=== PATIENT | male | born 1950 | race African-American/Black ===

== ENCOUNTER 2024-01-28 13:09 | Inpatient (IN) | payer MEDICARE, OTHER, SELFPAY ==
[2024-01-28] VITALS (7 sets, daily range): BP systolic 133–148; BP diastolic 72–99; PULSE 64–78; RESP 16–24; TEMP 36.2–36.3; O2SAT 95–100; BMI 23.1
--- NOTE | ~2024-01-28 | US_ITS ---
EXAMINATION: US ABDOMEN LIMITED CLINICAL INFORMATION: Abdominal pain, elevated LFTs.. COMPARISON: None available. TECHNIQUE: Real-time imaging of the right upper quadrant abdominal viscera. FINDINGS: PANCREAS: Normal. LIVER: The liver is normal in size. The liver contour is normal. Parenchymal echogenicity is normal. No focal hepatic lesion. There is no intrahepatic biliary duct dilatation seen. Small amount of ascites. GALLBLADDER: The gallbladder is physiologically distended. There is echogenic bile. No shadowing gallstones, wall thickening or pericholecystic fluid. COMMON BILE DUCT: Normal in caliber measuring 0.2 cm in diameter. RIGHT KIDNEY: Normal. No hydronephrosis. No renal calculi or focal parenchymal lesions. The kidney measures 9.8 cm in maximum dimension. FREE FLUID: None. US/US abdomen limited IMPRESSION: 1. Echogenic bile in the gallbladder.. No shadowing gallstones. No sonographic findings suggest acute cholecystitis. 2. Small amount of ascites.
--- NOTE | ~2024-01-28 | MR_ITS ---
EXAMINATION: MR ABDOMEN WITHOUT CONTRAST CLINICAL INFORMATION: Elevated LFTs. Abdominal pain. COMPARISON: 01/28/2024 TECHNIQUE: MR abdomen is performed without gadolinium contrast. Heavily T2 weighted MRCP sequences were also obtained. Evaluation is limited by the lack of intravenous contrast. FINDINGS: LUNG BASES: Small right pleural effusion. Cardiac enlargement. LIVER, GALLBLADDER, AND BILIARY TREE: Nodular surface contour of the liver. No biliary ductal dilatation is present. MRCP images are of limited diagnostic value. Layering sludge in the gallbladder. Small and ascites. PANCREAS: No ductal dilatation. SPLEEN: Not enlarged. ADRENAL GLANDS: No adrenal mass. KIDNEYS AND URETERS: The kidneys are symmetric in size. No hydronephrosis. GASTROINTESTINAL TRACT: No bowel obstruction. LYMPH NODES: No bulky lymphadenopathy. VASCULAR: Normal caliber abdominal aorta. ABDOMINAL WALL: Diffuse subcutaneous edema. MR/MR MRCP IMPRESSION: No biliary ductal dilatation is present. MRCP images are of limited diagnostic value. Nodular surface contour of the liver. This may represent chronic liver disease. Small ascites. Small right pleural effusion.
--- NOTE | ~2024-01-28 | XR_ITS ---
EXAMINATION: XR CHEST CLINICAL INFORMATION: Volume overload. COMPARISON: None available. TECHNIQUE: Frontal view of the chest was obtained. FINDINGS: Enlarged cardiomediastinal silhouette with diffuse interstitial thickening and subtle peripheral Gertrude B-lines. No dense consolidation, pleural effusion or pneumothorax. No acute osseous findings. Visualized upper abdomen is within normal limits. XR/XR chest 1V IMPRESSION: Enlarged cardiomediastinal silhouette with interstitial thickening and Gertrude B-lines most suggestive of pulmonary edema.
--- NOTE | ~2024-01-28 | CT_ITS ---
STUDY: Abdominal and pelvic CTA INDICATION: GI bleed COMPARISON: None TECHNIQUE: Continuous helical imaging obtained before and following administration of 80 mL Omnipaque 350. Reconstructed images performed in the coronal and sagittal planes. Maximum intensity projection images generated. FINDINGS: HANDLE BENDER: Nonobstructive bowel pattern. CTA: Atherosclerotic calcifications nonaneurysmal aorta and branch vessels. Celiac, superior and inferior mesenteric arteries are patent. Bilateral common, external and internal iliac arteries are patent. Bilateral common femoral, superficial femoral and profunda femoris arteries are patent. No extravasated intraluminal gastrointestinal contrast identified suggest active GI bleed at this time. Lower thorax: Nonenlarged heart. Supradiaphragmatic inferior vena cava is dilated. Bibasilar scarring/atelectasis. Hepatobiliary: Heterogeneous prominent low density liver. Gallbladder sludge versus vicarious contrast excretion into the gallbladder from previous contrast administration. Spleen, pancreas, adrenal glands and kidneys within normal limits. Gastrointestinal: Stomach is decompressed likely accounting for thick santiago. Nonobstructive bowel pattern. Right hemicolonic anastomotic suture line. Mild fecal retention. Peritoneum: Mild ascites. Urinary bladder is under distended and diffusely thick-walled. Pelvic organs: Unremarkable. Lymph nodes: No pathologic lymphadenopathy. Bones and soft tissues: Anasarca. L3-L4 disc space narrowing with vacuum disc. CT/CT gi bleed abd pel wo/w IVcon IMPRESSION: No CT evidence of active GI bleed. Cardiomegaly. Anasarca. Enlarged heterogeneous low density liver with ascites. Thick-walled urinary bladder, correlate with urinalysis.
--- NOTE | 2024-01-28 13:11 | ED_ITS ---
HPI - GI Bleed General Chief complaint: GI Bleed Stated complaint: RECTAL BLEEDING,+BLOOD THINNERS PER EMS Time Seen by Provider: 01/28/24 13:11 Source: patient and EMS Mode of arrival: EMS Limitations: no limitations History of Present Illness HPI Narrative: This is a 73-year-old man with a past medical history of atrial fibrillation/flutter (on Eliquis), CHF, insulin-dependent diabetes mellitus who presents by EMS for evaluation for red blood per rectum. He states that patient has had a ?sour stomach? for a few days. EMS reports that patient started having red blood per rectum on the day of presentation. EMS reports stable vital signs EN route. EMS reports the patient does take a blood thinning medication. The patient states that he has had generalized abdominal discomfort with loose for the last 3 days. He states noting red blood in the toilet bowl after stool. He states no melena. He states having a previous history of rectal bleeding in the setting of cancer. He says that he had his cancer removed with abdominal surgery. He states no syncope. He states no chest pain or dyspnea. Related Data Allergies Allergy/AdvReac Type Severity Reaction Status Date / Time aspirin Allergy Unknown Verified 01/28/24 14:16 diphenhydramine Allergy Unknown Verified 01/28/24 14:16 [From Benadryl] morphine Allergy Unknown Verified 01/28/24 14:16 Review of Systems 2 Review of Systems: ROS as per HPI [facility] Past Medical History Medical History (Updated 01/28/24 @ 19:55 by Jf Nelson MD) CKD (chronic kidney disease) Type 2 diabetes mellitus Hyperlipidemia Atrial flutter HFrEF (heart failure with reduced ejection fraction) Essential (primary) hypertension Social History Social History Smoked in Last 30 Days: No Use of substances other than those prescribed or required for medical reasons: No Advance Directives: No Advance Directives Information Provided: Yes Do you have a plan to hurt others: No Plan Physical Exam 2 Vital Signs: Vital Signs: Last Vital Signs Temp 97.4 F 01/28/24 14:00 Pulse 66 01/28/24 17:51 Resp 24 H 01/28/24 17:51 BP 138/92 H 01/28/24 17:53 Pulse Ox 97 01/28/24 17:51 O2 Del Method Room Air 01/28/24 14:00 BMI result Body Mass Index 23.1 Gen: NAD, AOx3 HEENT: NCAT, EOMI, normal conjunctiva CV: RRR Pulm: CTAB, no increased work of breathing GI: Soft, NT, mild generalized abdominal pain, no rebound, guarding or rigidity, negative [place] Neuro: Grossly non focal Medications Administered Discontinued Medications Generic Name Dose Route Start Last Admin Trade Name Anmolq PRN Reason Stop Dose Admin Lactated Ringer's 1,000 mls @ 999 mls/hr 01/28/24 13:43 01/28/24 15:15 Lr IV 01/28/24 14:43 Infused .Q1H1M ONE Infusion Iohexol 85 ml 01/28/24 15:53 01/28/24 15:53 Iohexol 350 Mg/Ml 100 Ml Infus..Btl IV 01/28/24 15:54 85 ml ONCE ONE Administration Medical Decision Making Medical Decision Making [facility] Narrative: Differential diagnosis includes, but is not limited to diverticulitis, diverticular bleeding, polyp, hemorrhoid, cholecystitis, cholelithiasis, colitis, malignancy. Patient is afebrile and hemodynamically stable on room air. Labs are notable for leukopenia with white blood cell count of 4.0, hemoglobin of 12.2 consistent with anemia (no previous for comparison), PTT 30.7, INR 2.5, PTT 42.3, BUN 52, creatinine 2.73 (BUN to creatinine ratio not suggestive of acute kidney injury), glucose 189 consistent with hyperglycemia, hyperbilirubinemia, AST 142, ALT 208, alkaline phosphatase 330. Urinalysis with glucosuria and no findings to suggest urinary tract infection. CT imaging demonstrating cardiomegaly, anasarca, enlarged heterogenous low- density liver with ascites, thick walled urinary bladder. Discussed patient's case with [employer]er [employer], Dr. Moore, at 1806 who recommends obtaining ultrasound study given transaminitis and hyperbilirubinemia. Ultrasound is ordered. Reviewed initial ultrasound results with CBD measuring 2mm. Thus, less likely acute obstructive process. Patient was admitted to the hospitalist Dr. Boss with formal ultrasound results pending for further work up and management with Gastroenterology consulting. Admission/Observation Consideration of admission/observation: Escalation of care including admission/observation considered Consult Healthcare Provider Management of the patient was discussed with: Shaft Repairer Discussed patient's case with [employer]er [employer], Dr. Moore, at 1806 who recommends obtaining ultrasound study given transaminitis and hyperbilirubinemia. Ultrasound is ordered. Lab Data MDM Lab Attestation statement: I reviewed the patient's lab results. 01/28/24 14:06 01/28/24 14:40 Labs: Lab Results 01/28/24 01/28/24 01/28/24 Range/Units 14:06 14:08 14:40 WBC 4.0 L (4.8-10.8) X10*3/uL RBC 4.08 L (4.60-5.80) X10*6/uL Hgb 12.2 L (14.0-18.0) g/dl Hct 37.6 L (42.0-52.0) % MCV 92.2 (80.0-98.0) fL MCH 29.9 (27.0-33.0) pg MCHC 32.4 (31.0-36.0) g/dl RDW 17.0 H (11.0-16.0) % Plt Count 175 (160-400) X10*3/uL MPV 11.8 (9.4-12.4) fL Immature Gran % (Auto) 0.2 (0.0-0.4) % Neut % (Auto) 67.3 (45-73) % Lymph % (Auto) 21.1 (20-40) % [place] % (Auto) 8.2 (2-11) % Eos % (Auto) 2.7 (0-4) % Baso % (Auto) 0.5 (0-2) % Lymph # (Auto) 0.9 L (1.2-4.9) X10*3/uL [place] # (Auto) 0.3 (0.1-1.2) X10*3/uL Eos # (Auto) 0.1 (0.0-0.4) X10*3/uL Baso # (Auto) 0.0 (0.0-0.2) X10*3/uL Abs Immat Gran (auto) 0.01 (0.00-0.03) X10*3/uL Absolute Neuts (auto) 2.7 (2.0-8.3) x10*3/uL Absolute Nucleated RBC 0.000 (0.0-0.012) X10*3/uL Nucleated RBC % (auto) 0.0 (0.0-0.2) /100WBC PT 30.7 H (11.1-13.3) SEC INR 2.5 H (0.9-1.1) APTT 42.3 H (26.0-36.8) SEC Sodium 145 (135-145) mmol/L Potassium 4.2 (3.3-5.1) mmol/L Chloride 104 (96-108) mmol/L Carbon Dioxide 31 H (22-29) mmol/L Anion Gap 14 (12-20) BUN 52 H (9-16) mg/dL Creatinine 2.73 H (0.5-1.4) mg/dL Estim Creat Clear Calc 22.0 Estimated GFR 23 Random Glucose 189 H (60-115) mg/dL Calcium 8.9 (8.4-10.2) mg/dL Total Bilirubin 2.4 H (0.0-1.0) mg/dL Direct Bilirubin 1.7 H (0.0-0.5) mg/dL AST 142 H (5-37) U/L ALT 208 H (0-40) U/L Alkaline Phosphatase 339 H (39-117) U/L Total Protein 7.7 (6.5-8.0) g/dL Albumin 3.4 L (3.5-5.0) g/dL Lipase 21 (8-78) U/L Urine Color Yellow Urine Appearance Clear Urine pH 5.0 (5.0-9.0) Ur Specific [place] 1.010 (1.005-1.025) Urine Protein Negative (Neg-Trace) mg/dL Urine Glucose (UA) 500 H (Negative) mg/dL Urine Ketones Negative (Negative) mg/dL Urine Blood Negative (Negative) Urine Nitrite Negative (Negative) Ur Leukocyte Esterase Negative (Negative) Blood Type A Positive Antibody Screen NEGATIVE Radiology Impression Discussion of test interpretation with radiology: I have reviewed the radiologist's reading. Radiologist Impression: CT gi bleed abd pel wo/w IVcon IMPRESSION: No CT evidence of active GI bleed. Cardiomegaly. Anasarca. Enlarged heterogeneous low density liver with ascites. Thick-walled urinary bladder, correlate with urinalysis. Dictated By: Aracely Guan MD Independent Historian Clinical information obtained from an independent historian. History obtained from or confirmed by: EMS EMS provides pre-hospital history as above in 'HPI' External Record Review External record reviewed: Outpatient record I reviewed patient's outside correction records Discharge Plan Discharge Clinical Impression: Acute lower gastrointestinal bleeding, Abnormal transaminases, Hyperbilirubinemia Print Language: Italian
[2024-01-28] MEDS: Lactated Ringers 1,000 ML 999 ML IV (14:09)
[2024-01-28 14:15] LABS: MANUAL DIFF FLAG NO
[2024-01-28 14:20] LABS: Basophils Percent Auto 0.5 % (0-2); Eosinophils Absolute Auto 0.1 X10*3/uL (0.0-0.4); Eosinophils Percent Auto 2.7 % (0-4); Hematocrit 37.6 % (42.0-52.0); Hemoglobin 12.2 g/dl (14.0-18.0); Imm Gran Abs Auto 0.01 X10*3/uL (0.00-0.03); Imm Gran Pct Auto 0.2 % (0.0-0.4); Lymphocytes Absolute Auto 0.9 X10*3/uL (1.2-4.9); Lymphocytes Percent Auto 21.1 % (20-40); Mean Corpuscular HGB Conc 32.4 g/dl (31.0-36.0); Mean Corpuscular Hemoglobin 29.9 pg (27.0-33.0); Mean Corpuscular Volume 92.2 fL (80.0-98.0); Mean Platelet Volume 11.8 fL (9.4-12.4); Monocytes Absolute Auto 0.3 X10*3/uL (0.1-1.2); Monocytes Percent Auto 8.2 % (2-11); Neutrophils Absolute Auto 2.7 x10*3/uL (2.0-8.3); Neutrophils Percent Auto 67.3 % (45-73); Platelet Count 175 X10*3/uL (160-400); Red Blood Count 4.08 X10*6/uL (4.60-5.80)
[2024-01-28 14:22] LABS: Appearance Urine Clear; Color Urine Yellow; Glucose Urine UA 500 mg/dL (Negative); Leukocyte Esterase Urine Negative (Negative); Nitrite Urine Negative (Negative); Urine Blood Negative (Negative); Urine Ketones Negative (Negative); Urine Protein Negative (Neg-Trace)
[2024-01-28 14:26] LABS: Partial Thromboplastin Time 42.3 SEC (26.0-36.8)
[2024-01-28 15:01] LABS: Alanine Aminotransferase 208 U/L (0-40); Albumin Level 3.4 g/dL (3.5-5.0); Alkaline Phosphatase 339 U/L (39-117); Anion Gap 14 (12-20); Aspartate Amino Transferase 142 U/L (5-37); Bilirubin Total 2.4 mg/dL (0.0-1.0); Blood Urea Nitrogen 52 mg/dL (9-16); Calcium 8.9 mg/dL (8.4-10.2); Carbon Dioxide 31 mmol/L (22-29); Chloride 104 mmol/L (96-108); Estimated Glomerular Filt Rate 23; Glucose Random 189 mg/dL (60-115); Lipase 21 U/L (8-78); Potassium 4.2 mmol/L (3.3-5.1); Sodium 145 mmol/L (135-145); Total Protein 7.7 g/dL (6.5-8.0)
--- NOTE | 2024-01-28 15:04 | PC.NURSE ---
Attempted to call [facility] for paperwork for patient, , no answer will call again in half hour
[2024-01-28 15:51] LABS: INTERNATIONAL NORM RATIO 2.5 (0.9-1.1); Prothrombin Time 30.7 SEC (11.1-13.3)
[2024-01-28] MEDS: iohexoL 350 MG/ML 100 ML INFUS..BTL 85 ML IV (15:53)
[2024-01-28 16:57] LABS: Bilirubin Direct 1.7 mg/dL (0.0-0.5)
--- NOTE | 2024-01-28 18:14 | PC.NURSE ---
Patient's sister Elda [facility] # [phone]
[2024-01-28] MEDS: Pantoprazole Sodium 40 MG/10 ML VIAL 80 MG IVPUSH (20:01)
--- NOTE | 2024-01-28 20:13 | PHA.MEDREC ---
Pharmacy Consult ? Medication Reconciliation Pharmacy has completed the medication reconciliation. Patient from [facility] with med list. Wen Asher, ElinD
--- NOTE | 2024-01-28 20:59 | P.HPHOSP_ITS ---
History of Present Illness Date of Service: 01/28/24 Attending physician on admission: Roseann Dye Chief Complaint: BRBPR 73-year-old male with history of CKD stage 4, paroxysmal atrial flutter anticoagulated with Eliquis on amiodarone, hypertension, mitral valve regurgitation, insulin-dependent type 2 diabetes, cardiomyopathy, heart failure with severely reduced ejection fraction EF 10-15%, history of colon cancer s/p resection (about 10 years ago per pt @[facility]- records requested) presented to the ED earlier today for evaluation of bright red blood per rectum that started this morning. He reports he has had generalized abdominal discomfort but no severe pain ongoing for 3 days. Over the last 3 days he has also had about 6-7 episodes of watery diarrhea on a daily basis. He states had may have consumed bad salad/dressing about 1 day prior to onset of symptoms. Denies any sick contacts, recent travel, or antibiotic use. He currently resides at a rehab facility following hospitalization at [facility] about 2 months ago for CHF exacerbation. He states during the hospitalization he was also diagnosed with gastric ulcer but has not had any nausea, vomiting, hematemesis, melena. He is also reporting tremors in the hands bilaterally which is different from baseline. No EtOH use, illicit drug use. Remote smoker who quit about 10 years ago with 10 pack-year history. Reports last colonoscopy was about 5 years ago with normal findings. On arrival to the ER, vitals stable. No hypotension. He is mild leukopenia 4.0. H/H 12.2/37.6% (baseline around 13.5/41.4% at [facility] 11/30). Creatinine 2.73, consistent with baseline, BUN 52. Electrolyte levels normal. Total bilirubin 2.4, direct bilirubin 1.7 (baseline 1.8 and 0.9 respectively). AST 142, ALT 208, baseline 88 in [address]. [address] shows cardiomegaly and anasarca with enlarged heterogenous low-density liver with ascites. Abdominal ultrasound shows echogenic bile in the gallbladder but no shadowing gallstones or findings to suggest cholecystitis. There is a small amount of ascites. In the ED has received 1 L IV LR, 80 mg pantoprazole. Review of Systems 2 Review of Systems: General: No fevers, malaise, unintentional weight loss HEENT: No blurred vision, diplopia. No sore throat, nasal congestion, rhinorrhea, sinus pain, ear pain Cardiovascular: No chest pain, palpitations, or leg edema Respiratory: No shortness of breath, wheezing, cough GI: +BRBPR, +diarrhea. No abdominal pain, nausea, vomiting, constipation, melena : No dysuria, hematuria, increased urinary frequency, decreased urinary output MSK: No myalgia, back pain Neuro: No headaches, weakness, paresthesias. +tremors Skin: No rashes or lesions [facility] Medical History CKD (chronic kidney disease) Type 2 diabetes mellitus Hyperlipidemia Atrial flutter HFrEF (heart failure with reduced ejection fraction) Essential (primary) hypertension Social History Smoked in Last 30 Days: No Use of substances other than those prescribed or required for medical reasons: No Advance Directives: No Advance Directives Information Provided: Yes Do you have a plan to hurt others: No Plan Meds Allergies Allergy/AdvReac Type Severity Reaction Status Date / Time aspirin Allergy Unknown Verified 01/28/24 14:16 diphenhydramine Allergy Unknown Verified 01/28/24 14:16 [From Benadryl] morphine Allergy Unknown Verified 01/28/24 14:16 Active Medications: Current Medications Acetaminophen (Acetaminophen 325 Mg Tablet) 650 mg PO Q6H PRN PRN Reason: Pain, Mild (Pain Scale 1-3) Ondansetron HCl (Ondansetron Hcl 4 Mg/2 Ml Vial) 4 mg IVPUSH Q8H PRN PRN Reason: Nausea and Vomiting Pantoprazole Sodium (Pantoprazole Sodium 40 Mg/10 Ml Vial) 40 mg IVPUSH BID@0630,1630 [facility] Senna (Sennosides 8.6 Mg Tablet) 17.2 mg PO BEDTIME PRN PRN Reason: Constipation Sodium Chloride (0.9 % Sodium Chloride Flush 3 Ml Syringe) 3 ml IVFLUSH QSHIFT [facility] Home Medications ?Medication ?Instructions ?Recorded ?Confirmed ?Last Taken ?Type acetaminophen 325 mg tablet 650 mg PO Q4H PRN pain/fever 01/28/24 01/28/24 Unknown History amiodarone 200 mg tablet 200 mg PO DAILY 01/28/24 01/28/24 Unknown History ammonium lactate 12 % topical cream 1 appl topical BID 01/28/24 01/28/24 Unknown History apixaban 5 mg tablet (Eliquis) 5 mg PO BID 01/28/24 01/28/24 Unknown History atorvastatin 10 mg tablet 10 mg PO BEDTIME 01/28/24 01/28/24 Unknown History dapagliflozin propanediol 10 mg 10 mg PO DAILY 01/28/24 01/28/24 Unknown History tablet (Farxiga) ferrous sulfate 325 mg (65 mg 325 mg PO MOWEFR 01/28/24 01/28/24 Unknown History iron) tablet gabapentin 100 mg capsule 200 mg PO TID 01/28/24 01/28/24 Unknown History insulin glargine-yfgn 100 unit/mL 7 unit subcut DAILY 01/28/24 01/28/24 Unknown History (3 mL) subcutaneous pen insulin lispro 100 unit/mL 0 sliding scale dose subcut TIDAC 01/28/24 01/28/24 Unknown History subcutaneous pen (Humalog KwikPen (U-100) Insulin) lactulose 10 gram/15 mL oral 30 ml PO DAILY 01/28/24 01/28/24 Unknown History solution lactulose 10 gram/15 mL oral 30 ml PO Q12H PRN Constipation 01/28/24 01/28/24 Unknown History solution lidocaine 4 % topical patch 1 patch topical DAILY left hip 01/28/24 01/28/24 Unknown History loratadine 10 mg tablet 10 mg PO DAILY PRN Itching 01/28/24 01/28/24 Unknown History metolazone 2.5 mg tablet 2.5 mg PO Q48H PRN volume overload 01/28/24 01/28/24 Unknown History metolazone 2.5 mg tablet 2.5 mg PO TU 01/28/24 01/28/24 Unknown History omeprazole 20 mg capsule,delayed 20 mg PO DAILY 01/28/24 01/28/24 Unknown History release potassium chloride 20 mEq 20 meq PO TID 01/28/24 01/28/24 Unknown History tablet,extended release sacubitril 24 mg-valsartan 26 mg 1 tab PO BID 01/28/24 01/28/24 Unknown History tablet (Entresto) sennosides 8.6 mg tablet (senna) 17.2 mg PO DAILY 01/28/24 01/28/24 Unknown History simethicone 80 mg chewable tablet 160 mg PO Q8H PRN Dyspepsia 01/28/24 01/28/24 Unknown History sodium chloride 0.65 % nasal spray 2 spray intranasal Q6H PRN 01/28/24 01/28/24 Unknown History aerosol (Saline Nasal) Congestion torsemide 20 mg tablet 80 mg PO DAILY 01/28/24 01/28/24 Unknown History Physical Exam 2 Vital Signs and Narrative: Vital Signs: Last Vital Signs Temp 97.4 F 01/28/24 14:00 Pulse 66 01/28/24 17:51 Resp 24 H 01/28/24 17:51 BP 138/92 H 01/28/24 17:53 Pulse Ox 97 01/28/24 17:51 O2 Del Method Room Air 01/28/24 14:00 BMI result Body Mass Index 23.1 Constitutional - Awake and Alert, No apparent distress Eyes - PERRLA, EOMI Cardiovascular - S1S2, RRR, 2+ ble edema Respiratory - Normal lung expansion, Normal respiratory effort, No respiratory distress, CTA bilaterally Gastrointestinal - NT / ND; +BS; No rebound or guarding. No asterixis Extremities - no calf tenderness bilaterally, no swelling Skin - Warm/Dry Neurological - Alert & oriented x3, CN II-XII in tact. +tremors bl hands Psychological - Appropriate affect Results Labs 01/28/24 14:06 01/28/24 14:40 Labs: Laboratory Results - last 24 hr 01/28/24 01/28/24 01/28/24 14:06 14:08 14:40 MCV 92.2 MCH 29.9 MCHC 32.4 RDW 17.0 H Plt Count 175 MPV 11.8 Immature Gran % (Auto) 0.2 Neut % (Auto) 67.3 Lymph % (Auto) 21.1 [place] % (Auto) 8.2 Eos % (Auto) 2.7 Baso % (Auto) 0.5 Lymph # (Auto) 0.9 L [place] # (Auto) 0.3 Eos # (Auto) 0.1 Baso # (Auto) 0.0 Abs Immat Gran (auto) 0.01 Absolute Neuts (auto) 2.7 Absolute Nucleated RBC 0.000 Nucleated RBC % (auto) 0.0 PT 30.7 H INR 2.5 H APTT 42.3 H Anion Gap 14 Estim Creat Clear Calc 22.0 Estimated GFR 23 Random Glucose 189 H Calcium 8.9 Total Bilirubin 2.4 H Direct Bilirubin 1.7 H AST 142 H ALT 208 H Alkaline Phosphatase 339 H Total Protein 7.7 Albumin 3.4 L Lipase 21 Urine Color Yellow Urine Appearance Clear Urine pH 5.0 Ur Specific [place] 1.010 Urine Protein Negative Urine Glucose (UA) 500 H Urine Ketones Negative Urine Blood Negative Urine Nitrite Negative Ur Leukocyte Esterase Negative Blood Type A Positive Antibody Screen NEGATIVE Imaging Radiologist's Impressions: Impressions Abdomen/Pelvis CT 01/28/24 16:10 IMPRESSION: No CT evidence of active GI bleed. Cardiomegaly. Anasarca. Enlarged heterogeneous low density liver with ascites. Thick-walled urinary bladder, correlate with urinalysis. Abdomen Ultrasound 01/28/24 19:00 IMPRESSION: 1. Echogenic bile in the gallbladder.. No shadowing gallstones. No sonographic findings suggest acute cholecystitis. 2. Small amount of ascites. Assessment and Plan (1) Hyperbilirubinemia: Status: Acute (2) Abnormal transaminases: Status: Acute (3) Acute lower gastrointestinal bleeding: Status: Acute (4) Acute diarrhea: Status: Acute Plan 73-year-old male with history of CKD stage 4, paroxysmal atrial flutter anticoagulated with Eliquis on amiodarone, hypertension, mitral valve regurgitation, insulin-dependent type 2 diabetes, cardiomyopathy, heart failure with severely reduced ejection fraction EF 10-15%, history of colon cancer s/p resection (about 10 years ago per pt @[facility]- records requested) admitted for further management of GI bleed with elevated LFTs of unclear significance. #GI bleed -No significant anemia, mild normocytic anemia with H/H 12.2/37.6%, above transfusion threshold -Stool occult blood positive -CT abdomen/pelvis negative for any evidence of active bleeding -continue IV PPI -clear liquid diet, NPO after midnight for probable an MRCP (see below) -gastroenterology consult -hold Eliquis -follow H/H # elevated LFTs -etiology unclear at this time -total bilirubin 2.4, direct bilirubin 1.7, AST 142, ALT 208 -CT abdomen/pelvis shows enlarged heterogenous low-density liver with ascites with subsequent abdominal ultrasound showing small amount of ascites, echogenic bile in the gallbladder but no shadowing gallstones or acute cholecystitis. CBD measures 0.2 cm in diameter -Lasix 20 mg x 1 due to ascites/anasarca -check ammonia level -keep NPO after midnight, MRCP a.m. -gastroenterology consult -follow LFTs # acute diarrhea -GI panel and C diff PCR pending -clear liquid diet -hold lactulose # paroxysmal atrial flutter/fib-rate controlled on admission -hold Eliquis due to above -continue amiodarone # heart failure reduced ejection fraction/cm -anasarca noted on CT abdomen/pelvis but no dyspnea/orthopnea -CXR and BNP ordered -severely reduced EF 10-15% -give Lasix 20 mg x 1 as above. continue torsemide, metolazone, Entresto, Farxiga # insulin-dependent type 2 diabetes without hyperglycemia -dose adjust basal insulin -POC glucose, advanced to diabetic diet -Admelog on sliding scale # hypertension -blood pressure reasonably controlled -continue Entresto, torsemide # CKD stage 4 -renal function baseline DVT prophylaxis- [facility] Full code Healthcare proxy- sonTim [phone] Patient requires inpatient stay at least 2 midnights for management of acute diarrhea with GI bleed requiring IV PPI, expert consultation, close monitoring of blood counts as well as further investigation into elevated LFTs of unclear significance Quality Stroke Does the patient have a stroke diagnosis?: No VTE Prior VTE?: No VTE Risk Level:: Medical - moderate - high VTE Device Contraindication: N/A - Device Ordered VTE Drug Contraindication: Treatment Not Indicated
[2024-01-28 21:30] LABS: Glucose, Whole Blood 94 mg/dL (60-115)
[2024-01-28] MEDS: Potassium Chloride ER 20 MEQ TAB.ER.PRT PO (21:45)
[2024-01-28] MEDS: Atorvastatin Calcium 10 MG TABLET PO (21:46)
[2024-01-28] MEDS: Gabapentin 100 MG CAPSULE 200 MG PO (21:46)
[2024-01-28] MEDS: Furosemide 20 MG/2 ML VIAL IVPUSH (21:46)
[2024-01-28 22:20] LABS: Ammonia 20 umol/L (13-55)
[2024-01-28] MEDS: Ammonium Lactate 12 % Cream 140 GM TUBE 1 APPL TOPICAL (22:23)
[2024-01-28] MEDS: Sacubitril/Valsartan 24/26 1 TAB TABLET PO (22:23)
[2024-01-28 22:32] LABS: B Type Natriuretic Peptide 4227 pg/mL (<100)
--- NOTE | 2024-01-28 22:33 | PC.NURSE ---
Patient to be admitted to hospital, pm meds given per dec, patient POC 95, given jello and water, on clears until midnight for MRCP in AM/
[2024-01-29] VITALS (10 sets, daily range): BP systolic 137–148; BP diastolic 64–81; PULSE 56–68; RESP 12–20; TEMP 36.2–37.1; O2SAT 97–100
[2024-01-29] MEDS: 0.9 % Sodium Chloride Flush 3 ML SYRINGE IVFLUSH ×3 (01:16→15:29)
--- NOTE | 2024-01-29 04:40 | PC.NURSE ---
late entry- assumed care of pt at 2300, pt resting in stretcher, no acute distress noted, vss. pt normal sinus on tele 60-62bpm.
[2024-01-29 05:28] LABS: MANUAL DIFF FLAG NO
[2024-01-29 05:31] LABS: Basophils Percent Auto 0.9 % (0-2); Eosinophils Absolute Auto 0.1 X10*3/uL (0.0-0.4); Eosinophils Percent Auto 3.7 % (0-4); Hematocrit 35.9 % (42.0-52.0); Hemoglobin 11.8 g/dl (14.0-18.0); Imm Gran Abs Auto 0.01 X10*3/uL (0.00-0.03); Imm Gran Pct Auto 0.3 % (0.0-0.4); Lymphocytes Absolute Auto 0.8 X10*3/uL (1.2-4.9); Lymphocytes Percent Auto 23.6 % (20-40); Mean Corpuscular HGB Conc 32.9 g/dl (31.0-36.0); Mean Corpuscular Hemoglobin 30.2 pg (27.0-33.0); Mean Corpuscular Volume 91.8 fL (80.0-98.0); Mean Platelet Volume 11.2 fL (9.4-12.4); Monocytes Absolute Auto 0.3 X10*3/uL (0.1-1.2); Monocytes Percent Auto 8.5 % (2-11); Neutrophils Absolute Auto 2.2 x10*3/uL (2.0-8.3); Platelet Count 150 X10*3/uL (160-400); Red Blood Count 3.91 X10*6/uL (4.60-5.80); Red Cell Distribution Width 16.9 % (11.0-16.0); White Blood Count 3.5 X10*3/uL (4.8-10.8)
[2024-01-29 06:05] LABS: Alanine Aminotransferase 186 U/L (0-40); Albumin Level 3.3 g/dL (3.5-5.0); Alkaline Phosphatase 312 U/L (39-117); Anion Gap 14 (12-20); Aspartate Amino Transferase 116 U/L (5-37); Bilirubin Direct 1.4 mg/dL (0.0-0.5); Bilirubin Total 2.2 mg/dL (0.0-1.0); Blood Urea Nitrogen 45 mg/dL (9-16); Calcium 8.8 mg/dL (8.4-10.2); Carbon Dioxide 30 mmol/L (22-29); Chloride 103 mmol/L (96-108); Creatinine Clr Calc Pharmacy 24.7; Estimated Glomerular Filt Rate 26; Glucose Random 106 mg/dL (60-115); Potassium 2.9 mmol/L (3.3-5.1); Sodium 144 mmol/L (135-145); Total Protein 7.2 g/dL (6.5-8.0)
[2024-01-29] MEDS: Pantoprazole Sodium 40 MG/10 ML VIAL IVPUSH ×2 (06:38→15:29)
[2024-01-29 07:38] LABS: Glucose, Whole Blood 101 mg/dL (60-115)
[2024-01-29] MEDS: Potassium Chloride/H20 10 MEQ/100 ML PIGGYBACK 100 MEQ IV ×2 (09:01→10:01)
[2024-01-29] MEDS: Ferrous Sulfate 324 MG TABLET.DR PO (09:04)
[2024-01-29] MEDS: Potassium Chloride ER 20 MEQ TAB.ER.PRT PO ×3 (09:04→22:12)
[2024-01-29] MEDS: Gabapentin 100 MG CAPSULE 200 MG PO ×3 (09:04→22:12)
[2024-01-29] MEDS: Amiodarone HCL 200 MG TABLET PO (09:04)
--- NOTE | 2024-01-29 09:17 | PC.NURSE ---
called pharmacy for meds not available in pyxis
--- NOTE | 2024-01-29 09:19 | PC.NURSE ---
pt creatinine2.43 and potassium dropped from yesterday to critical level of 2.9. tger connect sent to [facility] r/t giving Torsemide - plan to hold at this time.
--- NOTE | 2024-01-29 09:27 | PM.GICN ---
History of Present Illness Data of Consult Service Date: 01/29/24 Requesting physician: Erika Wilde Primary Care Provider: Unknown Physician HPI Reason for consult: abn LFt, rectal bleeding 73-year-old male with history of CKD stage 4, paroxysmal atrial flutter anticoagulated with Eliquis on amiodarone, hypertension, mitral valve regurgitation, insulin-dependent type 2 diabetes, cardiomyopathy, heart failure with EF 10-15%, history of colon cancer s/p resection (about 10 years ago) who I am seeing for abn LFT and rectal bleeding. he initially presented with 3d hx of v mild generalized abdominal discomfort with many episodes of watery diarrhea with blood noted only on wiping. He may have ate some bad salad or dressing the day before this. He denies sick contacts, recent travel, or antibiotic use. Reports last colonoscopy was about 5 years ago with normal findings. Of note per my review of remote access to [facility] chart he was admitted 11/2023 with CHF exacerabation and cardio renal syndrome. At that time he was noted to have abn LFT and this was thought to be due to congestive hepatopathy Imaging with CTA was neg for acute bleeding, CXR with pul congestion, labs with BNP >2000. US revealed echogenic bile, no stones, or cholecystitis. Since admission he denies any further discomfort and no further diarrhea or blood Review of Systems Review of Systems: Constitutional : No Weight loss, No Fever, No Chills ENT/Mouth : No sore throat, No Rhinorrhea Eyes: No Swelling, No Redness Cardiovascular : No Chest Pain, No SOB, No Edema Respiratory : No Cough, No Sputum, No Wheezing Gastrointestinal : see HPI Genitourinary : NO Dysuria, No Urinary Frequency, No Hematuria, No Urgency Musculoskeletal : + joint pain, No Myalgias, No Joint Swelling Skin : No Skin Lesions, No rash Neuro : No Weakness, No Numbness, No Dizziness, No Headache Psych : No Anxiety/Panic, No Depression Heme/Lymph: No Bruising, No Lymphadenopathy Endocrine : No Polyuria, No Polydipsia All other systems reviewed and are negative. [facility] Past Medical History Medical History CKD (chronic kidney disease) Type 2 diabetes mellitus Hyperlipidemia Atrial flutter HFrEF (heart failure with reduced ejection fraction) Essential (primary) hypertension Family History Pertinent family history: no Fh of liver disease Social History Social History Housing: Prison Do you presently have visiting nurse or other home services: Yes (COMES FROM REH[facility]) Patient Tobacco Use Status: Never used Tobacco Smoked in Last 30 Days: No Patient Given Instructions on How to Stop Smoking: No Use of substances other than those prescribed or required for medical reasons: No Currently Displaying Signs/Symptoms of Drug Intoxication Withdrawal: No Any prior treatment program specific to substance use: No Have you been hit, kicked, punched, or otherwise hurt by someone within the past year? If so, by whom?: No Do you feel safe in your current relationship?: No Current Relationship Is there a partner from a previous relationship who is making you feel unsafe now?: No Are you made to feel afraid or neglected: No Advance Directives: No Advance Directives Information Provided: Yes Do you have a plan to hurt others: No Plan Recently lost weight without trying: Unsure Nutrition Risks: No Nutritional Risk Poor oral hygiene: No service: No Meds Allergies Allergy/AdvReac Type Severity Reaction Status Date / Time aspirin Allergy Unknown Verified 01/28/24 14:16 diphenhydramine Allergy Unknown Verified 01/28/24 14:16 [From Benadryl] morphine Allergy Unknown Verified 01/28/24 14:16 Active Medications: Current Medications Acetaminophen (Acetaminophen 325 Mg Tablet) 650 mg PO Q6H PRN PRN Reason: Pain, Mild (Pain Scale 1-3) Amiodarone HCl (Amiodarone Hcl 200 Mg Tablet) 200 mg PO DAILY [facility] Last Admin: 01/29/24 09:04 Dose: 200 mg Atorvastatin Calcium (Atorvastatin Calcium 10 Mg Tablet) 10 mg PO BEDTIME [facility] Last Admin: 01/28/24 21:46 Dose: 10 mg Empagliflozin (Empagliflozin 10 Mg Tablet) 10 mg PO DAILY [facility] Ferrous Sulfate (Ferrous Sulfate 324 Mg Tablet.) 324 mg PO MoWeFr@0900 [facility] Last Admin: 01/29/24 09:04 Dose: 324 mg Gabapentin (Gabapentin 100 Mg Capsule) 200 mg PO TID [facility] Last Admin: 01/29/24 09:04 Dose: 200 mg Glucose (Glucose Gel 15 Gm Gel..Gram.) 15 gm PO Q15M PRN; Protocol PRN Reason: per Hypoglycemia Standing Ord. Dextrose (D10) 250 mls @ 750 mls/hr IV Q15M PRN; Protocol PRN Reason: per Hypoglycemia Standing Ord. Potassium Chloride (Potassium Chloride/H20) 10 meq in 100 mls @ 100 mls/hr IV Q1H [facility] Stop: 01/29/24 10:14 Last Admin: 01/29/24 09:01 Dose: 100 mls/hr Insulin Glargine (Insulin Glargine,Hum.Rec.Anlog 100 Unit/Ml 10 Ml Vial) 5 unit SUBCUT DAILY [facility] Last Admin: 01/29/24 09:03 Dose: Not Given Insulin Human Lispro (Insulin Lispro 100 Unit/Ml 3 Ml Vial) 0 unit SUBCUT QIDACHS [facility]; Protocol Last Admin: 01/29/24 08:22 Dose: Not Given Lactic Acid (Ammonium Lactate 12 % Cream 140 Gm Tube) 1 appl TOPICAL BID [facility]; Protocol Last Admin: 01/29/24 09:11 Dose: Not Given Lidocaine (Lidocaine 4 % Patch Adh..Patch) 1 patch TRANSDERMA DAILY [facility]; Protocol Last Admin: 01/29/24 09:11 Dose: Not Given Loratadine (Loratadine 10 Mg Tablet) 10 mg PO DAILY PRN PRN Reason: Itching Metolazone (Metolazone 2.5 Mg Tablet) 2.5 mg PO Q48H PRN PRN Reason: volume overload Metolazone (Metolazone 2.5 Mg Tablet) 2.5 mg PO Tu@0900 [facility] Ondansetron HCl (Ondansetron Hcl 4 Mg/2 Ml Vial) 4 mg IVPUSH Q8H PRN PRN Reason: Nausea and Vomiting Pantoprazole Sodium (Pantoprazole Sodium 40 Mg/10 Ml Vial) 40 mg IVPUSH BID@0630,1630 [facility] Last Admin: 01/29/24 06:38 Dose: 40 mg Potassium Chloride (Potassium Chloride Er 20 Meq Tab.Er.Prt) 20 meq PO TID [facility] Last Admin: 01/29/24 09:04 Dose: 20 meq Sacubitril/Valsartan (Sacubitril/Valsartan 1 Tab Tablet) 1 tab PO BID [facility]; Protocol Last Admin: 01/28/24 22:23 Dose: 1 tab Senna (Sennosides 8.6 Mg Tablet) 17.2 mg PO BEDTIME PRN PRN Reason: Constipation Senna (Sennosides 8.6 Mg Tablet) 17.2 mg PO DAILY [facility] Last Admin: 01/29/24 09:07 Dose: Not Given Simethicone (Simethicone 80 Mg Tab.Chew) 160 mg PO Q8H PRN PRN Reason: Dyspepsia Sodium Chloride (0.9 % Sodium Chloride Flush 3 Ml Syringe) 3 ml IVFLUSH QSHIFT [facility] Last Admin: 01/29/24 08:22 Dose: 3 ml Sodium Chloride (Sodium Chloride 0.65 % Nasal 44 Ml Sprbtl) 2 spray NOSTRIL-B Q6H PRN PRN Reason: Congestion Torsemide (Torsemide 20 Mg Tablet) 80 mg PO DAILY [facility]; Protocol Last Admin: 01/29/24 09:18 Dose: Not Given Home Medications ?Medication ?Instructions ?Recorded ?Confirmed ?Last Taken ?Type acetaminophen 325 mg tablet 650 mg PO Q4H PRN pain/fever 01/28/24 01/28/24 Unknown History amiodarone 200 mg tablet 200 mg PO DAILY 01/28/24 01/28/24 Unknown History ammonium lactate 12 % topical cream 1 appl topical BID 01/28/24 01/28/24 Unknown History apixaban 5 mg tablet (Eliquis) 5 mg PO BID 01/28/24 01/28/24 Unknown History atorvastatin 10 mg tablet 10 mg PO BEDTIME 01/28/24 01/28/24 Unknown History dapagliflozin propanediol 10 mg 10 mg PO DAILY 01/28/24 01/28/24 Unknown History tablet (Farxiga) ferrous sulfate 325 mg (65 mg 325 mg PO MOWEFR 01/28/24 01/28/24 Unknown History iron) tablet gabapentin 100 mg capsule 200 mg PO TID 01/28/24 01/28/24 Unknown History insulin glargine-yfgn 100 unit/mL 7 unit subcut DAILY 01/28/24 01/28/24 Unknown History (3 mL) subcutaneous pen insulin lispro 100 unit/mL 0 sliding scale dose subcut TIDAC 01/28/24 01/28/24 Unknown History subcutaneous pen (Humalog KwikPen (U-100) Insulin) lactulose 10 gram/15 mL oral 30 ml PO DAILY 01/28/24 01/28/24 Unknown History solution lactulose 10 gram/15 mL oral 30 ml PO Q12H PRN Constipation 01/28/24 01/28/24 Unknown History solution lidocaine 4 % topical patch 1 patch topical DAILY left hip 01/28/24 01/28/24 Unknown History loratadine 10 mg tablet 10 mg PO DAILY PRN Itching 01/28/24 01/28/24 Unknown History metolazone 2.5 mg tablet 2.5 mg PO Q48H PRN volume overload 01/28/24 01/28/24 Unknown History metolazone 2.5 mg tablet 2.5 mg PO TU 01/28/24 01/28/24 Unknown History omeprazole 20 mg capsule,delayed 20 mg PO DAILY 01/28/24 01/28/24 Unknown History release potassium chloride 20 mEq 20 meq PO TID 01/28/24 01/28/24 Unknown History tablet,extended release sacubitril 24 mg-valsartan 26 mg 1 tab PO BID 01/28/24 01/28/24 Unknown History tablet (Entresto) sennosides 8.6 mg tablet (senna) 17.2 mg PO DAILY 01/28/24 01/28/24 Unknown History simethicone 80 mg chewable tablet 160 mg PO Q8H PRN Dyspepsia 01/28/24 01/28/24 Unknown History sodium chloride 0.65 % nasal spray 2 spray intranasal Q6H PRN 01/28/24 01/28/24 Unknown History aerosol (Saline Nasal) Congestion torsemide 20 mg tablet 80 mg PO DAILY 01/28/24 01/28/24 Unknown History Physical Exam Vital Signs: Vital Signs: Last Vital Signs Temp 97.6 F 01/29/24 03:44 Pulse 67 01/29/24 08:53 Resp 12 01/29/24 08:53 BP 140/70 H 01/29/24 08:53 Pulse Ox 99 01/29/24 08:53 O2 Del Method Room Air 01/29/24 08:53 BMI result Body Mass Index 23.1 EXAM: GENERAL: The patient is thin and frail VITAL SIGNS:see workflow HEENT: Nonicteric sclerae, PERRLA, EOMI. Oropharynx clear. Moist mucous membranes. Conjunctivae appear well perfused. No thyroid mass. NO raised JVP CHEST: Chest wall is nontender. HEART: Regular rate and rhythm without murmurs. LUNGS: Clear to auscultation bilaterally. ABDOMEN: Soft, positive bowel sounds, nontender, no organomegaly.no flank tenderness rectal exam- no blood, no masses, SKIN: No rash, no excessive bruising, petechiae, or purpura. NEUROLOGIC: Cranial nerves II-XII intact without motor/sensory deficit. Psych: normal affect No peripheral edema Results Labs 01/29/24 04:50 01/29/24 04:50 Labs: Short CBC 01/28/24 01/29/24 Range/Units 14:06 04:50 WBC 4.0 L 3.5 L (4.8-10.8) X10*3/uL Hgb 12.2 L 11.8 L (14.0-18.0) g/dl Hct 37.6 L 35.9 L (42.0-52.0) % Plt Count 175 150 L (160-400) X10*3/uL BMP 01/28/24 01/29/24 14:40 04:50 Sodium 145 144 Potassium 4.2 2.9 L* D Chloride 104 103 Carbon Dioxide 31 H 30 H BUN 52 H 45 H Creatinine 2.73 H 2.43 H Calcium 8.9 8.8 Liver Function 01/28/24 01/29/24 Range/Units 14:40 04:50 Total Bilirubin 2.4 H 2.2 H (0.0-1.0) mg/dL Direct Bilirubin 1.7 H 1.4 H (0.0-0.5) mg/dL AST 142 H 116 H (5-37) U/L ALT 208 H 186 H (0-40) U/L Alkaline Phosphatase 339 H 312 H (39-117) U/L Albumin 3.4 L 3.3 L (3.5-5.0) g/dL Urine 01/28/24 Range/Units 14:08 Urine Color Yellow Urine Appearance Clear Urine pH 5.0 (5.0-9.0) Ur Specific [place] 1.010 (1.005-1.025) Urine Protein Negative (Neg-Trace) mg/dL Urine Glucose (UA) 500 H (Negative) mg/dL Imaging MRI - abdomen: Attestation: I personally reviewed and interpreted this imaging study as follows: (nml cbd, pd, no liver masses) Assessment and Plan (1) Abnormal LFTs: Status: Acute (2) Rectal bleeding: Status: Acute Plan 1/ Inspite the high BNP he does not appear clinically to be in CHF, with no raised JVp, crackles or peripheral edema, Abn LFT could also be due to medications lam amiodarone 2/ Rectal bleeding, clincially most consistent w/ hemorrhoidal bleed--rectal exam neg for blood, pasty stool noted,. PLAN: 1/ Monitor LFT, check Hep A,B, C status, Tesfaye level, CESAR, ANCA, Igg, SMA, Alpha 1, ferritin, celiac serology 2/ sigmoidoscopy, no anesthesia Procedures Date of Service Date of Service: 01/30/24
[2024-01-29] MEDS: Sacubitril/Valsartan 24/26 1 TAB TABLET PO ×2 (10:06→22:12)
[2024-01-29] MEDS: Empagliflozin 10 MG TABLET PO (10:06)
[2024-01-29 10:45] LABS: Glucose, Whole Blood 93 mg/dL (60-115)
--- NOTE | 2024-01-29 13:53 | P.PNIM_ITS ---
Subjective Subjective Date of Service: 01/29/24 Physical Exam 2 Vital Signs: Vital Signs: Last Vital Signs Temp 98.2 F 01/29/24 10:46 Pulse 64 01/29/24 10:46 Resp 20 01/29/24 10:46 BP 148/81 H 01/29/24 10:46 Pulse Ox 99 01/29/24 10:46 O2 Del Method Room Air 01/29/24 10:46 BMI result Body Mass Index 23.1 Objective Data Active Medications Acetaminophen (Acetaminophen 325 Mg Tablet) 650 mg PO Q6H PRN PRN Reason: Pain, Mild (Pain Scale 1-3) Amiodarone HCl (Amiodarone Hcl 200 Mg Tablet) 200 mg PO DAILY [facility] Last Admin: 01/29/24 09:04 Dose: 200 mg Documented By: ALAINA Atorvastatin Calcium (Atorvastatin Calcium 10 Mg Tablet) 10 mg PO BEDTIME [facility] Last Admin: 01/28/24 21:46 Dose: 10 mg Documented By: VÍCTORTOLC Empagliflozin (Empagliflozin 10 Mg Tablet) 10 mg PO DAILY [facility] Last Admin: 01/29/24 10:06 Dose: 10 mg Documented By: ALAINA Ferrous Sulfate (Ferrous Sulfate 324 Mg Tablet.) 324 mg PO MoWeFr@0900 [facility] Last Admin: 01/29/24 09:04 Dose: 324 mg Documented By: ALAINA Gabapentin (Gabapentin 100 Mg Capsule) 200 mg PO TID [facility] Last Admin: 01/29/24 09:04 Dose: 200 mg Documented By: ALAINA Glucose (Glucose Gel 15 Gm Gel..Gram.) 15 gm PO Q15M PRN; Protocol PRN Reason: per Hypoglycemia Standing Ord. Dextrose (D10) 250 mls @ 750 mls/hr IV Q15M PRN; Protocol PRN Reason: per Hypoglycemia Standing Ord. Insulin Glargine (Insulin Glargine,Hum.Rec.Anlog 100 Unit/Ml 10 Ml Vial) 5 unit SUBCUT DAILY [facility] Last Admin: 01/29/24 09:03 Dose: Not Given Documented By: ALAINA Non-Admin Reason: NPO Insulin Human Lispro (Insulin Lispro 100 Unit/Ml 3 Ml Vial) 0 unit SUBCUT QIDACHS [facility]; Protocol Last Admin: 01/29/24 12:32 Dose: Not Given Documented By: HO.FOSTEKR Non-Admin Reason: No Insulin Coverage Lactic Acid (Ammonium Lactate 12 % Cream 140 Gm Tube) 1 appl TOPICAL BID [facility]; Protocol Last Admin: 01/29/24 09:11 Dose: Not Given Documented By: ALAINA Non-Admin Reason: Patient Refused Lidocaine (Lidocaine 4 % Patch Adh..Patch) 1 patch TRANSDERMA DAILY [facility]; Protocol Last Admin: 01/29/24 09:11 Dose: Not Given Documented By: ALAINA Non-Admin Reason: Patient Refused Loratadine (Loratadine 10 Mg Tablet) 10 mg PO DAILY PRN PRN Reason: Itching Metolazone (Metolazone 2.5 Mg Tablet) 2.5 mg PO Q48H PRN PRN Reason: volume overload Metolazone (Metolazone 2.5 Mg Tablet) 2.5 mg PO Tu@0900 [facility] Ondansetron HCl (Ondansetron Hcl 4 Mg/2 Ml Vial) 4 mg IVPUSH Q8H PRN PRN Reason: Nausea and Vomiting Pantoprazole Sodium (Pantoprazole Sodium 40 Mg/10 Ml Vial) 40 mg IVPUSH BID@0630,1630 [facility] Last Admin: 01/29/24 06:38 Dose: 40 mg Documented By: BERNARDO Potassium Chloride (Potassium Chloride Er 20 Meq Tab.Er.Prt) 20 meq PO TID [facility] Last Admin: 01/29/24 09:04 Dose: 20 meq Documented By: ALAINA Sacubitril/Valsartan (Sacubitril/Valsartan 1 Tab Tablet) 1 tab PO BID [facility]; Protocol Last Admin: 01/29/24 10:06 Dose: 1 tab Documented By: ALAINA Senna (Sennosides 8.6 Mg Tablet) 17.2 mg PO BEDTIME PRN PRN Reason: Constipation Senna (Sennosides 8.6 Mg Tablet) 17.2 mg PO DAILY [facility] Last Admin: 01/29/24 09:07 Dose: Not Given Documented By: ALAINA Non-Admin Reason: Patient Refused Simethicone (Simethicone 80 Mg Tab.Chew) 160 mg PO Q8H PRN PRN Reason: Dyspepsia Sodium Chloride (0.9 % Sodium Chloride Flush 3 Ml Syringe) 3 ml IVFLUSH QSHIFT [facility] Last Admin: 01/29/24 08:22 Dose: 3 ml Documented By: ALAINA Sodium Chloride (Sodium Chloride 0.65 % Nasal 44 Ml Sprbtl) 2 spray NOSTRIL-B Q6H PRN PRN Reason: Congestion Torsemide (Torsemide 20 Mg Tablet) 80 mg PO DAILY [facility]; Protocol Last Admin: 01/29/24 09:18 Dose: Not Given Documented By: ALAINA Non-Admin Reason: Physician Held Med Labs 01/29/24 04:50 01/29/24 04:50 Labs: Laboratory Results - last 24 hr 01/28/24 01/28/24 01/28/24 14:06 14:08 14:40 MCV 92.2 MCH 29.9 MCHC 32.4 RDW 17.0 H Plt Count 175 MPV 11.8 Immature Gran % (Auto) 0.2 Neut % (Auto) 67.3 Lymph % (Auto) 21.1 Stanton % (Auto) 8.2 Eos % (Auto) 2.7 Baso % (Auto) 0.5 Lymph # (Auto) 0.9 L [place] # (Auto) 0.3 Eos # (Auto) 0.1 Baso # (Auto) 0.0 Abs Immat Gran (auto) 0.01 Absolute Neuts (auto) 2.7 Absolute Nucleated RBC 0.000 Nucleated RBC % (auto) 0.0 PT 30.7 H INR 2.5 H APTT 42.3 H Anion Gap 14 Estim Creat Clear Calc 22.0 Estimated GFR 23 POC Glucose Random Glucose 189 H Calcium 8.9 Total Bilirubin 2.4 H Direct Bilirubin 1.7 H AST 142 H ALT 208 H Alkaline Phosphatase 339 H Ammonia B-Natriuretic Peptide Total Protein 7.7 Albumin 3.4 L Lipase 21 Urine Color Yellow Urine Appearance Clear Urine pH 5.0 Ur Specific [place] 1.010 Urine Protein Negative Urine Glucose (UA) 500 H Urine Ketones Negative Urine Blood Negative Urine Nitrite Negative Ur Leukocyte Esterase Negative Blood Type A Positive Antibody Screen NEGATIVE 01/28/24 01/28/24 01/29/24 21:27 22:00 04:50 MCV 91.8 MCH 30.2 MCHC 32.9 RDW 16.9 H Plt Count 150 L MPV 11.2 Immature Gran % (Auto) 0.3 Neut % (Auto) 63.0 Lymph % (Auto) 23.6 Stanton % (Auto) 8.5 Eos % (Auto) 3.7 Baso % (Auto) 0.9 Lymph # (Auto) 0.8 L [place] # (Auto) 0.3 Eos # (Auto) 0.1 Baso # (Auto) 0.0 Abs Immat Gran (auto) 0.01 Absolute Neuts (auto) 2.2 Absolute Nucleated RBC 0.000 Nucleated RBC % (auto) 0.0 PT INR APTT Anion Gap 14 Estim Creat Clear Calc 24.7 Estimated GFR 26 POC Glucose 94 Random Glucose 106 Calcium 8.8 Total Bilirubin 2.2 H Direct Bilirubin 1.4 H AST 116 H ALT 186 H Alkaline Phosphatase 312 H Ammonia 20 B-Natriuretic Peptide 4227 H Total Protein 7.2 Albumin 3.3 L Lipase Urine Color Urine Appearance Urine pH Ur Specific [place] Urine Protein Urine Glucose (UA) Urine Ketones Urine Blood Urine Nitrite Ur Leukocyte Esterase Blood Type Antibody Screen 01/29/24 01/29/24 07:22 10:42 MCV MCH MCHC RDW Plt Count MPV Immature Gran % (Auto) Neut % (Auto) Lymph % (Auto) Stanton % (Auto) Eos % (Auto) Baso % (Auto) Lymph # (Auto) [place] # (Auto) Eos # (Auto) Baso # (Auto) Abs Immat Gran (auto) Absolute Neuts (auto) Absolute Nucleated RBC Nucleated RBC % (auto) PT INR APTT Anion Gap Estim Creat Clear Calc Estimated GFR POC Glucose 101 93 Random Glucose Calcium Total Bilirubin Direct Bilirubin AST ALT Alkaline Phosphatase Ammonia B-Natriuretic Peptide Total Protein Albumin Lipase Urine Color Urine Appearance Urine pH Ur Specific [place] Urine Protein Urine Glucose (UA) Urine Ketones Urine Blood Urine Nitrite Ur Leukocyte Esterase Blood Type Antibody Screen Assessment and Plan (1) Acute diarrhea: Status: Acute Plan 73-year-old male with history of CKD stage 4, paroxysmal atrial flutter anticoagulated with Eliquis on amiodarone, hypertension, mitral valve regurgitation, insulin-dependent type 2 diabetes, cardiomyopathy, heart failure with severely reduced ejection fraction EF 10-15%, history of colon cancer s/p resection (about 10 years ago per pt @[facility]- records requested) admitted for further management of GI bleed with elevated LFTs of unclear significance. GI bleed No significant anemia, mild normocytic anemia with H/H above transfusion threshold Stool occult blood positive CT abdomen/pelvis negative for any evidence of active bleeding continue IV PPI clear liquid diet gastroenterology consult> plan for sigmoidoscopy tomorrow, NPO after midnight hold Eliquis follow H/H Elevated LFTs Likely congestive hepatopathy from CHF MRCP negative diurese Acute diarrhea GI panel and C diff PCRnot yet collected, if no further diarrhea, cancel order clear liquid diet hold lactulose Paroxysmal atrial flutter/fib-rate controlled on admission hold Eliquis due to above continue amiodarone Heart failure reduced ejection fraction anasarca noted on CT abdomen/pelvis but no dyspnea/orthopnea BNP 4227 severely reduced EF 10-15% last echo continue torsemide, metolazone, Entresto, Farxiga insulin-dependent type 2 diabetes without hyperglycemia ss, ada diet Hypertension continue Entresto, torsemide CKD stage 4 renal function baseline DVT prophylaxis- SCPs Attending Dr. Roca Full code Healthcare proxy- sonTim [phone] continue hospital stay for management of acute diarrhea with GI bleed requiring IV PPI, expert consultation, close monitoring of blood counts as well as further investigation into elevated LFTs of unclear significance Quality Stroke Does the patient have a stroke diagnosis?: No VTE Prior VTE?: No VTE Risk Level:: Medical - moderate - high VTE Device Contraindication: N/A - Device Ordered VTE Drug Contraindication: Treatment Not Indicated
--- NOTE | 2024-01-29 15:57 | MHC.CM.PN ---
[facility]24 [facility] for 2 [facility] s/p [facility] admit for HF. Patient was not forthcoming with information. Craig has been asked to provide a copy of pts HCP. GI consult is pending. DP return to [facility] via BLS.
--- NOTE | 2024-01-29 17:00 | CA_ITS ---
Transthoracic Echocardiogram Patient (Last, First, Middle): Tim Bowens, Gender: Male Date of : 1950 Age: 73 Procedure Date: 01/29/2024 Procedure Type: Transthoracic Echocardiogram Location: [facility] [place] Height: 167.64 cm Weight: 64.86 kg BSA: 1.73 m2 Heart Rate: bpm BP: 148 / 81 mmHg Supervisor Grinding: WILL Referring MD: Kathy Limon NP Brush Cutter: Peter España MD Symptoms: chf Study Quality: Good, with Contrast ECG Rhythm: Atrial Fibrillation Conclusions: - 1. Moderately dilated left ventricle with severely reduced LV ejection fraction at 10-15% 2. Severe biatrial enlargement 3. Moderate mitral and moderately severe tricuspid regurgitation 4. Severely elevated right ventricular systolic pressure with significantly elevated right atrial pressures 5. Trivial pericardial effusion Findings Procedure Information Contrast agent, definity, is being given per protocol without apparent complications. Left Ventricle Moderately increased left ventricular cavity size. There is normal left ventricular wall thickness. The left ventricular systolic function is severely decreased. The visually estimated ejection fraction is between 10 15%. Diastolic function is indeterminate on the basis of available data. Right Ventricle Moderately increased right ventricular cavity size. There is mild to moderately decreased right ventricular systolic function. Normal right ventricular wall motion. Atria Severe biatrial enlargement. There is no evidence of interatrial shunt. Aortic Valve There is no aortic valve stenosis. There is mild aortic valve regurgitation. Mitral Valve There is mild anterior and posterior mitral leaflet thickening. There is moderate mitral valve regurgitation. There is no mitral valve stenosis. Pulmonic Valve The pulmonic valve is likely normal. There is trace pulmonic valve regurgitation. Tricuspid Valve Normal tricuspid valve structure. There is moderate to severe tricuspid valve regurgitation. Significantly elevated right atrial pressure. Severe pulmonary hypertension is present. Great Vessels The pulmonary artery was not well visualized. There is no dilatation of the ascending aorta measuring 3.10 cm. Venous The inferior vena cava is moderately dilated and collapses less than 50% with inspiration. Pericardium/Pleural There is a trivial circumferential pericardial effusion. Prior Study Comparison No prior study available for comparison. Measurements 2D Linear Measurements IVSd: 1.02 0.6-0.9/0.6-1.0 cm LVIDd: 5.92 3.9-5.3/4.2-5.9 cm LVIDd Index: 3.42 2.4-3.2/2.2-3.1 cm/m2 LVIDs: 5.32 2.0-3.6 cm LVPWd: 1.00 0.7-1.1 cm Ao Root: 3.00 2.1-3.5 cm LA Diam: 4.90 2.7-3.8/3.0-4.0 cm LAIDs Index: 2.83 1.5-2.3 cm/m2 LV Mass: 304.82 67-162/88-224 g LV Mass Index: 176.19 43-95/49-115 g/m2 LVOT Diam: 1.80 3.0+(-)1.3 cm 2D Systolic Function EF 4C: 10.40 >55% EF 2C: 5.49 >55% EF BiP: 10.50 >55% Mitral Valve MR Vol - PW Dopp: 32.64 MR VTI: 2.04 MR ERO: 16.00 MR Alias Miguel: 0.37 MR RAD: 0.60 Aortic Valve AoV Pk Miguel: 1.00 AoV Mn Miguel: 0.67 AoV VTI: 0.22 AoV Pk Grad: 4.00 Aov Mn Grad: 2.00 JEFE Cont.VTI: 1.28 LVOT LVOT Pk Miguel: 0.57 LVOT Mn Miguel: 0.33 LVOT VTI: 0.11 LVOT Pk Grad: 1.00 LVOT Mn Grad: 1.00 LVOT Diam: 1.80 LVOT Area: 2.54 Right Ventricle TAPSE (mm): 21.00 TVS' Miguel: 9.00 Tricuspid Valve TR Pk Miguel: 4.09 TR Pk Grad: 67.00 RA Press: 15.00 RVSP: 82.00 Great Vessels Aorta Ao Root-2D: 3.00 2.0-3.7 cm Ao Asc: 3.10 2.1-3.4 cm Pulmonary Valve PV Pk Miguel: 0.71 Peak PV Grad: 2.00 Updated in Other Vendor System with Status of Final Peter España MD electronically signed on 01/30/2024 8:51:15 AM with status of Final
[2024-01-29 17:06] LABS: Glucose, Whole Blood 162 mg/dL (60-115)
[2024-01-29] MEDS: Insulin Lispro 100 UNIT/ML 3 ML VIAL SUBCUT ×2 (17:26→22:54)
[2024-01-29] MEDS: Furosemide 40 MG/4 ML VIAL IVPUSH (17:27)
[2024-01-29 21:20] LABS: Glucose, Whole Blood 206 mg/dL (60-115)
[2024-01-29] MEDS: Atorvastatin Calcium 10 MG TABLET PO (22:12)
[2024-01-29] MEDS: Insulin Glargine,Hum.rec.anlog 100 UNIT/ML 10 ML VIAL SUBCUT (22:53)
[2024-01-30] VITALS (9 sets, daily range): BP systolic 131–160; BP diastolic 65–82; PULSE 58–68; RESP 16–18; TEMP 36–37.2; O2SAT 94–98
[2024-01-30] MEDS: Pantoprazole Sodium 40 MG/10 ML VIAL IVPUSH ×2 (06:29→17:14)
[2024-01-30 08:02] LABS: Glucose, Whole Blood 94 mg/dL (60-115)
[2024-01-30 08:35] LABS: Hematocrit 41.3 % (42.0-52.0); Hemoglobin 13.3 g/dl (14.0-18.0); Mean Corpuscular HGB Conc 32.2 g/dl (31.0-36.0); Mean Corpuscular Hemoglobin 29.5 pg (27.0-33.0); Mean Corpuscular Volume 91.6 fL (80.0-98.0); Mean Platelet Volume 10.6 fL (9.4-12.4); Platelet Count 166 X10*3/uL (160-400); Red Blood Count 4.51 X10*6/uL (4.60-5.80); Red Cell Distribution Width 16.8 % (11.0-16.0); White Blood Count 3.6 X10*3/uL (4.8-10.8)
[2024-01-30 08:46] LABS: Anion Gap 12 (12-20); Blood Urea Nitrogen 36 mg/dL (9-16); Calcium 9.2 mg/dL (8.4-10.2); Carbon Dioxide 38 mmol/L (22-29); Chloride 101 mmol/L (96-108); Creatinine Clr Calc Pharmacy 27.2; Estimated Glomerular Filt Rate 29; Glucose Random 82 mg/dL (60-115); Potassium 3.2 mmol/L (3.3-5.1); Sodium 148 mmol/L (135-145)
[2024-01-30] MEDS: Amiodarone HCL 200 MG TABLET PO (08:50)
[2024-01-30] MEDS: Gabapentin 100 MG CAPSULE 200 MG PO ×3 (08:50→21:20)
[2024-01-30] MEDS: Furosemide 40 MG/4 ML VIAL IVPUSH (08:50)
[2024-01-30] MEDS: Sacubitril/Valsartan 24/26 1 TAB TABLET PO ×2 (08:50→21:20)
[2024-01-30 08:51] LABS: B Type Natriuretic Peptide 4283 pg/mL (<100)
[2024-01-30] MEDS: 0.9 % Sodium Chloride Flush 3 ML SYRINGE IVFLUSH ×2 (08:51→17:15)
[2024-01-30] MEDS: Potassium Chloride ER 20 MEQ TAB.ER.PRT PO ×3 (08:51→21:19)
[2024-01-30 09:51] LABS: Alanine Aminotransferase 168 U/L (0-40); Albumin Level 3.7 g/dL (3.5-5.0); Alkaline Phosphatase 319 U/L (39-117); Aspartate Amino Transferase 87 U/L (5-37); Bilirubin Direct 1.6 mg/dL (0.0-0.5); Bilirubin Total 2.8 mg/dL (0.0-1.0); Total Protein 8.3 g/dL (6.5-8.0)
[2024-01-30 10:29] LABS: Ferritin 270 ng/mL (20-250); HBS Num1 14.87 mIU/mL (0-7.99); HBc Num1 5.42 S/CO (0.00-0.79); HBsAGNum1 0.43 S/CO (0.00-0.99); Hepatitis B Surface Antigen Negative (Negative); ~HepC Num1 0.18 S/CO (0.00-0.79); ~Hepatitis A Antibody IgM Nonreactive (Nonreactive); ~Hepatitis B Surface Antibody REACTIVE (Nonreactive); ~Hepatitis C Antibody Nonreactive (Nonreactive)
--- NOTE | 2024-01-30 10:34 | P.CONCA_ITS ---
History of Present Illness History of Present Illness Date of Service: 01/30/24 Requesting physician: Kathy Limon Consult reason: atrial fibrillation and congestive heart failure Chief complaint: GIB, diarrhea, elevated lfts Narrative: I was consulted to see Tim in cardiology consultation today due to his underlying cardiovascular disease. There was CTA evidence of anasarca although patient has no new symptoms. Clinically denies any abdominal distension, leg edema, shortness of breath, orthopnea, PND. He denies any weight gain. He has prior significant cardiovascular history with prior history of severe cardiomyopathy with LVEF of 10-15% with mitral and tricuspid regurgitation, paroxysmal atrial fibrillation on oral anticoagulation with Eliquis and on amiodarone therapy, severe pulmonary hypertension. Patient present hospital with diarrhea and rectal bleeding. Has been seen by GI and plan to undergo sigmoidoscopy. Patient says that his bleeding and diarrhea stopped. He was initially put on isolation but his C diff is negative. Patient denies any chest pain, lightheadedness, syncope. Overall he is very frustrated with his health and overall medical situation and being hospitalized. He sees Dr. Flores in [place] for his cardiac issues. Patient also has underlying diabetes, hypertension, chronic kidney disease. Noted to have elevated LFTs on admission as well. Patient has had extensive workup done as outpatient. Had a cardiac catheterization 2010 when he was diagnose and at that time he had no coronary artery disease. Review of Systems 2 Constitutional: Constitutional: Reports no additional constitutional complaints Eyes: Eyes: Reports no additional eye complaints Cardiovascular: Cardiovascular: Reports no additional cardiovascular complaints Respiratory: Respiratory: Reports no additional respiratory complaints Gastrointestinal: Gastrointestinal: Reports hematochezia and Reports diarrhea Musculoskeletal: Musculoskeletal: Reports no additional musculoskeletal complaints Neurologic: Reports system reviewed and no additional complaints, except as documented Psychiatric: Psychiatric: Reports no additional psychiatric complaints Endocrine: Endocrine: Reports no additional endocrine complaints Hematologic/Lymphatic: Hematologic/Lymphatic: Reports no additional hematologic/lymphatic complaints Allergic/Immunologic: Allergic/Immunologic: Reports no additional allergic/immunologic complaints PMFSH Past Medical History Medical History CKD (chronic kidney disease) Type 2 diabetes mellitus Hyperlipidemia Atrial flutter HFrEF (heart failure with reduced ejection fraction) Essential (primary) hypertension Social History Social History Housing: Senior Care Do you presently have visiting nurse or other home services: Yes ([facility]) Comment: Refuses bed alarm Patient Tobacco Use Status: Never used Tobacco Smoked in Last 30 Days: No Patient Given Instructions on How to Stop Smoking: No Use of substances other than those prescribed or required for medical reasons: No Currently Displaying Signs/Symptoms of Drug Intoxication Withdrawal: No Any prior treatment program specific to substance use: No Have you been hit, kicked, punched, or otherwise hurt by someone within the past year? If so, by whom?: No Do you feel safe in your current relationship?: No Current Relationship Is there a partner from a previous relationship who is making you feel unsafe now?: No Are you made to feel afraid or neglected: No Advance Directives: No Advance Directives Information Provided: Yes Do you have a plan to hurt others: No Plan Recently lost weight without trying: Unsure Nutrition Risks: No Nutritional Risk Poor oral hygiene: No service: No Meds Allergies Allergy/AdvReac Type Severity Reaction Status Date / Time aspirin Allergy Unknown Verified 01/28/24 14:16 diphenhydramine Allergy Unknown Verified 01/28/24 14:16 [From Benadryl] morphine Allergy Unknown Verified 01/28/24 14:16 Active Medications: Current Medications Acetaminophen (Acetaminophen 325 Mg Tablet) 650 mg PO Q6H PRN PRN Reason: Pain, Mild (Pain Scale 1-3) Amiodarone HCl (Amiodarone Hcl 200 Mg Tablet) 200 mg PO DAILY [facility] Last Admin: 01/30/24 08:50 Dose: 200 mg Atorvastatin Calcium (Atorvastatin Calcium 10 Mg Tablet) 10 mg PO BEDTIME [facility] Last Admin: 01/29/24 22:12 Dose: 10 mg Empagliflozin (Empagliflozin 10 Mg Tablet) 10 mg PO DAILY [facility] Last Admin: 01/30/24 07:54 Dose: Not Given Ferrous Sulfate (Ferrous Sulfate 324 Mg Tablet.) 324 mg PO MoWeFr@0900 [facility] Last Admin: 01/29/24 09:04 Dose: 324 mg Gabapentin (Gabapentin 100 Mg Capsule) 200 mg PO TID [facility] Last Admin: 01/30/24 08:50 Dose: 200 mg Glucose (Glucose Gel 15 Gm Gel..Gram.) 15 gm PO Q15M PRN; Protocol PRN Reason: per Hypoglycemia Standing Ord. Dextrose (D10) 250 mls @ 750 mls/hr IV Q15M PRN; Protocol PRN Reason: per Hypoglycemia Standing Ord. Insulin Glargine (Insulin Glargine,Hum.Rec.Anlog 100 Unit/Ml 10 Ml Vial) 5 unit SUBCUT BEDTIME [facility] Last Admin: 01/29/24 22:53 Dose: 5 unit Insulin Human Lispro (Insulin Lispro 100 Unit/Ml 3 Ml Vial) 0 unit SUBCUT QIDACHS [facility]; Protocol Last Admin: 01/30/24 08:01 Dose: Not Given Lactic Acid (Ammonium Lactate 12 % Cream 140 Gm Tube) 1 appl TOPICAL BID [facility]; Protocol Last Admin: 01/30/24 07:55 Dose: Not Given Lidocaine (Lidocaine 4 % Patch Adh..Patch) 1 patch TRANSDERMA DAILY [facility]; Protocol Last Admin: 01/30/24 07:54 Dose: Not Given Loratadine (Loratadine 10 Mg Tablet) 10 mg PO DAILY PRN PRN Reason: Itching Metolazone (Metolazone 2.5 Mg Tablet) 2.5 mg PO Q48H PRN PRN Reason: volume overload Metolazone (Metolazone 2.5 Mg Tablet) 2.5 mg PO Tu@0900 [facility] Ondansetron HCl (Ondansetron Hcl 4 Mg/2 Ml Vial) 4 mg IVPUSH Q8H PRN PRN Reason: Nausea and Vomiting Pantoprazole Sodium (Pantoprazole Sodium 40 Mg/10 Ml Vial) 40 mg IVPUSH BID@0630,1630 [facility] Last Admin: 01/30/24 06:29 Dose: 40 mg Potassium Chloride (Potassium Chloride Er 20 Meq Tab.Er.Prt) 20 meq PO TID [facility] Last Admin: 01/30/24 08:51 Dose: 20 meq Sacubitril/Valsartan (Sacubitril/Valsartan 1 Tab Tablet) 1 tab PO BID [facility]; Protocol Last Admin: 01/30/24 08:50 Dose: 1 tab Senna (Sennosides 8.6 Mg Tablet) 17.2 mg PO BEDTIME PRN PRN Reason: Constipation Senna (Sennosides 8.6 Mg Tablet) 17.2 mg PO DAILY [facility] Last Admin: 01/30/24 07:55 Dose: Not Given Simethicone (Simethicone 80 Mg Tab.Chew) 160 mg PO Q8H PRN PRN Reason: Dyspepsia Sodium Chloride (0.9 % Sodium Chloride Flush 3 Ml Syringe) 3 ml IVFLUSH QSHIFT [facility] Last Admin: 01/30/24 08:51 Dose: 3 ml Sodium Chloride (Sodium Chloride 0.65 % Nasal 44 Ml Sprbtl) 2 spray NOSTRIL-B Q6H PRN PRN Reason: Congestion Home Medications ?Medication ?Instructions ?Recorded ?Confirmed ?Last Taken ?Type acetaminophen 325 mg tablet 650 mg PO Q4H PRN pain/fever 01/28/24 01/28/24 Unknown History amiodarone 200 mg tablet 200 mg PO DAILY 01/28/24 01/28/24 Unknown History ammonium lactate 12 % topical cream 1 appl topical BID 01/28/24 01/28/24 Unknown History apixaban 5 mg tablet (Eliquis) 5 mg PO BID 01/28/24 01/28/24 Unknown History atorvastatin 10 mg tablet 10 mg PO BEDTIME 01/28/24 01/28/24 Unknown History dapagliflozin propanediol 10 mg 10 mg PO DAILY 01/28/24 01/28/24 Unknown History tablet (Farxiga) ferrous sulfate 325 mg (65 mg 325 mg PO MOWEFR 01/28/24 01/28/24 Unknown History iron) tablet gabapentin 100 mg capsule 200 mg PO TID 01/28/24 01/28/24 Unknown History insulin glargine-yfgn 100 unit/mL 7 unit subcut DAILY 01/28/24 01/28/24 Unknown History (3 mL) subcutaneous pen insulin lispro 100 unit/mL 0 sliding scale dose subcut TIDAC 01/28/24 01/28/24 Unknown History subcutaneous pen (Humalog KwikPen (U-100) Insulin) lactulose 10 gram/15 mL oral 30 ml PO DAILY 01/28/24 01/28/24 Unknown History solution lactulose 10 gram/15 mL oral 30 ml PO Q12H PRN Constipation 01/28/24 01/28/24 Unknown History solution lidocaine 4 % topical patch 1 patch topical DAILY left hip 01/28/24 01/28/24 Unknown History loratadine 10 mg tablet 10 mg PO DAILY PRN Itching 01/28/24 01/28/24 Unknown History metolazone 2.5 mg tablet 2.5 mg PO Q48H PRN volume overload 01/28/24 01/28/24 Unknown History metolazone 2.5 mg tablet 2.5 mg PO TU 01/28/24 01/28/24 Unknown History omeprazole 20 mg capsule,delayed 20 mg PO DAILY 01/28/24 01/28/24 Unknown History release potassium chloride 20 mEq 20 meq PO TID 01/28/24 01/28/24 Unknown History tablet,extended release sacubitril 24 mg-valsartan 26 mg 1 tab PO BID 01/28/24 01/28/24 Unknown History tablet (Entresto) sennosides 8.6 mg tablet (senna) 17.2 mg PO DAILY 01/28/24 01/28/24 Unknown History simethicone 80 mg chewable tablet 160 mg PO Q8H PRN Dyspepsia 01/28/24 01/28/24 Unknown History sodium chloride 0.65 % nasal spray 2 spray intranasal Q6H PRN 01/28/24 01/28/24 Unknown History aerosol (Saline Nasal) Congestion torsemide 20 mg tablet 80 mg PO DAILY 01/28/24 01/28/24 Unknown History Physical Exam 2 Vital Signs: Vital Signs: Last Vital Signs Temp 96.8 F 01/30/24 08:00 Pulse 58 01/30/24 08:00 Resp 18 01/30/24 08:00 BP 131/65 01/30/24 08:50 Pulse Ox 98 01/30/24 08:00 O2 Del Method Room Air 01/30/24 08:00 BMI result Body Mass Index 23.1 Const: General: cooperative, comfortable, no acute distress, alert and awake Nutritional Appearance: thin Orientation/consciousness: patient oriented x3 HEENT: Head: Yes normocephalic and Yes atraumatic Neck: Neck: Yes trachea midline, Yes supple and Yes no JVD (Prominent V waves as well as mild AJR ) Resp: Effort & Inspection: decreased respiratory effort Auscultation: clear to auscultation bilaterally Cardio: Jugular venous distension: no JVD Palpation: abnormal PMI displaced PMI Rate: regular rate Rhythm: regular rhythm Heart sounds: S1 normal heart sound present, S2 normal heart sound present, no click, no gallops and Murmur heart sound present systolic at the right sternal border GI: Auscultation: normal bowel sounds Skin: General skin exam: no rashes or lesions noted Neuro: General: patient oriented x3 and no focal motor deficits Extrem: General: No clubbing, No cyanosis and Yes edema (Minimal) Psych: Affect: Irritable affect present Objective Labs and Meds 01/30/24 08:07 01/30/24 08:07 Lab results: Laboratory Results - last 24 hr 01/29/24 01/29/24 01/29/24 10:42 17:01 21:15 WBC RBC Hgb Hct MCV MCH MCHC RDW Plt Count MPV Absolute Nucleated RBC Nucleated RBC % (auto) Sodium Potassium Chloride Carbon Dioxide Anion Gap BUN Creatinine Estim Creat Clear Calc Estimated GFR POC Glucose 93 162 H 206 H Random Glucose Calcium Ferritin Total Bilirubin Direct Bilirubin AST ALT Alkaline Phosphatase B-Natriuretic Peptide Total Protein Albumin 01/30/24 01/30/24 01/30/24 07:56 08:07 09:35 WBC 3.6 L RBC 4.51 L Hgb 13.3 L Hct 41.3 L MCV 91.6 MCH 29.5 MCHC 32.2 RDW 16.8 H Plt Count 166 MPV 10.6 Absolute Nucleated RBC 0.000 Nucleated RBC % (auto) 0.0 Sodium 148 H Potassium 3.2 L Chloride 101 Carbon Dioxide 38 H Anion Gap 12 BUN 36 H Creatinine 2.21 H Estim Creat Clear Calc 27.2 Estimated GFR 29 POC Glucose 94 Random Glucose 82 Calcium 9.2 Ferritin 270 H Total Bilirubin 2.8 H Direct Bilirubin 1.6 H AST 87 H ALT 168 H Alkaline Phosphatase 319 H B-Natriuretic Peptide 4283 H Total Protein 8.3 H Albumin 3.7 Imaging Radiologist's impression: Impressions Cholangiopancreatography MRI 01/29/24 12:02 IMPRESSION: No biliary ductal dilatation is present. MRCP images are of limited diagnostic value. Nodular surface contour of the liver. This may represent chronic liver disease. Small ascites. Small right pleural effusion. Assessment and Plan (1) HFrEF (heart failure with reduced ejection fraction): Status: Acute Chronic heart failure with reduced ejection fraction with markedly reduced LV ejection fraction with multiple comorbidities including chronic kidney disease, diabetes, paroxysmal atrial fibrillation, severe pulmonary hypertension, moderate mitral and tricuspid regurgitation. Clinically patient does appear to be in acute congestive heart failure. Findings of generalized anasarca on imaging is nonspecific finding. Clinically has no signs of fluid overload or symptoms related to it. I would continue with his current medical therapy including torsemide and metolazone. Also continue with Entresto therapy. He is also on dapagliflozin which should be continued. He has not on a beta-andrei for unclear reason question in the past at [facility]. He has been extensively followed by cardiology in [place]. Would defer initiation of beta-andrei to them. I would avoid spironolactone given his advanced chronic kidney disease. He is on amiodarone to maintain rhythm. His liver abnormality could be due to passive liver congestion from his right heart failure and severe pulmonary hypertension. However he does not have any clinical signs of right heart failure at this point in time. He is also on oral anticoagulation therapy with Eliquis. If planned to undergo any procedure under anesthesia due to his underlying cardiovascular condition including severe cardiomyopathy severe pulmonary hypertension he is at high risk for perioperative cardiovascular morbidity mortality although optimized if clinically essential. Will sign of the case. Thank you for allowing me to partake in his care Procedures Date of Service Date of Service: 01/30/24
[2024-01-30 10:46] LABS: Folate 12.5 ng/mL (> or = 4.0); Vitamin B12 > 2000 pg/mL (200-900)
[2024-01-30 11:45] LABS: HBc Num2 5.46 S/CO; HBc Num3 5.46 S/CO; Hepatitis B Core Antibody Reactive (Nonreactive)
[2024-01-30 11:47] LABS: Glucose, Whole Blood 72 mg/dL (60-115)
[2024-01-30] MEDS: Dextrose 5 % and 0.45 % NaCl 1,000 ML 50 ML IVCONT (12:09)
--- NOTE | 2024-01-30 12:34 | P.PNIM_ITS ---
Subjective Subjective Date of Service: 01/30/24 Interval History: Seen and examined this morning Follow-up for rectal bleeding, elevated LFTs No specific complaints Review of Systems Review of Systems: Yes all other systems are reviewed and are negative Constitutional Constitutional: Denies chills and Denies fever(s) Cardiovascular Cardiovascular: Denies chest pain and Denies dyspnea Respiratory Respiratory: Denies dyspnea Physical Exam 2 Vital Signs: Vital Signs: Last Vital Signs Temp 97.3 F 01/30/24 11:42 Pulse 59 01/30/24 11:42 Resp 18 01/30/24 11:42 BP 149/80 H 01/30/24 11:42 Pulse Ox 98 01/30/24 11:42 O2 Del Method Room Air 01/30/24 11:42 BMI result Body Mass Index 23.1 Const: General: comfortable, alert and awake Nutritional Appearance: a verage body habitus Orientation/consciousness: oriented to person and oriented to place Resp: Effort & Inspection: normal respiratory effort, able to speak in complete sentences, no respiratory distress and no use of accessory muscles A uscultation: clear to auscultation bilaterally GI: Inspection: No distended Palpation (GI): Soft to palpation Neuro: General: oriented to person and oriented to place Extrem: General: Yes no pedal edema Objective Data Active Medications Acetaminophen (Acetaminophen 325 Mg Tablet) 650 mg PO Q6H PRN PRN Reason: Pain, Mild (Pain Scale 1-3) Amiodarone HCl (Amiodarone Hcl 200 Mg Tablet) 200 mg PO DAILY [facility] Last Admin: 01/30/24 08:50 Dose: 200 mg Documented By: STACIE Atorvastatin Calcium (Atorvastatin Calcium 10 Mg Tablet) 10 mg PO BEDTIME [facility] Last Admin: 01/29/24 22:12 Dose: 10 mg Documented By: ANGEL Empagliflozin (Empagliflozin 10 Mg Tablet) 10 mg PO DAILY [facility] Last Admin: 01/30/24 07:54 Dose: Not Given Documented By: STACIE Non-Admin Reason: Physician Held Med Ferrous Sulfate (Ferrous Sulfate 324 Mg Tablet.) 324 mg PO MoWeFr@0900 [facility] Last Admin: 01/29/24 09:04 Dose: 324 mg Documented By: ALAINA Gabapentin (Gabapentin 100 Mg Capsule) 200 mg PO TID [facility] Last Admin: 01/30/24 08:50 Dose: 200 mg Documented By: STACIE Glucose (Glucose Gel 15 Gm Gel..Gram.) 15 gm PO Q15M PRN; Protocol PRN Reason: per Hypoglycemia Standing Ord. Dextrose (D10) 250 mls @ 750 mls/hr IV Q15M PRN; Protocol PRN Reason: per Hypoglycemia Standing Ord. Dextrose/Sodium Chloride (D51/2ns) 250 mls @ 50 mls/hr IVCONT .Q5H ONE Stop: 01/30/24 17:14 Last Admin: 01/30/24 12:09 Dose: 50 mls/hr Documented By: RODRÍGUEZ Insulin Glargine (Insulin Glargine,Hum.Rec.Anlog 100 Unit/Ml 10 Ml Vial) 5 unit SUBCUT BEDTIME [facility] Last Admin: 01/29/24 22:53 Dose: 5 unit Documented By: ANGEL Insulin Human Lispro (Insulin Lispro 100 Unit/Ml 3 Ml Vial) 0 unit SUBCUT QIDACHS [facility]; Protocol Last Admin: 01/30/24 11:51 Dose: Not Given Documented By: RODRÍGUEZ Non-Admin Reason: No Insulin Coverage Lactic Acid (Ammonium Lactate 12 % Cream 140 Gm Tube) 1 appl TOPICAL BID [facility]; Protocol Last Admin: 01/30/24 07:55 Dose: Not Given Documented By: STACIE Non-Admin Reason: Patient Refused Lidocaine (Lidocaine 4 % Patch Adh..Patch) 1 patch TRANSDERMA DAILY [facility]; Protocol Last Admin: 01/30/24 07:54 Dose: Not Given Documented By: STACIE Non-Admin Reason: Patient Refused Loratadine (Loratadine 10 Mg Tablet) 10 mg PO DAILY PRN PRN Reason: Itching Metolazone (Metolazone 2.5 Mg Tablet) 2.5 mg PO Q48H PRN PRN Reason: volume overload Metolazone (Metolazone 2.5 Mg Tablet) 2.5 mg PO Tu@0900 [facility] Ondansetron HCl (Ondansetron Hcl 4 Mg/2 Ml Vial) 4 mg IVPUSH Q8H PRN PRN Reason: Nausea and Vomiting Pantoprazole Sodium (Pantoprazole Sodium 40 Mg/10 Ml Vial) 40 mg IVPUSH BID@0630,1630 [facility] Last Admin: 01/30/24 06:29 Dose: 40 mg Documented By: ANGEL Potassium Chloride (Potassium Chloride Er 20 Meq Tab.Er.Prt) 20 meq PO TID [facility] Last Admin: 01/30/24 08:51 Dose: 20 meq Documented By: STACIE Sacubitril/Valsartan (Sacubitril/Valsartan 1 Tab Tablet) 1 tab PO BID [facility]; Protocol Last Admin: 01/30/24 08:50 Dose: 1 tab Documented By: STACIE Senna (Sennosides 8.6 Mg Tablet) 17.2 mg PO BEDTIME PRN PRN Reason: Constipation Senna (Sennosides 8.6 Mg Tablet) 17.2 mg PO DAILY [facility] Last Admin: 01/30/24 07:55 Dose: Not Given Documented By: STACIE Non-Admin Reason: Patient Refused Simethicone (Simethicone 80 Mg Tab.Chew) 160 mg PO Q8H PRN PRN Reason: Dyspepsia Sodium Biphosphate/Sodium Phosphate (Sodium Phosphate,[place]-Dibasic 133 Ml Enema) 133 ml VT ONCE PRN PRN Reason: Consult order Sodium Chloride (0.9 % Sodium Chloride Flush 3 Ml Syringe) 3 ml IVFLUSH QSHIFT [facility] Last Admin: 01/30/24 08:51 Dose: 3 ml Documented By: STACIE Sodium Chloride (Sodium Chloride 0.65 % Nasal 44 Ml Sprbtl) 2 spray NOSTRIL-B Q6H PRN PRN Reason: Congestion Labs 01/30/24 08:07 01/30/24 08:07 Labs: Laboratory Results - last 24 hr 01/29/24 01/29/24 01/30/24 17:01 21:15 07:56 MCV MCH MCHC RDW Plt Count MPV Absolute Nucleated RBC Nucleated RBC % (auto) Anion Gap Estim Creat Clear Calc Estimated GFR POC Glucose 162 H 206 H 94 Random Glucose Calcium Ferritin Total Bilirubin Direct Bilirubin AST ALT Alkaline Phosphatase B-Natriuretic Peptide Total Protein Albumin Vitamin B12 Folate Hepatitis A IgM Ab Hep Bs Antigen Hep Bs Antibody Hep B Core Total Ab Hep B Core IgM Ab Hepatitis C Ab (EIA) 01/30/24 01/30/24 01/30/24 08:07 09:35 11:25 MCV 91.6 MCH 29.5 MCHC 32.2 RDW 16.8 H Plt Count 166 MPV 10.6 Absolute Nucleated RBC 0.000 Nucleated RBC % (auto) 0.0 Anion Gap 12 Estim Creat Clear Calc 27.2 Estimated GFR 29 POC Glucose 72 Random Glucose 82 Calcium 9.2 Ferritin 270 H Total Bilirubin 2.8 H Direct Bilirubin 1.6 H AST 87 H ALT 168 H Alkaline Phosphatase 319 H B-Natriuretic Peptide 4283 H Total Protein 8.3 H Albumin 3.7 Vitamin B12 > 2000 H Folate 12.5 Hepatitis A IgM Ab Nonreactive Hep Bs Antigen Negative Hep Bs Antibody REACTIVE Hep B Core Total Ab Reactive Hep B Core IgM Ab Cancelled Hepatitis C Ab (EIA) Nonreactive Assessment and Plan (1) Rectal bleeding: Status: Acute (2) Abnormal LFTs: Status: Acute Plan 73-year-old male with history of CKD stage 4, paroxysmal atrial flutter anticoagulated with Eliquis on amiodarone, hypertension, mitral valve regurgitation, insulin-dependent type 2 diabetes, cardiomyopathy, heart failure with severely reduced ejection fraction EF 10-15%, history of colon cancer s/p resection (about 10 years ago per pt @[facility]- records requested) admitted for further management of GI bleed with elevated LFTs of unclear significance. GI bleed No significant anemia, mild normocytic anemia with H/H above transfusion threshold Stool occult blood positive CT abdomen/pelvis negative for any evidence of active bleeding continue IV PPI gastroenterology consult> plan for sigmoidoscopy today hold Eliquis follow H/H Elevated LFTs ?congestive hepatopathy from CHF MRCP negative follow LFTs Acute diarrhea GI panel and C diff not collected, no further diarrhea, we will cancel Sigmoidoscopy as above Hypokalemia Continue home replacement as scheduled Follow BNP Paroxysmal atrial flutter/fib-rate controlled on admission hold Eliquis due to above continue amiodarone Heart failure reduced ejection fraction anasarca noted on CT abdomen/pelvis but no dyspnea/orthopnea. BNP elevated, likely in the setting of chronic kidney disease and low EF Seen by cardiology no evidence of decompensated CHF. Will stop IV Lasix and continue baseline medications echo 01/28 severely reduced EF 10-15% with severe biatrial enlargement, moderately severe tricuspid regurgitation, severely elevated right ventricular systolic pressure continue torsemide, metolazone, Entresto, Farxiga insulin-dependent type 2 diabetes without hyperglycemia ss, ada diet Hypertension continue Entresto, torsemide CKD stage 4 renal function baseline DVT prophylaxis- SCPs Attending Dr. Roca Full code Healthcare proxy- sonTim [phone] continue hospital stay for management of GI bleed requiring IV PPI, expert consultation, close monitoring of blood counts as well as further investigation into elevated LFTs of unclear significance Quality Stroke Does the patient have a stroke diagnosis?: No VTE Prior VTE?: No VTE Risk Level:: Medical - moderate - high VTE Device Contraindication: N/A - Device Ordered VTE Drug Contraindication: Treatment Not Indicated
[2024-01-30] MEDS: Sodium Phosphate,Mono-Dibasic 133 ML ENEMA PR (12:56)
[2024-01-30 13:32] LABS: Glucose, Whole Blood 78 mg/dL (60-115)
--- NOTE | 2024-01-30 14:06 | P.PNGI_ITS ---
Subjective Subjective Date of Service: 01/30/24 Interval History: no further bleeding or diarrhea no abdominal pain no SOB or cough, he feels hungry Critical Care Time (minutes): 0 Physical Exam 2 Vital Signs: Vital Signs: Last Vital Signs Temp 96.9 F 01/30/24 13:52 Pulse 62 01/30/24 13:52 Resp 18 01/30/24 13:52 BP 146/77 H 01/30/24 13:52 Pulse Ox 97 01/30/24 13:52 O2 Del Method Room Air 01/30/24 13:52 BMI result Body Mass Index 23.1 EXAM: GENERAL: The patient is thin VITAL SIGNS:see workflow HEENT: Nonicteric sclerae, PERRLA, EOMI. Oropharynx clear. Moist mucous membranes. Conjunctivae appear well perfused. No thyroid mass. CHEST: Chest wall is nontender. HEART: irregular rate and rhythm with toro systolic murmur 3/6 at sternal edge LUNGS: Clear to auscultation bilaterally. ABDOMEN: Soft, positive bowel sounds, nontender, no organomegaly.no flank tenderness SKIN: No rash, no excessive bruising, petechiae, or purpura. NEUROLOGIC: Cranial nerves II-XII intact without motor/sensory deficit. Psych: normal affect Objective Data Labs 01/30/24 08:07 01/30/24 08:07 Labs: Laboratory Results - last 24 hr 01/29/24 01/29/24 01/30/24 17:01 21:15 07:56 WBC RBC Hgb Hct MCV MCH MCHC RDW Plt Count MPV Absolute Nucleated RBC Nucleated RBC % (auto) Sodium Potassium Chloride Carbon Dioxide Anion Gap BUN Creatinine Estim Creat Clear Calc Estimated GFR POC Glucose 162 H 206 H 94 Random Glucose Calcium Ferritin Total Bilirubin Direct Bilirubin AST ALT Alkaline Phosphatase B-Natriuretic Peptide Total Protein Albumin Vitamin B12 Folate Hepatitis A IgM Ab Hep Bs Antigen Hep Bs Antibody Hep B Core Total Ab Hep B Core IgM Ab Hepatitis C Ab (EIA) 01/30/24 01/30/24 01/30/24 08:07 09:35 11:25 WBC 3.6 L RBC 4.51 L Hgb 13.3 L Hct 41.3 L MCV 91.6 MCH 29.5 MCHC 32.2 RDW 16.8 H Plt Count 166 MPV 10.6 Absolute Nucleated RBC 0.000 Nucleated RBC % (auto) 0.0 Sodium 148 H Potassium 3.2 L Chloride 101 Carbon Dioxide 38 H Anion Gap 12 BUN 36 H Creatinine 2.21 H Estim Creat Clear Calc 27.2 Estimated GFR 29 POC Glucose 72 Random Glucose 82 Calcium 9.2 Ferritin 270 H Total Bilirubin 2.8 H Direct Bilirubin 1.6 H AST 87 H ALT 168 H Alkaline Phosphatase 319 H B-Natriuretic Peptide 4283 H Total Protein 8.3 H Albumin 3.7 Vitamin B12 > 2000 H Folate 12.5 Hepatitis A IgM Ab Nonreactive Hep Bs Antigen Negative Hep Bs Antibody REACTIVE Hep B Core Total Ab Reactive Hep B Core IgM Ab Cancelled Hepatitis C Ab (EIA) Nonreactive 01/30/24 13:26 WBC RBC Hgb Hct MCV MCH MCHC RDW Plt Count MPV Absolute Nucleated RBC Nucleated RBC % (auto) Sodium Potassium Chloride Carbon Dioxide Anion Gap BUN Creatinine Estim Creat Clear Calc Estimated GFR POC Glucose 78 Random Glucose Calcium Ferritin Total Bilirubin Direct Bilirubin AST ALT Alkaline Phosphatase B-Natriuretic Peptide Total Protein Albumin Vitamin B12 Folate Hepatitis A IgM Ab Hep Bs Antigen Hep Bs Antibody Hep B Core Total Ab Hep B Core IgM Ab Hepatitis C Ab (EIA) Procedures Date of Service Date of Service: 01/30/24 Progress Note: A&P Assessment and plan (1) Abnormal LFTs: Status: Acute (2) Rectal bleeding: Status: Acute Plan 1/ sigmoidoscopy today to assess for hemorrhoids as cause of rectal bleeding 2/ await liver serologies, he is ok with liver bx if needed if serology is negative 3/ BNP remains elevated but clinically no evidence that he is in acute on chronic CHF at this time, may be high from CKD stage 4, pre existing cardiomyopathy Time Spent With Patient Time: Total time managing care of this patient today ____ minutes. Quality Stroke Does the patient have a stroke diagnosis?: No VTE Prior VTE?: No VTE Risk Level:: Medical - moderate - high VTE Device Contraindication: N/A - Device Ordered VTE Drug Contraindication: Treatment Not Indicated
--- NOTE | 2024-01-30 14:10 | MHC.SHP ---
Pre-Procedural Eval Section A - 24 Hr Update-Section A only Date of Service: 01/30/24 The patient is an INPATIENT: Yes The patient has been examined within 24 hours of the surgical procedure. The History & Physical has been completed within 30 days and I have reviewed it.: Yes Section B - Complete if H&P > 30 days Chief Complaint: GIB, diarrhea, elevated lfts Allergies: Allergies Allergy/AdvReac Type Severity Reaction Status Date / Time aspirin Allergy Unknown Verified 01/28/24 14:16 diphenhydramine Allergy Unknown Verified 01/28/24 14:16 [From Benadryl] morphine Allergy Unknown Verified 01/28/24 14:16 Plan Diagnosis/Plan: Unchanged I have reviewed the history and physical and performed a pertinent physical examination on my patient. No changes have occurred unless specified. flex sig without anesthesia given his comorbidities Time Spent With Patient Time: Total time managing care of this patient today ____ minutes.
--- NOTE | 2024-01-30 14:32 | W.PM.OPN ---
Operative Note Operative Note Date of Service: 01/30/24 Narrative: Procedure Description: sigmoidoscopy Indication: rectal bleeding Anesthesia: none Sigmoidoscopy Instrument: Upper endoscope Colonoscopy Monitoring: Vital signs and clinical assessment, continuous EKG monitoring, Pulse oximetry, Carbon Dioxide monitoring and blood pressure monitoring were done throughout the procedure. Procedure: The patient was placed in the left lateral decubitis position and pre-procedure medications were administered. After a digital rectal examination of the ano-rectum, the video colonoscope was inserted into the rectum and advanced through the colon to the sigmoid colon The scope was slowly withdrawn in a retrograde panoramic fashion and the colon mucosa was carefully examined . Findings and interventions are described below. Procedure Difficulty: easy Findings: Sigmoid Colon: normal, formed stool noted without blood. Rectum: x 4 sessile polyps noted 5-7 mm, three removed with cold snare and one removed with cold forceps , retroflexion with small internal hemorrhoids Anorectum - normal Colon preparation: fair Impression and Post Procedure Diagnosis: Plan: bleeding was likely from internal hemorrhoids, HGB has been stable, OK to restart eliquis after liver bx high fiber diet and avoid constipation Above findings were reviewed with the patient and relevant handouts were provided if indicated.
[2024-01-30 16:47] LABS: Glucose, Whole Blood 153 mg/dL (60-115)
[2024-01-30] MEDS: Insulin Lispro 100 UNIT/ML 3 ML VIAL SUBCUT ×2 (17:14→21:21)
[2024-01-30 19:56] LABS: Glucose, Whole Blood 225 mg/dL (60-115)
[2024-01-30] MEDS: Atorvastatin Calcium 10 MG TABLET PO (21:20)
[2024-01-30] MEDS: Insulin Glargine,Hum.rec.anlog 100 UNIT/ML 10 ML VIAL SUBCUT (21:21)
[2024-01-31] VITALS (7 sets, daily range): BP systolic 110–142; BP diastolic 57–78; PULSE 58–76; RESP 15–18; TEMP 36.5–36.8; O2SAT 97–100
[2024-01-31] MEDS: Pantoprazole Sodium 40 MG/10 ML VIAL IVPUSH (06:10)
[2024-01-31 08:01] LABS: Glucose, Whole Blood 118 mg/dL (60-115)
[2024-01-31] MEDS: Torsemide 20 MG TABLET 80 MG PO (09:43)
[2024-01-31 09:45] LABS: INTERNATIONAL NORM RATIO 1.2 (0.9-1.1); Prothrombin Time 14.4 SEC (11.1-13.3)
[2024-01-31] MEDS: Gabapentin 100 MG CAPSULE 200 MG PO ×2 (09:45→15:26)
[2024-01-31] MEDS: Amiodarone HCL 200 MG TABLET PO (09:45)
[2024-01-31] MEDS: Sacubitril/Valsartan 24/26 1 TAB TABLET PO (09:46)
[2024-01-31] MEDS: Potassium Chloride ER 20 MEQ TAB.ER.PRT PO ×2 (09:46→15:26)
[2024-01-31] MEDS: Ferrous Sulfate 324 MG TABLET.DR PO (09:47)
[2024-01-31] MEDS: 0.9 % Sodium Chloride Flush 3 ML SYRINGE IVFLUSH (09:49)
[2024-01-31 10:03] LABS: Alanine Aminotransferase 116 U/L (0-40); Albumin Level 3.4 g/dL (3.5-5.0); Alkaline Phosphatase 273 U/L (39-117); Anion Gap 13 (12-20); Aspartate Amino Transferase 50 U/L (5-37); Bilirubin Direct 1.5 mg/dL (0.0-0.5); Bilirubin Total 2.4 mg/dL (0.0-1.0); Blood Urea Nitrogen 42 mg/dL (9-16); Calcium 8.7 mg/dL (8.4-10.2); Carbon Dioxide 36 mmol/L (22-29); Chloride 100 mmol/L (96-108); Estimated Glomerular Filt Rate 28; Glucose Random 142 mg/dL (60-115); Sodium 145 mmol/L (135-145); Total Protein 7.5 g/dL (6.5-8.0)
[2024-01-31 10:15] LABS: Potassium 4.1 mmol/L (3.3-5.1)
--- NOTE | 2024-01-31 11:35 | P.DS_ITS ---
DS: Providers Provider Date of Service: 01/31/24 Date of admission: 01/28/24 21:41 Date of discharge: 01/31/24 Primary care physician: Unknown Physician Consults: 01/28/24 20:52 Consult to Gastroenterology Routine Consulting Provider: Neo Moore Reason for consultation: elevated lfts, gi bleed 01/29/24 13:53 Consult to Cardiology Routine Consulting Provider: [facility] Reason for consultation: CHF Attending physician on discharge: Balaji Roca Discharging clinician: Edwige Novoa DS: Diagnosis Discharge Diagnosis (1) Abnormal LFTs: Status: Acute (2) Rectal bleeding: Status: Acute DS: Summary Hospital Course Hospital Course: From H&P on the day of admission 73-year-old male with history of CKD stage 4, paroxysmal atrial flutter anticoagulated with Eliquis on amiodarone, hypertension, mitral valve regurgitation, insulin-dependent type 2 diabetes, cardiomyopathy, heart failure with severely reduced ejection fraction EF 10-15%, history of colon cancer s/p resection (about 10 years ago per pt @[facility]- records requested) presented to the ED earlier today for evaluation of bright red blood per rectum that started this morning. He reports he has had generalized abdominal discomfort but no severe pain ongoing for 3 days. Over the last 3 days he has also had about 6-7 episodes of watery diarrhea on a daily basis. He states had may have consumed bad salad/dressing about 1 day prior to onset of symptoms. Denies any sick contacts, recent travel, or antibiotic use. He currently resides at a rehab facility following hospitalization at [facility] about 2 months ago for CHF exacerbation. He states during the hospitalization he was also diagnosed with gastric ulcer but has not had any nausea, vomiting, hematemesis, melena. He is also reporting tremors in the hands bilaterally which is different from baseline. No EtOH use, illicit drug use. Remote smoker who quit about 10 years ago with 10 pack-year history. Reports last colonoscopy was about 5 years ago with normal findings. On arrival to the ER, vitals stable. No hypotension. He is mild leukopenia 4.0. H/H 12.2/37.6% (baseline around 13.5/41.4% at [facility] 11/30). Creatinine 2.73, consistent with baseline, BUN 52. Electrolyte levels normal. Total bilirubin 2.4, direct bilirubin 1.7 (baseline 1.8 and 0.9 respectively). AST 142, ALT 208, baseline 88 in 66 [address]. [address] shows cardiomegaly and anasarca with enlarged heterogenous low-density liver with ascites. Abdominal ultrasound shows echogenic bile in the gallbladder but no shadowing gallstones or findings to suggest cholecystitis. There is a small amount of ascites. In the ED has received 1 L IV LR, 80 mg pantoprazole. GI bleed No significant anemia, mild normocytic anemia with H/H above transfusion threshold. Stool occult blood positive. CT abdomen/pelvis negative for any evidence of active bleeding. Seen by gastroenterology and underwent sigmoidoscopy 01/29 - sessile polyps were noted 5-7 mm, 3 were removed with cold snare in 1 removed with cold forcep s. Bleeding was likely from internal hemorrhoids. Hemoglobin has remained stable, okay to resume Eliquis. Recommend high-fiber diet and avoiding constipation. Elevated LFTs ?congestive hepatopathy from CHF. MRCP negative. Initially planned for liver biopsy as inpatient to evaluate for possible amiodorone induced liver injury however LFTs downtrending today and no IR available for biopsy. Would recommend close monitoring of LFTs and consider outpatient liver biopsy if they do not improve. Recommend outpatient follow-up with GI. Acute diarrhea GI panel and C diff not collected, no further diarrhea since admission. Hypokalemia Continue home replacement as scheduled. resolved. Paroxysmal atrial flutter/fib-rate controlled on admission continue amiodarone. Initially Eliquis was placed on hold for GI bleeding. Can resume as per GI recommendation. Heart failure reduced ejection fraction anasarca noted on CT abdomen/pelvis but no dyspnea/orthopnea. BNP elevated, likely in the setting of chronic kidney disease and low EF. Seen by cardiology no evidence of decompensated CHF. Will stop IV Lasix and resume baseline medications. echo 01/28 severely reduced EF 10-15% with severe biatrial enlargement, moderately severe tricuspid regurgitation, severely elevated right ventricular systolic pressure. History of sever cardiomyopathy. continued on torsemide, metolazone, Entresto, Farxiga. recommended outpatient follow up with primary lead principal technical architect, Dr. Flores. Time Attestation Discharge Coordination Time (in mins): 36 Quality: Safe Use of Opioids Does Pt have an Active Cancer Diagnosis on the Problem List?: No Quality: Stroke Does the patient have a stroke diagnosis?: No Physical Exam Vital Signs: Vital Signs: Last Vital Signs Temp 98.2 F 01/31/24 11:26 Pulse 60 01/31/24 11:26 Resp 16 01/31/24 11:26 BP 136/71 01/31/24 11:26 Pulse Ox 99 01/31/24 11:26 O2 Del Method Room Air 01/31/24 11:26 BMI result Body Mass Index 23.1 Const: General: comfortable, alert and awake Nutritional Appearance: average body habitus Orientation/consciousness: oriented to person and oriented to place Resp: Effort & Inspection: normal respiratory effort, able to speak in complete sentences, no respiratory distress and no use of accessory muscles Auscultation: clear to auscultation bilaterally GI: Inspection: No distended Palpation (GI): Soft to palpation Neuro: General: oriented to person and oriented to place Extrem: General: Yes no pedal edema DS: Data Data Completed and Pending Pending studies at discharge: Pending at discharge 01/30/24 14:27 Surgical [PTH] Routine Labs on day of discharge: Laboratory Results - last 24 hr 01/30/24 01/30/24 01/30/24 09:35 11:25 13:26 PT INR Sodium Potassium Chloride Carbon Dioxide Anion Gap BUN Creatinine Estim Creat Clear Calc Estimated GFR POC Glucose 72 78 Random Glucose Calcium Total Bilirubin Direct Bilirubin AST ALT Alkaline Phosphatase Total Protein Albumin Hep B Core Total Ab Reactive Hep B Core IgM Ab Cancelled 01/30/24 01/30/24 01/31/24 16:42 19:52 07:30 PT INR Sodium Potassium Chloride Carbon Dioxide Anion Gap BUN Creatinine Estim Creat Clear Calc Estimated GFR POC Glucose 153 H 225 H 118 H Random Glucose Calcium Total Bilirubin Direct Bilirubin AST ALT Alkaline Phosphatase Total Protein Albumin Hep B Core Total Ab Hep B Core IgM Ab 01/31/24 09:27 PT 14.4 H D INR 1.2 H Sodium 145 Potassium 4.1 D Chloride 100 Carbon Dioxide 36 H Anion Gap 13 BUN 42 H Creatinine 2.31 H Estim Creat Clear Calc 26.0 Estimated GFR 28 POC Glucose Random Glucose 142 H Calcium 8.7 Total Bilirubin 2.4 H Direct Bilirubin 1.5 H AST 50 H ALT 116 H Alkaline Phosphatase 273 H Total Protein 7.5 Albumin 3.4 L Hep B Core Total Ab Hep B Core IgM Ab Discharge Plan Discharge Anticipated Discharge Date/Time: 01/31/24 12:04 Patient Disposition: Xfer SNF Discharge Diagnosis: rectal bleeding due to internal hemorrhoids Elevated LFTs Known severe cardiomyopathy Referrals: Neo Moore MD [Physician] - 1 Week Physician,Unknown J [Primary Care Provider] - 1 Week Discharge Medications: Continued metolazone 2.5 mg tablet 2.5 mg PO Q48H PRN (Reason: volume overload) Rx Instructions: give if gain +3lb in 48 hours or +5lbs in 7 days do not give if maintenance dose given with in the last 24 hours metolazone 2.5 mg tablet 2.5 mg PO TU sennosides [senna] 8.6 mg Tablet 17.2 mg PO DAILY acetaminophen 325 mg Tablet 650 mg PO Q4H PRN (Reason: pain/fever) torsemide 20 mg tablet 80 mg PO DAILY lidocaine 4 % Adhesive Patch,Medicated 1 patch TOPICAL DAILY atorvastatin 10 mg tablet 10 mg PO BEDTIME amiodarone 200 mg tablet 200 mg PO DAILY ferrous sulfate 325 mg (65 mg iron) Tablet 325 mg PO MOWEFR omeprazole 20 mg Capsule,Delayed Release(Dr/Ec) 20 mg PO DAILY ammonium lactate 12 % Cream 1 appl TOPICAL BID gabapentin 100 mg capsule 200 mg PO TID simethicone 80 mg Tablet,Chewable 160 mg PO Q8H PRN (Reason: Dyspepsia) insulin lispro [Humalog KwikPen Insulin] 100 unit/mL insulin pen 0 sliding scale dose subcut TIDAC Protocol: Insulin Correction Scale Less than or equal to 110 ---- Give (units): 0 111 to 150 Give (units): 0 151 to 200 Give (units): 0 201 to 250 Give (units): 2 251 to 300 Give (units): 4 301 to 350 Give (units): 6 Greater than 350 Give (units): 8 Call MD if Blood Glucose > : 350 Saline Nasal 0.65 % Aerosol,[place] 2 spray INTRANASAL Q6H PRN (Reason: Congestion) lactulose 10 gram/15 mL solution 30 ml PO DAILY Eliquis 5 mg tablet 5 mg PO BID dapagliflozin propanediol [Farxiga] 10 mg tablet 10 mg PO DAILY potassium chloride 20 mEq Tablet Extended Release 20 meq PO TID Entresto 24-26 mg tablet 1 tab PO BID insulin glargine-yfgn 100 unit/mL (3 mL) insulin pen 7 unit subcut DAILY lactulose 10 gram/15 mL solution 30 ml PO Q12H PRN (Reason: Constipation) loratadine 10 mg Tablet 10 mg PO DAILY PRN (Reason: Itching) Discharge Orders: Discharge Order (Routine); Ordered 01/31/24 Ordered By: Edwige Novoa Activity on Discharge: As tolerated Stand Alone Forms: Patient Portal Discharge page Print Language: Citizen Of [place] Care Plan Goals: see below Health Concerns: gi bleeding - likely due to internal hemorrhoids Diarrhea-resolved Known severe cardiomyopathy. Recommend outpatient follow-up with your primary lead principal technical architect Elevated LFTs Plan of Treatment: Elevated LFTs-starting to trend down. Recommend outpatient follow-up with GI GI bleeding, likely due to internal hemorrhoids. Recommend to avoid co nstipation. Recommend high-fiber diet. Outpatient follow-up with GI for review of pathology related to polyps that were removed during sigmoidoscopy Call to schedule follow-up appointment with primary lead principal technical architect Recommend to repeat liver function tests early next week Assessment: see discharge summary
[2024-01-31 12:39] LABS: Alpha 1 Anti-trypsin 202 mg/dL (83-199)
--- NOTE | 2024-01-31 12:46 | MHC.CM.PN ---
[facility] FOR 1500. SAM CAN DO 1530 FROM HERE.RN AND UNIT AWARE.
--- NOTE | 2024-01-31 13:19 | MHC.CM.PN ---
NO HCP ON FILE PATIENT HAS DEEMED DEEMED UNABLE TO MAKE HIS OWN MEDICAL DECISIONS. EXPANSE INFORMATION INDICATES NO ONE NEXT CONTACT. PATIENT DOES NOT RESPOND TO T/W QUESTION OF WHO CAN BE REACHED OT INFORM OF HIS PENDING RETURN TO FACILITY.
[2024-01-31 14:13] LABS: Transglutaminase IgA <1.0 U/mL
[2024-01-31 19:58] LABS: Myeloperoxidase Antibody <1.0 AI; Proteinase 3 PR3 Antibodies <1.0 AI
[2024-02-03 11:19] LABS: IgA 483 mg/dL (70-320); IgG 1928 mg/dL (600-1540); IgM 141 mg/dL (50-300)
[2024-02-04 10:12] LABS: Phosphatidylethanol 16:0-18:1 NEGATIVE; Phosphatidylethanol 16:0-18:2 NEGATIVE
[2024-02-04 12:18] LABS: Soluble Liver Ag Autoantibody <20.1 U (0.0-20.0)
[2024-02-05 13:43] LABS: Anti Nuclear Antibody Screen NEGATIVE (NEGATIVE)
[2024-02-06 13:48] LABS: Smooth Muscle Antibody 21 U (<20)
== END 2024-01-31 18:00 | disposition skilled nursing facility (03) | DRG 394 ==
LOC: HO.ED 15:06 → HO.EDOVER 21:43 → HO.IMC 01-29 07:11
PROVIDERS: Internal Medicine Gastroenterology; Nurse Practitioner Acute Care; Admitting Provider Physician Assistant; Emergency Provider Emergency Medicine; Visit Provider Physician Assistant Medical
PROC: 0DJD8ZZ Inspection of Lower Intestinal Tract, Via Natural or Artificial Opening Endoscopic (ICD-10-PCS; CPT 45330; principal; 2024-01-30 15:20)
DX: K64.8 Other hemorrhoids (principal); I13.0 Hypertensive heart and chronic kidney disease with heart failure and stage 1 through stage 4 chronic kidney disease, or unspecified chronic kidney disease; I50.22 Chronic systolic (congestive) heart failure; N18.4 Chronic kidney disease, stage 4 (severe); I07.1 Rheumatic tricuspid insufficiency; D63.1 Anemia in chronic kidney disease; K62.1 Rectal polyp; E87.6 Hypokalemia; K76.1 Chronic passive congestion of liver; I27.20 Pulmonary hypertension, unspecified; I48.0 Paroxysmal atrial fibrillation; E11.22 Type 2 diabetes mellitus with diabetic chronic kidney disease; Z79.4 Long term (current) use of insulin; Z79.01 Long term (current) use of anticoagulants; Z79.899 Other long term (current) drug therapy
CPT/HCPCS: 36415; 71045; 74178; 74181; 76705; 80048; 80053; 80076; 80321; 81003; 82103; 82140; 82248; 82607; 82728; 82746; 82784; 82947; 83520; 83690; 83880; 85025; 85027; 85610; 85730; 86015; 86021; 86038; 86364; 86704; 86706; 86709; 86803; 86850; 86900; 86901; 87340; 88305; 93306; 99285; C9113; J1940; J3480; J7120; Q9957; Q9967

== ENCOUNTER 2024-01-28 21:41 | Outpatient (BNV) | payer MEDICARE, MEDICAID, SELFPAY | END 2024-01-29 17:00 | PROVIDERS: Admitting Provider Physician Assistant; Emergency Provider Emergency Medicine; Visit Provider Internal Medicine Cardiovascular Disease | DX: I50.20 Unspecified systolic (congestive) heart failure (principal) | CPT/HCPCS: 93306 ==

== ENCOUNTER → 2024-01-28 21:41 | Outpatient (BNV) | payer MEDICARE, MEDICAID, SELFPAY | PROVIDERS: Admitting Provider Physician Assistant; Emergency Provider Emergency Medicine; Visit Provider Internal Medicine Cardiovascular Disease | DX: I50.20 Unspecified systolic (congestive) heart failure (principal) | CPT/HCPCS: 99222 ==

== ENCOUNTER → 2024-01-28 21:41 | Outpatient (BNV) | payer MEDICARE, MEDICAID, SELFPAY | PROVIDERS: Admitting Provider Physician Assistant; Emergency Provider Emergency Medicine; Visit Provider Internal Medicine Gastroenterology | DX: R79.89 Other specified abnormal findings of blood chemistry (principal); K62.5 Hemorrhage of anus and rectum; K63.5 Polyp of colon; K64.8 Other hemorrhoids | CPT/HCPCS: 45331; 45338; 99223; 99233 ==

== ENCOUNTER → 2024-01-28 21:41 | Outpatient (BNV) | payer MEDICARE, MEDICAID, SELFPAY | PROVIDERS: Admitting Provider Physician Assistant; Emergency Provider Emergency Medicine; Visit Provider Nurse Practitioner Acute Care | DX: R74.01 Elevation of levels of liver transaminase levels (principal); K62.5 Hemorrhage of anus and rectum | CPT/HCPCS: 99223; 99232; 99233; 99239 ==

== ENCOUNTER 2024-12-31 17:42 | Emergency (ER) | payer MEDICARE, MEDICAID, SELFPAY ==
--- NOTE | ~2024-12-31 | XR_ITS ---
CLINICAL HISTORY: Rt hand pain 3 view right hand Comparison: None Findings: No fractures or dislocations. There is a nonaggressive appearing radiolucent lesion in the distal radius possibly related to neoplastic or metabolic bone disease. No significant arthritic change. No erosions. No radiopaque foreign body. There is regional arterial calcification. IMPRESSION: 1. No acute findings 2. Distal radial lesion, possible neoplastic or metabolic bone disease. Clinical follow-up recommended. This document has been electronically signed by: Addy Wiggins MD on 12/31/2024 18:56:17
--- NOTE | ~2024-12-31 | XR_ITS ---
CLINICAL HISTORY: Rt wrist pain 4 view right wrist Comparison: None Findings: No fractures or dislocations. There is a nonaggressive appearing distal radial radiolucent lesion. Correlate for neoplastic or metabolic bone disease. No significant arthritic change or erosions. No radiopaque foreign body. There is regional arterial calcification IMPRESSION: 1. Distal radial radiolucent lesion possibly related to neoplastic or metabolic bone disease. Clinical follow-up recommended. This document has been electronically signed by: Addy Wiggins MD on 12/31/2024 18:53:19
[2024-12-31 18:17] VITALS: BP 114/57; PULSE 84; RESP 16; TEMP 37.2; O2SAT 98; BMI 24.2
--- NOTE | 2024-12-31 18:17 | ED_ITS ---
HPI - General Adult General Chief complaint: Extremity Injury, Upper Stated complaint: right hand swollen turning black Time Seen by Provider: 01/01/25 01:00 Source: patient Mode of arrival: ambulatory History of Present Illness ED Provider: HPI narrative: Patient's history of gout complaining of pain in the right and for last few days getting worse feel throbbing pain no injury no fever no chills patient was given prednisone when he had attack before no other joints involved Related Data Home Medications ?Medication ?Instructions ?Recorded ?Confirmed acetaminophen 325 mg tablet 650 mg PO Q4H PRN pain/fever 01/28/24 01/28/24 amiodarone 200 mg tablet 200 mg PO DAILY 01/28/24 01/28/24 ammonium lactate 12 % topical cream 1 appl topical BID 01/28/24 01/28/24 apixaban 5 mg tablet (Eliquis) 5 mg PO BID 01/28/24 01/28/24 atorvastatin 10 mg tablet 10 mg PO BEDTIME 01/28/24 01/28/24 dapagliflozin propanediol 10 mg 10 mg PO DAILY 01/28/24 01/28/24 tablet (Farxiga) ferrous sulfate 325 mg (65 mg 325 mg PO MOWEFR 01/28/24 01/28/24 iron) tablet gabapentin 100 mg capsule 200 mg PO TID 01/28/24 01/28/24 insulin glargine-yfgn 100 unit/mL 7 unit subcut DAILY 01/28/24 01/28/24 (3 mL) subcutaneous pen insulin lispro 100 unit/mL 0 sliding scale dose subcut TIDAC 01/28/24 01/28/24 subcutaneous pen (Humalog KwikPen (U-100) Insulin) lactulose 10 gram/15 mL oral 30 ml PO DAILY 01/28/24 01/28/24 solution lactulose 10 gram/15 mL oral 30 ml PO Q12H PRN Constipation 01/28/24 01/28/24 solution lidocaine 4 % topical patch 1 patch topical DAILY left hip 01/28/24 01/28/24 loratadine 10 mg tablet 10 mg PO DAILY PRN Itching 01/28/24 01/28/24 metolazone 2.5 mg tablet 2.5 mg PO Q48H PRN volume overload 01/28/24 01/28/24 metolazone 2.5 mg tablet 2.5 mg PO TU 01/28/24 01/28/24 omeprazole 20 mg capsule,delayed 20 mg PO DAILY 01/28/24 01/28/24 release potassium chloride 20 mEq 20 meq PO TID 01/28/24 01/28/24 tablet,extended release sacubitril 24 mg-valsartan 26 mg 1 tab PO BID 01/28/24 01/28/24 tablet (Entresto) sennosides 8.6 mg tablet (senna) 17.2 mg PO DAILY 01/28/24 01/28/24 simethicone 80 mg chewable tablet 160 mg PO Q8H PRN Dyspepsia 01/28/24 01/28/24 sodium chloride 0.65 % nasal spray 2 spray intranasal Q6H PRN 01/28/24 01/28/24 aerosol (Saline Nasal) Congestion torsemide 20 mg tablet 80 mg PO DAILY 01/28/24 01/28/24 Previous Rx's ?Medication ?Instructions ?Recorded doxycycline hyclate 100 mg tablet 100 mg PO BID #20 tabs 01/01/25 oxycodone 5 mg tablet 5 mg PO Q6H PRN pain #20 tabs 01/01/25 prednisone 20 mg tablet 40 mg (2 x 20 mg) PO DAILY #10 tabs 01/01/25 Allergies Allergy/AdvReac Type Severity Reaction Status Date / Time aspirin Allergy Unknown Verified 12/31/24 18:18 diphenhydramine Allergy Unknown Verified 12/31/24 18:18 [From Benadryl] morphine Allergy Unknown Verified 12/31/24 18:18 Review of Systems 2 Review of Systems: Yes all other systems are reviewed and are negative [facility] Past Medical History Medical History CKD (chronic kidney disease) Type 2 diabetes mellitus Hyperlipidemia Atrial flutter HFrEF (heart failure with reduced ejection fraction) Essential (primary) hypertension Social History Social History Housing: Alf Do you presently have visiting nurse or other home services: Yes (COMES FROM REHAB) Comment: 1 MONTH AGO CATCHING FOOD OFF PLATE Patient Tobacco Use Status: Never used Tobacco Smoked in Last 30 Days: No Use of substances other than those prescribed or required for medical reasons: No Advance Directives: Yes Advance Directives Information Provided: Yes Advance Directives on File: No Do you have a plan to hurt others: No Plan service: No Physical Exam ED Vital Signs: Vital Signs - 24 hr 12/31/24 18:17 01/01/25 02:17 01/01/25 04:06 Temperature 98.9 F 97.8 F 97.8 F Pulse Rate 84 96 96 Respiratory Rate 16 14 14 Blood Pressure 114/57 L 127/65 127/65 Pulse Oximetry 98 94 94 Oxygen Delivery Method Room Air Room Air BMI result Body Mass Index 24.2 Appearance: Alert. Oriented X3. No acute distress. Eyes: no pallor or icterus ENT: Pharynx normal. Oral Mucosa moist Neck: Normal inspection. Neck supple. CVS: Normal heart rate and rhythm. Pulses normal. Respiratory: No respiratory distress. Equal air entry bilateral, no wheezing/rales/rhonchi Abd: soft, not tender Skin: Skin warm and dry. Normal skin color. Normal skin turgor. Extremities: Right hand swollen dorsum and 1st MCP joint with local warmth no signs of infection Neuro: Oriented X 3. Course Course Course Narrative: This is an RME done by VIN[facility] Catherine: Additional HPI, ROS, PE not included below will be deferred to primary provider. 74 year old male presents w/ right hand pain X few days Atraumatic in nature. patient is on eliquis. Patient has hx of gout Appearance: Alert.? Oriented X3.? No acute cardiopulmonary distress distress.? Head: Normocephalic, atraumatic, no step-offs or deformities ENT: Pharynx normal.??External ears normal, TMs normal bilaterally and EAC's normal. No pain with manipulation of external ears bilaterally. No mastoid tenderness. Neck: Normal inspection.? Neck supple.? CVS: Pulses normal.? Respiratory: No respiratory distress.? Abdomen: Soft and nontender.? Skin: ? Normal skin color. Extremities: 5/5 strength to bilateral upper and lower extremities +rue w/ swelling to right hand / wrist 2 +radial pulses. Normal distal sensation. +painful rom to right wrist Back: No midline tenderness, no C-spine tenderness, full range of motion, No CVA tenderness bilaterally Neuro: Oriented X 3.? No motor deficit.? No sensory deficit. Medications Administered Discontinued Medications Generic Name Dose Route Start Last Admin Trade Name Freq PRN Reason Stop Dose Admin Doxycycline Monohydrate 100 mg 01/01/25 01:24 01/01/25 01:39 Doxycycline Monohydrate 100 Mg Capsule PO 01/01/25 01:25 100 mg ONCE ONE Administration Oxycodone HCl 10 mg 01/01/25 01:25 01/01/25 01:39 Oxycodone Hcl Immed Release 5 Mg Tablet PO 01/01/25 01:26 10 mg ONCE ONE Administration Prednisone 40 mg 01/01/25 01:23 01/01/25 01:39 Prednisone 20 Mg Tablet PO 01/01/25 01:24 40 mg ONCE ONE Administration Medical Decision Making Medical Decision Making [facility] Narrative: Patient's history of gout with elevated uric acid level comes here for right hand pain and right 1st MCP pain and swelling which improved after prednisone patient does have elevated creatinine and elevated uric acid will not be able to give colchicine or allopurinol at this time because of CKD patient advised to have low purine diet and prednisone advised to follow with PCP Lab Data [facility] Lab Attestation statement: I reviewed the patient's lab results. 12/31/24 18:30 12/31/24 18:30 Labs: Lab Results 12/31/24 Range/Units 18:30 WBC 6.6 (4.8-10.8) X10*3/uL RBC 3.94 L (4.60-5.80) X10*6/uL Hgb 11.2 L (14.0-18.0) g/dl Hct 33.9 L (42.0-52.0) % MCV 86.0 (80.0-98.0) fL MCH 28.4 (27.0-33.0) pg MCHC 33.0 (31.0-36.0) g/dl RDW 16.9 H (11.0-16.0) % Plt Count 123 L D (160-400) X10*3/uL MPV 10.8 (9.4-12.4) fL Immature Gran % (Auto) 0.5 H (0.0-0.4) % Neut % (Auto) 74.1 H (45-73) % Lymph % (Auto) 15.2 L (20-40) % Andrews % (Auto) 9.2 (2-11) % Eos % (Auto) 0.8 (0-4) % Baso % (Auto) 0.2 (0-2) % Lymph # (Auto) 1.0 L (1.2-4.9) X10*3/uL [place] # (Auto) 0.6 (0.1-1.2) X10*3/uL Eos # (Auto) 0.1 (0.0-0.4) X10*3/uL Baso # (Auto) 0.0 (0.0-0.2) X10*3/uL Abs Immat Gran (auto) 0.03 (0.00-0.03) X10*3/uL Absolute Neuts (auto) 4.9 (2.0-8.3) x10*3/uL Absolute Nucleated RBC 0.000 (0.0-0.012) X10*3/uL Nucleated RBC % (auto) 0.0 (0.0-0.2) /100WBC ESR 78 H (0-15) MM/HR Sodium 139 (135-145) mmol/L Potassium 5.1 D (3.3-5.1) mmol/L Chloride 96 (96-108) mmol/L Carbon Dioxide 36 H (22-29) mmol/L Anion Gap 12 (12-20) BUN 25 H (9-16) mg/dL Creatinine 2.03 H (0.5-1.4) mg/dL Estim Creat Clear Calc 29.2 Estimated GFR 32 Random Glucose 255 H (60-115) mg/dL Uric Acid 8.0 H (3.4-7.0) mg/dL Calcium 8.8 (8.4-10.2) mg/dL Total Bilirubin 0.8 (0.0-1.0) mg/dL AST 27 (5-37) U/L ALT 22 (0-40) U/L Alkaline Phosphatase 88 (39-117) U/L C-Reactive Protein 12.52 H (< or = 0.50) mg/dL Total Protein 7.0 (6.5-8.0) g/dL Albumin 3.3 L (3.5-5.0) g/dL Discharge Plan Discharge Clinical Impression: Gouty arthritis of hand, Folliculitis Patient Disposition: Home, Self-Care Instructions: Low Purine Diet (ED), Gout (ED), Folliculitis (ED) Additional Instructions: Rest your right hand Wear splint Prednisone as prescribed Oxycodone for severe pain Follow up with your PCP Antibiotic as prescribed for infection Prescriptions: New prednisone 20 mg tablet 40 mg PO DAILY Qty: 10 0RF oxycodone 5 mg tablet 5 mg PO Q6H PRN (Reason: pain) Qty: 20 0RF Rx Instructions: Partial Fill upon patient request. doxycycline hyclate 100 mg tablet 100 mg PO BID Qty: 20 0RF No Action metolazone 2.5 mg tablet 2.5 mg PO Q48H PRN (Reason: volume overload) Rx Instructions: give if gain +3lb in 48 hours or +5lbs in 7 days do not give if maintenance dose given with in the last 24 hours metolazone 2.5 mg tablet 2.5 mg PO TU sennosides [senna] 8.6 mg Tablet 17.2 mg PO DAILY acetaminophen 325 mg Tablet 650 mg PO Q4H PRN (Reason: pain/fever) torsemide 20 mg tablet 80 mg PO DAILY lidocaine 4 % Adhesive Patch,Medicated 1 patch TOPICAL DAILY atorvastatin 10 mg tablet 10 mg PO BEDTIME amiodarone 200 mg tablet 200 mg PO DAILY ferrous sulfate 325 mg (65 mg iron) Tablet 325 mg PO MOWEFR omeprazole 20 mg Capsule,Delayed Release(Dr/Ec) 20 mg PO DAILY ammonium lactate 12 % Cream 1 appl TOPICAL BID gabapentin 100 mg capsule 200 mg PO TID simethicone 80 mg Tablet,Chewable 160 mg PO Q8H PRN (Reason: Dyspepsia) insulin lispro [Humalog KwikPen Insulin] 100 unit/mL insulin pen 0 sliding scale dose subcut TIDAC Protocol: Insulin Correction Scale Less than or equal to 110 ---- Give (units): 0 111 to 150 Give (units): 0 151 to 200 Give (units): 0 201 to 250 Give (units): 2 251 to 300 Give (units): 4 301 to 350 Give (units): 6 Greater than 350 Give (units): 8 Call MD if Blood Glucose > : 350 Saline Nasal 0.65 % Aerosol,[place] 2 spray INTRANASAL Q6H PRN (Reason: Congestion) lactulose 10 gram/15 mL solution 30 ml PO DAILY Eliquis 5 mg tablet 5 mg PO BID dapagliflozin propanediol [Farxiga] 10 mg tablet 10 mg PO DAILY potassium chloride 20 mEq Tablet Extended Release 20 meq PO TID Entresto 24-26 mg tablet 1 tab PO BID insulin glargine-yfgn 100 unit/mL (3 mL) insulin pen 7 unit subcut DAILY lactulose 10 gram/15 mL solution 30 ml PO Q12H PRN (Reason: Constipation) loratadine 10 mg Tablet 10 mg PO DAILY PRN (Reason: Itching) Interventions: ED Discharge Assessment Last Done: 01/01/25 04:06 Discharge Date/Time: 01/01/25 04:08 Print Language: Frisian
[2024-12-31 18:41] LABS: PLT CLUMP 1; SCAN SMEAR FLAG 1
[2024-12-31 18:42] LABS: Basophils Percent Auto 0.2 % (0-2); Eosinophils Absolute Auto 0.1 X10*3/uL (0.0-0.4); Eosinophils Percent Auto 0.8 % (0-4); Hematocrit 33.9 % (42.0-52.0); Hemoglobin 11.2 g/dl (14.0-18.0); Imm Gran Abs Auto 0.03 X10*3/uL (0.00-0.03); Imm Gran Pct Auto 0.5 % (0.0-0.4); Lymphocytes Percent Auto 15.2 % (20-40); Mean Corpuscular Hemoglobin 28.4 pg (27.0-33.0); Mean Platelet Volume 10.8 fL (9.4-12.4); Monocytes Absolute Auto 0.6 X10*3/uL (0.1-1.2); Monocytes Percent Auto 9.2 % (2-11); Neutrophils Absolute Auto 4.9 x10*3/uL (2.0-8.3); Neutrophils Percent Auto 74.1 % (45-73); Red Blood Count 3.94 X10*6/uL (4.60-5.80); Red Cell Distribution Width 16.9 % (11.0-16.0)
[2024-12-31 18:54] LABS: Anion Gap 12 (12-20)
[2024-12-31 18:57] LABS: Alanine Aminotransferase 22 U/L (0-40); Albumin Level 3.3 g/dL (3.5-5.0); Aspartate Amino Transferase 27 U/L (5-37); Bilirubin Total 0.8 mg/dL (0.0-1.0); Blood Urea Nitrogen 25 mg/dL (9-16); C Reactive Protein 12.52 mg/dL (< or = 0.50); Calcium 8.8 mg/dL (8.4-10.2); Carbon Dioxide 36 mmol/L (22-29); Chloride 96 mmol/L (96-108); Creatinine Clr Calc Pharmacy 29.2; Estimated Glomerular Filt Rate 32; Glucose Random 255 mg/dL (60-115); Potassium 5.1 mmol/L (3.3-5.1); Sodium 139 mmol/L (135-145)
[2024-12-31 18:59] LABS: Alkaline Phosphatase 88 U/L (39-117)
[2024-12-31 19:08] LABS: Platelet Count 123 X10*3/uL (160-400); White Blood Count 6.6 X10*3/uL (4.8-10.8)
[2024-12-31 19:09] LABS: MANUAL DIFF FLAG NO
[2024-12-31 19:42] LABS: Erythrocyte Sedimentation Rate 78 MM/HR (0-15)
--- NOTE | 2025-01-01 00:50 | MHC.EDTECH ---
this tech assumed care of pt @[id number]
[2025-01-01] MEDS: oxyCODONE HCl Immed Release 5 MG TABLET 10 MG PO (01:39)
[2025-01-01] MEDS: Doxycycline Monohydrate 100 MG CAPSULE PO (01:39)
[2025-01-01] MEDS: predniSONE 20 MG TABLET 40 MG PO (01:39)
--- NOTE | 2025-01-01 01:44 | PC.NURSE ---
pt medicated according to mar for 10/10 R hand pain
[2025-01-01 02:17] VITALS: BP 127/65; PULSE 96; RESP 14; TEMP 36.6; O2SAT 94
--- NOTE | 2025-01-01 04:05 | PC.NURSE ---
pt verbalized understanding of discharge plan pt ambulatory at discharge pt tolerated right wrist splint well. pt verbalized understanding of discharge plan
[2025-01-01 04:06] VITALS: BP 127/65; PULSE 96; RESP 14; TEMP 36.6; O2SAT 94
== END 2025-01-01 04:08 | disposition home or self-care (01) ==
PROVIDERS: Physician Assistant; Emergency Provider Internal Medicine
DX: M10.041 Idiopathic gout, right hand (principal); L73.9 Follicular disorder, unspecified; M79.641 Pain in right hand
CPT/HCPCS: 36415; 73100; 73130; 80053; 84550; 85025; 85652; 86140; 99283; 99284

== ENCOUNTER → 2024-12-31 18:25 | Outpatient (BNV) | payer MEDICARE, MEDICAID, SELFPAY | PROVIDERS: Visit Provider Specialist | DX: M25.531 Pain in right wrist (principal) | CPT/HCPCS: 73110; 73130 ==

== ENCOUNTER 2025-01-27 17:04 | Inpatient (IN) | payer MEDICARE, OTHER, SELFPAY ==
--- NOTE | ~2025-01-27 | US_ITS ---
CLINICAL HISTORY: rule out DVT versus venous insufficiency Venous duplex ultrasound right lower extremity Comparison: None Findings: The visualized deep veins are fully compressible with normal Doppler color flow and spectral tracings. No popliteal cyst. IMPRESSION: 1. Negative for right lower extremity deep vein thrombosis. This document has been electronically signed by: Demar aGo MD on 01/28/2025 00:06:46
--- NOTE | ~2025-01-27 | XR_ITS ---
CLINICAL HISTORY: necrotic toes Three views of the right foot. Findings: The bones are osteopenic. Probable bunionectomy with a possible distal 1st metatarsal osteotomy. There is diffuse soft tissue swelling. There is metatarsus primum varus and hallux valgus with 1st MTP DJD. Impression: No definite osteomyelitis. Other findings as above. This document has been electronically signed by: Eduardo Kwok MD on 01/27/2025 18:45:10
--- NOTE | ~2025-01-27 | XR_ITS ---
CLINICAL HISTORY: L foot pain Three views of the left foot. Findings: There is diffuse soft tissue swelling. There is hallux valgus with 1st MTP DJD. There is pes planus. Impression: No definite acute bony abnormality is seen. This document has been electronically signed by: Eduardo Kwok MD on 01/27/2025 18:45:19
--- NOTE | ~2025-01-27 | US_ITS ---
CLINICAL HISTORY: Gangrenous change of the toes. Arterial duplex ultrasound right lower extremity Comparison: None Findings: Monophasic waveform in the mid SFA and return of a biphasic waveform in the distal SFA. Monophasic low resistance waveform in the distal popliteal artery. Monophasic low resistance waveform in the posterior tibial artery. A focal high peak systolic velocity was identified in the proximal superficial femoral artery. IMPRESSION: Spectral waveform changes are suggestive of multifocal moderate to severe stenoses in the superficial femoral artery. This document has been electronically signed by: Demar Gao MD on 01/28/2025 00:06:58
[2025-01-27 17:29] VITALS: BP 112/53; PULSE 80; RESP 18; TEMP 37.3; O2SAT 100; BMI 21.8
--- NOTE | 2025-01-27 17:29 | ED_ITS ---
HPI - Extremity Injury (Lower) General Chief Complaint: Wound/Laceration Stated Complaint: sent form [facility] R foot infection Time Seen by Provider: 01/27/25 22:42 Source: patient Mode of arrival: ambulatory Limitations: no limitations History of Present Illness ED Provider: DR. Jacobs HPI Narrative: 74-year-old male with a past medical history of CKD, diabetes, HLD, A flutter On Eliquis, HTN presenting to the ED sent in from urgent care c/o right foot infection x20 days, states sx are intermittent. denies drainage, fever, injury. Related Data Home Medications ?Medication ?Instructions ?Recorded ?Confirmed acetaminophen 325 mg tablet 650 mg PO Q4H PRN pain/fever 01/28/24 01/28/24 amiodarone 200 mg tablet 200 mg PO DAILY 01/28/24 01/28/24 ammonium lactate 12 % topical cream 1 appl topical BID 01/28/24 01/28/24 apixaban 5 mg tablet (Eliquis) 5 mg PO BID 01/28/24 01/28/24 atorvastatin 10 mg tablet 10 mg PO BEDTIME 01/28/24 01/28/24 dapagliflozin propanediol 10 mg 10 mg PO DAILY 01/28/24 01/28/24 tablet (Farxiga) ferrous sulfate 325 mg (65 mg 325 mg PO MOWEFR 01/28/24 01/28/24 iron) tablet gabapentin 100 mg capsule 200 mg PO TID 01/28/24 01/28/24 insulin glargine-yfgn 100 unit/mL 7 unit subcut DAILY 01/28/24 01/28/24 (3 mL) subcutaneous pen insulin lispro 100 unit/mL 0 sliding scale dose subcut TIDAC 01/28/24 01/28/24 subcutaneous pen (Humalog KwikPen (U-100) Insulin) lactulose 10 gram/15 mL oral 30 ml PO DAILY 01/28/24 01/28/24 solution lactulose 10 gram/15 mL oral 30 ml PO Q12H PRN Constipation 01/28/24 01/28/24 solution lidocaine 4 % topical patch 1 patch topical DAILY left hip 01/28/24 01/28/24 loratadine 10 mg tablet 10 mg PO DAILY PRN Itching 01/28/24 01/28/24 metolazone 2.5 mg tablet 2.5 mg PO Q48H PRN volume overload 01/28/24 01/28/24 metolazone 2.5 mg tablet 2.5 mg PO TU 01/28/24 01/28/24 omeprazole 20 mg capsule,delayed 20 mg PO DAILY 01/28/24 01/28/24 release potassium chloride 20 mEq 20 meq PO TID 01/28/24 01/28/24 tablet,extended release sacubitril 24 mg-valsartan 26 mg 1 tab PO BID 01/28/24 01/28/24 tablet (Entresto) sennosides 8.6 mg tablet (senna) 17.2 mg PO DAILY 01/28/24 01/28/24 simethicone 80 mg chewable tablet 160 mg PO Q8H PRN Dyspepsia 01/28/24 01/28/24 sodium chloride 0.65 % nasal spray 2 spray intranasal Q6H PRN 01/28/24 01/28/24 aerosol (Saline Nasal) Congestion torsemide 20 mg tablet 80 mg PO DAILY 01/28/24 01/28/24 Previous Rx's ?Medication ?Instructions ?Recorded doxycycline hyclate 100 mg tablet 100 mg PO BID #20 tabs 01/01/25 oxycodone 5 mg tablet 5 mg PO Q6H PRN pain #20 tabs 01/01/25 prednisone 20 mg tablet 40 mg (2 x 20 mg) PO DAILY #10 tabs 01/01/25 Allergies Allergy/AdvReac Type Severity Reaction Status Date / Time aspirin Allergy Unknown Verified 01/27/25 17:33 diphenhydramine Allergy Unknown Verified 12/31/24 18:18 [From Benadryl] morphine Allergy Unknown Verified 12/31/24 18:18 Review of Systems 2 Review of Systems: all other systems are reviewed and are negative Constitutional: Reports as per HPI and Reports no additional constitutional complaints Eyes: Reports as per HPI and Reports no additional eye complaints Reports system reviewed and no additional complaints, except as documented Cardiovascular: Reports as per HPI and Reports no additional cardiovascular complaints Respiratory: Reports as per HPI and Reports no additional respiratory complaints Gastrointestinal: Reports as per HPI and Reports no additional gastrointestinal complaints Genitourinary: Reports no additional female genitourinary complaints Musculoskeletal: Reports no additional musculoskeletal complaints Skin/Breast: Reports system reviewed and no additional complaints, except as docu Psychiatric: Reports no additional psychiatric complaints Endocrine: Reports no additional endocrine complaints Hematologic/Lymphatic: Reports no additional hematologic/lymphatic complaints Allergic/Immunologic: Reports no additional allergic/immunologic complaints Reports system reviewed and no additional complaints, except as documented and Reports Abnormal speech present [facility] Past Medical History Medical History CKD (chronic kidney disease) Type 2 diabetes mellitus Hyperlipidemia Atrial flutter HFrEF (heart failure with reduced ejection fraction) Essential (primary) hypertension Social History Social History Housing: Group Home Do you presently have visiting nurse or other home services: Yes (COMES FROM REHAB) Alcohol intake: never Comment: 1 MONTH AGO CATCHING FOOD OFF PLATE Patient Tobacco Use Status: Never used Tobacco Smoked in Last 30 Days: No Use of substances other than those prescribed or required for medical reasons: No Advance Directives: No Advance Directives Information Provided: No service: No Physical Exam 2 Vital Signs: Vital Signs: Last Vital Signs Temp 97.5 F 01/28/25 02:55 Pulse 71 01/28/25 06:00 Resp 16 01/28/25 06:00 BP 108/58 L 01/28/25 06:00 Pulse Ox 98 01/27/25 19:24 O2 Del Method Room Air 01/28/25 06:00 BMI result Body Mass Index 21.8 Vital signs have been reviewed and appear to be correct. Blood pressure elevated. Heart rate normal. Respiratory rate normal. Temperature normal. Oxygen saturation normal. Appearance: Alert. Oriented X3. No acute distress. Head: Normal external exam. Normocephalic. Atraumatic. No Harrington signs noted. No raccoon eyes noted Eyes: PERRLA. EOMI. Conjunctiva and sclera normal. Eyelids normal. ENT: TM's Normal. Pharynx normal. Uvula midline. Moist mucous membranes. No trismus noted. No drooling noted. No muffled voice noted. Neck: Normal inspection. Neck supple. FROM. No adenopathy. Thyroid Normal. No meningeal signs. No neck mass noted. CVS: Normal heart rate and rhythm. Heart sound normal. No murmurs noted. Pulses normal throughout. Respiratory: No respiratory distress. Painless inspiration. Breath sounds normal. No wheezes/rales/rhonchi noted. Chest nontender. No accessory muscle usage noted or decreased air movement noted. Abdomen: Soft and nontender. Bowel sounds normal in all 4 quadrants. No distention noted. No organomegaly noted. No visible injury noted. Back: No CVA tenderness. Full range of motion noted. Skin: Skin warm and dry. Normal skin color. Normal skin turgor. No rashes/lesions/lacerations noted. Extremities: Left foot: + necrotic wounds noted to right foot toes 3-5 At the tip and dorsal aspect and wound to heal. Faint DP & PT pulses palpable. No drainage. foot ttp Neuro: Oriented X 3. Cranial nerve exam: II-XII are grossly intact No motor deficit. No sensory deficit. Reflexes normal. Course Course Course Narrative: This is a Rapid Medical Exam performed in triage by Nallely French PA-C. Full HPI, ROS and PE to be performed by primary ED provider. left foot infection? Plan: labs, lactic/blood Cx, XR Reevaluation(s) Reevaluation #1: Left foot cellulitis with ischemic change on the toe tips, patient is on anticoagulation with a history of a flutter, arterial ultrasound suggesting severe peripheral vascular disease. No emergent vascular consultation at this point will admit the patient for further vascular surgery consultation, will cover with Zosyn. No sepsis or septic shock. Time: 00:38 Medications Administered Generic Name Dose Route Start Last Admin Trade Name Freq PRN Reason Stop Dose Admin Atorvastatin Calcium 10 mg 01/28/25 02:35 01/28/25 03:01 Atorvastatin Calcium 10 Mg Tablet PO 10 mg BEDTIME SHAKIRA Administration Insulin Glargine 4 unit 01/28/25 02:30 01/28/25 03:06 Insulin Glargine,Hum.Rec.Anlog 100 Unit/Ml 10 Ml Vial SUBCUT 4 unit BEDTIME SHAKIRA Administration Omeprazole 20 mg 01/28/25 06:30 01/28/25 06:55 Omeprazole 20 Mg Capsule. PO Not Given DAILY@0630 SHAKIRA Discontinued Medications Generic Name Dose Route Start Last Admin Trade Name Freq PRN Reason Stop Dose Admin Piperacillin Sod/Tazobactam 50 mls @ 100 mls/hr 01/27/25 23:09 01/28/25 06:48 Sod 3.375 gm/ Sodium Chloride IV 01/27/25 23:38 Infused ONCE ONE Infusion Vancomycin HCl 1,500 mg/ 500 mls @ 333.333 mls/hr 01/28/25 02:00 01/28/25 06:49 Sodium Chloride IV 01/28/25 03:29 Infused ONCE ONE Infusion Oxycodone HCl 5 mg 01/27/25 23:41 01/27/25 23:52 Oxycodone Hcl Immed Release 5 Mg Tablet PO 01/27/25 23:42 5 mg ONCE ONE Administration Medical Decision Making Differential Diagnosis Differential Diagnoses: The differential diagnosis associated with the presentation includes ( Cellulitis, dry gangrene, electrolyte derangement, severe anemia, PVD.) Admission/Observation Consideration of admission/observation: Escalation of care including admission/observation considered Consult Healthcare Provider Management of the patient was discussed with: Hospitalist ( Dr. Pan) Lab Data MDM Lab Attestation statement: I reviewed the patient's lab results. 01/28/25 05:10 01/28/25 05:10 Labs: Lab Results 01/27/25 01/27/25 01/27/25 Range/Units 17:39 19:18 21:22 WBC 7.3 (4.8-10.8) X10*3/uL RBC 4.09 L (4.60-5.80) X10*6/uL Hgb 11.7 L (14.0-18.0) g/dl Hct 34.8 L (42.0-52.0) % MCV 85.1 (80.0-98.0) fL MCH 28.6 (27.0-33.0) pg MCHC 33.6 (31.0-36.0) g/dl RDW 15.1 (11.0-16.0) % Plt Count 230 D (160-400) X10*3/uL MPV 10.9 (9.4-12.4) fL Immature Gran % (Auto) 0.3 (0.0-0.4) % Neut % (Auto) 72.7 (45-73) % Lymph % (Auto) 16.3 L (20-40) % Story % (Auto) 7.5 (2-11) % Eos % (Auto) 2.9 (0-4) % Baso % (Auto) 0.3 (0-2) % Lymph # (Auto) 1.2 (1.2-4.9) X10*3/uL Story # (Auto) 0.6 (0.1-1.2) X10*3/uL Eos # (Auto) 0.2 (0.0-0.4) X10*3/uL Baso # (Auto) 0.0 (0.0-0.2) X10*3/uL Abs Immat Gran (auto) 0.02 (0.00-0.03) X10*3/uL Absolute Neuts (auto) 5.3 (2.0-8.3) x10*3/uL Absolute Nucleated RBC 0.000 (0.0-0.012) X10*3/uL Nucleated RBC % (auto) 0.0 (0.0-0.2) /100WBC ESR 101 H (0-15) MM/HR VBG pH 7.47 H (7.32-7.43) VBG pCO2 69 mmHg VBG pO2 29 mmHg VBG HCO3 51 H (22-26) mmol/L VBG O2 Saturation < 30.0 % VBG Base Excess 23.1 mmol/L Sodium 140 (135-145) mmol/L Potassium 4.0 D (3.3-5.1) mmol/L Chloride 87 L (96-108) mmol/L Carbon Dioxide 40 H* (22-29) mmol/L Anion Gap 17 (12-20) BUN 50 H (9-16) mg/dL Creatinine 3.41 H (0.5-1.4) mg/dL Estim Creat Clear Calc 16.7 Estimated GFR 18 POC Glucose 153 H (60-115) mg/dL Random Glucose 113 (60-115) mg/dL Lactic Acid 1.8 (0.5-2.0) mmol/L Calcium 9.5 D (8.4-10.2) mg/dL Magnesium 2.8 H (1.6-2.6) mg/dL Total Bilirubin 0.6 (0.0-1.0) mg/dL Direct Bilirubin 0.3 (0.0-0.5) mg/dL AST 26 (5-37) U/L ALT 13 (0-40) U/L Alkaline Phosphatase 88 (39-117) U/L C-Reactive Protein 9.54 H (< or = 0.50) mg/dL B-Natriuretic Peptide 276 H (<100) pg/mL Total Protein 8.1 H (6.5-8.0) g/dL Albumin 3.6 (3.5-5.0) g/dL Independent Interpretation I performed an independent interpretation of an: Ultrasound ( left lower extremity venous/arterial: No DVT/Spectral waveform changes are suggestive of multifocal moderate to severe stenoses in the superficial femoral artery.) Discharge Plan Discharge Clinical Impression: Cellulitis of foot, right Patient Disposition: Admitted As Inpatient
[2025-01-27 17:47] LABS: MANUAL DIFF FLAG NO
[2025-01-27 17:49] LABS: Basophils Percent Auto 0.3 % (0-2); Eosinophils Absolute Auto 0.2 X10*3/uL (0.0-0.4); Eosinophils Percent Auto 2.9 % (0-4); Hematocrit 34.8 % (42.0-52.0); Hemoglobin 11.7 g/dl (14.0-18.0); Imm Gran Abs Auto 0.02 X10*3/uL (0.00-0.03); Imm Gran Pct Auto 0.3 % (0.0-0.4); Lymphocytes Absolute Auto 1.2 X10*3/uL (1.2-4.9); Lymphocytes Percent Auto 16.3 % (20-40); Mean Corpuscular HGB Conc 33.6 g/dl (31.0-36.0); Mean Corpuscular Hemoglobin 28.6 pg (27.0-33.0); Mean Corpuscular Volume 85.1 fL (80.0-98.0); Mean Platelet Volume 10.9 fL (9.4-12.4); Monocytes Absolute Auto 0.6 X10*3/uL (0.1-1.2); Monocytes Percent Auto 7.5 % (2-11); Neutrophils Absolute Auto 5.3 x10*3/uL (2.0-8.3); Neutrophils Percent Auto 72.7 % (45-73); Platelet Count 230 X10*3/uL (160-400); Red Blood Count 4.09 X10*6/uL (4.60-5.80); Red Cell Distribution Width 15.1 % (11.0-16.0); White Blood Count 7.3 X10*3/uL (4.8-10.8)
[2025-01-27 18:04] LABS: Lactic Acid 1.8 mmol/L (0.5-2.0)
[2025-01-27 18:08] LABS: Alanine Aminotransferase 13 U/L (0-40); Albumin Level 3.6 g/dL (3.5-5.0); Alkaline Phosphatase 88 U/L (39-117); Anion Gap 17 (12-20); Aspartate Amino Transferase 26 U/L (5-37); B Type Natriuretic Peptide 276 pg/mL (<100); Bilirubin Direct 0.3 mg/dL (0.0-0.5); Bilirubin Total 0.6 mg/dL (0.0-1.0); Blood Urea Nitrogen 50 mg/dL (9-16); C Reactive Protein 9.54 mg/dL (< or = 0.50); Calcium 9.5 mg/dL (8.4-10.2); Carbon Dioxide 40 mmol/L (22-29); Chloride 87 mmol/L (96-108); Creatinine Clr Calc Pharmacy 16.7; Estimated Glomerular Filt Rate 18; Glucose Random 113 mg/dL (60-115); Magnesium 2.8 mg/dL (1.6-2.6); Sodium 140 mmol/L (135-145); Total Protein 8.1 g/dL (6.5-8.0)
[2025-01-27 18:30] LABS: Erythrocyte Sedimentation Rate 101 MM/HR (0-15)
--- OUTSIDE RECORDS SUMMARY | 2025-01-27 18:59 | XMS_ITS | Clinical Summary ---
Author Organization [facility] Address [address] [place] [address] Care Team Providers Care Pet House Sitter Name Role Phone Darion Conner MD Primary Care Provider [phone] Allergies No known active allergies Medications Medication Sig Dispensed Refills Start Date End Date Status carvedilol (COREG) 25 MG tablet 0 04/07/2020 Active ferrous sulfate 325 (65 FE) MG tablet TAKE 1 TABLET BY MOUTH 3 TIMES DAILY. 0 04/24/2018 Active LANTUS SOLOSTAR 100 UNIT/ML injection 0 05/10/2020 Active primidone (MYSOLINE) 50 MG tablet Take 1 tablet (50 mg total) by mouth daily. 0 05/21/2020 Active ENTRESTO 49-51 MG per tablet Take 1 tablet by mouth 2 (two) times a day. 0 05/09/2020 Active simvastatin (ZOCOR) tablet 20 mg Take 1 tablet (20 mg total) by mouth every night at bedtime. 0 Active apixaban (ELIQUIS) 5 MG TABS tablet Take by mouth every 12 (twelve) hours. 0 Active gabapentin (NEURONTIN) 100 MG capsule Take 1 capsule (100 mg total) by mouth 3 (three) times a day. 0 Active torsemide (DEMADEX) 20 MG tablet Take 1 tablet (20 mg total) by mouth daily. 0 Active pantoprazole (PROTONIX) 20 MG tablet Take 1 tablet (20 mg total) by mouth daily. 0 Active amiodarone (PACERONE) 200 MG tablet Take 1 tablet (200 mg total) by mouth daily. 0 Active metOLazone (ZAROXOLYN) 2.5 MG tablet Take 1 tablet (2.5 mg total) by mouth daily. 0 Active atorvastatin (LIPITOR) tablet 10 mg Take 1 tablet (10 mg total) by mouth every evening. 0 Active potassium chloride ER (K-DUR,KLOR-CON) tablet 20 mEq Take 1 tablet (20 mEq total) by mouth 2 (two) times a day. 0 Active insulin lispro (HumaLOG) injection 100 units/mL Inject under the skin 3 (three) times a day before meals. 0 Active Active Problems Problem Noted Date Diagnosed Date Chronic systolic congestive heart failure 2019 Personal history of colon cancer, stage II 12/15 Iron deficiency anemia due to chronic blood loss 10/02/2018 Malignant neoplasm of ascending colon 05/09/2017 Overview: Overview: 05/09/2017: Tumor in the right colon--- adenocarcinoma. Right hemicolectomy. Peripheral neuropathy 08/29/2016 Overview: Overview: Complex etiology likely with multiple contributing components Stage 3a chronic kidney disease 02/11/2012 Overview: Overview: Dr Mead Type 2 diabetes mellitus 10/11/2008 Social History Tobacco Use Types Packs/Day Years Used Date Smoking Tobacco: Never Assessed Sex and Gender Information Value Date Recorded Sex Assigned at Not on file Gender Identity Not on file Sexual Orientation Not on file Job Start Date Occupation Industry Not on file Not on file Not on file Last Filed Vital Signs Vital Sign Reading Time Taken Comments Blood Pressure 109/64 03/13/2024 2:27 PM EDT Pulse 65 03/13/2024 2:27 PM EDT Temperature 36.4 ??C (97.5 ??F) 03/13/2024 2:27 PM ED T Respiratory Rate - - Oxygen Saturation 98% 03/13/2024 2:27 PM EDT Inhaled Oxygen Concentration - - Weight 61.1 kg (134 lb 12.8 oz) 03/13/2024 2:27 PM EDT Height 167.6 cm (5' 6 ) 07/09/2022 2:47 PM EDT Body Mass Index 21.76 07/09/2022 2:47 PM EDT Plan of Treatment Health Maintenance Due Date Last Done Comments Hepatitis C Screening 1951 Depression Screening 1963 Preventative Health Evaluation 1969 Shingrix-Zoster Vaccine (1 of 2) 1970 Colon Cancer Screening (Colonoscopy) 1996 RSV Adult > 60+ Yrs or (1 - Risk 60-74 years 1-dose series) 2011 Fall Risk Assessment 2016 DTap / Tdap / Td (2 - Td or Tdap) 04/11/2017 04/11/2007 Pneumococcal Vaccine (2 of 2 - PPSV23 or PCV20) 03/20/2019 01/23/2019 COVID-19 Vaccine (2 - Pfizer risk series) 03/05/2021 02/12/2021 Influenza Vaccine (#1) 2024 8, 08/18/2015, 08/03/2014, Additional history exists Hepatitis B Vaccines Aged Out No long er eligible based on patient's age to complete this topic RSV Ped < 20 months Aged Out No longe r eligible based on patient's age to complete this topic Care Teams Pet House Sitter Relationship Specialty Start Date End Date Darion Conner MD [address] [place] [id number] PCP - General Internal Medicine 08/04/21
--- OUTSIDE RECORDS SUMMARY | 2025-01-27 18:59 | XMS_ITS | Encounter Summary ---
Author Organization [facility] Address [address] [place] [address] Care Team Providers Care Philanthropy Officer Name Role Phone Darion Conner MD Primary Care Provider [phone] Reason for Visit * Reason Onset Date Comments Foot Swelling 01/14/2025 And leg Encounter Details Date Type Department Care Team (Late st Contact Info) Description 01/14/2025 Telephone [facility] - [facility] [address] [facility] [address] [place] [phone] Dawson Flores MD [address] [facility] [address] [place] [address] Foot Swelling (And leg) Social History Tobacco Use Types Packs/Day Years Used Date Smoking Tobacco: Former Cigarettes Q uit: 2004 Smokeless Tobacco: Never Alcohol Use Standard Drinks/Week Comments Not Currently 0 (1 standard drink = 0.6 oz pur e alcohol) 1 beer a day Sex and Gender Information Value Date Recorded Sex Assigned at Male 11/17/2024 6:20 AM EST Legal Sex Male 5:27 PM EST Gender Identity Male 11/17/2024 6:20 AM EST Sexual Orientation Straight 11/17/2024 6: 20 AM EST documented as of this encounter Functional Status * Are you deaf or do you have serious difficulty hearing? Answer Date of Assessment Author No 09/20/2024 11:23 PM EST Bonny Mao RN * Do you have serious difficulty walking or climbing stairs? Answer Date of Assessment Author No 09/20/2024 11:23 PM Bonny Holliday RN * Do you have serious difficulty dressing or bathing? Answer Date of Assessment Author No 09/20/2024 11:23 PM Bonny Holliday RN * Because of a physical, mental, or emotional condition, do you have serious difficulty doing errandsalone such as visiting the doctor? Answer Date of Assessment Author No 09/20/2024 11:23 PM Bonny Holliday RN documented as of this encounter Mental Status * Because of a physical, mental, or emotional condition, do you have serious difficulty concentrating, remembering, or making decisions? (5 years old or older) Answer Entry Date Author No 09/20/2024 11:23 PM Bonny Holliday RN documented in this encounter Progress Notes * Kingsley Beck RN - 01/15/2025 10:31 AM EDT Images from the original note were not included. Per Eve's note below pt reports last took Metolazone 1 week ago. Called pt back this PM. Made aware of response above from Dr. Flores. States he will take Metolazone 2.5mg today and start the increase in Torsemide from 40mg to 60mg per Dr. Mead. Is aware to get BMP drawn in a week. States he will use [facility] in [place]. Is aware labs ordered. Is aware tocont to monitor for any changes or worsening of HF s/s and to call the office back. Is thankful for the call back. * Eve Quinones RN - 01/15/2025 8:38 AM EDT Spoke with patient. Patient very dissatisfied with this call. He stated was in the hospital last night and his wgt fully dressed was 151 lbs. Reports last took Metolazone 1 week ago according to patient. When asked further regarding which hospital he went to, he became upset stating he was not in the hospital and was at [facility] seeing his drafter cartographic. Had been taking Torsemide 40 mg qd. States drafter cartographic told him to increase to 60 mg qd(he is starting today) Updated care everywhere. Dr. Mead note available. Please forward task back to [facility] triage as patient does not want this nurse calling back. Thank you. * Eve Quinones RN - 01/15/2025 8:07 AM EDT Tried calling patient. Recording states sorry mailbox is full Unable to leave a message. * Soheila Tavares NP - 01/14/2025 8:27 PM EDT I reviewed Dr. Flores's last note from 01/01/2025 which states to have him increase to 60 mg torsemide daily if swelling increases. It appears he was already on this dose, however. Please confirm hiscurrent torsemide dose as well as when the last time he took metolazone was. Thank you! * Eve Quinones RN - 01/14/2025 1:06 PM EDT MATEO 01/01/[address] Flores and is seen monthly by Dr. Flores. Patient reports he is retaining fluid and now feet, ankles and bilateral lower legs up to knees areswollen. He was unable to give me his weight but reports weight is up. Denied PND. Sleeps in bed. Elevates feet. Takes Torsemide 40 mg qd. Also reports has been drinking ~ 1 quart water due to ER visit prior to seeing Dr. Flores for increased uric acid/gout. He denied shortness of breath talking. He could not provide any more information. He kept repeating my legs are swollen. He was made aware Dr. Flores is off this afternoon but he will be attached to the message as well. * Ginger Dye - 01/14/2025 11:28 AM EDT The patient called, his legs and feet are very swollen. He states this happened gradually over timeand now they are very big. Please call him back at [phone]. documented in this encounter Plan of Treatment Upcoming Encounters Date Type Department Care Team (Late st Contact Info) Description 02/02/2025 11:00 AM EDT Office Visit [facility] - [facility] [address] [phone] Dawson Flores MD [address] [address] 02/22/2025 1:30 PM EDT Office Visit Orthopedic Surgery - [place] [address] [phone] Simone Novak DPM [address] [address] 02/24/2025 10:30 AM EDT Office Visit Bariatric Surgery - [place] [address] [phone] Carlita Huffman MD [address] [phone] 03/11/2025 1:00 PM EDT Office Visit Vascular Surgery - [place] 300 [facility] [address] [place] [phone] Julia Ashby PA 300 [facility] [address] [place] [address] 03/29/2025 2:30 PM EDT Office Visit Internal Medicine - [facility] [address] [place] [phone] Darion Conner MD [address] [place] [address] 04/27/2025 3:30 PM EDT Office Visit Endocrinology - [address] [phone] Elliott Wilcox MD [address] [place] [address] 05/12/2025 2:30 PM EDT Office Visit [facility] Hematology Oncology [address] [place] [phone] Shayy Lacy MD [address] [place] [address] 05/20/2025 2:45 PM EDT Office Visit Nephrology - [address] [phone] Xavi Mead MD [address] [phone] Scheduled Orders Name Type Priority Associated Diagnoses Orde r Schedule Basic metabolic panel Lab Routine Chronic systolic congestive heart failure (CMS/HCC V24, CMS/HCC V28) 1 Occurrences starting 01/15/2025 until 01/15/2026 documented as of this encounter Visit Diagnoses Diagnosis Chronic systolic congestive heart failure (CMS/HCC V24, CMS/HCC V28)- Primary documented in this encounter Care Teams Philanthropy Officer Relationship Specialty Start Date End Date Darion Conner MD [address] [place] [id number] PCP - General Internal Medicine 08/02/15 documented as of this encounter
--- OUTSIDE RECORDS SUMMARY | 2025-01-27 18:59 | XMS_ITS | Encounter Summary ---
Author Organization [facility] Address [address] [place] [address] Care Team Providers Care Vending Machine Repairer Name Role Phone Darion Conner MD Primary Care Provider [phone] Reason for Referral * Consultation (Routine) - Authorized Specialty Diagnoses / Procedures Referred By Ramakrishna garcia Referred To Contact Rheumatology Diagnoses Acute gout of right hand, unspecified cause Felipe Smalls PA [address] [place] [address] Phone: tel: fax: Referral ID Status Reason Start Date Expiration Date Visits Requested Visits Authorized [id number] Authorized Specialty Services Required 01/27/2025 01/27/2026 1 1 Reason for Visit * Reason Comments Nail Problem Encounter Details Date Type Department Care Team (Late st Contact Info) Description 01/27/2025 2:00 PM EDT Office Visit Walk-In Clinic - [address] [phone] Felipe Smalls PA [address] [place] [address] Necrotic toes (CMS/HCC V24, CMS/HCC V28) (Primary Dx); Acute gout of right hand, unspecified cause Social History Tobacco Use Types Packs/Day Years [...] AM EST documented as of this encounter Last Filed Vital Signs Vital Sign Reading Time Taken Comments Blood Pressure 110/60 01/27/2025 2:01 PM EDT Pulse 82 01/27/2025 2:01 PM EDT Temperature 36.7 ??C (98 ??F) 01/27/2025 2:01 PM EDT Respiratory Rate - - Oxygen Saturation 97% 01/27/2025 2:01 PM EDT Inhaled Oxygen Concentration - - Weight - - Height - - Body Mass Index - - documented in this encounter Functional Status * Are you [...] Bonny Holliday RN documented in this encounter Plan of Treatment Upcoming Encounters Date Type Department Care Team (Late st Contact Info) Description 02/02/2025 11:00 AM EDT Office Visit [facility] [address] [phone] Dawson Flores MD 300 [facility] 101 [place] [address] 02/22/2025 1:30 PM EDT Office Visit Orthopedic Surgery - [place] 250 175 [facility] [address] [place] [phone] Simone Novak DPM 175 [facility] 250 [place] [address] 02/24/2025 10:30 AM EDT Office Visit Bariatric Surgery - [place] 175 [facility] [address] [place] [phone] Carlita Huffman MD 175 [facility] [address] [place] [phone] 03/11/2025 1:00 PM EDT Office Visit Vascular Surgery - [place] 300 [facility] [address] [place] [phone] Julia Ashby PA 300 [facility] [address] [place] [address] 03/29/2025 2:30 PM EDT Office Visit Internal Medicine - [address] [phone] Darion Conner MD [address] [place] [address] 04/27/2025 3:30 PM EDT Office Visit Endocrinology - [place] [address] [place] [phone] Elliott Wilcox MD [address] [place] [phone] 05/12/2025 2:30 PM EDT Office Visit [facility] Hematology Oncology [address] [place] [phone] Subramonia-Shayy Roberts MD [address] [place] [phone] 05/20/2025 2:45 PM EDT Office Visit Nephrology - [place] [address] [place] [address] Xavi Mead MD [address] [phone] Scheduled Referrals Name Type Priority Associated Diagnoses Order Schedule Ambulatory referral to Rheumatology Outpatient Referral Routine Acute gout of right hand, unspecified cause 1 Occurrences starting 01/27/2025 until 01/27/2026 documented as of this encounter Visit Diagnoses Diagnosis Necrotic toes (CMS/[facility] V24, CMS/HCC V28)- Primary Acute gout of right hand, unspecified cause documented in this encounter Care Teams Vending Machine Repairer Relationship Specialty Start Date End Date Darion Conner MD [address] [place] [address] PCP - General Internal Medicine 08/02/15 documented as of this encounter
--- OUTSIDE RECORDS SUMMARY | 2025-01-27 18:59 | XMS_ITS | Clinical Summary ---
Author Organization [address] [place] [address] [place] [phone] Phone Care Team Providers Care Market Analysis Director Name Role Phone Darion Conner MD Primary Care Provider [phone] Allergies Active Allergy Reactions Criticality Noted Date Comments Aspirin Unknown 09/20/2024 Diphenhydramine 03/10/2024 Lactase Diarrhea 09/21/2024 Morphine Unknown 12/17/2023 pt had itching all over the body after having morphine Medications ferrous sulfate 325 mg (65 mg elemental iron) tablet Take 1 tablet (325 mg total) by mouth 3 (three) times a week. 04/24/20 18 Active acetaminophen (TYLENOL) 500 mg tablet Take by mouth every 6 (six) hours if needed for mild pain. Active dapagliflozin propanediol (Farxiga) 10 mg tablet Take 1 tablet (10 mg total) by mouth 1 (one) time each day. Active cholecalcifero l (VITAMIN D-3) 50 mcg (2,000 unit) tablet Take 1 tablet (2,000 Units total) by mouth 1 (one) time each day. Active metOLazone (ZAROXOLYN) 2.5 mg tablet Take 1 tablet (2.5 mg total) by mouth if needed (Generally takes it once per week.). 12 each 3 10/21/19 25 026 Active insulin glargine (Lantus Solostar U-100 Insulin) 100 unit/mL (3 mL) injection pen Inject 6-7 Units under the skin daily at bedtime 15 mL 1 10/26/19 25 Active insulin lispro 100 unit/mL injection Inject TID w/ meals per sliding scale :Sliding scale: <150: no treatment, 151-200: 2 units, 200-250: 3 units 251-300: 4 units 301-350: 5 units 351-400: 6 units >400: 7 units 15 mL 2 10/26/19 25 Active lancets lancetsIndicat ions:Type 2 diabetes mellitus with other skin ulcer, with long-term current use of insulin ([facility] V24, [facility] V28) Use to test blood sugar 3 times daily. E11.9 300 each 1 10/29/19 25 Active blood sugar diagnostic (FreeStyle Lite Strips) test stripIndicatio ns:Type 2 diabetes mellitus with other skin ulcer, with long-term current use of insulin ([facility] V24, [facility] V28) USE TO TEST BLOOD SUGAR 3 TIMES DAILY, FREESTYLE LITE.E11.9 300 strip 1 10/29/19 25 Active pantoprazole (PROTONIX) 20 mg EC tablet TAKE 1 TABLET (20 MG TOTAL) BY MOUTH DAILY BEFORE BREAKFAST DO NOT CRUSH,CHEW,OR SPIT 90 tablet 1 11/13/19 25 Active pen needle, diabetic 32 gauge x 3/16 needleIndicati ons:Type 2 diabetes mellitus with chronic kidney disease, with long-term current use of insulin, unspecified CKD stage ([facility] V24, [facility] V28) Use to inject 1-4 times daily as directed. 300 each 5 11/23/19 25 Active blood-glucose sensor (FreeStyle Mayito 3 Sensor) deviceIndicati ons:Type 2 diabetes mellitus with chronic kidney disease, with long-term current use of insulin, unspecified CKD stage ([facility] V24, [facility] V28) Change sensor every 14 days. 2 each 3 11/23/19 25 Active blood-glucose meter,continuo us (FreeStyle Mayito 3 Kemp) miscIndication s:Type 2 diabetes mellitus with chronic kidney disease, with long-term current use of insulin, unspecified CKD stage ([facility] V24, [facility] V28) Use this device to read sensors to check your sugars 1 each 11/23/19 25 Active torsemide (DEMADEX) 20 mg tablet Take 3 tablets (60 mg total) by mouth 1 (one) time each day. 270 tablet 3 12/01/19 25 026 Active potassium chloride (KLOR-CON M10) 10 mEq CR tablet Take 2 tablets (20 mEq total) by mouth 2 (two) times a day. Tablet may be swallowed whole (do not crush/chew/suc k on) OR broken in half and each half swallowed separately OR dissolved (whole tablet) in ~4 ounces of water (allow ~2 minutes to dissolve, stir well and administer immediately). 360 each 3 12/01/19 25 026 Active gabapentin (NEURONTIN) 100 mg capsule TAKE 2 CAPSULES BY MOUTH 3 TIMES A DAY. 540 capsule 1 12/03/19 25 Active sacubitriL-nubia sartan (ENTRESTO) 24-26 mg per tablet Take 1 tablet by mouth 2 (two) times a day. 180 each 1 12/03/19 25 026 Active apixaban (Eliquis) 2.5 mg tablet Take 1 tablet (2.5 mg total) by mouth 2 (two) times a day. 180 each 1 12/03/19 25 Active amiodarone (PACERONE) 200 mg tablet Take 1 tablet (200 mg total) by mouth 1 (one) time each day. 90 tablet 1 12/04/19 25 Active predniSONE (DELTASONE) 20 mg tablet Take 2 tablets (40 mg total) by mouth 1 (one) time each day. For 5 days Active atorvastatin (LIPITOR) 10 mg tablet TAKE 1 TABLET BY MOUTH EVERYDAY AT BEDTIME 90 tablet 2 01/28/20 25 Active atorvastatin (LIPITOR) 10 mg tablet TAKE 1 TABLET BY MOUTH EVERYDAY AT BEDTIME 90 tablet 2 12/03/19 25 025 Discontinued bacitracin (bacitracin zinc) 500 unit/gram ointmentIndica tions:Skin ulcer of fourth toe of right foot, limited to breakdown of skin (CMS/HCC V24, CMS/HCC V28) Apply 1 Application topically 2 (two) times a day for 10 days. 120 g 12/25/19 25 025 doxycycline hyclate (VIBRA-TABS) 100 mg tablet Take 1 tablet (100 mg total) by mouth 2 (two) times a day. Take with a full glass of water and do not lie down for at least 30 minutes after. 025 Discontinued(T herapy completed) oxyCODONE (ROXICODONE) 5 mg immediate release tablet every 6 (six) hours if needed for severe pain. 025 Discontinued(T herapy completed) Active Problems Problem Noted Date Diagnosed Date Elevated alkaline phosphatase level 01/06/2025 Stage 4 chronic kidney disease ([facility] V24, [facility] V28) 01/01/2025 Swelling of right wrist 12/09/2024 Gallbladder polyp 11/06/2024 Critical limb ischemia of [facility] lower extremity ([facility] V24, [facility] V28) 11/05/2024 Skin ulcer of fourth toe of right foot, limited to breakdown of skin ([facility] V24, [facility] V28) 09/21/2024 Osteomyelitis of foot ([facility] V24, [facility] V28) 09/20/2024 Irregularly irregular pulse rhythm 05/20/2024 Persistent atrial fibrillation ([facility] V24, [facility] V28) 04/14/2024 Assessment & Plan (09/19/2024 10:02 AM EST): Continue current regimen of amiodarone, apixaban. Trifascicular block 04/14/2024 Peripheral vascular disease ([facility] V24) 2022 Assessment & Plan (01/22/2025 12:09 PM EDT): Given his peripheral artery disease, he will continue his regimen of atorvastatin and apixaban. He has follow-up appointments booked with vascular surgery already. I have provided him with a walker to prevent falls. Orders: Walker Chronic systolic congestive heart failure ([facility] V24, [facility] V28) 10/15/2019 Overview (06/03/2024): Last Assessment & Plan: Appears euvolemic, looks and is feeling well. continue Torsemide, Spironolactone, BB, Hydralazine. Reviewed signs and symptoms of heart failure and educated regarding monitoring weight, diet, and fluid intake. If there is a weight gain of 3 pounds in one day or 5 pounds in a week please call our office or seek medical attention if necessary. Assessment & Plan (01/22/2025 12:09 PM EDT): Clinically today he is euvolemic on exam. He states that when he takes the torsemide 60 mg daily he gets very dry. I explained to him that he needs to be on torsemide 40 mg daily but he takes 60 mg daily for 3 days only if he gains more than 3 pounds or if he has worsening lower extremity edema. He will continue his regimen of amiodarone, atorvastatin, Entresto. He has a follow-up appointment with cardiology already scheduled. Orders: Chaka Assessment & Plan (09/19/2024 10:02 AM EST): He is being monitored by cardiology closely. He will continue his current regimen of atorvastatin, Farxiga, Entresto, torsemide. Iron deficiency anemia due to chronic blood loss 10/02/2018 Malignant neoplasm of ascend ing colon (CMS/HCC V24, CMS/HCC V28) 05/09/2017 Overview (06/03/2024): 05/09/2017: Tumor in the right colon--- adenocarcinoma. Right hemicolectomy. 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 Continue insulin glargine, lispro, Farxiga. For CKD, strongly advised him to follow-up with nephrology. I have placed a referral as well. Advised avoid NSAIDs. Will check A1c. Orders: Ambulatory referral to Nephrology; Future Basic metabolic panel; Future Hemoglobin A1c; Future Hypertension 09/16/2005 Overview (07/24/2024): Last Assessment & Plan: Controlled Assessment & Plan (09/19/2024 10:02 AM EST): He will follow low-sodium diet. No changes to current regimen for now. Continue Entresto, torsemide. Encounters Date Type Department Care Team Description 01/27/2025 2:00 PM EDT Office Visit Walk-In Clinic - [address] [phone] Felipe Smalls PA Necrotic toes ([facility] V24, [facility] V28) (Primary Dx); Acute gout of right hand, unspecified cause 01/25/2025 2:00 PM EDT Telemedicine Endocrinology - [address] [phone] Alicia Coleman PA Type 2 diabetes mellitus with chronic kidney disease, with long-term current use of insulin, unspecified CKD stage ([facility] V24, [facility] V28) (Primary Dx); Hypertension, unspecified type 01/22/2025 10:30 AM EDT Office Visit Internal Medicine - [address] [phone] Darion Conner MD Gout of right hand, unspecified cause, unspecified chronicity (Primary Dx); Chronic systolic congestive heart failure ([facility] V24, [facility] V28); Peripheral vascular disease ([facility] V24) 01/14/2025 1:15 PM EDT Office Visit Nephrology - [address] [phone] Xavi Mead MD Hypertension, unspecified type (Primary Dx); Type 2 diabetes mellitus with chronic kidney disease, with long-term current use of insulin, unspecified CKD stage (CMS/HCC V24, CMS/HCC V28); HFrEF (heart failure with reduced ejection fraction) (CMS/HCC V24, CMS/HCC V28); Microalbuminuria 01/14/2025 Telephone [facility] - [facility] [address] [facility] [address] [place] [phone] Dawson Flores MD Foot Swelling (And leg) 01/07/2025 [facility]phone [facility] [address] [place] [phone] Darion Conenr MD provider call back 01/06/2025 10:00 AM EDT Office Visit Gastroenterology [facility] [address] [facility] [address] [place] [phone] Gutierrez Mary MD Malignant neoplasm of ascending colon ([facility] V24, [facility] V28) (Primary Dx); Elevated alkaline phosphatase level 01/04/2025 [facility] [place] [phone] Darion Conner MD information needed 01/04/2025 [facility]phone [facility] [address] [place] [address] Darion Conner MD 01/01/2025 11:20 AM EDT Office Visit [facility] [address] [place] [phone] Dawson Flores MD Chronic systolic congestive heart failure ([facility]/HCC V24, CMS/HCC V28) (Primary Dx); Malignant neoplasm of ascending colon (CMS/HCC V24, CMS/HCC V28); Stage 4 chronic kidney disease (CMS/HCC V24, CMS/HCC V28); Subacute osteomyelitis of right foot (CMS/HCC V24, CMS/HCC V28); Noncompaction cardiomyopathy ([facility] V24, [facility] V28) 12/29/2024 [facility]phone [facility] [phone] Darion Conner MD Edema; Hand Pain 12/28/2024 Telephone Internal Medicine - [address] [phone] Darion Conner MD Medication Problem 12/24/2024 Telephone Orthopedic Surgery [facility] [address] [phone] Simone Novak DPM Medication 12/21/2024 1:15 PM EDT Office Visit Orthopedic [facility] [address] [phone] Simone Novak DPM Controlled type 2 diabetes with neuropathy ([facility] V24, [facility] V28) (Primary Dx); PAD (peripheral artery disease) ([facility] V24); Ulcer of toe of right foot, with fat layer exposed ([facility] V24, [facility] V28); Osteomyelitis of fourth toe of right foot ([facility] V24, [facility] V28) 12/11/2024 11:28 AM EST - 12/11/2024 11:59 PM EST Hospital Encounter CT Scan - [address] [phone] Elevated alkaline phosphatase level Discharge Disposition: Home or Self Care 12/10/2024 1:30 PM EST [facility] [phone] Kane Diaz MD Type 2 diabetes mellitus with chronic kidney disease, with long-term current use of insulin, unspecified CKD stage ([facility] V24, [facility] V28) (Primary Dx); Acute gout of right hand, unspecified cause; Hypertension, unspecified type 12/10/2024 [facility]phone [facility] [address] [place] [phone] Darion Conner MD lab orders 12/09/2024 9:15 AM EST Office Visit Gastroenterology [facility] 175 [facility] 175 [facility] 200 [place] [phone] Gutierrez Mary MD Dilated cardiomyopathy ([facility] V24, [facility] V28) (Primary Dx); Malignant neoplasm of ascending colon ([facility] V24, [facility] V28); Stage 3a chronic kidney disease ([facility] V24, [facility] V28); Acute gout due to renal impairment involving right wrist; Elevated alkaline phosphatase level 12/09/2024 Telephone Gastroenterology [facility] 175 [facility] 175 [facility] 200 [place] [phone] Darion Conner MD Gout (Right wrist) 12/07/2024 11:45 AM EST Office Visit Vascular Surgery - [place] [address] [facility] [address] [place] [phone] Roosevelt Balderas MD Critical limb ischemia of right lower extremity ([facility] V24, [facility] V28) (Primary Dx); Skin ulcer of fourth toe of right foot, limited to breakdown of skin ([facility] V24, [facility] V28) 12/04/2024 Telephone [facility] [address] [facility] [place] [address] [place] [phone] Dawson Flores MD Medication Problem 12/03/2024 Telephone [facility] - [facility] [address] [facility] [address] [place] [phone] Dawson Flores MD Med Refill 12/03/2024 Telephone Internal Medicine - [facility] [address] [place] [phone] Darion Conner MD Cough 12/02/2024 1:30 PM EST Consult Infectious Disease - [place] 175 [facility] 200 [place] [phone] Lyndsey Connelly MD Diabetic foot ([facility] V24, CMS/HCC V28) (Primary Dx); Osteomyelitis of fourth toe of right foot ([facility]/HCC V24, CMS/HCC V28) 12/01/2024 11:20 AM EST Office Visit [facility] - [facility] 101 300 [facility] 101 [place] [phone] Dawson Flores MD Chronic systolic congestive heart failure ([facility] V24, [facility] V28) (Primary Dx); Stage 3a chronic kidney disease ([facility] V24, CMS/HCC V28); Type 2 diabetes mellitus with chronic kidney disease, with long-term current use of insulin, unspecified CKD stage (CMS/HCC V24, CMS/HCC V28); Subacute osteomyelitis of right foot ([facility] V24, CMS/HCC V28); Critical limb ischemia of right lower extremity ([facility] V24, CMS/HCC V28) 11/27/2024 10:45 AM EST Office Visit Bariatric Surgery [facility] 175 [facility] 120 [place] [phone] Carlita Huffman MD Gallbladder polyp (Primary Dx) 11/26/2024 1:00 PM EST Office Visit Orthopedic Surgery [facility] 250 175 [facility] 250 [place] [phone] Simone Novak DPM Controlled type 2 diabetes with neuropathy ([facility] V24, CMS/[facility] V28) (Primary Dx); PAD (peripheral artery disease) ([facility] V24); Ulcer of toe of right foot, with fat layer exposed ([facility] V24, [facility] V28) 11/25/2024 Telephone Endocrinology - [address] [phone] Alicia Coleman PA Medication Problem 11/24/2024 Telephone Endocrinology - [address] [phone] Alicia Coleman PA Medication Problem 11/17/2024 7:30 AM EST - 11/17/2024 8:30 AM [facility] Surgery Cardiac Technical Delivery Manager [address] [place] [phone] Roosevelt Balderas MD Angiography right lower extremity [[id number] (CPT??)] 11/17/2024 6:22 AM EST - 11/17/2024 3:18 PM EST Hospital Encounter Cardiac Technical Delivery Manager [address] [place] [phone] Roosevelt Balderas MD Critical limb ischemia of right lower extremity ([facility] V24, [facility] V28) Discharge Disposition: Home or Self Care 11/06/2024 10:45 AM EST Office Visit Orthopedic Surgery - [place] 250 [address] [facility] 250 [place] [phone] Simone Novak DPM Controlled type 2 diabetes with neuropathy ([facility] V24, [facility] V28) (Primary Dx); PAD (peripheral artery disease) ([facility] V24); Ulcer of toe of right foot, with fat layer exposed ([facility] V24, [facility] V28) 11/05/2024 2:30 PM EST Consult Vascular Surgery - [place] [address] [place] [phone] Roosevelt Balderas MD Critical limb ischemia of right lower extremity ([facility] V24, [facility] V28) (Primary Dx); Skin ulcer of fourth toe of right foot, limited to breakdown of skin ([facility] V24, [facility] V28) 11/03/2024 8:45 AM EST - 11/03/2024 11:59 PM EST Hospital Encounter Radiology Department - [address] [phone] Elevated LFTs Discharge Disposition: Home or Self Care 11/02/2024 Telephone Infectious Disease - [place] 175 [facility] 200 [place] [phone] Rita Guerrero, RN 10/30/2024 Telephone Internal Medicine - [address] [phone] Darion Conner MD Referral (INTERNAL INFECTIOUS DISEASE ) 10/29/2024 Telephone Endocrinology - [place] [address] [place] [phone] Alicia Coleman PA Med Refill from Last 3 Months Immunizations Name Administration Dates Next Due Pfizer SARS-CoV-2 COVID-19, mRNA, LNP-S, preservative free 02/12/2021 Surgical History Surgery Date Site/Laterality Comments ABDOMINAL SURGERY 06/04/2017 right hemicolectomy COLONOSCOPY 05/09/2017 Cancer in the proximal right colon; transverse colon polyp: Adenocarcinoma; polyp was a tubular adenoma COLONOSCOPY 02/04/2019 small polyps x 2: Granulation tissue and lymphoid aggregate OTHER SURGICAL HISTORY 05/09/2017 UPPER GI ENDOSCOPY PERFORMED Medical History Medical History Date Comments Background diabetic retinopa thy ([facility] V24, [facility] V28) 10/11/2008 Benign essential hypertension 09/16/2005 Cardiomyopathy ([facility] V24, [facility] V28) 11/20/2010 Cerebral microvascular disease 01/28/2017 CHF (congestive heart failur e) ([facility] V24, [facility] V28) CKD (chronic kidney disease) , stage III ([facility] V24, [facility] V28) Chronic anemia Colon cancer (CMS/[facility] V24, [facility]/HCC V28) 05/09/2017 tumor in Rt colon Colon cancer (CMS/[facility] V24, [facility]/HCC V28) status post Rt hemicolectomy among other comorbidities who presented on 02/14/2023 with worsening lower extremity edema Mixed hyperlipidemia 09/16/2005 Peripheral neuropathy 08/29/2016 complex et iology likely with multiple contributing components Chronic atrial fibrillation ([facility] V24, [facility]/HCC V28) Dilated cardiomyopathy ([facility] V24, [facility]/HCC V28) Peripheral vascular disease ([facility] V24) Diabetes mellitus ([facility] V 24, [facility] V28) Hypertension Gallbladder polyp 11/06/2024 Family History Medical History Relation Name Comments Diabetes Father Diabetes Sister Relation Name Status Comments Father Alive Sister Alive Social History Tobacco Use Types Packs/Day Years Used Date Smoking Tobacco: Former Cigarettes Q uit: 2003 Smokeless Tobacco: Never Tobacco Cessation:Counseling Given: Not Answered Alcohol Use Standard Drinks/Week Comments Not Currently 0 (1 standard drink = 0.6 oz pur e alcohol) 1 beer a day Sex and Gender Information Value Date Recorded Sex Assigned at Male 11/17/2024 6:20 AM EST Legal Sex Male 5:27 PM EST Gender Identity Male 11/17/2024 6:20 AM EST Sexual Orientation Straight 11/17/2024 6: 20 AM EST Obstetrics History Last Filed Vital Signs Vital Sign Reading Time Taken Comments Blood Pressure 110/60 01/27/2025 2:01 PM EDT Pulse 82 01/27/2025 2:01 PM EDT Temperature 36.7 ??C (98 ??F) 01/27/2025 2:01 PM EDT Respiratory Rate 16 12/07/2024 11:54 AM EST Oxygen Saturation 97% 01/27/2025 2:01 PM EDT Inhaled Oxygen Concentration - - Weight 62.8 kg (138 lb 8 oz) 01/22/2025 10:41 AM EDT Height 167.6 cm (5' 6 ) 01/22/2025 10:41 AM EDT Body Mass Index 22.35 01/22/2025 10:41 AM EDT Plan of Treatment Upcoming Encounters Date Type Department Care Team (Late st Contact Info) Description 02/02/2025 11:00 AM EDT Office Visit [facility] [address] [phone] Dawson Flores MD [address] [address] 02/22/2025 1:30 PM EDT Office Visit Orthopedic Surgery [facility] [address] [phone] Simone Novak DPM [address] [address] 02/24/2025 10:30 AM EDT Office Visit Bariatric Surgery [facility] [address] [phone] Carlita Huffman MD [address] [phone] 03/11/2025 1:00 PM EDT Office Visit Vascular Surgery - [place] [address] [phone] Julia Ashby PA [address] [address] 03/29/2025 2:30 PM EDT Office Visit Internal Medicine - [address] [phone] Darion Conner MD [address] [place] [phone] 04/27/2025 3:30 PM EDT Office Visit Endocrinology - [address] [phone] Elliott Wilcox MD [address] [place] [phone] 05/12/2025 2:30 PM EDT Office Visit Hematology Oncology [address] [place] [phone] Shayy Lacy MD [address] [place] [phone] 05/20/2025 2:45 PM EDT Office Visit Nephrology - [address] [phone] Xavi Mead MD [address] [phone] Health Maintenance Due Date Last Done Comments Diabetes: Annual Foot Exam 1961 Diabetes: Annual Retina Eye Exam 1961 Hepatitis A Vaccines (1 of 2 - Risk 2-dose series) 1970 Zoster Vaccines (1 of 2) 1970 Hepatitis B Vaccines (1 of 3 - Risk 3-dose series) 2011 RSV Immunization Adult Patients (1 - Risk 60-74 years 1-dose series) 2011 Pneumococcal Vaccine: 50+ Years (2 of 2 - PPSV23) 03/20/2019 01/23/2019 COVID-19 Vaccine (3 - Pfizer risk series) 10/12/2021 09/14/2021, 02/12/2021 Colorectal Cancer Screening: Colonoscopy 09/13/2022 Depression Screening 09/13/2022 Diabetes: Annual Urine Albumin-Creatinine Ratio (uACR) 09/13/2022 Falls Risk Assessment 09/13/2022 Hepatitis C Screening 09/13/2022 Medicare Annual Wellness Visit 09/13/2022 Social Influencers of Health Screening 09/13/2022 Diabetes: Blood Sugar Control Test (HGBA1C) 04/21/2025 10/22/2024, 09/20/2024, 06/22/2024, Additional history exists Influenza Vaccine (Season Ended) 2025 07/16/2018, 08/18/2015, 08/03/2014, Additional history exists Diabetes: Annual GFR (Glomerular Filtration Rate) 12/10/2025 12/10/2024, 11/17/2024, 10/22/2024, Additional history exists Hypertension/CHF/CAD Annual BMP Blood Test 12/10/2025 12/10/2024, 11/17/2024, 10/22/2024, Additional history exists DTaP,Tdap,and Td Vaccines (3 - Td or Tdap) 02/20/2027 02/20/2017, 04/11/2007 Cholesterol Screening (Lipid Panel) 06/22/2029 06/22/2024 Meningococcal ACWY Vaccine Aged Out 03/21/1994 N o longer eligible based on patient's age to complete this topic Abdominal Aortic Aneurysm (AAA) Screen Completed 03/08/2017 HIB Vaccines Aged Out No longer eligi ble based on patient's age to complete this topic HPV Vaccines Aged Out No longer eligi ble based on patient's age to complete this topic IPV Vaccines Aged Out No longer eligi ble based on patient's age to complete this topic MMR Vaccines Aged Out No longer eligi ble based on patient's age to complete this topic Meningococcal B Vaccine Aged Out No l onger eligible based on patient's age to complete this topic RSV Immunization Patients Under 20 months Aged Out No longer eligible based on patient's age to complete this topic Varicella Vaccines Aged Out No longer eligible based on patient's age to complete this topic Procedures Procedure Name Priority Date/Time Associated Diagnosis Comments CT ABDOMEN PELVIS WO CONTRAST Routine 12/11/2024 11:38 AM EST Elevated alkaline phosphatase level BASIC METABOLIC PANEL Routine 12/10/2024 3:44 PM EST ABHI (acute kidney injury) (CMS/[facility] V24) Hypokalemia URIC ACID Routine 12/10/2024 3:44 PM EST Acute gout due to renal impairment involving right wrist POCT ACTIVATED CLOTTING TIME, KAOLIN Routine 11/17/2024 9:31 AM EST POCT ACTIVATED CLOTTING TIME, KAOLIN Routine 11/17/2024 8:51 AM EST INVASIVE VASCULAR PROCEDURE Routine 11/17/2024 8:19 AM EST Critical limb ischemia of right lower extremity (CMS/HCC V24, CMS/HCC V28) CBC WITH AUTO DIFFERENTIAL Routine 11/17/2024 7:12 AM EST ACTIVATED PARTIAL THROMBOPLASTIN TIME Routine 11/17/2024 7:12 AM EST PROTHROMBIN TIME WITH INR Routine 11/17/2024 7:12 AM EST CBC AND DIFFERENTIAL Routine 11/17/2024 7:12 AM EST BASIC METABOLIC PANEL Routine 11/17/2024 7:12 AM EST US ABDOMEN LIMITED Routine 11/03/2024 9: 31 AM EST Elevated LFTs HEMOGLOBIN A1C Routine 10/22/2024 3:53 PM EST Type 2 diabetes mellitus with chronic kidney disease, with long-term current use of insulin, unspecified CKD stage (CMS/HCC V24, CMS/HCC V28) US ABDOMINAL AORTA REAL TIME SCREEN STUDY AAA Routine 03/08/2017 8:44 AM EDT Encounter for screening for cardiovascular disorders from Last 3 Months or Most Recently Relevant to Health Maintenance Results * CT Abdomen Pelvis wo Contrast (12/11/2024 11:38 AM EST) Anatomical Region Laterality Modality Body Computed Tomogra phy 12/11/2024 2:15 PM EST Narrative 12/11/2024 2:[address] of the abdomen and pelvis without intravenous contrast. History elevated alkaline phosphatase. Personal history of colon cancer. Status post right colectomy Examination was performed on multidetector scanner without administration of intravenous contrast. Oral contrast was given. Comparison with previous studies, latest from 07/05/2020. Nonenhanced liver, spleen, pancreas, adrenal glands and kidneys are unremarkable and stable in appearance. There are possible tiny stones versus sludge of the gallbladder neck. There is no biliary ducts dilatation. There is no evidence of bowel obstruction. There is large amount of from fecal material throughout the colon suggestive of constipation. Urinary bladder is not well-distended. Other pelvic structures appear to be unremarkable. There is no evidence of ascites abscesses or focal fluid collections. There are severe atherosclerotic calcifications in the abdominal aorta and branches as well as in the iliac and femoral arteries. Images obtained through the lung bases revealed arm coarse linear densities in the right base most likely due to scarring. There is mild scarring at the left base. Bony structures revealed arm degenerative changes in the spine. No suspicious bone lesions ??identified. CONCLUSIONS: No focal hepatic abnormalities on this nonenhanced scan. Tiny gallstones versus sludge in the gallbladder neck. No biliary ducts dilatation. Status post right colectomy. No bowel obstruction. Significant constipation. -------- FINAL REPORT -------- Dictated By: Zaida Wright Dictated Date: 12/11/2024 14:15 ET Assigned Physician: Zaida Wright Reviewed and Electronically Signed By: Zaida Wright Signed Date: 12/11/2024 14:24 ET Workstation ID: [id number] Transcribed By: Self Edit Transcribed Date: 12/11/2024 14:15 ET Procedure Note Zaida Wright MD - 12/11/2024 CT of the abdomen and pelvis without intravenous contrast. History elevated alkaline phosphatase. Personal history of colon cancer.Status post right colectomy Examination was performed on multidetector scanner without administrationof intravenous contrast. Oral contrast was given. Comparison with previousstudies, latest from 07/05/2020. Nonenhanced liver, spleen, pancreas, adrenal glands and kidneys areunremarkable and stable in appearance. There are possible tiny stonesversus sludge of the gallbladder neck. There is no biliary ductsdilatation. There is no evidence of bowel obstruction. There is large amount of fromfecal material throughout the colon suggestive of constipation. Urinarybladder is not well-distended. Other pelvic structures appear to beunremarkable. There is no evidence of ascites abscesses or focal fluidcollections. There are severe atherosclerotic calcifications in theabdominal aorta and branches as well as in the iliac and femoralarteries. Images obtained through the lung bases revealed arm coarse lineardensities in the right base most likely due to scarring. There is mildscarring at the left base. Bony structures revealed arm degenerative changes in the spine. Nosuspicious bone lesions identified. CONCLUSIONS: No focal hepatic abnormalities on this nonenhanced scan. Tinygallstones versus sludge in the gallbladder neck. No biliary ductsdilatation. Status post right colectomy. No bowel obstruction. Significantconstipation. -------- FINAL REPORT -------- Dictated By: Zaida Wright Dictated Date: 12/11/2024 14:15 ET Assigned Physician: Zaida Wright Reviewed and Electronically Signed By: Zaida Wright Signed Date: 12/11/2024 14:24 ET Workstation ID: [id number] Transcribed By: Self Edit Transcribed Date: 12/11/2024 14:15 ET Gutierrez Mary MD [facility] CT PROCEDURES Final Result * Uric acid (12/10/2024 3:44 PM EST) Uric Acid 7.7 3.7 - 9.2 mg/dL LAB CHEMISTRY METHOD 12/10/2024 6:26 PM EST [facility] Blood Venous blood specimen / Unknown Venipuncture / Unknown 12/10/2024 3:44 PM EST 12/10/2024 3:44 PM EST us Gutierrez Mary MD LAB BLOOD ORDERABLES Final Resul t [facility] [address] [place] [address], * (ABNORMAL) Basic metabolic panel (12/10/2024 3:44 PM EST) Only the most recent of2 resultswithin the time period is included. Sodium 134 133 - 145 mmol/L LAB CHEMISTRY METHOD 12/10/2024 6:26 PM [facility] Potassium 4.4 3.5 - 5.5 mmol/L LAB CHEMISTRY METHOD 12/10/2024 6:26 PM [facility] Chloride 97 96 - 110 mmol/L LAB CHEMISTRY METHOD 12/10/2024 6:26 PM [facility] CO2 30 21 - 32 mmol/L LAB CHEMISTRY METHOD 12/10/2024 6:26 PM [facility] Anion Gap 7 3 - 11 LAB CHEMISTRY METHOD 12/10/2024 6:26 PM [facility] Glucose 249(H) 70 - 100 mg/dL LAB CHEMISTRY METHOD 12/10/2024 6:26 PM [facility] BUN 25 5 - 25 mg/dL LAB CHEMISTRY METHOD 12/10/2024 6:26 PM [facility] Creatinine 2.92(H) 0.70 - 1.30 mg/dL LAB CHEMISTRY METHOD 12/10/2024 6:26 PM [facility] eGFR 22(L) >=60 mL/min/1. 73m2 LAB CHEMISTRY METHOD 12/10/2024 6:26 PM [facility] Comment:Calculation based on the??Chronic Kidney Disease Epidemiology Collaboration (CKD-EPI) equation refit??without adjustment for race. BUN/Creatinine Ratio 8.6 LAB CHEMISTRY METHOD 12/10/2024 6:26 PM EST [facility] Calcium 9.1 8.5 - 10.5 mg/dL LAB CHEMISTRY METHOD 12/10/2024 6:26 PM EST [facility] Blood Venous blood specimen / Unknown Venipuncture / Unknown 12/10/2024 3:44 PM EST 12/10/2024 3:44 PM EST us Darion Conner MD LAB BLOOD ORDERABLES Fabiana l Result Performing Organization Address [facility]/ZIP Co de Phone Number [facility] [address] [place] [address], [place] [phone] * (ABNORMAL) POCT activated clotting time,kaolin (11/17/2024 9:31 AM EST) Only the most recent of2 resultswithin the time period is included. Activated Clotting Time Kaolin 187(H) 74 - 137 sec 11/17/2024 9:33 AM EST [facility] Blood Arterial blood specimen / Unknown 11/17/2024 9:31 AM EST 11/17/2024 9:34 AM EST us Roosevelt Balderas MD LAB POINT OF CARE TE ST DOCKED DEVICE UNSOLICITED RESULTS Final Result Performing Organization Address [facility]/ZIP Co de Phone Number [facility] [address] [place] [address], [place] [phone] * ANGIOGRAPHY LOWER EXT RIGHT (11/17/2024 8:19 AM EST) Anatomical Region Laterality Modality X-Ray Angiograph y Narrative 11/18/2024 7:43 AM EST Per op note Study Details Per op note Clinical Background Per op note Procedure Details Per op note us Roosevelt Balderas MD CV INVASIVE VASCULAR PROCEDURES Final Result * (ABNORMAL) CBC auto differential (11/17/2024 7:12 AM EST) [facility] WBC 5.1 4.8 - 10.8 K/mcL LAB HEMETOLOGY METHOD 11/17/2024 7:26 AM [facility] RBC 4.60 4.50 - 5.50 M/mcL LAB HEMETOLOGY METHOD 11/17/2024 7:26 AM [facility] Hemoglobin 13.1(L) 13.5 - 17.5 g/dL LAB HEMETOLOGY METHOD 11/17/2024 7:26 AM [facility] Hematocrit 40.1(L) 42.0 - 54.0 % LAB HEMETOLOGY METHOD 11/17/2024 7:26 AM [facility] MCV 86.6 79.0 - 98.0 FL LAB HEMETOLOGY METHOD 11/17/2024 7:26 AM [facility] MCH 28.3 27.0 - 32.0 pcg LAB HEMETOLOGY METHOD 11/17/2024 7:26 AM [facility] MCHC 32.7 32.0 - 37.0 g/dL LAB HEMETOLOGY METHOD 11/17/2024 7:26 AM [facility] RDW 16.9(H) 11.0 - 15.0 % LAB HEMETOLOGY METHOD 11/17/2024 7:26 AM [facility] Platelets 159 130 - 400 K/mcL LAB HEMETOLOGY METHOD 11/17/2024 7:26 AM [facility] MPV 10.7 7.0 - 11.0 FL LAB HEMETOLOGY METHOD 11/17/2024 7:26 AM [facility] NRBC 0.0 <1.0 % LAB HEMETOLOGY METHOD 11/17/2024 7:26 AM [facility] NRBC Absolute 0.00 <0.10 K/mcL LAB HEMETOLOGY METHOD 11/17/2024 7:26 AM [facility] Neutrophils Relative 66.8 % LAB HEMETOLOGY METHOD 11/17/2024 7:26 AM [facility] Lymphocytes Relative 21.9 % LAB HEMETOLOGY METHOD 11/17/2024 7:26 AM [facility] Monocytes Relative 8.5 % LAB HEMETOLOGY METHOD 11/17/2024 7:26 AM [facility] Eosinophils Relative 2.4 % LAB HEMETOLOGY METHOD 11/17/2024 7:26 AM [facility] Basophils Relative 0.2 % LAB HEMETOLOGY METHOD 11/17/2024 7:26 AM [facility] Immature Granulocytes Relative 0.2 % LAB HEMETOLOGY METHOD 11/17/2024 7:26 AM [facility] Neutrophils Absolute 3.39 1.50 - 7.00 K/mcL LAB HEMETOLOGY METHOD 11/17/2024 7:26 AM [facility] Lymphocytes Absolute 1.11 1.00 - 5.00 K/mcL LAB HEMETOLOGY METHOD 11/17/2024 7:26 AM [facility] Monocytes Absolute 0.43 0.20 - 1.00 K/mcL LAB HEMETOLOGY METHOD 11/17/2024 7:26 AM [facility] Eosinophils Absolute 0.12 0.00 - 0.50 K/mcL LAB HEMETOLOGY METHOD 11/17/2024 7:26 AM [facility] Basophils Absolute 0.01 0.00 - 0.20 K/mcL LAB HEMETOLOGY METHOD 11/17/2024 7:26 AM [facility] Immature Granulocytes Absolute 0.01 0.00 - 0.03 K/mcL LAB HEMETOLOGY METHOD 11/17/2024 7:26 AM [facility] Blood Venous blood specimen / Unknown Venipuncture / Unknown 11/17/2024 7:12 AM EST 11/17/2024 7:21 AM EST us Roosevelt Balderas MD LAB BLOOD ORDERABLES Final Resu lt Performing Organization Address City/[facility]/ZIP Co de Phone Number [facility] [address] [place] [address], [place] [phone] * Activated partial thromboplastin time (11/17/2024 7:12 AM EST) aPTT 34.8 24.1 - 39.3 sec LAB COAGULATION METHOD 11/17/2024 7:32 AM EST [facility] Blood Venous blood specimen / Unknown Venipuncture / Unknown 11/17/2024 7:12 AM EST 11/17/2024 7:21 AM EST us Roosevelt Balderas MD LAB BLOOD ORDERABLES Final Resu lt Performing Organization Address [facility] Co de Phone Number [facility] [address] [place] [address], [place] [phone] * Prothrombin time with INR (11/17/2024 7:12 AM EST) Protime 11.8 10.6 - 13.9 sec LAB COAGULATION METHOD 11/17/2024 7:32 AM EST [facility] INR 0.9 LAB COAGULATION METHOD 11/17/2024 7:32 AM EST [facility] Blood Venous blood specimen / Unknown Venipuncture / Unknown 11/17/2024 7:12 AM EST 11/17/2024 7:21 AM EST us Roosevelt Balderas MD LAB BLOOD ORDERABLES Final Resu lt Performing Organization Address City/[facility]/ZIP Co de Phone Number [facility] [address] [place] [address], [place] [phone] * US Abdomen Limited (11/03/2024 9:31 AM EST) Anatomical Region Laterality Modality Body Ultrasound 11/03/2024 1:34 PM EST Impressions 11/03/2024 1:48 PM EST 1. ??Sonographic features compatible with hepatic steatosis. 2. ??Multiple echogenic foci along the gallbladder wall, the largest measuring 0.7 cm, appears to represent gallbladder polyps, some pedunculated and some sessile. ??A 6-month follow-up ultrasound is recommended. -------- FINAL REPORT -------- Dictated By: Marcelina Crockett Dictated Date: 11/03/2024 13:34 ET Assigned Physician: Marcelina Crockett Reviewed and Electronically Signed By: Marcelina Crockett Signed Date: 11/03/2024 13:48 ET Workstation ID: [id number] Transcribed By: Self Edit Transcribed Date: 11/03/2024 13:34 ET Narrative 11/03/2024 1:48 PM EST EXAM: ??US ABDOMEN LIMITED TECHNIQUE: US Abdominal limited right upper quadrant. HISTORY: elevated LFT's COMPARISON: Ultrasound on July 02, 2024 FINDINGS: Pancreas: Visualized portions of the pancreas appear unremarkable. Liver: ??Liver length of 13.8 cm. ??Diffusely increased echogenicity compatible with hepatic steatosis. ??No focal lesions demonstrated. Main Portal Vein: Patent with normal direction of flow. Gallbladder: Multiple echogenic foci are seen along the gallbladder wall, the largest measuring 0.7 x 0.3 x 0.5 cm. ??Some of these foci appear pedunculated and others sessile, and are not associated with obvious focal gallbladder wall thickening. ??No gallstones or gallbladder wall thickening. Biliary: No biliary ductal dilatation. The common bile duct measures 0.4 cm. Right Kidney: Size: 10.4 cm. No renal stones or hydronephrosis. IVC: The visualized portion is unremarkable. Procedure Note Marcelina Crockett MD - 11/03/2024 EXAM: US ABDOMEN LIMITED TECHNIQUE: US Abdominal limited right upper quadrant. HISTORY: elevated LFT's COMPARISON: Ultrasound on July 02, 2024 FINDINGS: Pancreas: Visualized portions of the pancreas appear unremarkable. Liver: Liver length of 13.8 cm. Diffusely increased echogenicitycompatible with hepatic steatosis. No focal lesions demonstrated. Main Portal Vein: Patent with normal direction of flow. Gallbladder: Multiple echogenic foci are seen along the gallbladder wall,the largest measuring 0.7 x 0.3 x 0.5 cm. Some of these foci appearpedunculated and others sessile, and are not associated with obvious focalgallbladder wall thickening. No gallstones or gallbladder wallthickening. Biliary: No biliary ductal dilatation. The common bile duct measures 0.4cm. Right Kidney: Size: 10.4 cm. No renal stones or hydronephrosis. IVC: The visualized portion is unremarkable. IMPRESSION: 1. Sonographic features compatible with hepatic steatosis. 2. Multiple echogenic foci along the gallbladder wall, the largestmeasuring 0.7 cm, appears to represent gallbladder polyps, somepedunculated and some sessile. A 6- month follow-up ultrasound isrecommended. -------- FINAL REPORT -------- Dictated By: Marcelina Crockett Dictated Date: 11/03/2024 13:34 ET Assigned Physician: Marcelina Crockett Reviewed and Electronically Signed By: Marcelina Crockett Signed Date: 11/03/2024 13:48 ET Workstation ID: [id number] Transcribed By: Self Edit Transcribed Date: 11/03/2024 13:34 ET us Darion Conner MD IMG US PROCEDURES Final R esult * (ABNORMAL) Hemoglobin A1c (10/22/2024 3:53 PM EST) Hemoglobin A1C 7.3(H) <6.5 % LAB CHEMISTRY METHOD 10/23/2024 10:46 AM EST [facility] Mean Bld Glu Estim. 163 mg/dL LAB CHEMISTRY METHOD 10/23/2024 10:46 AM EST [facility] Blood Venous blood specimen / Unknown Venipuncture / Unknown 10/22/2024 3:53 PM EST 10/22/2024 3:53 PM EST Darion Conner MD LAB BLOOD ORDERABLES Fabiana cj Result [facility] [address] [place] [address], * US ABDOMINAL AORTA REAL TIME SCREEN STUDY AAA (03/08/2017 8:44 AM EDT) Anatomical Region Laterality Modality Ultrasound 01/28/2017 1:32 PM EDT Narrative 03/08/2017 9:27 AM EDT ULTRASOUND ABDOMINAL AORTA CLINICAL HISTORY: AAA screening. COMPARISON: Limited abdominal ultrasound dated 03/27/2012. COMMENT: The abdominal aorta is unremarkable appearance and normal in caliber. Maximum transverse dimensions of the abdominal aorta from proximal to mid to distal are as follows: 2.3 cm, 1.4 cm, and 1.4 cm. The common iliac arteries both measure approximately 1 cm in transverse dimension. IMPRESSION: IMPRESSION: No sonographic evidence of abdominal aortic aneurysm. Procedure Note Celestina Corea, DO - 11/08/2023 ULTRASOUND ABDOMINAL AORTA CLINICAL HISTORY: AAA screening. COMPARISON: Limited abdominal ultrasound dated 03/27/2012. COMMENT: The abdominal aorta is unremarkable appearance and normal incaliber. Maximum transverse dimensions of the abdominal aorta from proximal to mid todistal are as follows: 2.3 cm, 1.4 cm, and 1.4 cm. The common iliac arteries both measureapproximately 1 cm in transverse dimension. IMPRESSION: IMPRESSION: No sonographic evidence of abdominal aortic aneurysm. us Tasia Wyatt MD IMG US PROCEDURES Final Result from Last 3 Months or Most Recently Relevant to Health Maintenance Insurance MEDICARE MEDICAID - [place] Advance Directives * Full Code - Default (Latest Code Status on File) Date Activated Date Inactivated Comments 11/17/2024 11:07 AM 11/17/2024 5:18 PM This is ord er is used when code status has not been discussed with the patient, or code status is otherwise unknown/unconfirmed To update the patient's code status, place a code status order. Do not modify or discontinue any currently active code status orders. * Full Code - Default Date Activated Date Inactivated Comments 11/17/2024 7:02 AM 11/17/2024 11:07 AM This is ord er is used when code status has not been discussed with the patient, or code status is otherwise unknown/unconfirmed To update the patient's code status, place a code status order. Do not modify or discontinue any currently active code status orders. * Full Code - Default Date Activated Date Inactivated Comments 09/20/2024 6:25 PM 09/21/2024 5:37 PM This is or berkley is used when code status has not been discussed with the patient, or code status is otherwise unknown/unconfirmed To update the patient's code status, place a code status order. Do not modify or discontinue any currently active code status orders. Care Teams Market Analysis Director Relationship Specialty Start Date End Date Darion Conner MD [address] [place] [id number] PCP - General Internal Medicine 08/02/15
--- OUTSIDE RECORDS SUMMARY | 2025-01-27 18:59 | XMS_ITS | Clinical Summary ---
Author Organization [facility], Address [address] [place] [address] [place] [address] Phone Care Team Providers Care Installer Interior [employer]sembl[employer] Name Role Phone Unavailable Primary Care Provider Unavailabl e Medications hydrALAZINE 25 MG tablet TAKE 1 TABLET BY MOUTH TWICE A DAY 180 tablet 2 02/21/2022 Active Social History Tobacco Use Types Packs/Day Years Used Date Smoking Tobacco: Never Assessed Sex and Gender Information Value Date Recorded Sex Assigned at Not on file Legal Sex Male 4:51 PM EST Gender Identity Not on file Sexual Orientation Not on file Plan of Treatment Health Maintenance Due Date Last Done Comments Pneumococcal Vaccine: 50+ Ye ars (1 of 2 - PCV) 1970 Colorectal Cancer Screening: Annual FOBT 2000 Colorectal Cancer Screening: Colonoscopy 2000 Colorectal Cancer Screening: Sigmoidoscopy 2000 Influenza Vaccine (Season Ended) 2025 Hepatitis B Vaccine Aged Out No longe r eligible based on patient's age to complete this topic
--- OUTSIDE RECORDS SUMMARY | 2025-01-27 18:59 | XMS_ITS | Encounter Summary ---
Author Organization [facility] Address [address] [place] [address] Care Team Providers Care Coal Feeder Operator Name Role Phone Darion Conner MD Primary Care Provider [phone] Reason for Visit * Reason Comments Follow-up ER follow up Encounter Details Date Type Department Care Team (Late st Contact Info) Description 01/22/2025 10:30 AM EDT Office Visit Internal Medicine - [address] [phone] Darion Conner MD [address] [place] [phone] Gout of right hand, unspecified cause, unspecified chronicity (Primary Dx); Chronic systolic congestive heart failure (CMS/HCC V24, CMS/HCC V28); Peripheral vascular disease (CMS/HCC V24) Social History Tobacco Use Types Packs/Day Years Used Date Smoking Tobacco: Former Cigarettes Q uit: 2004 Smokeless Tobacco: Never Tobacco Cessation:Counseling Given: Not [...] Sign Reading Time Taken Comments Blood Pressure 130/56 01/22/2025 10:41 AM EDT Pulse 84 01/22/2025 10:41 AM EDT Temperature - - Respiratory Rate - - Oxygen Saturation - - Inhaled Oxygen Concentration - - Weight 62.8 kg (138 lb 8 oz) 01/22/2025 10:41 AM EDT Height 167.6 cm (5' 6 ) 01/22/2025 10:41 AM EDT Body Mass Index 22.35 01/22/2025 10:41 AM EDT documented in this encounter Functional Status * [...] documented in this encounter Progress Notes * Darion Conner MD - 01/22/2025 10:30 AM EDTAssociated Problem(s): Chronic systolic congestive heart failure (CMS/HCC V24, CMS/HCC V28) Clinically today he is euvolemic on exam. He states that when he takes the torsemide 60 mg daily hegets very dry. I explained to him that he needs to be on torsemide 40 mg daily but he takes 60 mg daily for 3 days only if he gains more than 3 pounds or if he has worsening lower extremity edema. Hewill continue his regimen of amiodarone, atorvastatin, Entresto. He has a follow-up appointment with cardiology already scheduled. Orders: Walker * Darion Conner MD - 01/22/2025 10:30 AM EDTAssociated Problem(s): Peripheral vascular disease ([facility] V24) Given his peripheral artery disease, he will continue his regimen of atorvastatin and apixaban. He has follow-up appointments booked with vascular surgery already. I have provided him with a walker to prevent falls. Orders: Chaka * Darion Conner MD - 01/22/2025 10:30 AM EDT CHIEF COMPLAINT: Chief Complaint Patient presents with Follow-up ER follow up IDENTIFIER: Tim Bowens is a 74 y.o. old male. HPI Patient is a 74-year-old man who presents to the office today for an ER follow-up. He went to [facility] on 01/01/2025 complaining of pain in his right hand. He states thepain is throbbing for the last few days. He did not have any trauma to his right hand. Patient doeshave a history of gout and he was exhibiting pain in his right first MCP and swelling. He does haveelevated creatinine and elevated uric acid and is unable to take colchicine or allopurinol because he is a CKD patient. Was advised a low dose. Diet and was given prednisone. His hospital labs done on 12/31/24 showed: WBC 6.6, hemoglobin 11.2, hematocrit 33.9, platelet 123 Sodium 139, potassium 5.1, chloride 96, bicarbonate 36, BUN 25 creatinine 2.03, glucose 255 Uric acid 8.0 Calcium 8.8 AST 27, ALT 22, alkaline phosphatase 28. He did follow-up with nephrology on 01/14/2025 for his history of CKD. Patient's baseline creatinineis between 2.5-3. He does have microscopic hematuria. He also has IgA monoclonal gammopathy. He hasbeen advised to continue Entresto, torsemide and to follow low-sodium diet. He did follow-up with cardiology on 01/01/2025 for his chronic systolic heart failure. Has been advised to continue torsemide 40 mg daily but if he develops swelling, he can go up to 60 mg inform cardiology. He follows up with vascular surgery and was seen previously on 12/07/2024 for critical limb ischemia in the right lower extremity with ulceration of the right hallux. His arterial duplex was reviewed and his right lower extremity angiogram confirmed his SFA/popliteal and tibial arterial occlusive disease. As per vascular surgery he has adequate arterial supply to heal wound with the right hallux. Was advised to follow-up in 3 months time to reassess the hallux. Advised to follow-up sooner if his wound deteriorates. He has also been seen by infectious disease previously in 12/02/2024 for diabetic foot and as per infectious disease, there was no evidence of infection or osteomyelitis and does not require Antibiotics. He followed up with general surgery on 11/27/2024 for his gallbladder polyp. Advised to follow-up in3 to 6 months and reevaluate. Advised cholecystectomy if he develops recurrent abdominal pain. Otherwise 6 months follow-up. He follows up with gastroenterology and was seen on 01/06/2025 for Elevated alkaline phosphatase levels. He is not a good candidate for liver biopsy. ROS: GENERAL: No malaise, significant weight loss or fever HEENT: No changes in hearing or vision, nose bleeds or other nasal problems RESPIRATORY: No cough, wheezing or shortness of breath CARDIOVASCULAR: see hpi GI: No abdominal discomfort, blood in stools or black stools NECK: No lumps, goiter, pain or significant neck swelling : No dysuria, frequency or incontinence MUSCULOSKELETAL: See HPI SKIN: No lesions, rash or itching NEURO: No persistent headache, syncope, seizures, weakness or numbness PAST MEDICAL HISTORY: Patient Active Problem List Diagnosis Date Noted Elevated alkaline phosphatase level 01/06/2025 Stage 4 chronic kidney disease ([facility]/HCC V24, CMS/[facility] V28) 01/01/2025 Swelling of right wrist 12/09/2024 Gallbladder polyp 11/06/2024 Critical limb ischemia of right lower extremity ([facility]/HCC V24, [facility] V28) 11/05/2024 Skin ulcer of fourth toe of right foot, limited to breakdown of skin ([facility] V24, [facility] V28) 09/21/2024 Osteomyelitis of foot ([facility] V24, [facility] V28) 09/20/2024 Irregularly irregular pulse rhythm 05/20/2024 Persistent atrial fibrillation ([facility] V24, [facility] V28) 04/14/2024 Trifascicular block 04/14/2024 Peripheral vascular disease ([facility] V24) 11/12/2022 Chronic systolic congestive heart failure ([facility] V24, [facility] V28) 10/15/2019 Iron deficiency anemia due to chronic blood loss 10/02/2018 Malignant neoplasm of ascending colon ([facility] V24, [facility] V28) 05/09/2017 Cerebral microvascular disease 01/28/2017 Peripheral neuropathy 08/29/2016 Stage 3a chronic kidney disease ([facility] V24, [facility] V28) 02/11/2012 Noncompaction cardiomyopathy ([facility] V24, [facility] V28) 11/20/2010 Type 2 diabetes mellitus ([facility] V24, [facility] V28) 10/11/2008 Hypertension 09/16/2005 Past Surgical History: Procedure Laterality Date ABDOMINAL SURGERY 06/04/2017 right hemicolectomy COLONOSCOPY 05/09/2017 Cancer in the proximal right colon; transverse colon polyp: Adenocarcinoma; polyp was a tubular adenoma COLONOSCOPY 02/04/2019 small polyps x 2: Granulation tissue and lymphoid aggregate OTHER SURGICAL HISTORY 05/09/2017 UPPER GI ENDOSCOPY PERFORMED SOCIAL HISTORY: Social History Tobacco Use Smoking status: Former Current packs/day: 0.00 Types: Cigarettes Quit date: 2003 Years since quittin.3 Smokeless tobacco: Never Substance Use Topics Alcohol use: Not Currently Comment: 1 beer a day FAMILY HISTORY: Family History Problem Relation Name Age of Onset Diabetes Father Diabetes Sister Family Status Relation Name Status Father Alive Sister Alive No partnership data on file MEDICATIONS DISCONTINUED/REORDERED: Medications Discontinued During This Encounter Medication Reason doxycycline hyclate (VIBRA-TABS) 100 mg tablet Therapy completed oxyCODONE (ROXICODONE) 5 mg immediate release tablet Therapy completed ACTIVE MEDICATIONS: Outpatient Medications Marked as Taking for the 01/22/25 encounter (Office Visit) with Darion Conner MD Medication Sig Dispense Refill acetaminophen (TYLENOL) 500 mg tablet Take by mouth every 6 (six) hours if needed for mild pain. amiodarone (PACERONE) 200 mg tablet Take 1 tablet (200 mg total) by mouth 1 (one) time each day. 90tablet 1 apixaban (Eliquis) 2.5 mg tablet Take 1 tablet (2.5 mg total) by mouth 2 (two) times a day. 180 each 1 atorvastatin (LIPITOR) 10 mg tablet TAKE 1 TABLET BY MOUTH EVERYDAY AT BEDTIME 90 tablet 2 blood sugar diagnostic (FreeStyle Lite Strips) test strip USE TO TEST BLOOD SUGAR 3 TIMES DAILY, FREESTYLE LITE.E11.9 300 strip 1 blood-glucose meter,continuous (FreeStyle Mayito 3 [place]) [facility] [place] Use this device to read sensors to check your sugars 1 each 0 blood-glucose sensor (FreeStyle Mayito 3 Sensor) device Change sensor every 14 days. 2 each 3 dapagliflozin propanediol (Farxiga) 10 mg tablet Take 1 tablet (10 mg total) by mouth 1 (one) time each day. ferrous sulfate 325 mg (65 mg elemental iron) tablet Take 1 tablet (325 mg total) by mouth 3 (three) times a week. gabapentin (NEURONTIN) 100 mg capsule TAKE 2 CAPSULES BY MOUTH 3 TIMES A DAY. 540 capsule 1 insulin glargine (Lantus Solostar U-100 Insulin) 100 unit/mL (3 mL) injection pen Inject 6-7 Units under the skin daily at bedtime 15 mL 1 insulin lispro 100 unit/mL injection Inject TID w/ meals per sliding scale :Sliding scale: <150:no treatment, 151-200: 2 units, 200-250: 3 units 251-300: 4 units 301-350: 5 units 351-400: 6 units>400: 7 units 15 mL 2 lancets lancets Use to test blood sugar 3 times daily. E11.9 300 each 1 metOLazone (ZAROXOLYN) 2.5 mg tablet Take 1 tablet (2.5 mg total) by mouth if needed (Generally takes it once per week.). 12 each 3 pen needle, diabetic 32 gauge x 3/16 needle Use to inject 1-4 times daily as directed. 300 each 5 potassium chloride (KLOR-CON M10) 10 mEq CR tablet Take 2 tablets (20 mEq total) by mouth 2 (two) times a day. Tablet may be swallowed whole (do not crush/chew/suck on) OR broken in half and each half swallowed separately OR dissolved (whole tablet) in ~4 ounces of water (allow ~2 minutes to dissolve, stir well and administer immediately). 360 each 3 sacubitriL-valsartan (ENTRESTO) 24-26 mg per tablet Take 1 tablet by mouth 2 (two) times a day. 180each 1 torsemide (DEMADEX) 20 mg tablet Take 3 tablets (60 mg total) by mouth 1 (one) time each day. 270 tablet 3 ALLERGIES: Allergies Allergen Reactions Aspirin Unknown Diphenhydramine Lactase Diarrhea Morphine Unknown pt had itching all over the body after having morphine PHYSICAL EXAM: Visit Vitals BP 130/56 Pulse 84 Ht 1.676 m (66 ) Wt 62.8 kg (138 lb 8 oz) BMI 22.35 kg/m?? Smoking Status Former BSA 1.71 m?? EYES: PERRL, conjunctiva and sclera normal NOSE/SINUS: negative MOUTH/THROAT: no erythema or exudates NECK: negative HEART: regular rate, regular rhythm and no murmur LUNG: clear to auscultation LYMPH NODES: grossly normal ABDOMEN: Bowel sounds normoactive, no bruits, soft, non-tender, without organomegaly or palpable masses EXTREMITIES: No edema bilaterally. NEURO: Awake, alert and oriented x 3 SKIN: negative Assessment & Plan Gout of right hand, unspecified cause, unspecified chronicity His right hand gout is resolved. I have advised him to avoid purine rich foods which he states he has not been fully compliant with. Given his CKD, we cannot put him on allopurinol or colchicine at this moment. We can give him prednisone taper in the future. Chronic systolic congestive heart failure (CMS/HCC V24, CMS/HCC V28) Clinically today he is euvolemic on exam. He states that when he takes the torsemide 60 mg daily hegets very dry. I explained to him that he needs to be on torsemide 40 mg daily but he takes 60 mg daily for 3 days only if he gains more than 3 pounds or if he has worsening lower extremity edema. Hewill continue his regimen of amiodarone, atorvastatin, Entresto. He has a follow-up appointment with cardiology already scheduled. Orders: Walker Peripheral vascular disease (CMS/HCC V24) Given his peripheral artery disease, he will continue his regimen of atorvastatin and apixaban. He has follow-up appointments booked with vascular surgery already. I have provided him with a walker to prevent falls. Orders: Walker Today's documentation was made using voice recognition software.This note may contain grammatical errors secondary to this software. documented in this encounter Plan of Treatment Upcoming Encounters Date Type Department Care Team (Late st Contact Info) Description 02/02/2025 11:00 AM EDT Office Visit [facility] [address] [phone] Dawson Flores MD [address] [address] 02/22/2025 1:30 PM EDT Office Visit Orthopedic Surgery [facility] [address] [phone] Simone Novak DPM [address] [address] 02/24/2025 10:30 AM EDT Office Visit Bariatric Surgery [facility] [address] [phone] Carlita Huffman MD [address] [phone] 03/11/2025 1:00 PM EDT Office Visit Vascular Surgery - [place] 300 [facility] 210 [place] [phone] Julia Ashby PA 300 [facility] 210 [place] [address] 03/29/2025 2:30 PM EDT Office Visit Internal Medicine - [address] [phone] Darion Conner MD [address] [place] [address] 04/27/2025 3:30 PM EDT Office Visit Endocrinology - [address] [phone] Elliott Wilcox MD [address] [place] [address] 05/12/2025 2:30 PM EDT Office Visit [facility] Hematology Oncology [address] [place] [phone] Jacki-Shayy Roberts MD [address] [place] [phone] 05/20/2025 2:45 PM EDT Office Visit Nephrology - [address] [phone] [place] [address] [place] [phone] documented as of this encounter Visit Diagnoses Diagnosis Gout of right hand, unspecified cause, unspecified chronicity- Primary Chronic systolic congestive heart failure (CMS/HCC V24, CMS/HCC V28) Peripheral vascular disease (CMS/HCC V24) Unspecified peripheral vascular disease documented in this encounter Discontinued Medications Medication Sig Discontinue Reason Start Date End Da te doxycycline hyclate (VIBRA-TABS) 100 mg tablet Take 1 tablet (100 mg total) by mouth 2 (two) times a day. Take with a full glass of water and do not lie down for at least 30 minutes after. Therapy completed 01/22/2025 oxyCODONE (ROXICODONE) 5 mg immediate release tablet every 6 (six) hours if needed for severe pain. Therapy completed 01/22/2025 documented as of this encounter Orders General Supply Count Last Ordered Date First Or dered Date WALKER 1 01/22/2025 documented in this encounter Care Teams Coal Feeder Operator Relationship Specialty Start Date End Date Darion Conner MD [address] [place] [phone] PCP - General Internal Medicine 08/02/15 documented as of this encounter
--- OUTSIDE RECORDS SUMMARY | 2025-01-27 18:59 | XMS_ITS | Encounter Summary ---
Author Organization [facility] Address [address] [place] [address] Care Team Providers Care Clinic Lead Name Role Phone Darion Conner MD Primary Care Provider [phone] Encounter Details Date Type Department Care Team (Late st Contact Info) Description 01/04/2025 [facility] [address] [place] [phone] Darion Conner MD [address] [place] [phone] Social History Tobacco Use Types Packs/Day Years [...] Description 02/02/2025 11:00 AM EDT Office Visit [facility] - [facility] 101 300 [facility] 101 [place] [phone] Dawson Flores MD [address] [address] 02/22/2025 1:30 PM EDT Office Visit Orthopedic Surgery [facility] 250 175 [facility] 250 [place] [phone] Simone Novak DPM [address] [address] 02/24/2025 10:30 AM EDT Office Visit Bariatric Surgery - [place] [address] [phone] Carlita Huffman MD [address] [phone] 03/11/2025 1:00 PM EDT Office Visit Vascular Surgery - [place] 300 [facility] 210 [place] [phone] Julia Ashby PA 300 [facility] 210 [place] [address] 03/29/2025 2:30 PM EDT Office Visit Internal Medicine - [address] [phone] Darion Conner MD [address] [place] [address] 04/27/2025 3:30 PM EDT Office Visit Endocrinology - [address] [phone] Elliott Wilcox MD [address] [place] [address] 05/12/2025 2:30 PM EDT Office Visit [facility] Hematology Oncology [address] [place] [phone] Jacki-Shayy Roberts MD [address] [place] [phone] 05/20/2025 2:45 PM EDT Office Visit Nephrology - [address] [phone] Xavi Mead MD [address] [phone] documented as of this encounter Visit Diagnoses Not on filedocumented in this encounter Care Teams Clinic Lead Relationship Specialty Start Date End Date Darion Conner MD [address] [place] [phone] PCP - General Internal Medicine 08/02/15 documented as of this encounter
--- OUTSIDE RECORDS SUMMARY | 2025-01-27 18:59 | XMS_ITS ---
Author Organization [address] [place] [address] [place] [phone] Phone Care Team Providers Care Glass Fitter Name Role Phone Darion Conner MD Primary Care Provider [phone] Active Problems Problem Noted Date Diagnosed Date Elevated alkaline phosphatase level 01/06/2025 Stage 4 chronic kidney disease ([facility] V24, [facility] V28) 01/01/2025 Swelling of right wrist 12/09/2024 Gallbladder polyp 11/06/2024 Critical limb ischemia of ri t lower extremity ([facility] V24, [facility] V28) 11/05/2024 Skin ulcer of fourth toe of right foot, limited to breakdown of skin ([facility] V24, [facility] V28) 09/21/2024 Osteomyelitis of foot ([facility] V24, [facility] V28) 09/20/2024 Irregularly irregular pulse rhythm 05/20/2024 Persistent atrial fibrillation ([facility] V24, [facility] V28) 04/14/2024 Assessment & Plan (09/19/2024 10:02 AM EST): Continue current regimen of amiodarone, apixaban. 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 He has follow-up appointments booked with vascular surgery already. I have provided him with a walker to prevent falls. Orders: Chaka Chronic systolic congestive heart failure ([facility] V24, [facility] V28) 10/15/2019 Overview (06/03/2024): Last Assessment & [...] 10/02/2018 Malignant neoplasm of ascend ing colon ([facility] V24, [facility] V28) 05/09/2017 Overview (06/03/2024): 05/09/2017: Tumor in the right colon--- adenocarcinoma. Right hemicolectomy. Cerebral microvascular disease 01/28/2017 Overview (07/24/2024): On MRI for evaluation of ataxia, which resolved, follows with neurology Peripheral neuropathy 08/29/2016 Overview (06/03/2024): Complex etiology likely with multiple contributing components Stage 3a chronic kidney disease ([facility] V24, [facility] S/HCC V28) 02/11/2012 Overview (06/03/2024): Dr Mead Noncompaction cardiomyopathy ([facility] V24, [facility] V28) 11/20/2010 Overview (07/24/2024): Echo at [facility]: 10/2010, EF 25-30%, 2011 EF 20-25% Subsequent cath: no CAD 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 Continue Entresto, torsemide. Current Oncology Plans No current plan information found. Past Plans No past plan information found. Radiation Treatments * No radiation treatments are documented for this patient in [facility]. Treatments may have been administered in another system. Lifetime Dose Tracking * Chemical Lifetime Dose Automatic Entry Manual Entr y Radiation 178 mGy 0 mGy 178 mGy Fluoro Time 1.8 minutes 0 minutes 1.8 minutes CTDIvol 8.64 mGy 8.64 mGy 0 mGy
--- OUTSIDE RECORDS SUMMARY | 2025-01-27 18:59 | XMS_ITS | Encounter Summary ---
Author Organization [facility] Address [address] [place] [address] Care Team Providers Care Hatchery Laborer Name Role Phone Darion Conner MD Primary Care Provider [phone] Reason for Visit * Reason Comments Diabetes Encounter Details Date Type Department Care Team (Late st Contact Info) Description 01/25/2025 2:00 PM EDT Telemedicine Endocrinology - [place] [address] [place] [address] Alicia Coleman PA [address] [place] [address] Type 2 diabetes mellitus with chronic kidney disease, with long-term current use of insulin, unspecified CKD stage (CMS/HCC V24, CMS/HCC V28) (Primary Dx); Hypertension, unspecified type Social History Tobacco Use Types Packs/Day Years [...] documented in this encounter Progress Notes * VINH Hoffman - 01/25/2025 2:00 PM EDT CHIEF COMPLAINT: Diabetes IDENTIFIER: Tim Bowens is a 74 y.o. old male HPI: Telehealth Video: The patient received guidance on receiving healthcare through telehealth, including the use of HIPAA privacy -compliant technology for remote communication and its associated privacy risks. The patient was also informed of the limitations of treatment provided through telehealth and that in the event of a lost or failed video connection, the provider may call back or reschedule the visit. Alternatively, the patient may opt for an in-person visit. The patient gave consent for the use of video communication and provided care and confirmed that they were in a quiet and private location to discuss their health freely. The patient understands the visit will be submitted to their insurance and that they are responsible for any copay or deductible charges. Additionally, if the patient is LimitedEnglish Proficient, deaf, or hard of hearing, speech impaired, or has another disability which impairs their ability to communicate, the services of a qualified traffic coordinator will be provided during the visit. Patients Location: home Provider Location: office Total Time: 25 minutes Patient is a 74-year-old male presents today for diabetes follow up. His son Antolin joins the call. With multiple comorbid conditions including hypertension, cardiomyopathy, history of CVA, CHF, IgA monoclonal gammopathy, hyperlipidemia, history of colon cancer, anemia, CKD, cerebral ataxia. Diagnosed with diabetes more than 15 years ago. Family history of type 2: father and siblings Current diabetic regimen: Lantuss 6-7 units at bedtime Lispro TID SS, starting at 150 Farxiga 10mg once daily Fasting sugar: 104, and usually is around in low 100s. Daytime sugars are generally in the 100s as well. He is trying to eat well. Eating fruits which sometimes leads to hyperglycemia. He is not been eating a lot of protein. Recently treated for gout. He is not very physically active. Hemoglobin A1c improved to 7.3%, 3 months ago. Moderate CKD. Following nephrology. He has had an eye exam in the last 1 year. +microalbumin urine test. Lab Results Component Value Date HGBA1C 7.3 (H) 10/22/2024 ROS: GENERAL: No malaise HEENT: No changes in hearing or vision RESPIRATORY: No cough, wheezing or shortness of breath CARDIOVASCULAR: No chest pain, leg swelling or palpitations GI: No abdominal discomfort ENDO: see HPI NEURO: No persistent headache, syncope PAST MEDICAL HISTORY: Patient Active Problem List Diagnosis Date Noted Elevated alkaline phosphatase level 01/06/2025 Stage 4 chronic kidney disease ([facility] V24, [facility] V28) 01/01/2025 Swelling of right wrist 12/09/2024 Gallbladder polyp 11/06/2024 Critical limb ischemia of right lower extremity ([facility] V24, [facility] V28) 11/05/2024 Skin ulcer of fourth toe of right foot, limited to breakdown of skin ([facility] V24, [facility] V28) 09/21/2024 Osteomyelitis of foot ([facility] V24, [facility] V28) 09/20/2024 Irregularly irregular pulse rhythm 05/20/2024 Persistent atrial fibrillation ([facility] V24, [facility] V28) 04/14/2024 Trifascicular block 04/14/2024 Peripheral vascular disease ([facility] V24) 11/12/2022 Chronic systolic congestive heart failure ([facility] V24, [facility] V28) 10/15/2019 Iron deficiency anemia due to chronic blood loss 10/02/2018 Malignant neoplasm of ascending colon ([facility] V24, [facility] V28) 05/09/2017 Cerebral microvascular disease 01/28/2017 Peripheral neuropathy 08/29/2016 Stage 3a chronic kidney disease ([facility] V24, [facility] V28) 02/11/2012 Noncompaction cardiomyopathy ([facility] V24, [facility] V28) 11/20/2010 Type 2 diabetes mellitus ([facility] V24, [facility] V28) 10/11/2008 Hypertension 09/16/2005 Past Surgical History: [...] No partnership data on file MEDICATIONS DISCONTINUED/REORDERED: There are no discontinued medications. ACTIVE MEDICATIONS: No outpatient medications have been marked as taking for the 01/25/25 encounter (Telemedicine) with VINH Hoffman. ALLERGIES: Aspirin, Diphenhydramine, Lactase, and Morphine PHYSICAL EXAM: There were no vitals taken for this visit. There is no height or weight on file to calculate BMI. BMI is 18.5 to 24.9 (within the normal range) and will be followed APPEARANCE: Alert and in no acute distress NEURO: Awake, alert LABS: Lab Results Component Value Date HGBA1C 7.3 (H) 10/22/2024 HGBA1C 7.0 (H) 09/20/2024 Lab Results Component Value Date CREATININE 2.92 (H) 12/10/2024 Lab Results Component Value Date GLUCOSE 249 (H) 12/10/2024 IMAGING: IMPRESSION: 1. Type 2 diabetes mellitus with chronic kidney disease, with long-term current use of insulin, unspecified CKD stage ([facility] V24, [facility] V28) 2. Hypertension, unspecified type PLAN: Diabetes complicated with CKD: A1c 7.3%. Unable to review alex data as this is a telehealth visit. Patient reported glucose levels are in acceptable range. Strongly encouraged him to eat in regular intervals. Prepare each meal with protein, discussed multiple options. He will avoid more than 2 pieces of fruit per day--I would like them to be paired up with a source of protein. Multiple examples given. No change to insulin regimen. Short walks after meals encouraged. He plans to see pre wave assembler. We will continue to monitor blood pressure. Moderate CKD, following with nephrology. Discussed tight glucose control to slow down CKD progression. Hydrate well. On statin. Return here in 6 months for reevaluation of diabetes however patient wishes to see one of my colleagues while I am on leave over the summer. Medication and lab orders: Orders Placed This Encounter Procedures Hemoglobin A1c None VINH Hayes on 01/25/2025 at 2:48 PM EDT documented in this encounter Plan of Treatment Upcoming Encounters Date Type Department Care Team (Late st Contact Info) Description 02/02/2025 11:00 AM EDT Office Visit [facility] 101 300 [facility] 101 [place] [address] Dawson Flores MD [address] [address] 02/22/2025 1:30 PM EDT Office Visit Orthopedic Surgery [facility] 250 175 [facility] 250 [place] [phone] Simone Novak DPM [address] [address] 02/24/2025 10:30 AM EDT Office Visit Bariatric Surgery - [place] 175 [facility] 120 [place] [phone] Carlita Hufmfan MD [address] [phone] 03/11/2025 1:00 PM EDT Office Visit Vascular Surgery - [place] [address] [facility] 210 [place] [address] Julia Ashby PA [address] [place] [address] 03/29/2025 2:30 PM EDT Office Visit Internal Medicine - [address] [phone] Darion Conner MD 305 [place] [address] 04/27/2025 3:30 PM EDT Office Visit Endocrinology - [address] [phone] Elliott Wilcox MD [address] [place] [address] 05/12/2025 2:30 PM EDT Office Visit [facility] On[facility] [address] [place] [phone] Shayy Lacy MD [address] [place] [phone] 05/20/2025 2:45 PM EDT Office Visit Nephrology - [address] [phone] [place] [address] [place] [phone] Scheduled Orders Name Type Priority Associated Diagnoses Orde r Schedule Hemoglobin A1c Lab Routine Type 2 diabetes mellitus with chronic kidney disease, with long-term current use of insulin, unspecified CKD stage (CMS/HCC V24, CMS/HCC V28) Expected: 01/25/2025, Expires: 01/25/2026 documented as of this encounter Visit Diagnoses Diagnosis Type 2 diabetes mellitus with chronic kidney disease, with long-term current use of insulin, unspecified CKD stage (CMS/HCC V24, CMS/HCC V28)- Primary Hypertension, unspecified type documented in this encounter Care Teams Hatchery Laborer Relationship Specialty Start Date End Date Darion Conner MD [address] [place] [id number] PCP - General Internal Medicine 08/02/15 documented as of this encounter
[2025-01-27 19:22] LABS: Venous Blood Gas Refer to POC result
[2025-01-27 19:22] LABS: VBG Base Excess 23.1 mmol/L; VBG HCO3 51 mmol/L (22-26); VBG O2 % Saturation < 30.0 %; VBG pCO2 69 mmHg; VBG pH 7.47 (7.32-7.43); VBG pO2 29 mmHg
[2025-01-27 19:24] VITALS: BP 145/33; PULSE 82; RESP 16; TEMP 36.7; O2SAT 98
[2025-01-27 20:00] VITALS: BP 115/48; PULSE 80; RESP 16; TEMP 36.7
[2025-01-27 21:25] LABS: Glucose, Whole Blood 153 mg/dL (60-115)
--- NOTE | 2025-01-27 23:08 | ECG_ITS ---
Test Reason : R/O A FIB Blood Pressure : */* mmHG Vent. Rate : 68 BPM Atrial Rate : 68 BPM P-R Int : 262 ms QRS Dur : 132 ms QT Int : 494 ms P-R-T Axes : 47 -68 105 degrees QTcB Int : 525 ms Sinus rhythm with 1st degree A-V block Left axis deviation Right bundle branch block T wave abnormality, consider lateral ischemia Abnormal ECG No previous ECGs available Referred By: Sammi Jacobs Electronically Signed By: PILLO ESCOBAR
[2025-01-27] MEDS: oxyCODONE HCl Immed Release 5 MG TABLET PO (23:52)
[2025-01-27] MEDS: Piperacillin Sodium/Tazobactam 3.375 GM in 0.9 % Sodium Chloride 50 ML IV (23:52)
[2025-01-28] VITALS (7 sets, daily range): BP systolic 108–136; BP diastolic 48–66; PULSE 69–80; RESP 16–18; TEMP 36.4–36.9; O2SAT 92–99; BMI 21.5
--- NOTE | 2025-01-28 01:56 | PM.IMHP ---
History of Present Illness Date of Service: 01/28/25 Attending physician on admission: Boyd Pan Chief Complaint: necrotic toes/pain Patient is a 74-year-old male with a past medical history significant for atrial flutter on Eliquis, CKD4, insulin-dependent diabetes, HLD, HTN and HFrEF (EF 10-15%), who presented to the ED due to right foot pain and necrosis for the past 20 days. He reports that he went to urgent care who sent him here for necrotic 4th and 5th toes on the right foot. He denies any recent abx. no drainage, fever, chills, nausea or vomiting. He reports severe pain in his foot for the past month. He has been seeing vascular at [facility]. the pt is a very poor historian. Review of Systems Constitutional: Constitutional: Denies body ache(s), Denies chills, Denies fatigue, Denies fever(s) and Denies headache(s) Eyes: Eyes: Denies change in vision and Denies photophobia ENT: Denies headache(s), Denies nasal congestion, Denies nasal discharge and Denies sore throat Cardiovascular: Cardiovascular: Denies chest pain, Denies rapid heart rate, Denies leg edema, Denies lightheadedness and Denies dyspnea Respiratory: Respiratory: Denies chest congestion, Denies cough, Denies dyspnea and Denies wheezing Gastrointestinal: Gastrointestinal: Denies diarrhea, Denies nausea and Denies vomiting Genitourinary: Genitourinary: Denies dysuria and Denies urinary urgency Musculoskeletal: Comments: R foot pain Integumentary/Breasts: Comments: necrosis R toes Neurologic: Denies confusion and Denies headache(s) Psychiatric: Psychiatric: Denies confusion Endocrine: Endocrine: Denies fatigue Hematologic/Lymphatic: Hematologic/Lymphatic: Denies easy bleeding and Denies easy bruising Allergic/Immunologic: Allergic/Immunologic: Denies wheezing PMFSH Medical History CKD (chronic kidney disease) Type 2 diabetes mellitus Hyperlipidemia Atrial flutter HFrEF (heart failure with reduced ejection fraction) Essential (primary) hypertension Social History Housing: Long Term Do you presently have visiting nurse or other home services: Yes ([facility]) Alcohol intake: never Comment: 1 MONTH AGO CATCHING FOOD OFF PLATE Patient Tobacco Use Status: Never used Tobacco Smoked in Last 30 Days: No Use of substances other than those prescribed or required for medical reasons: No Advance Directives: No Advance Directives Information Provided: No service: No Meds Allergies Allergy/AdvReac Type Severity Reaction Status Date / Time aspirin Allergy Unknown Verified 01/27/25 17:33 diphenhydramine Allergy Unknown Verified 12/31/24 18:18 [From Benadryl] morphine Allergy Unknown Verified 12/31/24 18:18 Active Medications: Current Medications Acetaminophen (Acetaminophen 325 Mg Tablet) 975 mg PO Q6H PRN PRN Reason: Pain, Mild 1-3,fever,headache Calcium Carbonate (Calcium Carbonate 750 Mg Tab.Chew) 750 mg PO Q4H PRN PRN Reason: Heartburn Dextrose (Dextrose 50 % 25 Gm/50 Ml Syringe) 25 gm IVPUSH Q15M PRN; Protocol PRN Reason: per Hypoglycemia Standing Ord. Glucose (Glucose Gel 15 Gm Gel..Gram.) 15 gm PO Q15M PRN; Protocol PRN Reason: per Hypoglycemia Standing Ord. Piperacillin Sod/Tazobactam (Sod 2.25 gm/ Sodium Chloride) 50 mls @ 100 mls/hr IV Q8H COUNTS INCLUDE 234 BEDS AT THE [facility] Insulin Human Lispro (Insulin Lispro 100 Unit/Ml 3 Ml Vial) 0 unit SUBCUT QIDACHS COUNTS INCLUDE 234 BEDS AT THE [facility]; Protocol Magnesium Hydroxide (Milk Of Magnesia 30 Ml Oral.Susp) 30 ml PO DAILY PRN PRN Reason: Constipation Melatonin (Melatonin 3 Mg Tablet) 6 mg PO BEDTIME PRN PRN Reason: Insomnia Oxycodone HCl (Oxycodone Hcl Immed Release 5 Mg Tablet) 5 mg PO Q6H PRN PRN Reason: Pain, Moderate(Pain Scale 4-6) Pharmacy Consult (Consult Rx Vancomycin Dosing) 1 each MISCELLANE DAILY PRN PRN Reason: Consult order Sodium Chloride (0.9 % Sodium Chloride Flush 3 Ml Syringe) [facility] Medications ?Medication ?Instructions ?Recorded ?Confirmed ?Last Taken ?Type acetaminophen 325 mg tablet 650 mg PO Q4H PRN pain/fever 01/28/24 01/28/24 Unknown History amiodarone 200 mg tablet 200 mg PO DAILY 01/28/24 01/28/24 Unknown History ammonium lactate 12 % topical cream 1 appl topical BID 01/28/24 01/28/24 Unknown History apixaban 5 mg tablet (Eliquis) 5 mg PO BID 01/28/24 01/28/24 Unknown History atorvastatin 10 mg tablet 10 mg PO BEDTIME 01/28/24 01/28/24 Unknown History dapagliflozin propanediol 10 mg 10 mg PO DAILY 01/28/24 01/28/24 Unknown History tablet (Farxiga) ferrous sulfate 325 mg (65 mg 325 mg PO MOWEFR 01/28/24 01/28/24 Unknown History iron) tablet gabapentin 100 mg capsule 200 mg PO TID 01/28/24 01/28/24 Unknown History insulin glargine-yfgn 100 unit/mL 7 unit subcut DAILY 01/28/24 01/28/24 Unknown History (3 mL) subcutaneous pen insulin lispro 100 unit/mL 0 sliding scale dose subcut TIDAC 01/28/24 01/28/24 Unknown History subcutaneous pen (Humalog KwikPen (U-100) Insulin) lactulose 10 gram/15 mL oral 30 ml PO DAILY 01/28/24 01/28/24 Unknown History solution lactulose 10 gram/15 mL oral 30 ml PO Q12H PRN Constipation 01/28/24 01/28/24 Unknown History solution lidocaine 4 % topical patch 1 patch topical DAILY left hip 01/28/24 01/28/24 Unknown History loratadine 10 mg tablet 10 mg PO DAILY PRN Itching 01/28/24 01/28/24 Unknown History metolazone 2.5 mg tablet 2.5 mg PO Q48H PRN volume overload 01/28/24 01/28/24 Unknown History metolazone 2.5 mg tablet 2.5 mg PO TU 01/28/24 01/28/24 Unknown History omeprazole 20 mg capsule,delayed 20 mg PO DAILY 01/28/24 01/28/24 Unknown History release potassium chloride 20 mEq 20 meq PO TID 01/28/24 01/28/24 Unknown History tablet,extended release sacubitril 24 mg-valsartan 26 mg 1 tab PO BID 01/28/24 01/28/24 Unknown History tablet (Entresto) sennosides 8.6 mg tablet (senna) 17.2 mg PO DAILY 01/28/24 01/28/24 Unknown History simethicone 80 mg chewable tablet 160 mg PO Q8H PRN Dyspepsia 01/28/24 01/28/24 Unknown History sodium chloride 0.65 % nasal spray 2 spray intranasal Q6H PRN 01/28/24 01/28/24 Unknown History aerosol (Saline Nasal) Congestion torsemide 20 mg tablet 80 mg PO DAILY 01/28/24 01/28/24 Unknown History Physical Exam Vital Signs and Narrative: Vital Signs: Last Vital Signs Temp 98.0 F 01/28/25 01:33 Pulse 80 01/28/25 01:33 Resp 16 01/28/25 01:33 BP 115/48 L 01/28/25 01:33 Pulse Ox 98 01/27/25 19:24 O2 Del Method Room Air 01/27/25 20:00 BMI result Body Mass Index 21.8 General: AOx3, no acute distress Resp: CTA bilaterally CVS: S1, S2, RRR, faint pulses R foot. GI: +BS, NT, no distention Skin: Warm, dry. severe atrophy bilateral lower extremities with PAD. necrosis R 3rd, 4th and 5th toes. Neuro: Cranial nerves II-XII grossly intact bilaterally. Motor grossly intact bilaterally Extremities: No LE edema Psych: Appropriate affect Const: General: No confusion Orientation/consciousness: No confusion Eyes: Direct Ophthalmoscopy: No photophobia Neuro: General: No confusion Results Labs 01/27/25 17:39 01/27/25 17:39 Labs: Laboratory Results - last 24 hr 01/27/25 01/27/25 01/27/25 17:39 19:18 21:22 MCV 85.1 MCH 28.6 MCHC 33.6 RDW 15.1 Plt Count 230 D MPV 10.9 Immature Gran % (Auto) 0.3 Neut % (Auto) 72.7 Lymph % (Auto) 16.3 L [place] % (Auto) 7.5 Eos % (Auto) 2.9 Baso % (Auto) 0.3 Lymph # (Auto) 1.2 [place] # (Auto) 0.6 Eos # (Auto) 0.2 Baso # (Auto) 0.0 Abs Immat Gran (auto) 0.02 Absolute Neuts (auto) 5.3 Absolute Nucleated RBC 0.000 Nucleated RBC % (auto) 0.0 ESR 101 H VBG pH 7.47 H VBG pCO2 69 VBG pO2 29 VBG HCO3 51 H VBG O2 Saturation < 30.0 VBG Base Excess 23.1 Anion Gap 17 Estim Creat Clear Calc 16.7 Estimated GFR 18 POC Glucose 153 H Random Glucose 113 Lactic Acid 1.8 Calcium 9.5 D Magnesium 2.8 H Total Bilirubin 0.6 Direct Bilirubin 0.3 AST 26 ALT 13 Alkaline Phosphatase 88 C-Reactive Protein 9.54 H B-Natriuretic Peptide 276 H Total Protein 8.1 H Albumin 3.6 Assessment and Plan (1) Dry gangrene: Status: Acute (2) PAD (peripheral artery disease): Status: Acute (3) Acute kidney injury superimposed on CKD: Status: Acute (4) Prolonged QT interval: Status: Acute Plan Patient is a 74-year-old male with a past medical history significant for atrial flutter on Eliquis, CKD4, insulin-dependent diabetes, HLD, HTN and HFrEF (EF 10-15%), who presented to the ED due to right foot pain and necrosis for the past 20 days. dry gangrene secondary to PAD - WBC normal, vitals stable, lactic acid normal, no sepsis - xray right foot negative for osteomyelitis - LLE arterial US with spectral waveform changes suggestive of multifocal moderate to severe stenoses of the superficial femoral artery - LLE venous duplex negative for DVT - started on Zosyn in ED, continue and add vancomycin - MRI right foot, no contrast due to ABHI - unable to order CT angio lower extremity runoff due to ABHI - ID consult - vascular consult - continue statin and Eliquis ABHI on CKD 4 - creatinine 3.41 - likely cardiorenal due to poor perfusion - cardiology and nephrology consults Hypochloremic metabolic alkalosis - secondary to ABHI Prolonged QT - secondary to low perfusion from HFrEF Insulin-dependent diabetes - sliding scale insulin - diabetic diet - Lantus 4 units q.h.s., reduced dose in hospital chronic anemia - secondary to CKD - at baseline, no need for blood transfusion at this time - monitor CBC HLD - continue statin HTN - continue home meds chronic HFrEF, no acute exacerbation - EF 10-15% 01/2024 - hold diuretics due to ABHI full code VTE prophy: eliquis Patient with dry gangrene secondary to PAD complicated by ABHI on CKD, requiring admission for at least 2 midnight stay for IV antibiotics and multi specialty consultations. Quality Stroke Does the patient have a stroke diagnosis?: No VTE Prior VTE?: No VTE Risk Level:: Medical - moderate - high VTE Device Contraindication: Treatment Not Indicated VTE Drug Contraindication: N/A - Med Ordered
[2025-01-28] MEDS: vancomycin HCL 1,500 MG in 0.9 % Sodium Chloride 500 ML 333.33 MG IV (02:54)
[2025-01-28] MEDS: Atorvastatin Calcium 10 MG TABLET PO ×2 (03:01→20:10)
[2025-01-28] MEDS: Insulin Glargine,Hum.rec.anlog 100 UNIT/ML 10 ML VIAL SUBCUT ×2 (03:06→21:52)
[2025-01-28 05:15] LABS: MANUAL DIFF FLAG NO
[2025-01-28 05:17] LABS: Basophils Percent Auto 0.4 % (0-2); Eosinophils Absolute Auto 0.2 X10*3/uL (0.0-0.4); Eosinophils Percent Auto 3.5 % (0-4); Hemoglobin 11.9 g/dl (14.0-18.0); Imm Gran Abs Auto 0.01 X10*3/uL (0.00-0.03); Imm Gran Pct Auto 0.2 % (0.0-0.4); Lymphocytes Absolute Auto 1.1 X10*3/uL (1.2-4.9); Lymphocytes Percent Auto 21.5 % (20-40); Mean Corpuscular HGB Conc 32.2 g/dl (31.0-36.0); Mean Corpuscular Hemoglobin 27.7 pg (27.0-33.0); Monocytes Absolute Auto 0.4 X10*3/uL (0.1-1.2); Monocytes Percent Auto 8.7 % (2-11); Neutrophils Absolute Auto 3.2 x10*3/uL (2.0-8.3); Neutrophils Percent Auto 65.7 % (45-73); Platelet Count 198 X10*3/uL (160-400); White Blood Count 4.9 X10*3/uL (4.8-10.8)
[2025-01-28 05:32] LABS: Anion Gap 17 (12-20); Blood Urea Nitrogen 43 mg/dL (9-16); Calcium 9.2 mg/dL (8.4-10.2); Carbon Dioxide 36 mmol/L (22-29); Chloride 92 mmol/L (96-108); Creatinine Clr Calc Pharmacy 18.7; Estimated Glomerular Filt Rate 20; Glucose Random 149 mg/dL (60-115); Potassium 3.7 mmol/L (3.3-5.1); Sodium 141 mmol/L (135-145)
--- NOTE | 2025-01-28 07:08 | PHA.PROG ---
Admission Date/Time: January 28, 2025 01:22 Indication: SKIN Weight in k.235 kg Adjusted body weight in Kg: [place] body weight in Kg: Obesity Dosing Indication % IBW: Serum Creatinine - Last 168 Hours 01/27/25 01/28/25 17:39 05:10 Creatinine 3.41 H 3.04 H Estimated CrCl and GFR - Last 168 Hours 01/27/25 01/28/25 17:39 05:10 Estim Creat Clear Calc 16.7 18.7 Estimated GFR 18 20 Vancomycin Loading Dose: 1500 MG Current Vancomycin Dosing Regimen: 500 MG Q24H Vancomycin Monitoring using AUC goal of 400 - 600 range with trough as surrogate marker: KDI=822 TROUGH=16.5 Date and Time for next Vancomycin Level to be drawn: 01/29/25 @0600 BEFORE FIRST DOSE DUE TO POOR RENAL FUNCTION Pharmacist Comments on Vancomycin Plan: Vancomycin dosing will take advantage of [employer] as a clinical decision support tool that uses Bayesian modeling to calculate individual patient's pharmacokinetic parameters and forecast the patient's drug concentration time course with the target goal AUC 24 range of 400 - 600 mg/L/hr.
--- NOTE | 2025-01-28 07:35 | MHC.EDTECH ---
ppatient refusing poc and blood draws. KATHIE sainz
[2025-01-28 08:21] LABS: Glucose, Whole Blood 203 mg/dL (60-115)
[2025-01-28] MEDS: Piperacillin Sodium/Tazobactam 2.25 GM in 0.9 % Sodium Chloride 50 ML IV ×2 (08:29→14:12)
[2025-01-28] MEDS: Insulin Lispro 100 UNIT/ML 3 ML VIAL SUBCUT ×3 (08:29→21:51)
--- NOTE | 2025-01-28 08:30 | PC.NURSE ---
Discussion had with MD jensen. Patient ok to not have finger sticks completed and ACHS blood sugars can be managed off his lybre device blood glucose number.
[2025-01-28] MEDS: Apixaban 2.5 MG TABLET PO ×2 (08:33→20:10)
[2025-01-28] MEDS: Gabapentin 100 MG CAPSULE 200 MG PO ×3 (08:33→20:10)
[2025-01-28] MEDS: 0.9 % Sodium Chloride Flush 3 ML SYRINGE IVFLUSH (08:36)
--- NOTE | 2025-01-28 10:01 | PHA.MEDREC ---
Addendum entered by Juan Pablo Wolfe 01/28/25 10:58: Meant Blood sugar when talking about Lantus Solostar. Patient takes 6 units at bedtime if blood sugar is lower but 7 units if it is higher. Did not specify a cutoff like his Humalog sliding scale. Original Note: Pharmacy Consult ? Medication Reconciliation Pharmacy has completed the medication reconciliation. Got list of medications from a recent Dr visit and some medications found in claims did not match what was on the office visit. We spoke with the patient and he was able to confirm his medications. He confirmed he finished taking the Doxycycline, Prednisone and Oxycodone in the last few weeks. He also confirmed he is not taking the Pantoprazole, any constipation medications (Senna, Lactulose), creams for pain (Lidocaine) or anything for allergies (Loratadine) at this time. He confirmed he takes the Lantus Solostar at bedtime and states is his blood pressure gets too high he will inject 7 units and if his blood pressure get too low he will inject 6 units. He confirmed the Metolazone and confirmed he has been taking it once a week on Tuesdays and took it last yesterday. He states he has been taking the Torsemide 20mg tab 2 (40mg) in the morning but stated if he notices his legs are swelling he will take 3 tabs (60mg) in the morning.
--- NOTE | 2025-01-28 10:44 | P.CONGS_ITS ---
<Statement entered by Demetrio Torrez MD - 01/28/25 16:23> I have seen and evaluated the patient and agree with history, findings, assessment and plan documented by Sindhu Aguilar PA-c. Patient with peripheral vascular disease and gangrenous right lower extremity toes. Ultrasound and images were reviewed. He will require right lower extremity endovascular intervention. Would like renal function to improve prior to intervention. Thank you for allowing us to assist in his care. If there are any questions or concerns please do not hesitate to contact us. History of Present Illness Consult details Consult date: 01/28/25 Narrative: We were consulted for Tim, for concerns of dry gangrene on the toes of his right foot. He presented to the ER from Urgent Care yesterday due to pain and discolored toes. He has a medical hx pertinent for an essential tremor, CKD IV, IDDM, HTN, A flutter on Eliquis, HTN, and HFrEF with an EF of 10-15%. He stated that appx a month ago he noticed the 4th and 5th toes of his right foot were changing colors. He denies any injuries or wounds to the foot/toes. He does not remember what his last A1C is. He states his blood sugars go up and down during the day and he controls it with the Insulin sliding scale and diet. He is a former smoker, quitting years ago. He states he is getting pain at the toes. He ambulates with a walker. He was admitted for cellulitis and dry gangrenous toes. Review of Systems 2 Constitutional: Constitutional: Reports as per HPI and Denies weakness ENT: Reports Normal hearing present and Denies dizziness Cardiovascular: Cardiovascular: Reports as per HPI, Denies chest pain, Denies chest pain at rest, Denies chest pain with activity, Denies dyspnea and Denies dyspnea on exertion Respiratory: Respiratory: Reports as per HPI, Denies cough, Denies dyspnea and Denies dyspnea on exertion Gastrointestinal: Gastrointestinal: Reports as per HPI, Denies abdominal pain, Denies nausea and Denies vomiting Musculoskeletal: Musculoskeletal: Denies numbness Integumentary/Breasts: Skin/Breast: Reports as per HPI, Denies erythema and Denies wounds Neurologic: Reports Normal hearing present, Denies dizziness, Denies numbness, Denies Sensory deficit (Neuro) and Denies weakness Psychiatric: Psychiatric: Reports no additional psychiatric complaints Endocrine: Endocrine: Reports no additional endocrine complaints [facility] Past Medical History Medical History CKD (chronic kidney disease) Type 2 diabetes mellitus Hyperlipidemia Atrial flutter HFrEF (heart failure with reduced ejection fraction) Essential (primary) hypertension Social History Social History Housing: Custodial Do you presently have visiting nurse or other home services: Yes ([facility]) Alcohol intake: never Comment: 1 MONTH AGO CATCHING FOOD OFF PLATE Patient Tobacco Use Status: Never used Tobacco service: No Meds Allergies Allergy/AdvReac Type Severity Reaction Status Date / Time aspirin Allergy Unknown Verified 01/27/25 17:33 diphenhydramine Allergy Unknown Verified 12/31/24 18:18 [From Benadryl] morphine Allergy Unknown Verified 12/31/24 18:18 Active Medications: Current Medications Acetaminophen (Acetaminophen 325 Mg Tablet) 975 mg PO Q6H PRN PRN Reason: Pain, Mild 1-3,fever,headache Apixaban (Apixaban 2.5 Mg Tablet) 2.5 mg PO BID [facility] Last Admin: 01/28/25 08:33 Dose: 2.5 mg Atorvastatin Calcium (Atorvastatin Calcium 10 Mg Tablet) 10 mg PO BEDTIME [facility] Last Admin: 01/28/25 03:01 Dose: 10 mg Calcium Carbonate (Calcium Carbonate 750 Mg Tab.Chew) 750 mg PO Q4H PRN PRN Reason: Heartburn Dextrose (Dextrose 50 % 25 Gm/50 Ml Syringe) 25 gm IVPUSH Q15M PRN; Protocol PRN Reason: per Hypoglycemia Standing Ord. Gabapentin (Gabapentin 100 Mg Capsule) 200 mg PO TID [facility] Last Admin: 01/28/25 08:33 Dose: 200 mg Glucose (Glucose Gel 15 Gm Gel..Gram.) 15 gm PO Q15M PRN; Protocol PRN Reason: per Hypoglycemia Standing Ord. Piperacillin Sod/Tazobactam (Sod 2.25 gm/ Sodium Chloride) 50 mls @ 100 mls/hr IV Q8H [facility] Last Admin: 01/28/25 08:29 Dose: 100 mls/hr Vancomycin HCl 500 mg/ Sodium (Chloride) 110 mls @ 110 mls/hr IV Q24H [facility] Insulin Glargine (Insulin Glargine,Hum.Rec.Anlog 100 Unit/Ml 10 Ml Vial) 4 unit SUBCUT BEDTIME [facility] Last Admin: 01/28/25 03:06 Dose: 4 unit Insulin Human Lispro (Insulin Lispro 100 Unit/Ml 3 Ml Vial) 0 unit SUBCUT QIDACHS [facility]; Protocol Last Admin: 01/28/25 08:29 Dose: 4 unit Melatonin (Melatonin 3 Mg Tablet) 6 mg PO BEDTIME PRN PRN Reason: Insomnia Omeprazole (Omeprazole 20 Mg Capsule.Dr) 20 mg PO DAILY@0630 [facility] Last Admin: 01/28/25 06:55 Dose: Not Given Oxycodone HCl (Oxycodone Hcl Immed Release 5 Mg Tablet) 5 mg PO Q6H PRN PRN Reason: Pain, Moderate(Pain Scale 4-6) Pharmacy Consult (Consult Rx Vancomycin Dosing) 1 each MISCELLANE DAILY PRN PRN Reason: Consult order Sodium Chloride (0.9 % Sodium Chloride Flush 3 Ml Syringe) [facility] Last Admin: 01/28/25 08:36 Dose: 3 ml Home Medications ?Medication ?Instructions ?Recorded ?Confirmed ?Last Taken ?Type acetaminophen 325 mg tablet 650 mg PO Q4H PRN pain/fever 01/28/24 01/28/25 Unknown History amiodarone 200 mg tablet 200 mg PO DAILY 01/28/24 01/28/25 Unknown History atorvastatin 10 mg tablet 10 mg PO BEDTIME 01/28/24 01/28/25 Unknown History dapagliflozin propanediol 10 mg 10 mg PO DAILY 01/28/24 01/28/25 01/27/25 History tablet (Farxiga) ferrous sulfate 325 mg (65 mg 325 mg PO MOWEFR 01/28/24 01/28/25 01/27/25 History iron) tablet gabapentin 100 mg capsule 200 mg PO TID 01/28/24 01/28/25 01/27/25 History insulin lispro 100 unit/mL See Protocol subcut TIDAC 01/28/24 01/28/25 01/27/25 History subcutaneous pen (Humalog KwikPen (U-100) Insulin) metolazone 2.5 mg tablet 2.5 mg PO TU 01/28/24 01/28/25 01/27/25 History potassium chloride 20 mEq 20 meq PO BID 01/28/24 01/28/25 Unknown History tablet,extended release sacubitril 24 mg-valsartan 26 mg 1 tab PO BID 01/28/24 01/28/25 01/27/25 History tablet (Entresto) torsemide 20 mg tablet 40 mg PO DAILY 01/28/24 01/28/25 01/27/25 History apixaban 2.5 mg tablet 2.5 mg PO BID 01/28/25 01/28/25 01/27/25 History cholecalciferol (vitamin D3) 50 50 mcg PO DAILY 01/28/25 01/28/25 01/27/25 History mcg (2,000 unit) tablet insulin glargine 100 unit/mL (3 6 - 7 unit subcut BEDTIME 01/28/25 01/28/25 01/26/25 History mL) subcutaneous pen (Lantus Solostar U-100 Insulin) primidone 50 mg tablet 50 mg PO BEDTIME 01/28/25 01/28/25 Unknown History torsemide 20 mg tablet 20 mg PO DAILY PRN Leg Swelling 01/28/25 01/28/25 Unknown History Physical Exam 2 Vital Signs: Vital Signs: Last Vital Signs Temp 97.5 F 01/28/25 02:55 Pulse 71 01/28/25 06:00 Resp 16 01/28/25 06:00 BP 108/58 L 01/28/25 06:00 Pulse Ox 98 01/27/25 19:24 O2 Del Method Room Air 01/28/25 06:00 BMI result Body Mass Index 21.8 Const: General: comfortable and no acute distress O rientation/consciousness: patient oriented x3 HEENT: Ears: hearing grossly normal bilaterally Resp: Effort & Inspection: normal respiratory effort and able to speak in complete sentences Auscultation: clear to auscultation bilaterally Cardio: Rate: regular rate Rhythm: regular rhythm Heart sounds: S1 normal heart sound present and S2 normal heart sound present Bruits: no abdominal aortic bruits, no carotid bruits, no femoral bruits and no renal bruits GI: Palpation (GI): No Abdominal aortic bruit present Neuro: General: patient oriented x3 Cranial nerves: Yes Normal hearing present Sensory Exam: No Sensory deficit (Neuro) Extrem: Other: Right foot: dry gangrene noted throughout the 4th and 5th toes. Painful to palpation. Tip of right 3rd toe small amt of dry gangrene noted. Base of 1st toe scabbed over. Dry eschar noted on the plantar aspect at the base of all the toes. Palpable DP pulse. Thick toenails noted on all toes. Left foot: dry eschar noted on the base of the plantar aspect of all the toes. Palpable DP pulse. Thick toenails noted on all toes. Results Labs 01/28/25 05:10 01/28/25 05:10 Labs: Abnormal lab results 01/27/25 01/27/25 01/27/25 Range/Units 17:39 19:18 21:22 RBC 4.09 L (4.60-5.80) X10*6/uL Hgb 11.7 L (14.0-18.0) g/dl Hct 34.8 L (42.0-52.0) % Lymph % (Auto) 16.3 L (20-40) % Lymph # (Auto) (1.2-4.9) X10*3/uL ESR 101 H (0-15) MM/HR VBG pH 7.47 H (7.32-7.43) VBG HCO3 51 H (22-26) mmol/L Chloride 87 L (96-108) mmol/L Carbon Dioxide 40 H* (22-29) mmol/L BUN 50 H (9-16) mg/dL Creatinine 3.41 H (0.5-1.4) mg/dL POC Glucose 153 H (60-115) mg/dL Random Glucose (60-115) mg/dL Magnesium 2.8 H (1.6-2.6) mg/dL C-Reactive Protein 9.54 H (< or = 0.50) mg/dL B-Natriuretic Peptide 276 H (<100) pg/mL Total Protein 8.1 H (6.5-8.0) g/dL 01/28/25 01/28/25 Range/Units 05:10 08:10 RBC 4.30 L (4.60-5.80) X10*6/uL Hgb 11.9 L (14.0-18.0) g/dl Hct 37.0 L (42.0-52.0) % Lymph % (Auto) (20-40) % Lymph # (Auto) 1.1 L (1.2-4.9) X10*3/uL ESR (0-15) MM/HR VBG pH (7.32-7.43) VBG HCO3 (22-26) mmol/L Chloride 92 L (96-108) mmol/L Carbon Dioxide 36 H (22-29) mmol/L BUN 43 H (9-16) mg/dL Creatinine 3.04 H (0.5-1.4) mg/dL POC Glucose 203 H (60-115) mg/dL Random Glucose 149 H (60-115) mg/dL Magnesium (1.6-2.6) mg/dL C-Reactive Protein (< or = 0.50) mg/dL B-Natriuretic Peptide (<100) pg/mL Total Protein (6.5-8.0) g/dL Short CBC 01/27/25 01/28/25 Range/Units 17:39 05:10 WBC 7.3 4.9 (4.8-10.8) X10*3/uL Hgb 11.7 L 11.9 L (14.0-18.0) g/dl Hct 34.8 L 37.0 L (42.0-52.0) % Plt Count 230 D 198 (160-400) X10*3/uL BMP 01/27/25 01/28/25 17:39 05:10 Sodium 140 141 Potassium 4.0 D 3.7 Chloride 87 L 92 L Carbon Dioxide 40 H* 36 H BUN 50 H 43 H Creatinine 3.41 H 3.04 H Calcium 9.5 D 9.2 Liver Function 01/27/25 Range/Units 17:39 Total Bilirubin 0.6 (0.0-1.0) mg/dL Direct Bilirubin 0.3 (0.0-0.5) mg/dL AST 26 (5-37) U/L ALT 13 (0-40) U/L Alkaline Phosphatase 88 (39-117) U/L Albumin 3.6 (3.5-5.0) g/dL All other labs normal. Assessment and Plan (1) PAD (peripheral artery disease): Status: Acute Plan We were consulted on Tim, for concerns of dry gangrene of his toes and findings on arterial duplex. He presented to the ER yesterday due to discoloration of his right 4th and 5th toes with pain. He states he first noticed the toes changing colors about a month ago and has not gotten them checked out prior to going to yesterday. He was found to have multifocal moderate to severe disease in the superficial femoral artery of the right lower extremity. There is no acute vascular surgical intervention at this point; however, he will need an angiogram for further evaluation of the peripheral artery disease. We will continue to monitor his labwork as well. We will continue to monitor. If there are any questions or concerns, please do not hesitate to reach out to us. Procedures Date of Service Date of Service: 01/28/25
--- NOTE | 2025-01-28 10:46 | P.CONNP_ITS ---
History of Present Illness Reason for Consult Consult date: 01/28/25 Reason for consult: ABHI Chief Complaint Chief complaint: Cellulitis Dry Gangrene History of Present Illness Narrative: 74-year-old male with a history significant for atrial flutter on Eliquis, CKD4, insulin-dependent diabetes, HLD, HTN and HFrEF (EF 10-15%), who presented to the ED due to right foot pain and necrosis for the past 20 days. He reports that he went to urgent care who sent him here for necrotic 4th and 5th toes on the right foot. He denies any recent abx. no drainage, fever, chills, nausea or vomiting. He reports severe pain in his foot for the past month. He has been seeing vascular at [place]. He has a history of congestive heart failure and he was on diuretics. Recently torsemide was increased to 60 mg a day along with metolazone 2.5 mg a day. He tells me that his recent creatinine was 2.7 and at the time admission creatinine was 3.41. He had significant edema which has completely resolved. He sees Dr. Mead in [place] however patient requested us to take care of him while in the hospital. Review of Systems Constitutional: Denies fever(s) Cardiovascular: Denies chest pain Respiratory: Denies cough and Denies hemoptysis Gastrointestinal: Denies abdominal pain, Denies diarrhea and Denies nausea Musculoskeletal: Denies back pain Denies focal weakness PMFSH Past Medical History Medical History CKD (chronic kidney disease) Type 2 diabetes mellitus Hyperlipidemia Atrial flutter HFrEF (heart failure with reduced ejection fraction) Essential (primary) hypertension Social History Social History Housing: [facility] Do you presently have visiting nurse or other home services: Yes ([facility]) Alcohol intake: never Comment: 1 MONTH AGO CATCHING FOOD OFF PLATE Patient Tobacco Use Status: Never used Tobacco Smoked in Last 30 Days: No Use of substances other than those prescribed or required for medical reasons: No Advance Directives: No Advance Directives Information Provided: No Nutrition Risks: No Nutritional Risk service: No Meds Allergies Allergy/AdvReac Type Severity Reaction Status Date / Time aspirin Allergy Unknown Verified 01/27/25 17:33 diphenhydramine Allergy Unknown Verified 12/31/24 18:18 [From Benadryl] morphine Allergy Unknown Verified 12/31/24 18:18 Active Medications: Current Medications Acetaminophen (Acetaminophen 325 Mg Tablet) 975 mg PO Q6H PRN PRN Reason: Pain, Mild 1-3,fever,headache Apixaban (Apixaban 2.5 Mg Tablet) 2.5 mg PO BID [facility] Last Admin: 01/28/25 08:33 Dose: 2.5 mg Atorvastatin Calcium (Atorvastatin Calcium 10 Mg Tablet) 10 mg PO BEDTIME [facility] Last Admin: 01/28/25 03:01 Dose: 10 mg Calcium Carbonate (Calcium Carbonate 750 Mg Tab.Chew) 750 mg PO Q4H PRN PRN Reason: Heartburn Dextrose (Dextrose 50 % 25 Gm/50 Ml Syringe) 25 gm IVPUSH Q15M PRN; Protocol PRN Reason: per Hypoglycemia Standing Ord. Gabapentin (Gabapentin 100 Mg Capsule) 200 mg PO TID [facility] Last Admin: 01/28/25 08:33 Dose: 200 mg Glucose (Glucose Gel 15 Gm Gel..Gram.) 15 gm PO Q15M PRN; Protocol PRN Reason: per Hypoglycemia Standing Ord. Piperacillin Sod/Tazobactam (Sod 2.25 gm/ Sodium Chloride) 50 mls @ 100 mls/hr IV Q8H [facility] Last Admin: 01/28/25 08:29 Dose: 100 mls/hr Vancomycin HCl 500 mg/ Sodium (Chloride) 110 mls @ 110 mls/hr IV Q24H [facility] Insulin Glargine (Insulin Glargine,Hum.Rec.Anlog 100 Unit/Ml 10 Ml Vial) 4 unit SUBCUT BEDTIME [facility] Last Admin: 01/28/25 03:06 Dose: 4 unit Insulin Human Lispro (Insulin Lispro 100 Unit/Ml 3 Ml Vial) 0 unit SUBCUT QIDACHS [facility]; Protocol Last Admin: 01/28/25 08:29 Dose: 4 unit Melatonin (Melatonin 3 Mg Tablet) 6 mg PO BEDTIME PRN PRN Reason: Insomnia Omeprazole (Omeprazole 20 Mg Capsule.) 20 mg PO DAILY@0630 [facility] Last Admin: 01/28/25 06:55 Dose: Not Given Oxycodone HCl (Oxycodone Hcl Immed Release 5 Mg Tablet) 5 mg PO Q6H PRN PRN Reason: Pain, Moderate(Pain Scale 4-6) Pharmacy Consult (Consult Rx Vancomycin Dosing) 1 each MISCELLANE DAILY PRN PRN Reason: Consult order Sodium Chloride (0.9 % Sodium Chloride Flush 3 Ml Syringe) [facility] Last Admin: 01/28/25 08:36 Dose: 3 ml Home Medications ?Medication ?Instructions ?Recorded ?Confirmed ?Last Taken ?Type acetaminophen 325 mg tablet 650 mg PO Q4H PRN pain/fever 01/28/24 01/28/25 Unknown History amiodarone 200 mg tablet 200 mg PO DAILY 01/28/24 01/28/25 Unknown History atorvastatin 10 mg tablet 10 mg PO BEDTIME 01/28/24 01/28/25 Unknown History dapagliflozin propanediol 10 mg 10 mg PO DAILY 01/28/24 01/28/25 01/27/25 History tablet (Farxiga) ferrous sulfate 325 mg (65 mg 325 mg PO MOWEFR 01/28/24 01/28/25 01/27/25 History iron) tablet gabapentin 100 mg capsule 200 mg PO TID 01/28/24 01/28/25 01/27/25 History insulin lispro 100 unit/mL See Protocol subcut TIDAC 01/28/24 01/28/25 01/27/25 History subcutaneous pen (Humalog KwikPen (U-100) Insulin) metolazone 2.5 mg tablet 2.5 mg PO TU 01/28/24 01/28/25 01/27/25 History potassium chloride 20 mEq 20 meq PO BID 01/28/24 01/28/25 Unknown History tablet,extended release sacubitril 24 mg-valsartan 26 mg 1 tab PO BID 01/28/24 01/28/25 01/27/25 History tablet (Entresto) torsemide 20 mg tablet 40 mg PO DAILY 01/28/24 01/28/25 01/27/25 History apixaban 2.5 mg tablet 2.5 mg PO BID 01/28/25 01/28/25 01/27/25 History cholecalciferol (vitamin D3) 50 50 mcg PO DAILY 01/28/25 01/28/25 01/27/25 History mcg (2,000 unit) tablet insulin lispro 100 unit/mL 6 unit subcut BEDTIME PRN Blood 01/28/25 01/28/25 Unknown History subcutaneous pen Pressure Low insulin lispro 100 unit/mL 7 unit subcut BEDTIME PRN High 01/28/25 01/28/25 01/26/25 History subcutaneous pen Blood Pressure primidone 50 mg tablet 50 mg PO BEDTIME 01/28/25 01/28/25 Unknown History torsemide 20 mg tablet 20 mg PO DAILY PRN Leg Swelling 01/28/25 01/28/25 Unknown History Physical Exam Vital Signs: Last Vital Signs Temp 97.5 F 01/28/25 02:55 Pulse 71 01/28/25 06:00 Resp 16 01/28/25 06:00 BP 108/58 L 01/28/25 06:00 Pulse Ox 98 01/27/25 19:24 O2 Del Method Room Air 01/28/25 06:00 BMI result Body Mass Index 21.8 Const General: comfortable; No acute distress Orientation/consciousness: patient oriented x3 Eyes General: appearance normal, both eyes and all related structures Visual Herron: normal visual herron by confrontation Neck Neck: Yes supple and Yes no JVD Resp Effort & Inspection: normal respiratory effort and respiratory effort not decreased Auscultation: rhonchi Cardio Palpation: no palpable S3 and no palpable S4 Heart sounds: no rubs GI Inspection: Yes normal to inspection Palpation (GI): Soft to palpation Percussion: Yes normal to percussion Auscultation: normal bowel sounds General: Yes no CVA tenderness Back/Spine/Pelvis Back: no CVA tenderness Skin General skin exam: no petechiae and no purpura Neuro General: patient oriented x3 and no focal motor deficits Extrem General: No clubbing, No edema (Significant wrinkling of the skin) and Yes other (Gangrene of the right 4th and 5th toe tips) Results Lab Results 01/28/25 05:10 01/28/25 05:10 Lab results: Chemistry 01/27/25 01/28/25 17:39 05:10 Sodium 140 141 Potassium 4.0 D 3.7 Carbon Dioxide 40 H* 36 H BUN 50 H 43 H Creatinine 3.41 H 3.04 H Calcium 9.5 D 9.2 Hematology 01/27/25 01/28/25 17:39 05:10 WBC 7.3 4.9 Hgb 11.7 L 11.9 L Plt Count 230 D 198 Assessment and Plan (1) Acute kidney injury superimposed on CKD: Status: Acute (2) Cellulitis of foot, right: Status: Acute Plan ABHI superimposed on CKD. ABHI is mostly due to hypoperfusion from significant diuresis and relatively low blood pressure He had significant edema which has completely resolved and he has a wrinkling of the skin. Also has significant alkalosis most likely due to contraction alkalosis induced by high dose of diuretics. Recommendations Check urine for sodium ,chloride and creatinine. Hold diuretics for the next 24-48 hours and reassess. Hold Entresto for next 24-48 hours and reassess. Optimize blood pressure and avoid hypotension. Cautious hydration with normal saline at 50 cc/hour x1 L. Concur with other management and shall follow along with the team. Procedures Date of Service Date of Service: 01/28/25
--- NOTE | 2025-01-28 11:03 | P.PNIM_ITS ---
Subjective Subjective Date of Service: 01/28/25 Interval History: right 4th and 5th toe pain Physical Exam 2 Vital Signs: Vital Signs: Last Vital Signs Temp 97.5 F 01/28/25 02:55 Pulse 71 01/28/25 06:00 Resp 16 01/28/25 06:00 BP 108/58 L 01/28/25 06:00 Pulse Ox 98 01/27/25 19:24 O2 Del Method Room Air 01/28/25 06:00 BMI result Body Mass Index 21.8 General: AO X 3, no acute distress Resp: CTA bilateral, no accessory muscles used CVS: S1,S2,RRR GI: soft, non tender, non distended Neuro: motor grossly intact, alert Psych: appropriate affect, appropriate insight right foor necrosis of 4th and 5th toes Objective Data Active Medications Acetaminophen (Acetaminophen 325 Mg Tablet) 975 mg PO Q6H PRN PRN Reason: Pain, Mild 1-3,fever,headache Apixaban (Apixaban 2.5 Mg Tablet) 2.5 mg PO BID [facility] Last Admin: 01/28/25 08:33 Dose: 2.5 mg Documented By: DUARTE Atorvastatin Calcium (Atorvastatin Calcium 10 Mg Tablet) 10 mg PO BEDTIME [facility] Last Admin: 01/28/25 03:01 Dose: 10 mg Documented By: OMER Calcium Carbonate (Calcium Carbonate 750 Mg Tab.Chew) 750 mg PO Q4H PRN PRN Reason: Heartburn Dextrose (Dextrose 50 % 25 Gm/50 Ml Syringe) 25 gm IVPUSH Q15M PRN; Protocol PRN Reason: per Hypoglycemia Standing Ord. Gabapentin (Gabapentin 100 Mg Capsule) 200 mg PO TID [facility] Last Admin: 01/28/25 08:33 Dose: 200 mg Documented By: DUARTE Glucose (Glucose Gel 15 Gm Gel..Gram.) 15 gm PO Q15M PRN; Protocol PRN Reason: per Hypoglycemia Standing Ord. Piperacillin Sod/Tazobactam (Sod 2.25 gm/ Sodium Chloride) 50 mls @ 100 mls/hr IV Q8H [facility] Last Infusion: 01/28/25 10:48 Dose: Infused Documented By: DUARTE Vancomycin HCl 500 mg/ Sodium (Chloride) 110 mls @ 110 mls/hr IV Q24H [facility] Insulin Glargine (Insulin Glargine,Hum.Rec.Anlog 100 Unit/Ml 10 Ml Vial) 4 unit SUBCUT BEDTIME [facility] Last Admin: 01/28/25 03:06 Dose: 4 unit Documented By: OMER Insulin Human Lispro (Insulin Lispro 100 Unit/Ml 3 Ml Vial) 0 unit SUBCUT QIDACHS [facility]; Protocol Last Admin: 01/28/25 08:29 Dose: 4 unit Documented By: DUARTE Melatonin (Melatonin 3 Mg Tablet) 6 mg PO BEDTIME PRN PRN Reason: Insomnia Omeprazole (Omeprazole 20 Mg Capsule.Dr) 20 mg PO DAILY@0630 [facility] Last Admin: 01/28/25 06:55 Dose: Not Given Documented By: OMER Non-Admin Reason: Patient Refused Oxycodone HCl (Oxycodone Hcl Immed Release 5 Mg Tablet) 5 mg PO Q6H PRN PRN Reason: Pain, Moderate(Pain Scale 4-6) Pharmacy Consult (Consult Rx Vancomycin Dosing) 1 each MISCELLANE DAILY PRN PRN Reason: Consult order Sodium Chloride (0.9 % Sodium Chloride Flush 3 Ml Syringe) 3 ml IVFLUSH QSHIFT [facility] Last Admin: 01/28/25 08:36 Dose: 3 ml Documented By: DUARTE Labs 01/28/25 05:10 01/28/25 05:10 Labs: Laboratory Results - last 24 hr 01/27/25 01/27/25 01/27/25 17:39 19:18 21:22 MCV 85.1 MCH 28.6 MCHC 33.6 RDW 15.1 Plt Count 230 D MPV 10.9 Immature Gran % (Auto) 0.3 Neut % (Auto) 72.7 Lymph % (Auto) 16.3 L [place] % (Auto) 7.5 Eos % (Auto) 2.9 Baso % (Auto) 0.3 Lymph # (Auto) 1.2 [place] # (Auto) 0.6 Eos # (Auto) 0.2 Baso # (Auto) 0.0 Abs Immat Gran (auto) 0.02 Absolute Neuts (auto) 5.3 Absolute Nucleated RBC 0.000 Nucleated RBC % (auto) 0.0 ESR 101 H VBG pH 7.47 H VBG pCO2 69 VBG pO2 29 VBG HCO3 51 H VBG O2 Saturation < 30.0 VBG Base Excess 23.1 Anion Gap 17 Estim Creat Clear Calc 16.7 Estimated GFR 18 POC Glucose 153 H Random Glucose 113 Lactic Acid 1.8 Calcium 9.5 D Magnesium 2.8 H Total Bilirubin 0.6 Direct Bilirubin 0.3 AST 26 ALT 13 Alkaline Phosphatase 88 C-Reactive Protein 9.54 H B-Natriuretic Peptide 276 H Total Protein 8.1 H Albumin 3.6 01/28/25 01/28/25 05:10 08:10 MCV 86.0 MCH 27.7 MCHC 32.2 RDW 15.0 Plt Count 198 MPV 11.0 Immature Gran % (Auto) 0.2 Neut % (Auto) 65.7 Lymph % (Auto) 21.5 [place] % (Auto) 8.7 Eos % (Auto) 3.5 Baso % (Auto) 0.4 Lymph # (Auto) 1.1 L [place] # (Auto) 0.4 Eos # (Auto) 0.2 Baso # (Auto) 0.0 Abs Immat Gran (auto) 0.01 Absolute Neuts (auto) 3.2 Absolute Nucleated RBC 0.000 Nucleated RBC % (auto) 0.0 ESR VBG pH VBG pCO2 VBG pO2 VBG HCO3 VBG O2 Saturation VBG Base Excess Anion Gap 17 Estim Creat Clear Calc 18.7 Estimated GFR 20 POC Glucose 203 H Random Glucose 149 H Lactic Acid Calcium 9.2 Magnesium Total Bilirubin Direct Bilirubin AST ALT Alkaline Phosphatase C-Reactive Protein B-Natriuretic Peptide Total Protein Albumin 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 Continue empiric vancomycin Zosyn Plan for angiogram with vascular ID eval Continue apixaban, statin Acute kidney injury on CKD 4 Likely prerenal due to diuretic use Hold Entresto and torsemide, gentle hydration, monitor closely Acute metabolic alkalosis Due to diuretics Diabetes Basal bolus insulin chronic ckd anemia stbale hld statin dvt prophylaxis - eliquis full code reason for continued hospitalization:shayy, gangrene ongoing treatment Quality Stroke Does the patient have a stroke diagnosis?: No VTE Prior VTE?: No VTE Risk Level:: Medical - moderate - high VTE Device Contraindication: Treatment Not Indicated VTE Drug Contraindication: N/A - Med Ordered
[2025-01-28] MEDS: 0.9 % Sodium Chloride 1,000 ML 50 ML IVCONT (11:55)
[2025-01-28] MEDS: oxyCODONE HCl Immed Release 5 MG TABLET PO (11:59)
--- NOTE | 2025-01-28 14:02 | PC.NURSE ---
pt to inpatient bed asssignment via transport personnel
--- NOTE | 2025-01-28 14:46 | MHC.CM.PN ---
IMM 01/28/25, Pt lives with his son, he does not have home health services. He has been to [facility] in the past and will not go again. He said he lives in [place]. HCP discussed, CM will re-address completing the form with him at a later time, for now, he said he makes his own decisions. Family to transport home at DC, DCP: home, with services. CM to follow for DC needs.
[2025-01-28 15:30] LABS: Chloride Urine Random < 20.0 mmol/L; Creatinine Urine 72.14 mg/dL; Sodium Urine Random < 20.0 mmol/L; Total Protein Urine Random 21 mg/dL (<12)
[2025-01-28 16:28] LABS: Glucose, Whole Blood 199 mg/dL (60-115)
[2025-01-28] MEDS: Primidone 50 MG TABLET PO (20:10)
[2025-01-28 21:49] LABS: Glucose, Whole Blood 266 mg/dL (60-115)
[2025-01-29] MEDS: Piperacillin Sodium/Tazobactam 2.25 GM in 0.9 % Sodium Chloride 50 ML IV ×4 (00:07→21:47)
[2025-01-29 03:35] VITALS: BP 114/62; PULSE 82; RESP 18; TEMP 36.4; O2SAT 96
[2025-01-29 06:01] LABS: MANUAL DIFF FLAG NO
[2025-01-29 06:04] LABS: Basophils Percent Auto 0.3 % (0-2); Eosinophils Absolute Auto 0.2 X10*3/uL (0.0-0.4); Eosinophils Percent Auto 3.5 % (0-4); Hematocrit 35.3 % (42.0-52.0); Hemoglobin 11.8 g/dl (14.0-18.0); Imm Gran Abs Auto 0.03 X10*3/uL (0.00-0.03); Imm Gran Pct Auto 0.5 % (0.0-0.4); Lymphocytes Absolute Auto 1.2 X10*3/uL (1.2-4.9); Lymphocytes Percent Auto 20.7 % (20-40); Mean Corpuscular HGB Conc 33.4 g/dl (31.0-36.0); Mean Corpuscular Hemoglobin 28.8 pg (27.0-33.0); Mean Corpuscular Volume 86.1 fL (80.0-98.0); Mean Platelet Volume 10.9 fL (9.4-12.4); Monocytes Absolute Auto 0.5 X10*3/uL (0.1-1.2); Monocytes Percent Auto 8.3 % (2-11); Neutrophils Percent Auto 66.7 % (45-73); Platelet Count 222 X10*3/uL (160-400); Red Cell Distribution Width 14.8 % (11.0-16.0)
[2025-01-29 06:24] LABS: Vancomycin Random 14.9 mcg/mL (15-20)
[2025-01-29 06:26] LABS: Anion Gap 14 (12-20); Blood Urea Nitrogen 50 mg/dL (9-16); Carbon Dioxide 35 mmol/L (22-29); Chloride 96 mmol/L (96-108); Creatinine Clr Calc Pharmacy 20.1; Estimated Glomerular Filt Rate 23; Glucose Random 170 mg/dL (60-115); Magnesium 2.7 mg/dL (1.6-2.6); Potassium 3.3 mmol/L (3.3-5.1); Sodium 142 mmol/L (135-145)
--- NOTE | 2025-01-29 06:36 | HE.PHANOTE ---
RE: VANCO DOSING Trough (after loading dose of 1500 mg) was 14.9 mg/L and renal function is improving. Starting pt on 500 mg q24h @1200 01/29/25. Next trough is scheduled for 01/30/25 @1000.
[2025-01-29 07:25] VITALS: BP 122/65; PULSE 73; RESP 16; TEMP 36.6; O2SAT 98
[2025-01-29] MEDS: Gabapentin 100 MG CAPSULE 200 MG PO ×3 (07:59→21:44)
[2025-01-29] MEDS: Amiodarone HCL 200 MG TABLET PO (07:59)
[2025-01-29] MEDS: Cholecalciferol (Vitamin D3) 25 MCG TABLET 50 MCG PO (07:59)
[2025-01-29] MEDS: Apixaban 2.5 MG TABLET PO ×2 (07:59→21:47)
[2025-01-29] MEDS: Insulin Lispro 100 UNIT/ML 3 ML VIAL SUBCUT ×3 (08:07→16:43)
--- NOTE | 2025-01-29 08:29 | PC.NURSE ---
Addendum entered by Yobani Pavon RN 01/29/25 16:41: pt's sugar 201 Addendum entered by Yobani Pavon RN 01/29/25 11:36: pt's sugar 211 Addendum entered by Yobani Pavon RN 01/29/25 08:30: pt's glucometer reading 137 at this time. random glucose from AM labs 170, therefor 2u insulin was administered w/ bfast Original Note: Pt refusing POCs via hospital glucometer stating he has his own continuous glucometer that is in real time, accurate and used at home. was informed and per ok to use pt's machine for glucose monitoring and insulin administration.
--- NOTE | 2025-01-29 10:31 | HO.PM.IMPN ---
Subjective Subjective Date of Service: 01/29/25 Interval History: right 4th and 5th toe pain Physical Exam Vital Signs: Vital Signs: Last Vital Signs Temp 97.8 F 01/29/25 07:25 Pulse 73 01/29/25 07:25 Resp 16 01/29/25 07:25 BP 122/65 01/29/25 07:25 Pulse Ox 98 01/29/25 07:25 O2 Del Method Room Air 01/29/25 07:25 BMI result Body Mass Index 21.5 General: AO X 3, no acute distress Resp: CTA bilateral, no accessory muscles used CVS: S1,S2,RRR GI: soft, non tender, non distended Neuro: motor grossly intact, alert Psych: appropriate affect, appropriate insight right foor necrosis of 4th and 5th toes Objective Data Active Medications Acetaminophen (Acetaminophen 325 Mg Tablet) 975 mg PO Q6H PRN PRN Reason: Pain, Mild 1-3,fever,headache Amiodarone HCl (Amiodarone Hcl 200 Mg Tablet) 200 mg PO DAILY [facility] Last Admin: 01/29/25 07:59 Dose: 200 mg Documented By: ERNST Apixaban (Apixaban 2.5 Mg Tablet) 2.5 mg PO BID [facility] Last Admin: 01/29/25 07:59 Dose: 2.5 mg Documented By: ERNST Atorvastatin Calcium (Atorvastatin Calcium 10 Mg Tablet) 10 mg PO BEDTIME [facility] Last Admin: 01/28/25 20:10 Dose: 10 mg Documented By: HOLLY Calcium Carbonate (Calcium Carbonate 750 Mg Tab.Chew) 750 mg PO Q4H PRN PRN Reason: Heartburn Dextrose (Dextrose 50 % 25 Gm/50 Ml Syringe) 25 gm IVPUSH Q15M PRN; Protocol PRN Reason: per Hypoglycemia Standing Ord. Gabapentin (Gabapentin 100 Mg Capsule) 200 mg PO TID [facility] Last Admin: 01/29/25 07:59 Dose: 200 mg Documented By: ERNST Glucose (Glucose Gel 15 Gm Gel..Gram.) 15 gm PO Q15M PRN; Protocol PRN Reason: per Hypoglycemia Standing Ord. Piperacillin Sod/Tazobactam (Sod 2.25 gm/ Sodium Chloride) 50 mls @ 100 mls/hr IV Q8H [facility] Last Infusion: 01/29/25 06:45 Dose: Infused Documented By: HOLLY Vancomycin HCl 500 mg/ Sodium (Chloride) 110 mls @ 110 mls/hr IV Q24H [facility] Insulin Glargine (Insulin Glargine,Hum.Rec.Anlog 100 Unit/Ml 10 Ml Vial) 4 unit SUBCUT BEDTIME [facility] Last Admin: 01/28/25 21:52 Dose: 4 unit Documented By: HOLLY Insulin Human Lispro (Insulin Lispro 100 Unit/Ml 3 Ml Vial) 0 unit SUBCUT QIDACHS [facility]; Protocol Last Admin: 01/29/25 08:07 Dose: 2 unit Documented By: ERNST Melatonin (Melatonin 3 Mg Tablet) 6 mg PO BEDTIME PRN PRN Reason: Insomnia Omeprazole (Omeprazole 20 Mg Capsule.) 20 mg PO DAILY@0630 [facility] Last Admin: 01/29/25 06:07 Dose: Not Given Documented By: HOLLY Non-Admin Reason: Patient Refused Oxycodone HCl (Oxycodone Hcl Immed Release 5 Mg Tablet) 5 mg PO Q6H PRN PRN Reason: Pain, Moderate(Pain Scale 4-6) Last Admin: 01/28/25 11:59 Dose: 5 mg Documented By: PAPO Pharmacy Consult (Consult Rx Vancomycin Dosing) 1 each MISCELLANE DAILY PRN PRN Reason: Consult order Primidone (Primidone 50 Mg Tablet) 50 mg PO BEDTIME [facility] Last Admin: 01/28/25 20:10 Dose: 50 mg Documented By: HOLLY Sodium Chloride (0.9 % Sodium Chloride Flush 3 Ml Syringe) 3 ml IVFLUSH QSHIFT [facility] Last Admin: 01/29/25 07:10 Dose: Not Given Documented By: ERNST Non-Admin Reason: Previously Administered Vitamin D (Cholecalciferol (Vitamin D3) 25 Mcg Tablet) 50 mcg PO DAILY [facility] Last Admin: 01/29/25 07:59 Dose: 50 mcg Documented By: ERNST Labs 01/29/25 05:54 01/29/25 05:54 Labs: Laboratory Results - last 24 hr 01/28/25 01/28/25 01/28/25 14:50 16:24 21:45 MCV MCH MCHC RDW Plt Count MPV Immature Gran % (Auto) Neut % (Auto) Lymph % (Auto) [place] % (Auto) Eos % (Auto) Baso % (Auto) Lymph # (Auto) [place] # (Auto) Eos # (Auto) Baso # (Auto) Abs Immat Gran (auto) Absolute Neuts (auto) Absolute Nucleated RBC Nucleated RBC % (auto) Anion Gap Estim Creat Clear Calc Estimated GFR POC Glucose 199 H 266 H Random Glucose Calcium Magnesium U Random Total Protein 21 H Ur Random Sodium < 20.0 Ur Random Chloride < 20.0 Urine Creatinine 72.14 Random Vancomycin 01/29/25 05:54 MCV 86.1 MCH 28.8 MCHC 33.4 RDW 14.8 Plt Count 222 MPV 10.9 Immature Gran % (Auto) 0.5 H Neut % (Auto) 66.7 Lymph % (Auto) 20.7 [place] % (Auto) 8.3 Eos % (Auto) 3.5 Baso % (Auto) 0.3 Lymph # (Auto) 1.2 [place] # (Auto) 0.5 Eos # (Auto) 0.2 Baso # (Auto) 0.0 Abs Immat Gran (auto) 0.03 Absolute Neuts (auto) 4.0 Absolute Nucleated RBC 0.000 Nucleated RBC % (auto) 0.0 Anion Gap 14 Estim Creat Clear Calc 20.1 Estimated GFR 23 POC Glucose Random Glucose 170 H Calcium 9.0 Magnesium 2.7 H U Random Total Protein Ur Random Sodium Ur Random Chloride Urine Creatinine Random Vancomycin 14.9 L Microbiology Microbiology Results: Microbiology 01/27/25 19:15 Blood Culture - Preliminary Blood - Venous No growth after 24 hours. 01/27/25 17:39 Blood Culture - Preliminary Blood - Venous No growth after 24 hours. 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 Continue empiric vancomycin Zosyn Plan for angiogram with vascular once renal function improves ID eval Continue apixaban, statin Acute kidney injury on CKD 4 Likely prerenal due to diuretic use Holding Entresto and torsemide, s/p 1L ns, monitor closely, improving Acute metabolic alkalosis Due to diuretics, resolved Diabetes Basal bolus insulin chronic ckd anemia stbale hld statin dvt prophylaxis - eliquis full code reason for continued hospitalization:shayy, gangrene ongoing treatment Quality Stroke Does the patient have a stroke diagnosis?: No VTE Prior VTE?: No VTE Risk Level:: Medical - moderate - high VTE Device Contraindication: Treatment Not Indicated VTE Drug Contraindication: N/A - Med Ordered
--- NOTE | 2025-01-29 10:53 | P.PNVS_ITS ---
Subjective Subjective Date of Service: 01/29/25 Interval history: Tim is doing well this morning. He has been eating, drinking, and sleeping well. He continues to endorse significant pain in the right 4th and 5th toes, but pain is controlled with pain meds. He has no new concerns this morning. Physical Exam Vital Signs: Vital Signs: Last Vital Signs Temp 97.8 F 01/29/25 07:25 Pulse 73 01/29/25 07:25 Resp 16 01/29/25 07:25 BP 122/65 01/29/25 07:25 Pulse Ox 98 01/29/25 07:25 O2 Del Method Room Air 01/29/25 07:25 BMI result Body Mass Index 21.5 Const: General: comfortable and no acute distress Orientation/consciousness: patient oriented x3 HEENT: Ears: hearing grossly normal bilaterally Resp: Effort & Inspection: normal respiratory effort and able to speak in complete sentences Auscultation: clear to auscultation bilaterally Cardio: Rate: regular rate Rhythm: regular rhythm Heart sounds: S1 normal heart sound present and S2 normal heart sound present Bruits: no abdominal aortic bruits, no carotid bruits, no femoral bruits and no renal bruits GI: Palpation (GI): No Abdominal aortic bruit present Neuro: General: patient oriented x3 Cranial nerves: Yes CN's II-XII intact bilaterally Extrem: Other: Right foot: dry gangrene noted throughout the 4th and 5th toes. Painful to palpation. Tip of right 3rd toe small amt of dry gangrene noted. Base of 1st toe scabbed over. Dry eschar noted on the plantar aspect at the base of all the toes. Palpable DP pulse. Thick toenails noted on all toes. Left foot: dry eschar noted on the base of the plantar aspect of all the toes. Palpable DP pulse. Thick toenails noted on all toes. Progress Note: A&P Assessment and plan (1) PAD (peripheral artery disease): Status: Acute Assessment and Plan: Tim is doing well this morning. He continues to endorse significant pain in the 2 gangrenous toes on his right foot. His Cr has been trending downward, at 2.78 this morning with a GFR of 23. Due to his CKD IV, his Cr usually is in the low to mid 2s. The pt will benefit from a right lower extremity endovascular i ntervention. We would like his kidney function to improve a little more prior to the intervention; we will continue to monitor it closely. I did discuss the procedure with the patient this morning, allowing him to ask questions. We will continue to monitor. If there are any questions or concerns, please do not hesitate to reach out to us. Time Spent With Patient Time: Total time managing care of this patient today ____ minutes. Procedures Date of Service Date of Service: 01/29/25 Quality Stroke Does the patient have a stroke diagnosis?: No VTE Prior VTE?: No VTE Risk Level:: Medical - moderate - high VTE Device Contraindication: Treatment Not Indicated VTE Drug Contraindication: N/A - Med Ordered
[2025-01-29 11:19] VITALS: BP 136/65; PULSE 69; RESP 16; TEMP 36.5; O2SAT 97
[2025-01-29] MEDS: vancomycin HCL 500 MG in 0.9 % Sodium Chloride 100 ML 110 MG IV (11:56)
--- NOTE | 2025-01-29 15:01 | MHC.CM.PN ---
Per MD rounds patient is not medically cleared to discharge today. Discharge is anticipated next week. PT rec is STR. Patient refuses STR. A referral for [facility] services has been made. DP Home with [facility]. A family member will provide transportation home.
[2025-01-29 15:52] VITALS: BP 128/68; PULSE 89; RESP 16; TEMP 36.4; O2SAT 100
--- NOTE | 2025-01-29 16:23 | P.PNNP_ITS ---
Subjective Subjective Date of Service: 01/29/25 Interval history: Events noted. All recent data reviewed. Serum creatinine improving Physical Exam 2 Vital Signs: Vital Signs: Last Vital Signs Temp 97.5 F 01/29/25 15:52 Pulse 89 01/29/25 15:52 Resp 16 01/29/25 15:52 BP 128/68 01/29/25 15:52 Pulse Ox 100 01/29/25 15:52 O2 Del Method Room Air 01/29/25 15:52 BMI result Body Mass Index 21.5 Const: General: no acute distress Orientation/consciousness: patient oriented x3 Eyes: EOM: EOMs intact bilaterally Neck: Neck: Yes supple Resp: Auscultation: diminished lung sounds Cardio: Rate: regular rate GI: Palpation (GI): Soft to palpation Neuro: General: patient oriented x3 Objective Data Labs 01/29/25 05:54 01/29/25 05:54 Labs: Laboratory Results - last 24 hr 01/28/25 01/28/25 01/29/25 16:24 21:45 05:54 WBC 6.0 RBC 4.10 L Hgb 11.8 L Hct 35.3 L MCV 86.1 MCH 28.8 MCHC 33.4 RDW 14.8 Plt Count 222 MPV 10.9 Immature Gran % (Auto) 0.5 H Neut % (Auto) 66.7 Lymph % (Auto) 20.7 [place] % (Auto) 8.3 Eos % (Auto) 3.5 Baso % (Auto) 0.3 Lymph # (Auto) 1.2 [place] # (Auto) 0.5 Eos # (Auto) 0.2 Baso # (Auto) 0.0 Abs Immat Gran (auto) 0.03 Absolute Neuts (auto) 4.0 Absolute Nucleated RBC 0.000 Nucleated RBC % (auto) 0.0 Sodium 142 Potassium 3.3 Chloride 96 Carbon Dioxide 35 H Anion Gap 14 BUN 50 H Creatinine 2.78 H Estim Creat Clear Calc 20.1 Estimated GFR 23 POC Glucose 199 H 266 H Random Glucose 170 H Calcium 9.0 Magnesium 2.7 H Random Vancomycin 14.9 L Microbiology Microbiology Results: Microbiology 01/27/25 19:15 Blood - Venous Blood Culture - Preliminary No growth after 24 hours. 01/27/25 17:39 Blood - Venous Blood Culture - Preliminary No growth after 24 hours. Procedures Date of Service Date of Service: 01/29/25 Assessment & Plan Assessment and plan (1) Acute kidney injury superimposed on CKD: Status: Acute Plan ABHI due to compromise in renal perfusion with resultant tubular injury Diuretics/Entresto on hold; Serum creatinine stable/improved Continue current supportive care for now. Labs AM Progress Note: Quality Stroke Does the patient have a stroke diagnosis?: No
--- NOTE | 2025-01-29 17:30 | P.CNID_ITS ---
History of Present Illness Data of Consult Service Date: 01/29/25 Requesting physician: Sean Dickson Primary Care Provider: Unknown Physician HPI Reason for consult: black areas 4th,5th right plantar toes He presents with dark toes 4,5th right foot. He has no fever or chills. He is seeing Vascular. Review of Systems 2 Review of Systems: Yes all other systems are reviewed and are negative [facility] Past Medical History Medical History CKD (chronic kidney disease) Type 2 diabetes mellitus Hyperlipidemia Atrial flutter HFrEF (heart failure with reduced ejection fraction) Essential (primary) hypertension Family History Family history: reviewed and not pertinent Social History Social History Household Members: Family Housing: House Do you presently have visiting nurse or other home services: No Alcohol intake: never Comment: 1 MONTH AGO CATCHING FOOD OFF PLATE Patient Tobacco Use Status: Never used Tobacco service: No Meds Allergies Allergy/AdvReac Type Severity Reaction Status Date / Time aspirin Allergy Unknown Verified 01/27/25 17:33 diphenhydramine Allergy Unknown Verified 12/31/24 18:18 [From Benadryl] morphine Allergy Unknown Verified 12/31/24 18:18 Active Medications: Current Medications Acetaminophen (Acetaminophen 325 Mg Tablet) 975 mg PO Q6H PRN PRN Reason: Pain, Mild 1-3,fever,headache Amiodarone HCl (Amiodarone Hcl 200 Mg Tablet) 200 mg PO DAILY [facility] Last Admin: 01/29/25 07:59 Dose: 200 mg Apixaban (Apixaban 2.5 Mg Tablet) 2.5 mg PO BID [facility] Last Admin: 01/29/25 07:59 Dose: 2.5 mg Atorvastatin Calcium (Atorvastatin Calcium 10 Mg Tablet) 10 mg PO BEDTIME [facility] Last Admin: 01/28/25 20:10 Dose: 10 mg Calcium Carbonate (Calcium Carbonate 750 Mg Tab.Chew) 750 mg PO Q4H PRN PRN Reason: Heartburn Dextrose (Dextrose 50 % 25 Gm/50 Ml Syringe) 25 gm IVPUSH Q15M PRN; Protocol PRN Reason: per Hypoglycemia Standing Ord. Gabapentin (Gabapentin 100 Mg Capsule) 200 mg PO TID [facility] Last Admin: 01/29/25 14:07 Dose: 200 mg Glucose (Glucose Gel 15 Gm Gel..Gram.) 15 gm PO Q15M PRN; Protocol PRN Reason: per Hypoglycemia Standing Ord. Piperacillin Sod/Tazobactam (Sod 2.25 gm/ Sodium Chloride) 50 mls @ 100 mls/hr IV Q8H [facility] Last Infusion: 01/29/25 14:39 Dose: Infused Vancomycin HCl 500 mg/ Sodium (Chloride) 110 mls @ 110 mls/hr IV Q24H [facility] Last Infusion: 01/29/25 14:01 Dose: Infused Insulin Glargine (Insulin Glargine,Hum.Rec.Anlog 100 Unit/Ml 10 Ml Vial) 4 unit SUBCUT BEDTIME [facility] Last Admin: 01/28/25 21:52 Dose: 4 unit Insulin Human Lispro (Insulin Lispro 100 Unit/Ml 3 Ml Vial) 0 unit SUBCUT QIDACHS [facility]; Protocol Last Admin: 01/29/25 16:43 Dose: 4 unit Melatonin (Melatonin 3 Mg Tablet) 6 mg PO BEDTIME PRN PRN Reason: Insomnia Omeprazole (Omeprazole 20 Mg Capsule.Dr) 20 mg PO DAILY@0630 [facility] Last Admin: 01/29/25 06:07 Dose: Not Given Oxycodone HCl (Oxycodone Hcl Immed Release 5 Mg Tablet) 5 mg PO Q6H PRN PRN Reason: Pain, Moderate(Pain Scale 4-6) Last Admin: 01/28/25 11:59 Dose: 5 mg Pharmacy Consult (Consult Rx Vancomycin Dosing) 1 each MISCELLANE DAILY PRN PRN Reason: Consult order Primidone (Primidone 50 Mg Tablet) 50 mg PO BEDTIME [facility] Last Admin: 01/28/25 20:10 Dose: 50 mg Sodium Chloride (0.9 % Sodium Chloride Flush 3 Ml Syringe) 3 ml IVFLUSH QSHIFT [facility] Last Admin: 01/29/25 11:40 Dose: Not Given Vitamin D (Cholecalciferol (Vitamin D3) 25 Mcg Tablet) 50 mcg PO DAILY [facility] Last Admin: 01/29/25 07:59 Dose: 50 mcg Home Medications ?Medication ?Instructions ?Recorded ?Confirmed ?Last Taken ?Type acetaminophen 325 mg tablet 650 mg PO Q4H PRN pain/fever 01/28/24 01/28/25 Unknown History amiodarone 200 mg tablet 200 mg PO DAILY 01/28/24 01/28/25 Unknown History atorvastatin 10 mg tablet 10 mg PO BEDTIME 01/28/24 01/28/25 Unknown History dapagliflozin propanediol 10 mg 10 mg PO DAILY 01/28/24 01/28/25 01/27/25 History tablet (Farxiga) ferrous sulfate 325 mg (65 mg 325 mg PO MOWEFR 01/28/24 01/28/25 01/27/25 History iron) tablet gabapentin 100 mg capsule 200 mg PO TID 01/28/24 01/28/25 01/27/25 History insulin lispro 100 unit/mL See Protocol subcut TIDAC 01/28/24 01/28/25 01/27/25 History subcutaneous pen (Humalog KwikPen (U-100) Insulin) metolazone 2.5 mg tablet 2.5 mg PO TU 01/28/24 01/28/25 01/27/25 History potassium chloride 20 mEq 20 meq PO BID 01/28/24 01/28/25 Unknown History tablet,extended release sacubitril 24 mg-valsartan 26 mg 1 tab PO BID 01/28/24 01/28/25 01/27/25 History tablet (Entresto) torsemide 20 mg tablet 40 mg PO DAILY 01/28/24 01/28/25 01/27/25 History apixaban 2.5 mg tablet 2.5 mg PO BID 01/28/25 01/28/25 01/27/25 History cholecalciferol (vitamin D3) 50 50 mcg PO DAILY 01/28/25 01/28/25 01/27/25 History mcg (2,000 unit) tablet insulin glargine 100 unit/mL (3 6 - 7 unit subcut BEDTIME 01/28/25 01/28/25 01/26/25 History mL) subcutaneous pen (Lantus Solostar U-100 Insulin) primidone 50 mg tablet 50 mg PO BEDTIME 01/28/25 01/28/25 Unknown History torsemide 20 mg tablet 20 mg PO DAILY PRN Leg Swelling 01/28/25 01/28/25 Unknown History Physical Exam 2 Vital Signs: Vital Signs: Last Vital Signs Temp 97.5 F 01/29/25 15:52 Pulse 89 01/29/25 15:52 Resp 16 01/29/25 15:52 BP 128/68 01/29/25 15:52 Pulse Ox 100 01/29/25 15:52 O2 Del Method Room Air 01/29/25 15:52 BMI result Body Mass Index 21.5 Const: General: cooperative HEENT: Head: Yes normal to inspection Face and sinus: Yes normal facial exam Mouth: Normal oral and palatal mucosa present Teeth and gingiva: d entition normal Eyes: General: appearance normal, both eyes and all related structures P upils: Equal, round and reactive pupils present Resp: Effort & Inspection: normal respiratory effort Cardio: Rate: regular rate Rhythm: regular rhythm GI: Palpation (GI): Soft to palpation and nontender : General: Yes no CVA tenderness Back/Spine/Pelvis: Back: no CVA tenderness Skin: General skin exam: no rashes or lesions noted Neuro: General: moves all extremities Cranial nerves: Yes Equal, round and reactive pupils present Extrem: Other: plantar 4th and 5th right toes dark plus 3 pulse foot warm Psych: Appearance: grossly normal Results Labs 01/29/25 05:54 01/29/25 05:54 Labs: Short CBC 01/29/25 Range/Units 05:54 WBC 6.0 (4.8-10.8) X10*3/uL Hgb 11.8 L (14.0-18.0) g/dl Hct 35.3 L (42.0-52.0) % Plt Count 222 (160-400) X10*3/uL BMP 01/29/25 05:54 Sodium 142 Potassium 3.3 Chloride 96 Carbon Dioxide 35 H BUN 50 H Creatinine 2.78 H Calcium 9.0 Microbiology Microbiology Results: Microbiology 01/27/25 19:15 Blood - Venous Blood Culture - Preliminary No growth after 24 hours. 01/27/25 17:39 Blood - Venous Blood Culture - Preliminary No growth after 24 hours. Assessment and Plan (1) Acute kidney injury superimposed on CKD: Status: Acute (2) PAD (peripheral artery disease): Status: Acute (3) Dry gangrene: Status: Acute Plan See Vascular. Po Doxycycline and Augmentin on discharge for a week or two.
[2025-01-29 19:09] VITALS: BP 115/58; PULSE 74; RESP 20; TEMP 36.5; O2SAT 98
[2025-01-29] MEDS: Melatonin 3 MG TABLET 6 MG PO (21:44)
[2025-01-29] MEDS: Atorvastatin Calcium 10 MG TABLET PO (21:46)
[2025-01-29] MEDS: Primidone 50 MG TABLET PO (21:47)
[2025-01-29] MEDS: oxyCODONE HCl Immed Release 5 MG TABLET PO (22:07)
[2025-01-29 23:40] VITALS: BP 129/59; PULSE 77; RESP 20; TEMP 36.4; O2SAT 96
[2025-01-30 03:50] VITALS: BP 117/55; PULSE 67; RESP 20; TEMP 36.3; O2SAT 97
[2025-01-30] MEDS: Piperacillin Sodium/Tazobactam 2.25 GM in 0.9 % Sodium Chloride 50 ML IV (06:05)
[2025-01-30 07:12] VITALS: BP 130/66; PULSE 70; RESP 18; TEMP 36.6; O2SAT 98
[2025-01-30 07:19] LABS: MANUAL DIFF FLAG NO
[2025-01-30 07:27] LABS: Basophils Percent Auto 0.6 % (0-2); Eosinophils Absolute Auto 0.2 X10*3/uL (0.0-0.4); Eosinophils Percent Auto 3.8 % (0-4); Hematocrit 33.9 % (42.0-52.0); Hemoglobin 11.3 g/dl (14.0-18.0); Imm Gran Abs Auto 0.03 X10*3/uL (0.00-0.03); Imm Gran Pct Auto 0.6 % (0.0-0.4); Lymphocytes Absolute Auto 0.9 X10*3/uL (1.2-4.9); Lymphocytes Percent Auto 19.4 % (20-40); Mean Corpuscular HGB Conc 33.3 g/dl (31.0-36.0); Mean Corpuscular Hemoglobin 28.8 pg (27.0-33.0); Mean Corpuscular Volume 86.3 fL (80.0-98.0); Monocytes Absolute Auto 0.4 X10*3/uL (0.1-1.2); Monocytes Percent Auto 7.9 % (2-11); Neutrophils Absolute Auto 3.2 x10*3/uL (2.0-8.3); Neutrophils Percent Auto 67.7 % (45-73); Platelet Count 198 X10*3/uL (160-400); Red Blood Count 3.93 X10*6/uL (4.60-5.80); Red Cell Distribution Width 14.9 % (11.0-16.0); White Blood Count 4.7 X10*3/uL (4.8-10.8)
[2025-01-30 08:19] LABS: Anion Gap 12 (12-20); Blood Urea Nitrogen 36 mg/dL (9-16); Calcium 8.6 mg/dL (8.4-10.2); Carbon Dioxide 35 mmol/L (22-29); Chloride 99 mmol/L (96-108); Creatinine Clr Calc Pharmacy 25.9; Estimated Glomerular Filt Rate 30; Glucose Random 151 mg/dL (60-115); Potassium 2.9 mmol/L (3.3-5.1); Sodium 143 mmol/L (135-145)
[2025-01-30] MEDS: Cholecalciferol (Vitamin D3) 25 MCG TABLET 50 MCG PO (09:06)
[2025-01-30] MEDS: Potassium Chloride ER 20 MEQ TAB.ER.PRT 40 MEQ PO (09:06)
[2025-01-30] MEDS: Gabapentin 100 MG CAPSULE 200 MG PO ×3 (09:06→21:50)
[2025-01-30] MEDS: Amiodarone HCL 200 MG TABLET PO (09:07)
[2025-01-30] MEDS: Apixaban 2.5 MG TABLET PO ×2 (09:07→21:50)
[2025-01-30] MEDS: 0.9 % Sodium Chloride Flush 3 ML SYRINGE IVFLUSH ×2 (09:10→16:34)
[2025-01-30 10:30] LABS: Vancomycin Random 12.2 mcg/mL (15-20)
--- NOTE | 2025-01-30 10:42 | P.PNIM_ITS ---
Subjective Subjective Date of Service: 01/30/25 Interval History: pain improved Physical Exam 2 Vital Signs: Vital Signs: Last Vital Signs Temp 97.9 F 01/30/25 07:12 Pulse 70 01/30/25 07:12 Resp 18 01/30/25 07:12 BP 130/66 01/30/25 07:12 Pulse Ox 98 01/30/25 07:12 O2 Del Method Room Air 01/30/25 07:12 BMI result Body Mass Index 21.5 Const: General: cooperative HEENT: Head: Yes normal to inspection Face and sinus: Yes normal facial exam Mouth: Normal oral and palatal mucosa present Teeth and gingiva: d entition normal Eyes: General: appearance normal, both eyes and all related structures P upils: Equal, round and reactive pupils present Resp: Effort & Inspection: normal respiratory effort Cardio: Rate: regular rate Rhythm: regular rhythm GI: Palpation (GI): Soft to palpation and nontender : General: Yes no CVA tenderness Back/Spine/Pelvis: Back: no CVA tenderness Skin: General skin exam: no rashes or lesions noted Neuro: General: moves all extremities Cranial nerves: Yes Equal, round and reactive pupils present Extrem: Other: plantar 4th and 5th right toes dark plus 3 pulse foot warm Psych: Appearance: grossly normal Objective Data Active Medications Acetaminophen (Acetaminophen 325 Mg Tablet) 975 mg PO Q6H PRN PRN Reason: Pain, Mild 1-3,fever,headache Amiodarone HCl (Amiodarone Hcl 200 Mg Tablet) 200 mg PO DAILY [facility] Last Admin: 01/30/25 09:07 Dose: 200 mg Documented By: ZAINAB Apixaban (Apixaban 2.5 Mg Tablet) 2.5 mg PO BID [facility] Last Admin: 01/30/25 09:07 Dose: 2.5 mg Documented By: ZAINAB Atorvastatin Calcium (Atorvastatin Calcium 10 Mg Tablet) 10 mg PO BEDTIME [facility] Last Admin: 01/29/25 21:46 Dose: 10 mg Documented By: MILTON Calcium Carbonate (Calcium Carbonate 750 Mg Tab.Chew) 750 mg PO Q4H PRN PRN Reason: Heartburn Dextrose (Dextrose 50 % 25 Gm/50 Ml Syringe) 25 gm IVPUSH Q15M PRN; Protocol PRN Reason: per Hypoglycemia Standing Ord. Gabapentin (Gabapentin 100 Mg Capsule) 200 mg PO TID [facility] Last Admin: 01/30/25 09:06 Dose: 200 mg Documented By: ZAINAB Glucose (Glucose Gel 15 Gm Gel..Gram.) 15 gm PO Q15M PRN; Protocol PRN Reason: per Hypoglycemia Standing Ord. Insulin Glargine (Insulin Glargine,Hum.Rec.Anlog 100 Unit/Ml 10 Ml Vial) 4 unit SUBCUT BEDTIME [facility] Last Admin: 01/29/25 21:58 Dose: Not Given Documented By: MILTON Non-Admin Reason: No Insulin Coverage Comments: pts glucose 105, pt requesting to skip tonight. Uses his own glucometer Insulin Human Lispro (Insulin Lispro 100 Unit/Ml 3 Ml Vial) 0 unit SUBCUT QIDACHS [facility]; Protocol Last Admin: 01/30/25 07:56 Dose: Not Given Documented By: ZAINAB Non-Admin Reason: No Insulin Coverage Comments: POC on patient's glucometer 111 Melatonin (Melatonin 3 Mg Tablet) 6 mg PO BEDTIME PRN PRN Reason: Insomnia Last Admin: 01/29/25 21:44 Dose: 6 mg Documented By: MILTON Omeprazole (Omeprazole 20 Mg Capsule.Dr) 20 mg PO DAILY@0630 [facility] Last Admin: 01/30/25 05:56 Dose: Not Given Documented By: MILTON Non-Admin Reason: Patient Refused Oxycodone HCl (Oxycodone Hcl Immed Release 5 Mg Tablet) 5 mg PO Q6H PRN PRN Reason: Pain, Moderate(Pain Scale 4-6) Last Admin: 01/29/25 22:07 Dose: 5 mg Documented By: MILTON Primidone (Primidone 50 Mg Tablet) 50 mg PO BEDTIME [facility] Last Admin: 01/29/25 21:47 Dose: 50 mg Documented By: MILTON Sodium Chloride (0.9 % Sodium Chloride Flush 3 Ml Syringe) 3 ml IVFLUSH QSHIFT [facility] Last Admin: 01/30/25 09:10 Dose: 3 ml Documented By: ZAINAB Vitamin D (Cholecalciferol (Vitamin D3) 25 Mcg Tablet) 50 mcg PO DAILY [facility] Last Admin: 01/30/25 09:06 Dose: 50 mcg Documented By: ZAINAB Labs 01/30/25 07:05 04/26/25 07:05 Labs: Laboratory Results - last 24 hr 01/30/25 01/30/25 01/30/25 07:05 07:05 07:05 MCV Cancelled 86.3 MCH Cancelled 28.8 MCHC Cancelled RDW Plt Count MPV Immature Gran % (Auto) Neut % (Auto) Lymph % (Auto) [place] % (Auto) Eos % (Auto) Baso % (Auto) Lymph # (Auto) [place] # (Auto) Eos # (Auto) Baso # (Auto) Abs Immat Gran (auto) Absolute Neuts (auto) Absolute Nucleated RBC Nucleated RBC % (auto) Anion Gap Estim Creat Clear Calc Estimated GFR Random Glucose Calcium Random Vancomycin 01/30/25 01/30/25 01/30/25 07:05 07:05 07:05 MCV MCH MCHC 33.3 RDW Cancelled 14.9 Plt Count Cancelled 198 MPV Cancelled Immature Gran % (Auto) Neut % (Auto) Lymph % (Auto) [place] % (Auto) Eos % (Auto) Baso % (Auto) Lymph # (Auto) [place] # (Auto) Eos # (Auto) Baso # (Auto) Abs Immat Gran (auto) Absolute Neuts (auto) Absolute Nucleated RBC Nucleated RBC % (auto) Anion Gap Estim Creat Clear Calc Estimated GFR Random Glucose Calcium Random Vancomycin 01/30/25 01/30/25 01/30/25 07:05 07:05 07:05 MCV MCH MCHC RDW Plt Count MPV 11.0 Immature Gran % (Auto) 0.6 H Neut % (Auto) 67.7 Lymph % (Auto) 19.4 L [place] % (Auto) 7.9 Eos % (Auto) 3.8 Baso % (Auto) 0.6 Lymph # (Auto) 0.9 L [place] # (Auto) 0.4 Eos # (Auto) 0.2 Baso # (Auto) 0.0 Abs Immat Gran (auto) 0.03 Absolute Neuts (auto) 3.2 Absolute Nucleated RBC Cancelled 0.000 Nucleated RBC % (auto) Cancelled 0.0 Anion Gap 12 Estim Creat Clear Calc 25.9 Estimated GFR 30 Random Glucose 151 H Calcium 8.6 Random Vancomycin 01/30/25 10:00 MCV MCH MCHC RDW Plt Count MPV Immature Gran % (Auto) Neut % (Auto) Lymph % (Auto) [place] % (Auto) Eos % (Auto) Baso % (Auto) Lymph # (Auto) [place] # (Auto) Eos # (Auto) Baso # (Auto) Abs Immat Gran (auto) Absolute Neuts (auto) Absolute Nucleated RBC Nucleated RBC % (auto) Anion Gap Estim Creat Clear Calc Estimated GFR Random Glucose Calcium Random Vancomycin 12.2 L Microbiology Microbiology Results: Microbiology 01/27/25 19:15 Blood Culture - Preliminary Blood - Venous No growth after 48 hours. 01/27/25 17:39 Blood Culture - Preliminary Blood - Venous No growth after 48 hours. 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 ID appreciated - change to po doxy and augmentin Plan for angiogram with vascular once renal function improves, hopefully early next week Continue apixaban, statin Acute kidney injury on CKD 4 Likely prerenal due to diuretic use Holding Entresto and torsemide, s/p 1L ns, monitor closely, improving Acute metabolic alkalosis Due to diuretics, resolved Diabetes Basal bolus insulin acute hypokalemia replace and monitor chronic ckd anemia hld statin dvt prophylaxis - eliquis full code reason for continued hospitalization:low k Quality Stroke Does the patient have a stroke diagnosis?: No VTE Prior VTE?: No VTE Risk Level:: Medical - moderate - high VTE Device Contraindication: Treatment Not Indicated VTE Drug Contraindication: N/A - Med Ordered
[2025-01-30 11:33] VITALS: BP 124/57; PULSE 71; RESP 20; TEMP 36.4; O2SAT 97
[2025-01-30] MEDS: Insulin Lispro 100 UNIT/ML 3 ML VIAL SUBCUT ×3 (12:18→21:51)
[2025-01-30] MEDS: Amoxicillin/Potassium Clav 875 MG TABLET PO ×2 (12:19→22:31)
[2025-01-30] MEDS: Doxycycline Monohydrate 100 MG CAPSULE PO ×2 (12:20→22:31)
[2025-01-30 15:16] VITALS: BP 114/57; PULSE 72; RESP 18; TEMP 36.5; O2SAT 97
[2025-01-30 19:20] VITALS: BP 128/70; PULSE 78; RESP 20; TEMP 36.9; O2SAT 99
[2025-01-30] MEDS: Atorvastatin Calcium 10 MG TABLET PO (21:50)
[2025-01-30] MEDS: Primidone 50 MG TABLET PO (21:50)
[2025-01-30] MEDS: Insulin Glargine,Hum.rec.anlog 100 UNIT/ML 10 ML VIAL SUBCUT (21:50)
[2025-01-30 23:59] VITALS: BP 108/57; PULSE 78; RESP 20; TEMP 36.9; O2SAT 98
[2025-01-31 04:01] VITALS: BP 111/54; PULSE 89; RESP 20; TEMP 36.9; O2SAT 98
--- NOTE | 2025-01-31 05:34 | PC.NURSE ---
Patients own glucose monitor showed blood glucose in the 50s. Patient alert, oriented, asymptomatic. Given orange juice. Blood glucose to 120s 15 minutes after.
[2025-01-31 07:30] VITALS: BP 115/55; PULSE 75; RESP 20; TEMP 36.8; O2SAT 94
[2025-01-31] MEDS: Insulin Lispro 100 UNIT/ML 3 ML VIAL SUBCUT ×2 (07:39→17:14)
[2025-01-31] MEDS: Apixaban 2.5 MG TABLET PO ×2 (07:40→20:42)
[2025-01-31] MEDS: Gabapentin 100 MG CAPSULE 200 MG PO ×3 (07:40→20:42)
[2025-01-31] MEDS: Amiodarone HCL 200 MG TABLET PO (07:40)
[2025-01-31] MEDS: Cholecalciferol (Vitamin D3) 25 MCG TABLET 50 MCG PO (07:41)
[2025-01-31] MEDS: 0.9 % Sodium Chloride Flush 3 ML SYRINGE IVFLUSH ×3 (07:53→22:56)
--- NOTE | 2025-01-31 11:07 | P.PNIM_ITS ---
Subjective Subjective Date of Service: 01/31/25 Interval History: pain improved Physical Exam 2 Vital Signs: Vital Signs: Last Vital Signs Temp 98.2 F 01/31/25 07:30 Pulse 75 01/31/25 07:30 Resp 20 01/31/25 07:30 BP 115/55 L 01/31/25 07:30 Pulse Ox 94 01/31/25 07:30 O2 Del Method Room Air 01/31/25 07:30 BMI result Body Mass Index 21.5 Const: General: cooperative HEENT: Head: Yes normal to inspection Face and sinus: Yes normal facial exam Mouth: Normal oral and palatal mucosa present Teeth and gingiva: d entition normal Eyes: General: appearance normal, both eyes and all related structures P upils: Equal, round and reactive pupils present Resp: Effort & Inspection: normal respiratory effort Cardio: Rate: regular rate Rhythm: regular rhythm GI: Palpation (GI): Soft to palpation and nontender : General: Yes no CVA tenderness Back/Spine/Pelvis: Back: no CVA tenderness Skin: General skin exam: no rashes or lesions noted Neuro: General: moves all extremities Cranial nerves: Yes Equal, round and reactive pupils present Extrem: Other: plantar 4th and 5th right toes dark plus 3 pulse foot warm Psych: Appearance: grossly normal Objective Data Active Medications Acetaminophen (Acetaminophen 325 Mg Tablet) 975 mg PO Q6H PRN PRN Reason: Pain, Mild 1-3,fever,headache Amiodarone HCl (Amiodarone Hcl 200 Mg Tablet) 200 mg PO DAILY [facility] Last Admin: 01/31/25 07:40 Dose: 200 mg Documented By: ZAINAB Amoxicillin/Clavulanate Potassium (Amoxicillin/Potassium Clav 875 Mg Tablet) 875 mg PO Q12H [facility] Last Admin: 01/30/25 22:31 Dose: 875 mg Documented By: YANE Apixaban (Apixaban 2.5 Mg Tablet) 2.5 mg PO BID [facility] Last Admin: 01/31/25 07:40 Dose: 2.5 mg Documented By: ZAINAB Atorvastatin Calcium (Atorvastatin Calcium 10 Mg Tablet) 10 mg PO BEDTIME [facility] Last Admin: 01/30/25 21:50 Dose: 10 mg Documented By: YANE Calcium Carbonate (Calcium Carbonate 750 Mg Tab.Chew) 750 mg PO Q4H PRN PRN Reason: Heartburn Dextrose (Dextrose 50 % 25 Gm/50 Ml Syringe) 25 gm IVPUSH Q15M PRN; Protocol PRN Reason: per Hypoglycemia Standing Ord. Doxycycline Monohydrate (Doxycycline Monohydrate 100 Mg Capsule) 100 mg PO Q12H [facility] Last Admin: 01/30/25 22:31 Dose: 100 mg Documented By: YANE Gabapentin (Gabapentin 100 Mg Capsule) 200 mg PO TID [facility] Last Admin: 01/31/25 07:40 Dose: 200 mg Documented By: ZAINAB Glucose (Glucose Gel 15 Gm Gel..Gram.) 15 gm PO Q15M PRN; Protocol PRN Reason: per Hypoglycemia Standing Ord. Insulin Glargine (Insulin Glargine,Hum.Rec.Anlog 100 Unit/Ml 10 Ml Vial) 4 unit SUBCUT BEDTIME [facility] Last Admin: 01/30/25 21:50 Dose: 4 unit Documented By: YANE Insulin Human Lispro (Insulin Lispro 100 Unit/Ml 3 Ml Vial) 0 unit SUBCUT QIDACHS [facility]; Protocol Last Admin: 01/31/25 07:39 Dose: 2 unit Documented By: ZAINAB Comments: POC ON PTS GLUCOMETER 196 Melatonin (Melatonin 3 Mg Tablet) 6 mg PO BEDTIME PRN PRN Reason: Insomnia Last Admin: 01/29/25 21:44 Dose: 6 mg Documented By: MILTON Omeprazole (Omeprazole 20 Mg Capsule.) 20 mg PO DAILY@0630 [facility] Last Admin: 01/31/25 05:34 Dose: Not Given Documented By: YANE Non-Admin Reason: Patient Refused Oxycodone HCl (Oxycodone Hcl Immed Release 5 Mg Tablet) 5 mg PO Q6H PRN PRN Reason: Pain, Moderate(Pain Scale 4-6) Last Admin: 01/29/25 22:07 Dose: 5 mg Documented By: MILTON Primidone (Primidone 50 Mg Tablet) 50 mg PO BEDTIME [facility] Last Admin: 01/30/25 21:50 Dose: 50 mg Documented By: YANE Sodium Chloride (0.9 % Sodium Chloride Flush 3 Ml Syringe) [facility] Last Admin: 01/31/25 07:53 Dose: 3 ml Documented By: ZAINAB Vitamin D (Cholecalciferol (Vitamin D3) 25 Mcg Tablet) 50 mcg PO DAILY [facility] Last Admin: 01/31/25 07:41 Dose: 50 mcg Documented By: ZAINAB Labs 01/30/25 07:05 01/30/25 07:05 Microbiology Microbiology Results: Microbiology 01/27/25 17:39 Blood Culture - Preliminary Blood - Venous No growth after 48 hours. 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 ID appreciated - changed to po doxy and augmentin Plan for angiogram with vascular once renal function improves, hopefully early next week Continue apixaban, statin Acute kidney injury on CKD 4 Likely prerenal due to diuretic use Holding Entresto and torsemide, s/p 1L ns, monitor closely, improving Acute metabolic alkalosis Due to diuretics, resolved Diabetes Basal bolus insulin acute hypokalemia replace and monitor chronic ckd anemia hld statin dvt prophylaxis - eliquis full code reason for continued hospitalization:low k Quality Stroke Does the patient have a stroke diagnosis?: No VTE Prior VTE?: No VTE Risk Level:: Medical - moderate - high VTE Device Contraindication: Treatment Not Indicated VTE Drug Contraindication: N/A - Med Ordered
[2025-01-31 12:00] VITALS: BP 139/70; PULSE 76; RESP 18; TEMP 36.8; O2SAT 99
[2025-01-31] MEDS: Amoxicillin/Potassium Clav 875 MG TABLET PO ×2 (12:57→22:55)
[2025-01-31] MEDS: Doxycycline Monohydrate 100 MG CAPSULE PO ×2 (12:57→22:55)
[2025-01-31 15:36] LABS: Hematocrit 34.6 % (42.0-52.0); Hemoglobin 11.4 g/dl (14.0-18.0); Mean Corpuscular HGB Conc 32.9 g/dl (31.0-36.0); Mean Corpuscular Hemoglobin 28.6 pg (27.0-33.0); Mean Corpuscular Volume 86.9 fL (80.0-98.0); Mean Platelet Volume 11.7 fL (9.4-12.4); PLT CLUMP 1; Red Blood Count 3.98 X10*6/uL (4.60-5.80); Red Cell Distribution Width 14.9 % (11.0-16.0)
[2025-01-31 15:53] VITALS: BP 129/62; PULSE 77; RESP 18; TEMP 36.7; O2SAT 97
[2025-01-31 16:09] LABS: Platelet Count 210 X10*3/uL (160-400); White Blood Count 9.4 X10*3/uL (4.8-10.8)
[2025-01-31 19:34] VITALS: BP 145/66; PULSE 81; RESP 16; TEMP 37.1; O2SAT 100
[2025-01-31] MEDS: Primidone 50 MG TABLET PO (20:42)
[2025-01-31] MEDS: Atorvastatin Calcium 10 MG TABLET PO (20:42)
[2025-01-31] MEDS: Insulin Glargine,Hum.rec.anlog 100 UNIT/ML 10 ML VIAL SUBCUT (23:08)
[2025-02-01] VITALS (7 sets, daily range): BP systolic 117–132; BP diastolic 56–62; PULSE 73–96; RESP 16–20; TEMP 36.7–38.7; O2SAT 96–99
--- NOTE | 2025-02-01 08:27 | P.PNIM_ITS ---
Subjective Subjective Date of Service: 02/01/25 Interval History: Difficulty with lab draws, toes with worsening gangrene Physical Exam 2 Vital Signs: Vital Signs: Last Vital Signs Temp 99.4 F 02/01/25 07:11 Pulse 85 02/01/25 07:11 Resp 18 02/01/25 07:11 BP 124/62 02/01/25 07:11 Pulse Ox 96 02/01/25 07:11 O2 Del Method Room Air 02/01/25 07:11 BMI result Body Mass Index 21.5 Objective Data Active Medications Acetaminophen (Acetaminophen 325 Mg Tablet) 975 mg PO Q6H PRN PRN Reason: Pain, Mild 1-3,fever,headache Amiodarone HCl (Amiodarone Hcl 200 Mg Tablet) 200 mg PO DAILY [facility] Last Admin: 01/31/25 07:40 Dose: 200 mg Documented By: ZAINAB Amoxicillin/Clavulanate Potassium (Amoxicillin/Potassium Clav 875 Mg Tablet) 875 mg PO Q12H [facility] Last Admin: 01/31/25 22:55 Dose: 875 mg Documented By: HOLLY Apixaban (Apixaban 2.5 Mg Tablet) 2.5 mg PO BID [facility] Last Admin: 01/31/25 20:42 Dose: 2.5 mg Documented By: HOLLY Atorvastatin Calcium (Atorvastatin Calcium 10 Mg Tablet) 10 mg PO BEDTIME [facility] Last Admin: 01/31/25 20:42 Dose: 10 mg Documented By: HOLLY Calcium Carbonate (Calcium Carbonate 750 Mg Tab.Chew) 750 mg PO Q4H PRN PRN Reason: Heartburn Dextrose (Dextrose 50 % 25 Gm/50 Ml Syringe) 25 gm IVPUSH Q15M PRN; Protocol PRN Reason: per Hypoglycemia Standing Ord. Doxycycline Monohydrate (Doxycycline Monohydrate 100 Mg Capsule) 100 mg PO Q12H [facility] Last Admin: 01/31/25 22:55 Dose: 100 mg Documented By: HOLLY Gabapentin (Gabapentin 100 Mg Capsule) 200 mg PO TID [facility] Last Admin: 01/31/25 20:42 Dose: 200 mg Documented By: HOLLY Glucose (Glucose Gel 15 Gm Gel..Gram.) 15 gm PO Q15M PRN; Protocol PRN Reason: per Hypoglycemia Standing Ord. Insulin Glargine (Insulin Glargine,Hum.Rec.Anlog 100 Unit/Ml 10 Ml Vial) 4 unit SUBCUT BEDTIME [facility] Last Admin: 01/31/25 23:08 Dose: 4 unit Documented By: HOLLY Comments: POC 192 per pt continuous blood sugar machine Insulin Human Lispro (Insulin Lispro 100 Unit/Ml 3 Ml Vial) 0 unit SUBCUT QIDACHS [facility]; Protocol Last Admin: 02/01/25 08:25 Dose: Not Given Documented By: SANGEETA Non-Admin Reason: No Insulin Coverage Melatonin (Melatonin 3 Mg Tablet) 6 mg PO BEDTIME PRN PRN Reason: Insomnia Last Admin: 01/29/25 21:44 Dose: 6 mg Documented By: MILTON Omeprazole (Omeprazole 20 Mg Capsule.) 20 mg PO DAILY@0630 [facility] Last Admin: 02/01/25 05:58 Dose: Not Given Documented By: HOLLY Non-Admin Reason: Patient Refused Oxycodone HCl (Oxycodone Hcl Immed Release 5 Mg Tablet) 5 mg PO Q6H PRN PRN Reason: Pain, Moderate(Pain Scale 4-6) Last Admin: 01/29/25 22:07 Dose: 5 mg Documented By: MILTON Primidone (Primidone 50 Mg Tablet) 50 mg PO BEDTIME [facility] Last Admin: 01/31/25 20:42 Dose: 50 mg Documented By: HOLLY Sodium Chloride (0.9 % Sodium Chloride Flush 3 Ml Syringe) 3 ml IVFLUSH QSHIFT [facility] Last Admin: 01/31/25 22:56 Dose: 3 ml Documented By: HOLLY Vitamin D (Cholecalciferol (Vitamin D3) 25 Mcg Tablet) 50 mcg PO DAILY [facility] Last Admin: 01/31/25 07:41 Dose: 50 mcg Documented By: FOSTEKR Labs 01/31/25 15:20 01/30/25 07:05 Labs: Laboratory Results - last 24 hr 01/31/25 15:20 MCV 86.9 MCH 28.6 MCHC 32.9 RDW 14.9 Plt Count 210 MPV 11.7 Absolute Nucleated RBC 0.000 Nucleated RBC % (auto) 0.0 Microbiology Microbiology Results: Microbiology 01/27/25 17:39 Blood Culture - Preliminary Blood - Venous No growth after 48 hours. 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 ID appreciated - changed to po doxy and augmentin Plan for angiogram with vascular once renal function improves, hopefully early this week Continue apixaban, statin Acute kidney injury on CKD 4 Likely prerenal due to diuretic use Holding Entresto and torsemide, s/p 1L ns, monitor closely, improving Acute metabolic alkalosis Due to diuretics, resolved Diabetes Basal bolus insulin acute hypokalemia replace and monitor chronic ckd anemia hld statin dvt prophylaxis - eliquis full code reason for continued hospitalization:low k, gangrene Quality Stroke Does the patient have a stroke diagnosis?: No VTE Prior VTE?: No VTE Risk Level:: Medical - moderate - high VTE Device Contraindication: Treatment Not Indicated VTE Drug Contraindication: N/A - Med Ordered
--- NOTE | 2025-02-01 09:57 | P.PNNP_ITS ---
Subjective Subjective Date of Service: 02/01/25 Interval history: 74-year-old male with a history significant for atrial flutter on Eliquis, CKD4, insulin-dependent diabetes, HLD, HTN and HFrEF (EF 10-15%), who presented to the ED due to right foot pain and necrosis for the past 20 days. On diuretics for CHF, torsemide and metolazone doses increased prior to admission. creatinine prior to admission 2.7; increased to 3.14 on admission. He sees Dr. Mead in [place] however patient requested us to take care of him while in the hospital. Physical Exam 2 Vital Signs: Vital Signs: Last Vital Signs Temp 99.4 F 02/01/25 07:11 Pulse 85 02/01/25 07:11 Resp 18 02/01/25 07:11 BP 124/62 02/01/25 07:11 Pulse Ox 96 02/01/25 07:11 O2 Del Method Room Air 02/01/25 07:11 BMI result Body Mass Index 21.5 Const: General: no acute distress, alert and awake Neck: Neck: Yes no JVD Resp: Effort & Inspection: normal respiratory effort and able to speak in complete sentences Auscultation: crackles on the left in the mid lung herron and in the lower lung herron Cardio: Jugular venous distension: no JVD Rate: regular rate Heart sounds: S1 normal heart sound present and S2 normal heart sound present GI: Palpation (GI): Soft to palpation and nontender : General: Yes no CVA tenderness Back/Spine/Pelvis: Back: no CVA tenderness Skin: Lesions: no lesions Rashes: no rashes Wounds: wounds noted (right lower extremity digit necrosis ) Extrem: General: No edema and No pedal edema Right lower extremity: foot (necrotic 4th and 5th toes) Objective Data Labs 01/31/25 15:20 01/30/25 07:05 Labs: Laboratory Results - last 24 hr 01/31/25 15:20 WBC 9.4 RBC 3.98 L Hgb 11.4 L Hct 34.6 L MCV 86.9 MCH 28.6 MCHC 32.9 RDW 14.9 Plt Count 210 MPV 11.7 Absolute Nucleated RBC 0.000 Nucleated RBC % (auto) 0.0 Microbiology Microbiology Results: Microbiology 01/27/25 17:39 Blood - Venous Blood Culture - Preliminary No growth after 48 hours. 04/23/25 19:15 Blood - Venous Blood Culture - Preliminary No growth after 48 hours. Procedures Date of Service Date of Service: 02/01/25 Assessment & Plan Assessment and plan (1) Acute kidney injury superimposed on CKD: Status: Acute Plan ABIH due to compromise in renal perfusion with resultant tubular injury Continue to hold diuretics/Entresto; Serum creatinine stable/improved Continue current supportive care for now. Monitor serum electrolytes and renal function daily avoid nephrotoxins will continue to follow Discussed with Dr Benz Time Spent With Patient Time: Total time managing care of this patient today ____ minutes. Progress Note: Quality Stroke Does the patient have a stroke diagnosis?: No
[2025-02-01] MEDS: Apixaban 2.5 MG TABLET PO ×2 (10:14→19:51)
[2025-02-01] MEDS: Cholecalciferol (Vitamin D3) 25 MCG TABLET 50 MCG PO (10:14)
[2025-02-01] MEDS: Amiodarone HCL 200 MG TABLET PO (10:14)
[2025-02-01] MEDS: Gabapentin 100 MG CAPSULE 200 MG PO ×3 (10:14→19:47)
[2025-02-01] MEDS: 0.9 % Sodium Chloride Flush 3 ML SYRINGE IVFLUSH ×2 (10:14→19:54)
[2025-02-01] MEDS: Insulin Lispro 100 UNIT/ML 3 ML VIAL SUBCUT ×2 (12:09→22:08)
[2025-02-01] MEDS: Doxycycline Monohydrate 100 MG CAPSULE PO ×2 (12:09→22:02)
[2025-02-01] MEDS: Amoxicillin/Potassium Clav 875 MG TABLET PO ×2 (12:09→22:02)
[2025-02-01 12:39] LABS: Hematocrit 32.2 % (42.0-52.0); Hemoglobin 10.5 g/dl (14.0-18.0); Mean Corpuscular HGB Conc 32.6 g/dl (31.0-36.0); Mean Corpuscular Hemoglobin 28.2 pg (27.0-33.0); Mean Corpuscular Volume 86.3 fL (80.0-98.0); Mean Platelet Volume 11.8 fL (9.4-12.4); Platelet Count 239 X10*3/uL (160-400); Red Blood Count 3.73 X10*6/uL (4.60-5.80); Red Cell Distribution Width 15.1 % (11.0-16.0); White Blood Count 9.2 X10*3/uL (4.8-10.8)
--- NOTE | 2025-02-01 12:45 | HO.VASCPN ---
Subjective Subjective Date of Service: 02/01/25 Patient reports: no new complaints Interval history: Patient seen and examined for nonhealing right foot ulcer. Has been stable over the weekend no interval issues. Have been observing his renal function throughout the weekend which appears to be improving. We are awaiting today's lab draw. Other than that no other issues and is eager to get his procedure taken care of. Physical Exam Vital Signs: Vital Signs: Last Vital Signs Temp 99.0 F 02/01/25 11:20 Pulse 82 02/01/25 11:20 Resp 20 02/01/25 11:20 BP 121/61 02/01/25 11:20 Pulse Ox 96 02/01/25 11:20 O2 Del Method Room Air 02/01/25 11:20 BMI result Body Mass Index 21.5 Const: General: cooperative, healthy appearing and comfortable Orientation/consciousness: oriented to person, oriented to place and oriented to time HEENT: Head: Yes normal to inspection Neck: Neck: Yes normal visual inspection Carotids: no bruits Chest: Chest palpation & inspection: normal inspection of the chest Resp: Effort & Inspection: normal respiratory effort and able to speak in complete sentences Auscultation: clear to auscultation bilaterally, no crackles, no rales, no rhonchi and no wheezes Cardio: Rate: regular rate Rhythm: regular rhythm Heart sounds: S1 normal heart sound present and S2 normal heart sound present Bruits: no carotid bruits Peripheral pulses: Peripheral pulses 2+ throughout GI: Inspection: Yes normal to inspection Skin: Wounds: no wounds Hair: normal Neuro: General: oriented to person, oriented to place and oriented to time Cranial nerves: Yes CN's II-XII intact bilaterally and Yes Normal hearing present Cognition (Neuro): normal cognition Motor exam (neuro): 5/5 motor strength present throughout Extrem: Other: venous exam: No significant superficial varicosities or spider telangiectasias, minimal edema General: No clubbing, No cyanosis and No edema Psych: Appearance: grossly normal Mental Status: mental status grossly normal Speech and movement: Normal speech and movement present Progress Note: A&P Assessment and plan (1) PAD (peripheral artery disease): Status: Acute Assessment and Plan: Patient notes nonhealing right lower extremity ulcer. I have discussed the pathophysiology of peripheral vascular disease with the patient. I have also discussed risk factor modification. I have reviewed the patient's arterial testing which reveals right SFA disease. the patient would benefit from a right leg endovascular peripheral angiogram with possible angioplasty, stent, and/or atherectomy. This has been discussed in detail with the patient along with risks, benefits, and complications. This includes but is not limited to bleeding, infection, heart attack, need for emergent surgical repair, limb ischemia, blood vessel damage, bleeding, puncture, kidney injury, bruising, allergic reaction, and skin reaction. The patient demonstrates a clear understanding. We will schedule for the next appropriate time. Thank you for allowing us to assist in this patient's care. Time Spent With Patient Time: Total time managing care of this patient today ____ minutes. Procedures Date of Service Date of Service: 02/01/25 Quality Stroke Does the patient have a stroke diagnosis?: No VTE Prior VTE?: No VTE Risk Level:: Medical - moderate - high VTE Device Contraindication: Treatment Not Indicated VTE Drug Contraindication: N/A - Med Ordered
[2025-02-01 12:50] LABS: Anion Gap 15 (12-20); Blood Urea Nitrogen 30 mg/dL (9-16); Carbon Dioxide 31 mmol/L (22-29); Chloride 99 mmol/L (96-108); Creatinine Clr Calc Pharmacy 29.3; Estimated Glomerular Filt Rate 35; Glucose Random 232 mg/dL (60-115); Potassium 3.3 mmol/L (3.3-5.1); Sodium 142 mmol/L (135-145)
--- NOTE | 2025-02-01 13:20 | MHC.CM.PN ---
Pt is not ready to DC, he is awaiting vascular surgical procedure. DCP is home with services.
--- NOTE | 2025-02-01 14:54 | HO.WOUND ---
Wound Consult: Initial 74yr old? male admitted to [facility] on 01/28/25 - See progress notes and H&P for detailed history.? Wound consult placed for Right Foot Toes.? Patient agreeable to assessment and photo documentation.? Chart review reveals patient is seen and followed by Vascular surgery this admission. Defer to Vascular surgery. Right Foot - with necrotic toes Right Toes - Posterior view - dry stable necrosis Right heel - Dry stable black suspected fissure Etiology: ??Mixed vascular etiology Wound Bed: dry stable eschar Drainage / Odor: None Edges: ? defined [place] wound: ?cool to touch - thin tissue, dry flaking tissue - +pulses via Doppler not palpable at the time of my assessment. thickened toe nails. No Induration, Fluctuance or Warmth noted Pain: painful Goals of Treatment: ? Keep dry and stable paint with betadine cover with dry gauze - every other day Recommendations: 1. Turn and Reposition every 2 hours and as needed for patient comfort.? Use pillows or wedges to support off loading positions. 2. Off Load all bony prominences with use of pillows and heel boots if needed.? Apply Preventative foams where needed. ? 3. Monitor for incontinence and moisture control, use barrier creams when needed for prevention and treatment. 4. Provide adequate and supplemental nutrition.? 5. When applicable maintain blood glucose levels per Providers order. Right Toes - [place] with Betadine, allow to dry. Cover with dry ABD pad, gauze wrap and change every other day. Protect from trauma and injury. Re-consult wound care Nurse for wound deterioration or wound changes.
[2025-02-01] MEDS: Potassium Chloride ER 20 MEQ TAB.ER.PRT 40 MEQ PO (14:58)
[2025-02-01] MEDS: Primidone 50 MG TABLET PO (19:47)
[2025-02-01] MEDS: Atorvastatin Calcium 10 MG TABLET PO (19:51)
[2025-02-01] MEDS: Acetaminophen 325 MG TABLET 975 MG PO (19:51)
[2025-02-01 21:02] LABS: Lactic Acid 1.1 mmol/L (0.5-2.0)
[2025-02-01] MEDS: Insulin Glargine,Hum.rec.anlog 100 UNIT/ML 10 ML VIAL SUBCUT (22:08)
[2025-02-02] VITALS (26 sets, daily range): BP systolic 105–137; BP diastolic 56–78; PULSE 76–96; RESP 12–21; TEMP 36.6–37.4; O2SAT 94–100
[2025-02-02] MEDS: Dextrose 50 % 25 GM/50 ML SYRINGE IVPUSH (05:27)
[2025-02-02] MEDS: 0.9 % Sodium Chloride 1,000 ML 100 ML IVCONT ×3 (05:39→20:44)
--- NOTE | 2025-02-02 06:33 | PC.NURSE ---
At start of the shift patient refused finger stick glucose monitoring, 's order in chart that pt own glucose monitor can be used to check blood sugar reading was 252, medicated with insulin per MAR, pt refused diet after administration, NPO at midnight for surgical procedure. Around around midnight blood sugar recheck using pt monitor reading 135, rechecked @ 0525 reading 60, notified ordered D50 same administered rechecked X 2 179 and 168. Blood sugar rechecked at 06:05 and was 168.
[2025-02-02] MEDS: Midazolam HCl 2 MG/2 ML VIAL 0.5 MG IVPUSH ×2 (08:35→09:20)
[2025-02-02] MEDS: fentaNYL citrate/PF 100 MCG/2 ML VIAL 25 MCG IVPUSH ×2 (08:35→09:20)
[2025-02-02] MEDS: Heparin Sodium,Porcine 10,000 UNIT/10 ML VIAL 5000 UNIT IVPUSH (08:59)
--- NOTE | 2025-02-02 09:41 | P.OP_ITS ---
Operative Note Operative Note Date of Service: 02/02/25 Narrative: Angiogram report from [facility] Preoperative diagnosis: Atherosclerosis of right lower extremity with nonhealing ulcer Postoperative diagnosis: Same Procedure: 1. Ultrasound-guided left common femoral access 2. Aortogram with right lower extremity runoff 3. Right SFA plasty and stent 4. Right peroneal plasty Surgeon:Demetrio Torrez M.D., FACS, RPVI S[employer]arg[employer] Loader:None Anesthesia: Local with moderate conscious sedation. Total intraservice moderate sedation time was 62 minutes. I monitored the patient's level of consciousness and physiologic status continuously throughout the procedure. Specimens:none Drains:none Estimated blood loss: Less than 10 ml Radiation Dose: 115.7 mGy Implant: Medtronic Ev 3 stent 6 x 40; Medtronic Impact DCB 6 x 60 Indications: 74-year-old gentleman with nonhealing ulcers of the right lower extremity now presents for endovascular intervention The patient has signed the informed consent after reviewing risks, complications, benefits, and alternatives previously discussed with the patient. The patient was given the opportunity to ask any additional questions or voice any concerns. All questions were answered to the patient's satisfaction. Procedure in detail: Patient was brought to the angiography suite prior to which a time-out was called for patient identification and site verification. Bilateral groins were prepped and draped in the standard surgical fashion. Under ultrasound guidance left common femoral was punctured with micro puncture needle and wire. Subsequently a precision 5 Brazilian sheath was then placed. Bentson wire was advanced to the level of the aorta. 5 Brazilian Flush catheter was brought up and parked at the level of the renal arteries. Aortogram was then undertaken. Catheter was brought down to the level of the iliac bifurcation. Iliacs were subsequently imaged. At the iliac bifurcation catheter was placed in through power injection runoff study of bilateral lower extremities were undertaken. Catheter was then brought in up and over to the right side SFA. Runoff study was then undertaken. It was recognized that he had an SFA and peroneal disease. At this time 5000 units of systemic heparin was administered up and over 6 Brazilian sheath was then placed. After 5 minutes of circulation time we were able to advance the 035 glidewire down through the peroneal artery. Once in appropriate position we then identified the proximal stenosis. This was plasty did with a 3 x 20 balloon. This required multiple insufflations. Once this was accomplished we then turned our attention to the distal SFA. There was a high-grade stenosis. We initially plasty this with a 6 x 40 regular balloon. There was residual stenosis we then placed a 6 x 40 stent. This was then followed by a 6 x 60 drug coated balloon. This was brought into position in under 3 minutes and insufflated for a total of 3 minutes in duration. Once this was all accomplished catheter wire sheath was brought back to the ipsilateral side this was exchanged out for a short 6 Brazilian sheath and a CELT closure device was placed. Patient tolerated the procedure well returned to recovery with stable vitals. Interpretation of films: 1. Ultrasound demonstrates appropriate femoral access site. Vessel was patent with minimal stenosis. Needle entry was visualized. Image of ultrasound was saved. 2. Aortogram demonstrates appropriate caliber aorta. Minimal disease. Appropriate take-off of the renals. Calcification throughout 3. Iliac images demonstrate no significant disease 4. Right Leg Common femoral artery: No significant disease Profundus Femoris: No significant disease Superficial femoral artery: Mild stenosis throughout high-grade stenosis in the distal SFA towards Iker's canal Popliteal artery (p1,p2,p3): No significant disease Anterior tibial artery: Occludes after the proximal quarter Peroneal artery: Diseased at the proximal portion good flow all the way through the rest occludes or terminates down towards the ankle Posterior tibial artery: Good flow to the ankle Dorsalis pedis/plantar arch: Incomplete but there is some small collateral flow. Conclusion: 1. Successful right lower extremity SFA plasty and stent, right peroneal plasty 2. Anticoagulation status: Continue with low-dose Eliquis This note is constructed using voice recognition software. While every effort has been made to ensure accuracy, overhead distribution engineer errors may have been included. Thank you for allowing me to participate in the care of your patient. Yours sincerely, Demetrio Torrez MD, FACS, R.P.V.I.
--- NOTE | 2025-02-02 09:41 | HO.PM.IMPN ---
Subjective Subjective Date of Service: 02/02/25 Interval History: Difficulty with lab draws, toes with worsening gangrene ENT Ears, Nose, Mouth, and Throat: Reports Normal hearing present Neurologic Neurologic: Reports Normal hearing present Physical Exam Vital Signs: Vital Signs: Last Vital Signs Temp 99.1 F 02/02/25 07:17 Pulse 89 02/02/25 09:35 Resp 21 H 02/02/25 09:35 BP 133/75 02/02/25 09:35 Pulse Ox 96 02/02/25 09:35 O2 Del Method Room Air 02/02/25 09:35 O2 Flow Rate 2 02/02/25 09:30 BMI result Body Mass Index 21.5 Const: General: cooperative, healthy appearing and comfortable Orientation/consciousness: oriented to person, oriented to place and oriented to time HEENT: Head: Yes normal to inspection Neck: Neck: Yes normal visual inspection Carotids: no bruits Chest: Chest palpation & inspection: normal inspection of the chest Resp: Effort & Inspection: normal respiratory effort and able to speak in complete sentences Auscultation: clear to auscultation bilaterally, no crackles, no rales, no rhonchi and no wheezes Cardio: Rate: regular rate Rhythm: regular rhythm Heart sounds: S1 normal heart sound present and S2 normal heart sound present Bruits: no carotid bruits Peripheral pulses: Peripheral pulses 2+ throughout GI: Inspection: Yes normal to inspection Skin: Wounds: no wounds Hair: normal Neuro: General: oriented to person, oriented to place and oriented to time Cranial nerves: Yes CN's II-XII intact bilaterally and Yes Normal hearing present Cognition (Neuro): normal cognition Motor exam (neuro): 5/5 motor strength present throughout Extrem: Other: venous exam: No significant superficial varicosities or spider telangiectasias, minimal edema General: No clubbing, No cyanosis and No edema Psych: Appearance: grossly normal Mental Status: mental status grossly normal Speech and movement: Normal speech and movement present Objective Data Active Medications Acetaminophen (Acetaminophen 325 Mg Tablet) 975 mg PO Q6H PRN PRN Reason: Pain, Mild 1-3,fever,headache Last Admin: 02/01/25 19:51 Dose: 975 mg Documented By: HOLLY Amiodarone HCl (Amiodarone Hcl 200 Mg Tablet) 200 mg PO DAILY [facility] Last Admin: 02/01/25 10:14 Dose: 200 mg Documented By: DOBROSoto Amoxicillin/Clavulanate Potassium (Amoxicillin/Potassium Clav 875 Mg Tablet) 875 mg PO Q12H [facility] Last Admin: 02/01/25 22:02 Dose: 875 mg Documented By: HOLLY Apixaban (Apixaban 2.5 Mg Tablet) 2.5 mg PO BID [facility] Last Admin: 02/01/25 19:51 Dose: 2.5 mg Documented By: HOLLY Atorvastatin Calcium (Atorvastatin Calcium 10 Mg Tablet) 10 mg PO BEDTIME [facility] Last Admin: 02/01/25 19:51 Dose: 10 mg Documented By: HOLLY Calcium Carbonate (Calcium Carbonate 750 Mg Tab.Chew) 750 mg PO Q4H PRN PRN Reason: Heartburn Dextrose (Dextrose 50 % 25 Gm/50 Ml Syringe) 25 gm IVPUSH Q15M PRN; Protocol PRN Reason: per Hypoglycemia Standing Ord. Last Admin: 02/02/25 05:27 Dose: 25 gm Documented By: HOLLY Comments: POC 60 Doxycycline Monohydrate (Doxycycline Monohydrate 100 Mg Capsule) 100 mg PO Q12H [facility] Last Admin: 02/01/25 22:02 Dose: 100 mg Documented By: HOLLY Gabapentin (Gabapentin 100 Mg Capsule) 200 mg PO TID [facility] Last Admin: 02/01/25 19:47 Dose: 200 mg Documented By: HOLLY Glucose (Glucose Gel 15 Gm Gel..Gram.) 15 gm PO Q15M PRN; Protocol PRN Reason: per Hypoglycemia Standing Ord. Sodium Chloride (Ns) 1,000 mls @ 100 mls/hr IVCONT .Q10H [facility] Last Admin: 02/02/25 08:04 Dose: 100 mls/hr Documented By: ANDI Insulin Glargine (Insulin Glargine,Hum.Rec.Anlog 100 Unit/Ml 10 Ml Vial) 4 unit SUBCUT BEDTIME [facility] Last Admin: 02/01/25 22:08 Dose: 4 unit Documented By: HOLLY Comments: POC 252 patients blood sugar monitor Insulin Human Lispro (Insulin Lispro 100 Unit/Ml 3 Ml Vial) 0 unit SUBCUT QIDACHS [facility]; Protocol Last Admin: 02/01/25 22:08 Dose: 6 unit Documented By: HOLLY Comments: POC 252 patients blood sugar monitor Melatonin (Melatonin 3 Mg Tablet) 6 mg PO BEDTIME PRN PRN Reason: Insomnia Last Admin: 01/29/25 21:44 Dose: 6 mg Documented By: MILTON Omeprazole (Omeprazole 20 Mg Capsule.) 20 mg PO DAILY@0630 [facility] Last Admin: 02/02/25 06:25 Dose: Not Given Documented By: HOLLY Non-Admin Reason: Patient Refused Primidone (Primidone 50 Mg Tablet) 50 mg PO BEDTIME [facility] Last Admin: 02/01/25 19:47 Dose: 50 mg Documented By: HOLLY Sodium Chloride (0.9 % Sodium Chloride Flush 3 Ml Syringe) 3 ml IVFLUSH QSHIFT [facility] Last Admin: 02/01/25 19:54 Dose: 3 ml Documented By: HOLLY Vitamin D (Cholecalciferol (Vitamin D3) 25 Mcg Tablet) 50 mcg PO DAILY [facility] Last Admin: 02/01/25 10:14 Dose: 50 mcg Documented By: BROB Labs 02/01/25 11:54 02/01/25 11:54 Labs: Laboratory Results - last 24 hr 01/31/25 02/01/25 02/01/25 15:20 11:54 20:35 MCV 86.3 MCH 28.2 MCHC 32.6 RDW 15.1 Plt Count 239 MPV 11.8 Absolute Nucleated RBC 0.000 Nucleated RBC % (auto) 0.0 Anion Gap Cancelled 15 Estim Creat Clear Calc Cancelled 29.3 Estimated GFR Cancelled 35 Random Glucose Cancelled 232 H Lactic Acid 1.1 Calcium Cancelled 9.0 Microbiology Microbiology Results: Microbiology 01/27/25 17:39 Blood Culture - Final Blood - Venous No growth after 5 days. 01/27/25 19:15 Blood Culture - Final Blood - Venous No growth after 5 days. 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 ID appreciated - changed to po doxy and augmentin angiogram today 02/02/25 Continue apixaban, statin became septic overnight 02/01/25 with fever and tachycardia, not severe, creatinine chronic follow up cultures chronic systolic chf holding diuretics for shayy Acute kidney injury on CKD 4 Likely prerenal due to diuretic use Holding Entresto and torsemide, s/p 1L ns, monitor closely, improving Acute metabolic alkalosis Due to diuretics, resolved Diabetes Basal bolus insulin acute hypokalemia replace and monitor chronic ckd anemia hld statin dvt prophylaxis - eliquis full code reason for continued hospitalization:angio, fevers Quality Stroke Does the patient have a stroke diagnosis?: No VTE Prior VTE?: No VTE Risk Level:: Medical - moderate - high VTE Device Contraindication: Treatment Not Indicated VTE Drug Contraindication: N/A - Med Ordered
--- NOTE | 2025-02-02 10:40 | PM.PNNEP ---
Subjective Subjective Date of Service: 02/02/25 Interval history: 74-year-old male with a medical history of CKD4, DMII, afib, HLD, HTN and HFrEF (EF 10-15%), who presented to the ED due to right foot pain, being managed by hospital medicine for dry gangrene secondary to PVD. On diuretics for CHF, torsemide and metolazone doses increased prior to admission. creatinine prior to admission 2.7; increased to 3.14 on admission. Has been trending down, most recent on 02/01 was [address] Mead in [place] however patient requested us to take care of him while in the hospital. Physical Exam Vital Signs: Vital Signs: Last Vital Signs Temp 98.4 F 02/02/25 09:50 Pulse 85 02/02/25 10:20 Resp 16 02/02/25 10:20 BP 124/67 02/02/25 10:20 Pulse Ox 98 02/02/25 10:20 O2 Del Method Room Air 02/02/25 10:20 O2 Flow Rate 2 02/02/25 09:30 BMI result Body Mass Index 21.5 Const: General: no acute distress, alert and awake Neck: Neck: Yes no JVD Resp: Effort & Inspection: normal respiratory effort and able to speak in complete sentences Auscultation: crackles on the left in the mid lung herron and in the lower lung herron Cardio: Jugular venous distension: no JVD Rate: regular rate Heart sounds: S1 normal heart sound present and S2 normal heart sound present GI: Palpation (GI): Soft to palpation and nontender : General: Yes no CVA tenderness Back/Spine/Pelvis: Back: no CVA tenderness Skin: Lesions: no lesions Rashes: no rashes Wounds: wounds noted (right lower extremity digit necrosis ) Extrem: General: No edema and No pedal edema Right lower extremity: foot (necrotic 4th and 5th toes) Objective Data Labs 02/01/25 11:54 02/01/25 11:54 Labs: Laboratory Results - last 24 hr 01/31/25 02/01/25 02/01/25 15:20 11:54 20:35 WBC 9.2 RBC 3.73 L Hgb 10.5 L Hct 32.2 L MCV 86.3 MCH 28.2 MCHC 32.6 RDW 15.1 Plt Count 239 MPV 11.8 Absolute Nucleated RBC 0.000 Nucleated RBC % (auto) 0.0 Sodium Cancelled 142 Potassium Cancelled 3.3 Chloride Cancelled 99 Carbon Dioxide Cancelled 31 H Anion Gap Cancelled 15 BUN Cancelled 30 H Creatinine Cancelled 1.91 H Estim Creat Clear Calc Cancelled 29.3 Estimated GFR Cancelled 35 Random Glucose Cancelled 232 H Lactic Acid 1.1 Calcium Cancelled 9.0 Microbiology Microbiology Results: Microbiology 01/27/25 17:39 Blood - Venous Blood Culture - Final No growth after 5 days. 01/27/25 19:15 Blood - Venous Blood Culture - Final No growth after 5 days. Procedures Date of Service Date of Service: 02/02/25 Assessment & Plan Assessment and plan (1) Acute kidney injury superimposed on CKD: Status: Acute Plan ABHI due to compromise in renal perfusion with resultant tubular injury Serum creatinine is improving and trending down Continue to hold diuretics/Entresto and monitor creatinine as blood pressures are well controlled and patient remains hypovolemic. Monitor serum electrolytes and renal function daily avoid nephrotoxins will continue to follow Discussed with Dr Mccoy. Time Spent With Patient Time: Total time managing care of this patient today ____ minutes. Progress Note: Quality Stroke Does the patient have a stroke diagnosis?: No
[2025-02-02] MEDS: Gabapentin 100 MG CAPSULE 200 MG PO ×3 (12:23→20:32)
[2025-02-02] MEDS: Amoxicillin/Potassium Clav 875 MG TABLET PO ×2 (12:23→23:01)
[2025-02-02] MEDS: Apixaban 2.5 MG TABLET PO ×2 (12:24→20:32)
[2025-02-02] MEDS: Doxycycline Monohydrate 100 MG CAPSULE PO ×2 (12:24→23:01)
[2025-02-02] MEDS: Amiodarone HCL 200 MG TABLET PO (12:24)
[2025-02-02] MEDS: Cholecalciferol (Vitamin D3) 25 MCG TABLET 50 MCG PO (12:24)
[2025-02-02 14:08] LABS: Hematocrit 31.4 % (42.0-52.0); Hemoglobin 10.3 g/dl (14.0-18.0); Mean Corpuscular HGB Conc 32.8 g/dl (31.0-36.0); Mean Corpuscular Hemoglobin 28.6 pg (27.0-33.0); Mean Corpuscular Volume 87.2 fL (80.0-98.0); Mean Platelet Volume 11.3 fL (9.4-12.4); Platelet Count 209 X10*3/uL (160-400); White Blood Count 7.2 X10*3/uL (4.8-10.8)
[2025-02-02 14:21] LABS: Anion Gap 15 (12-20); Blood Urea Nitrogen 25 mg/dL (9-16); Calcium 8.7 mg/dL (8.4-10.2); Carbon Dioxide 29 mmol/L (22-29); Chloride 102 mmol/L (96-108); Creatinine Clr Calc Pharmacy 33.2; Estimated Glomerular Filt Rate 40; Glucose Random 213 mg/dL (60-115); Potassium 3.8 mmol/L (3.3-5.1); Sodium 142 mmol/L (135-145)
[2025-02-02] MEDS: 0.9 % Sodium Chloride Flush 3 ML SYRINGE IVFLUSH (18:05)
[2025-02-02] MEDS: Atorvastatin Calcium 10 MG TABLET PO (20:32)
[2025-02-02] MEDS: Primidone 50 MG TABLET PO (20:32)
[2025-02-02] MEDS: Insulin Glargine,Hum.rec.anlog 100 UNIT/ML 10 ML VIAL SUBCUT (23:14)
--- NOTE | 2025-02-03 03:13 | PC.NURSE ---
Addendum entered by Gloria Gunter RN 02/03/25 06:12: pt's blood sugar at 0600 was 136. Addendum entered by Gloria Gunter RN 02/03/25 03:21: pt requested for me to check in with him around 0300, at 0315 pt's blood sugar was 146. Original Note: pt has his own blood sugar monitoring device. At 204 pt's blood sugar was 172. He requested to wait until 2300 for his scheduled 2100 lantus. At 2314 pt's blood sugar was 171, he refused lispro admelog but he let me give his 4 units of lantus.
[2025-02-03 04:00] VITALS: BP 101/56; PULSE 100; RESP 18; TEMP 37; O2SAT 94
[2025-02-03] MEDS: 0.9 % Sodium Chloride 1,000 ML 100 ML IVCONT ×2 (05:54→16:06)
--- NOTE | 2025-02-03 06:11 | PC.NURSE ---
pt refused labs this morning. Dr. Plata aware.
[2025-02-03] MEDS: Amiodarone HCL 200 MG TABLET PO (07:25)
[2025-02-03] MEDS: Cholecalciferol (Vitamin D3) 25 MCG TABLET 50 MCG PO (07:25)
[2025-02-03] MEDS: Gabapentin 100 MG CAPSULE 200 MG PO ×3 (07:25→20:49)
[2025-02-03] MEDS: Apixaban 2.5 MG TABLET PO ×2 (07:25→20:49)
[2025-02-03 08:00] VITALS: BP 129/69; PULSE 84; RESP 16; TEMP 36.7; O2SAT 97
--- NOTE | 2025-02-03 09:24 | PC.NURSE ---
+ Pulse via Doppler.
[2025-02-03] MEDS: methylPREDNISolone Sod Succ 125 MG/2 ML VIAL IVPUSH (09:30)
--- NOTE | 2025-02-03 09:48 | PM.PNNEP ---
Subjective Subjective Date of Service: 02/03/25 Interval history: 74-year-old male with a medical history of CKD4, DMII, afib, HLD, HTN and HFrEF (EF 10-15%), who presented to the ED due to right foot pain, being managed by hospital medicine for dry gangrene secondary to PVD. On diuretics for CHF, torsemide and metolazone doses increased prior to admission. creatinine prior to admission 2.7 (previous hospitalization, unclear baseline); increased to 3.14 on admission. Has been trending down and stabilizin/30 1.75, 02/02 1.69, 02/01 1.91, 02/02 1.69. He sees Dr. Mead in [place] however patient requested us to take care of him while in the hospital. Patient reports he feels tired and is frustrated with the difficulty with which his blood is drawn. Otherwise denies concerns/new symptoms. Physical Exam Vital Signs: Vital Signs: Last Vital Signs Temp 98.0 F 02/03/25 08:00 Pulse 84 02/03/25 08:00 Resp 16 02/03/25 08:00 BP 129/69 02/03/25 08:00 Pulse Ox 97 02/03/25 08:00 O2 Del Method Room Air 02/03/25 08:00 O2 Flow Rate 2 02/02/25 09:30 BMI result Body Mass Index 21.5 Const: General: no acute distress, alert and awake Neck: Neck: Yes no JVD Resp: Effort & Inspection: normal respiratory effort and able to speak in complete sentences Auscultation: crackles on the left in the mid lung herron and in the lower lung herron Cardio: Jugular venous distension: no JVD Rate: regular rate Heart sounds: S1 normal heart sound present and S2 normal heart sound present GI: Palpation (GI): Soft to palpation and nontender : General: Yes no CVA tenderness Back/Spine/Pelvis: Back: no CVA tenderness Skin: Lesions: no lesions Rashes: no rashes Wounds: wounds noted (right lower extremity digit necrosis ) Extrem: General: No edema and No pedal edema Right lower extremity: foot (necrotic 4th and 5th toes) Objective Data Labs 02/03/25 10:30 02/03/25 10:30 Labs: Laboratory Results - last 24 hr 02/02/25 13:54 WBC 7.2 RBC 3.60 L Hgb 10.3 L Hct 31.4 L MCV 87.2 MCH 28.6 MCHC 32.8 RDW 15.0 Plt Count 209 MPV 11.3 Absolute Nucleated RBC 0.000 Nucleated RBC % (auto) 0.0 Sodium 142 Potassium 3.8 Chloride 102 Carbon Dioxide 29 Anion Gap 15 BUN 25 H Creatinine 1.69 H Estim Creat Clear Calc 33.2 Estimated GFR 40 Random Glucose 213 H Calcium 8.7 Microbiology Microbiology Results: Microbiology 02/01/25 20:36 Blood - Venous Blood Culture - Preliminary No growth after 24 hours. 02/01/25 20:36 Blood - Venous Blood Culture - Preliminary No growth after 24 hours. 01/27/25 17:39 Blood - Venous Blood Culture - Final No growth after 5 days. 01/27/25 19:15 Blood - Venous Blood Culture - Final No growth after 5 days. Procedures Date of Service Date of Service: 02/03/25 Assessment & Plan Assessment and plan (1) Acute kidney injury superimposed on CKD: Status: Acute Plan ABHI due to compromise in renal perfusion with resultant tubular injury Serum creatinine is improving and trending down Continue to hold diuretics and monitor creatinine as blood pressures are well controlled and patient remains hypovolemic. May consider re-starting entresto at lowest dose if indicated from cardiac standpoint. Monitor serum electrolytes and renal function daily avoid nephrotoxins will continue to follow Discussed with Dr Benz Time Spent With Patient Time: Total time managing care of this patient today ____ minutes. Progress Note: Quality Stroke Does the patient have a stroke diagnosis?: No
[2025-02-03] MEDS: Amoxicillin/Potassium Clav 875 MG TABLET PO ×2 (10:14→23:23)
[2025-02-03] MEDS: Doxycycline Monohydrate 100 MG CAPSULE PO ×2 (10:14→23:23)
[2025-02-03 10:40] LABS: Hematocrit 26.7 % (42.0-52.0); Hemoglobin 8.9 g/dl (14.0-18.0); Mean Corpuscular HGB Conc 33.3 g/dl (31.0-36.0); Mean Corpuscular Hemoglobin 28.8 pg (27.0-33.0); Mean Corpuscular Volume 86.4 fL (80.0-98.0); Mean Platelet Volume 11.2 fL (9.4-12.4); Platelet Count 206 X10*3/uL (160-400); Red Blood Count 3.09 X10*6/uL (4.60-5.80); Red Cell Distribution Width 15.3 % (11.0-16.0); White Blood Count 8.2 X10*3/uL (4.8-10.8)
--- NOTE | 2025-02-03 10:45 | HO.VASCPN ---
Subjective Subjective Date of Service: 02/03/25 Interval history: Tim is doing ok this morning. He states his tremor has worsened due to multiple law draws that he is having. He denies any pain in the groin from the angio yesterday. He does state that his pain has decreased since yesterday. He is eating, drinking, and sleeping well. He has no new concerns this morning. Physical Exam Vital Signs: Vital Signs: Last Vital Signs Temp 98.0 F 02/03/25 08:00 Pulse 84 02/03/25 08:00 Resp 16 02/03/25 08:00 BP 129/69 02/03/25 08:00 Pulse Ox 97 02/03/25 08:00 O2 Del Method Room Air 02/03/25 08:00 O2 Flow Rate 2 02/02/25 09:30 BMI result Body Mass Index 21.5 Const: General: comfortable and no acute distress Orientation/consciousness: patient oriented x3 HEENT: Ears: hearing grossly normal bilaterally Resp: Effort & Inspection: normal respiratory effort and able to speak in complete sentences Auscultation: clear to auscultation bilaterally Cardio: Rate: regular rate Rhythm: regular rhythm Heart sounds: S1 normal heart sound present and S2 normal heart sound present Bruits: no abdominal aortic bruits, no carotid bruits, no femoral bruits and no renal bruits GI: Palpation (GI): No Abdominal aortic bruit present : Other: Groin: C/D/I Neuro: General: patient oriented x3 Cranial nerves: Yes CN's II-XII intact bilaterally Extrem: Other: Right foot: dressing changed this morning by nursing, not taken down again. Doppler DP pulse. Progress Note: A&P Assessment and plan (1) PAD (peripheral artery disease): Status: Acute Assessment and Plan: Tim is s/p RLE SFA plasty and stent with a right peroneal stent with Dr Torrez yesterday. He states he is doing well this morning. He has no pain in the groin. He states his pain has decreased. We recommend continuing with Eliquis. We recommend continuing with wound care of painting the right toes with Betadine, 4x4, and Kerlix wrap. We will have him follow up with us outpatient in appx 2w. We will continue to monitor. If there are any questions or concerns, please do not hesitate to reach out to us. Time Spent With Patient Time: Total time managing care of this patient today ____ minutes. Procedures Date of Service Date of Service: 02/03/25 Quality Stroke Does the patient have a stroke diagnosis?: No VTE Prior VTE?: No VTE Risk Level:: Medical - moderate - high VTE Device Contraindication: Treatment Not Indicated VTE Drug Contraindication: N/A - Med Ordered
[2025-02-03 10:50] LABS: Anion Gap 13 (12-20); Carbon Dioxide 26 mmol/L (22-29); Chloride 106 mmol/L (96-108); Potassium 3.7 mmol/L (3.3-5.1); Sodium 141 mmol/L (135-145)
[2025-02-03 10:51] LABS: Blood Urea Nitrogen 25 mg/dL (9-16); Calcium 8.5 mg/dL (8.4-10.2); Estimated Glomerular Filt Rate 38; Glucose Random 184 mg/dL (60-115)
[2025-02-03 11:27] LABS: ACT 261 Celite s (79-173)
[2025-02-03 12:00] VITALS: BP 122/78; PULSE 91; RESP 16; TEMP 36.6; O2SAT 97
[2025-02-03] MEDS: Insulin Lispro 100 UNIT/ML 3 ML VIAL SUBCUT ×3 (12:30→20:59)
--- NOTE | 2025-02-03 12:33 | MHC.CM.PN ---
PHYSICAL THERPY RECOMMENDED STR SPOKE WITH PT RE SAME HE AGAIN DOES NOT WANT STR WANTS HOME WITH [facility]
[2025-02-03 15:28] VITALS: BP 117/63; PULSE 85; RESP 18; TEMP 36.7; O2SAT 97
--- NOTE | 2025-02-03 15:30 | P.PNIM_ITS ---
Subjective Subjective Date of Service: 02/03/25 Interval History: Doing well since surgery. States pain and leg resolved Review of Systems Denies chest pain Denies shortness of breath Denies Physical Exam 2 Vital Signs: Vital Signs: Last Vital Signs Temp 97.8 F 02/03/25 12:00 Pulse 91 02/03/25 12:00 Resp 16 02/03/25 12:00 BP 122/78 02/03/25 12:00 Pulse Ox 97 02/03/25 12:00 O2 Del Method Room Air 02/03/25 12:00 O2 Flow Rate 2 02/02/25 09:30 BMI result Body Mass Index 21.5 Objective Data Active Medications Acetaminophen (Acetaminophen 325 Mg Tablet) 975 mg PO Q6H PRN PRN Reason: Pain, Mild 1-3,fever,headache Last Admin: 02/01/25 19:51 Dose: 975 mg Documented By: HOLLY Amiodarone HCl (Amiodarone Hcl 200 Mg Tablet) 200 mg PO DAILY [facility] Last Admin: 02/03/25 07:25 Dose: 200 mg Documented By: DIOMEDES Amoxicillin/Clavulanate Potassium (Amoxicillin/Potassium Clav 875 Mg Tablet) 875 mg PO Q12H [facility] Last Admin: 02/03/25 10:14 Dose: 875 mg Documented By: DIOMEDES Apixaban (Apixaban 2.5 Mg Tablet) 2.5 mg PO BID [facility] Last Admin: 02/03/25 07:25 Dose: 2.5 mg Documented By: DIOMEDES Atorvastatin Calcium (Atorvastatin Calcium 10 Mg Tablet) 10 mg PO BEDTIME [facility] Last Admin: 02/02/25 20:32 Dose: 10 mg Documented By: TOMMIE Calcium Carbonate (Calcium Carbonate 750 Mg Tab.Chew) 750 mg PO Q4H PRN PRN Reason: Heartburn Dextrose (Dextrose 50 % 25 Gm/50 Ml Syringe) 25 gm IVPUSH Q15M PRN; Protocol PRN Reason: per Hypoglycemia Standing Ord. Last Admin: 02/02/25 05:27 Dose: 25 gm Documented By: HOLLY Comments: POC 60 Doxycycline Monohydrate (Doxycycline Monohydrate 100 Mg Capsule) 100 mg PO Q12H [facility] Last Admin: 02/03/25 10:14 Dose: 100 mg Documented By: DIOMEDES Gabapentin (Gabapentin 100 Mg Capsule) 200 mg PO TID [facility] Last Admin: 02/03/25 13:50 Dose: 200 mg Documented By: HELENE Glucose (Glucose Gel 15 Gm Gel..Gram.) 15 gm PO Q15M PRN; Protocol PRN Reason: per Hypoglycemia Standing Ord. Sodium Chloride (Ns) 1,000 mls @ 100 mls/hr IVCONT .Q10H [facility] Last Admin: 02/03/25 13:08 Dose: Not Given Documented By: HELENE Non-Admin Reason: IV Running Insulin Glargine (Insulin Glargine,Hum.Rec.Anlog 100 Unit/Ml 10 Ml Vial) 4 unit SUBCUT BEDTIME [facility] Last Admin: 02/02/25 23:14 Dose: 4 unit Documented By: TOMMIE Comments: pt's blood sugar monitor - POC 171 Insulin Human Lispro (Insulin Lispro 100 Unit/Ml 3 Ml Vial) 0 unit SUBCUT QIDACHS [facility]; Protocol Last Admin: 02/03/25 12:30 Dose: 6 unit Documented By: HELENE Melatonin (Melatonin 3 Mg Tablet) 6 mg PO BEDTIME PRN PRN Reason: Insomnia Last Admin: 01/29/25 21:44 Dose: 6 mg Documented By: MILTON Omeprazole (Omeprazole 20 Mg Capsule.) 20 mg PO DAILY@0630 [facility] Last Admin: 02/03/25 06:01 Dose: Not Given Documented By: TOMMIE Non-Admin Reason: Patient Refused Primidone (Primidone 50 Mg Tablet) 50 mg PO BEDTIME [facility] Last Admin: 02/02/25 20:32 Dose: 50 mg Documented By: TOMMIE Sodium Chloride (0.9 % Sodium Chloride Flush 3 Ml Syringe) 3 ml IVFLUSH QSHIFT [facility] Last Admin: 02/03/25 07:25 Dose: Not Given Documented By: DIOMEDES Non-Admin Reason: IV Running Vitamin D (Cholecalciferol (Vitamin D3) 25 Mcg Tablet) 50 mcg PO DAILY [facility] Last Admin: 02/03/25 07:25 Dose: 50 mcg Documented By: DIOMEDES Labs 02/03/25 10:30 02/03/25 10:30 Labs: Laboratory Results - last 24 hr 02/02/25 02/03/25 09:05 10:30 MCV 86.4 MCH 28.8 MCHC 33.3 RDW 15.3 Plt Count 206 MPV 11.2 Absolute Nucleated RBC 0.000 Nucleated RBC % (auto) 0.0 Activated Clotting Time 261 H Anion Gap 13 Estim Creat Clear Calc 32.0 Estimated GFR 38 Random Glucose 184 H Calcium 8.5 Microbiology Microbiology Results: Microbiology 02/01/25 20:36 Blood Culture - Preliminary Blood - Venous No growth after 24 hours. 02/01/25 20:36 Blood Culture - Preliminary Blood - Venous No growth after 24 hours. Quality Stroke Does the patient have a stroke diagnosis?: No VTE Prior VTE?: No VTE Risk Level:: Medical - moderate - high VTE Device Contraindication: Treatment Not Indicated VTE Drug Contraindication: N/A - Med Ordered
[2025-02-03 19:15] VITALS: BP 123/70; PULSE 93; RESP 18; TEMP 37.2; O2SAT 96
[2025-02-03] MEDS: Torsemide 20 MG TABLET 40 MG PO (20:49)
[2025-02-03] MEDS: Atorvastatin Calcium 10 MG TABLET PO (20:49)
[2025-02-03] MEDS: Primidone 50 MG TABLET PO (20:49)
[2025-02-03] MEDS: Insulin Glargine,Hum.rec.anlog 100 UNIT/ML 10 ML VIAL SUBCUT (20:55)
[2025-02-04] MEDS: 0.9 % Sodium Chloride 1,000 ML 100 ML IVCONT (01:44)
[2025-02-04 03:39] VITALS: BP 118/72; PULSE 78; RESP 20; TEMP 36.7; O2SAT 99
[2025-02-04 07:58] VITALS: BP 135/80; PULSE 83; RESP 18; TEMP 36.3; O2SAT 98
[2025-02-04] MEDS: Insulin Lispro 100 UNIT/ML 3 ML VIAL SUBCUT ×2 (08:05→11:53)
[2025-02-04] MEDS: Apixaban 2.5 MG TABLET PO (08:06)
[2025-02-04] MEDS: Amiodarone HCL 200 MG TABLET PO (08:06)
[2025-02-04] MEDS: Gabapentin 100 MG CAPSULE 200 MG PO ×2 (08:06→14:46)
[2025-02-04] MEDS: Cholecalciferol (Vitamin D3) 25 MCG TABLET 50 MCG PO (08:06)
--- NOTE | 2025-02-04 09:19 | P.PNNP_ITS ---
Subjective Subjective Date of Service: 02/04/25 Interval history: 74-year-old male with a medical history of CKD4, DMII, afib, HLD, HTN and HFrEF (EF 10-15%), who presented to the ED due to right foot pain, being managed by hospital medicine for dry gangrene secondary to PVD. On diuretics for CHF, torsemide and metolazone doses increased prior to admission. creatinine prior to admission 2.7 (previous hospitalization, unclear baseline); increased to 3.14 on admission. Has been trending down and stabilizin/30 1.75, 02/02 1.69, 02/01 1.91, 02/02 1.69, 01/24 1.[address]. He sees Dr. Mead in [place] however patient requested us to take care of him while in the hospital. Patient denies new symptoms today. Physical Exam 2 Vital Signs: Vital Signs: Last Vital Signs Temp 97.3 F 02/04/25 07:58 Pulse 83 02/04/25 07:58 Resp 18 02/04/25 07:58 BP 135/80 02/04/25 07:58 Pulse Ox 98 02/04/25 07:58 O2 Del Method Room Air 02/04/25 07:58 O2 Flow Rate 2 02/02/25 09:30 BMI result Body Mass Index 21.5 Const: General: no acute distress, alert and awake Neck: Neck: Yes no JVD Resp: Effort & Inspection: normal respiratory effort and able to speak in complete sentences Auscultation: crackles on the left in the mid lung herron and in the lower lung herron Cardio: Jugular venous distension: no JVD Rate: regular rate Heart sounds: S1 normal heart sound present and S2 normal heart sound present GI: Palpation (GI): Soft to palpation and nontender : General: Yes no CVA tenderness Back/Spine/Pelvis: Back: no CVA tenderness Skin: Lesions: no lesions Rashes: no rashes Wounds: wounds noted (right lower extremity digit necrosis ) Extrem: General: No edema and No pedal edema Right lower extremity: foot (necrotic 4th and 5th toes) Objective Data Labs 02/03/25 10:30 02/03/25 10:30 Labs: Laboratory Results - last 24 hr 02/02/25 02/03/25 09:05 10:30 WBC 8.2 RBC 3.09 L Hgb 8.9 L Hct 26.7 L MCV 86.4 MCH 28.8 MCHC 33.3 RDW 15.3 Plt Count 206 MPV 11.2 Absolute Nucleated RBC 0.000 Nucleated RBC % (auto) 0.0 Activated Clotting Time 261 H Sodium 141 Potassium 3.7 Chloride 106 Carbon Dioxide 26 Anion Gap 13 BUN 25 H Creatinine 1.75 H Estim Creat Clear Calc 32.0 Estimated GFR 38 Random Glucose 184 H Calcium 8.5 Microbiology Microbiology Results: Microbiology 02/01/25 20:36 Blood - Venous Blood Culture - Preliminary No growth after 48 hours. 02/01/25 20:36 Blood - Venous Blood Culture - Preliminary No growth after 48 hours. 01/27/25 17:39 Blood - Venous Blood Culture - Final No growth after 5 days. 01/27/25 19:15 Blood - Venous Blood Culture - Final No growth after 5 days. Procedures Date of Service Date of Service: 02/04/25 Assessment & Plan Assessment and plan (1) Acute kidney injury superimposed on CKD: Status: Acute Plan ABHI due to compromise in renal perfusion with resultant tubular injury Serum creatinine is improving and trending down Continue to hold diuretics and monitor creatinine as blood pressures are well controlled and patient is euvolemic. May consider re-starting entresto at lowest dose if indicated from cardiac standpoint; may consider re-starting diuretics if indicated. Monitor serum electrolytes and renal function daily avoid nephrotoxins will continue to follow Discussed with Dr Mccoy. Time Spent With Patient Time: Total time managing care of this patient today ____ minutes. Progress Note: Quality Stroke Does the patient have a stroke diagnosis?: No
--- NOTE | 2025-02-04 10:12 | HO.VASCPN ---
Subjective Subjective Date of Service: 02/04/25 Interval history: Tim is doing well this morning. He states he would like to see the surgeon and stop seeing myself. He has been eating and sleeping well. He states the pain has been decreasing in his foot/leg. He has no new concerns this morning. Physical Exam Vital Signs: Vital Signs: Last Vital Signs Temp 97.3 F 02/04/25 07:58 Pulse 83 02/04/25 07:58 Resp 18 02/04/25 07:58 BP 135/80 02/04/25 07:58 Pulse Ox 98 02/04/25 07:58 O2 Del Method Room Air 02/04/25 07:58 O2 Flow Rate 2 02/02/25 09:30 BMI result Body Mass Index 21.5 Const: General: comfortable and no acute distress Orientation/consciousness: patient oriented x3 HEENT: Ears: hearing grossly normal bilaterally Resp: Effort & Inspection: normal respiratory effort and able to speak in complete sentences Auscultation: clear to auscultation bilaterally Cardio: Rate: regular rate Rhythm: regular rhythm Heart sounds: S1 normal heart sound present and S2 normal heart sound present Bruits: no abdominal aortic bruits, no carotid bruits, no femoral bruits and no renal bruits GI: Palpation (GI): No Abdominal aortic bruit present Neuro: General: patient oriented x3 Cranial nerves: Yes CN's II-XII intact bilaterally Extrem: Other: Right foot: dressing in place, not taken down this morning. Progress Note: A&P Assessment and plan (1) PAD (peripheral artery disease): Status: Acute Assessment and Plan: Tim is s/p RLE SFA plasty and stent with a right peroneal stent with Dr Lore Jessica. He states he is doing well this morning. He has no pain in the groin. He states his pain has decreased. He is upset that the surgeon has not seen him and would like to see him. I attempted to discuss with him that I could ask, but generally I take care of all the follow up. We recommend continuing with Elicandice. We recommend continuing with wound care of painting the right toes with Betadine, 4x4, and Kerlix wrap. We will have him follow up with us outpatient in appx 2w. If there are any questions or concerns, please do not hesitate to reach out to us. Time Spent With Patient Time: Total time managing care of this patient today ____ minutes. Procedures Date of Service Date of Service: 02/04/25 Quality Stroke Does the patient have a stroke diagnosis?: No VTE Prior VTE?: No VTE Risk Level:: Medical - moderate - high VTE Device Contraindication: Treatment Not Indicated VTE Drug Contraindication: N/A - Med Ordered
[2025-02-04] MEDS: methylPREDNISolone Sod Succ 125 MG/2 ML VIAL 60 MG IVPUSH ×2 (10:21→14:46)
[2025-02-04] MEDS: Empagliflozin 10 MG TABLET PO (10:21)
[2025-02-04] MEDS: Doxycycline Monohydrate 100 MG CAPSULE PO (10:21)
[2025-02-04] MEDS: Amoxicillin/Potassium Clav 875 MG TABLET PO (10:21)
[2025-02-04] MEDS: Torsemide 20 MG TABLET 40 MG PO (10:22)
[2025-02-04] MEDS: Sacubitril/Valsartan 24/26 1 TAB TABLET PO (10:22)
[2025-02-04] MEDS: Potassium Chloride ER 20 MEQ TAB.ER.PRT PO (10:22)
--- NOTE | 2025-02-04 12:04 | P.DS_ITS ---
DS: Providers Provider Date of Service: 02/04/25 Date of admission: 01/28/25 01:22 Date of discharge: 02/04/25 Primary care physician: Darion Conner MD Consults: 01/28/25 01:26 Consult to Infectious Diseases Routine Consulting Provider: [facility] Reason for consultation: dry gangrene Has provider been notified: No Consult to Vascular Surgery Routine Consulting Provider: [facility] Reason for consultation: dry gangrene, stenosis R superficial femoral artery Has provider been notified: No 01/28/25 01:35 Consult to Nephrology Routine Consulting Provider: [facility] Reason for consultation: ABHI ?cardiorenal Has provider been notified: No 01/28/25 15:09 Consult to Wound Care Routine Reason for consultation: right foot: 3,4,5 toe 01/31/25 07:52 Consult to Wound Care Routine Reason for consultation: r toe wound appears black/worsening DS: Diagnosis Discharge Diagnosis (1) PAD (peripheral artery disease): Status: Acute (2) Acute kidney injury superimposed on CKD: Status: Acute (3) Dry gangrene: Status: Acute DS: Summary Hospital Course Hospital Course: Patient is a 74-year-old male with a past medical history significant for atrial flutter on Eliquis, CKD4, insulin-dependent diabetes, HLD, HTN and HFrEF (EF 10-15%), who presented to the ED due to right foot pain and necrosis for the past 20 days. He reports that he went to urgent care who sent him here for necrotic 4th and 5th toes on the right foot. He denies any recent abx. no drainage, fever, chills, nausea or vomiting. He reports severe pain in his foot for the past month. He has been seeing vascular at [facility]. the pt is a very poor historian. Hospital Course Patient admitted to general medical floor seen in consultation by vascular surgery. On 02/02/2025 patient underwent an ultrasound-guided left common femoral access with aortogram and runoff. He underwent a right SFA plasty and stent and a right peroneal plasty without complications. On day 1 postop patient's pain was markedly improved. He was seen in consultation by Nephrology. His creatinine has remained at baseline and he will follow up with his outpatient renal and vascular doctors at [facility]. On the day of discharge he is ambulatory in the hallway without issue; PT is recommended home PT. At this point he is medically acceptable for discharge to home and follow up as aforementioned. Vascular will call for an appointment Time Attestation Discharge Coordination Time (in mins): 35 Quality: Safe Use of Opioids Does Pt have an Active Cancer Diagnosis on the Problem List?: No Quality: Stroke Does the patient have a stroke diagnosis?: No Physical Exam Vital Signs: Vital Signs: Last Vital Signs Temp 97.3 F 02/04/25 07:58 Pulse 83 02/04/25 07:58 Resp 18 02/04/25 07:58 BP 135/80 02/04/25 07:58 Pulse Ox 98 02/04/25 07:58 O2 Del Method Room Air 02/04/25 07:58 O2 Flow Rate 2 02/02/25 09:30 BMI result Body Mass Index 21.5 Const: Other: Awake alert no acute distress Resp: Other: Clear to auscultation bilaterally no rales rhonchi or wheezes Cardio: Other: No S4; positive S1-S2; no S3 murmurs rubs or gallops GI: Other: Soft nontender nondistended normoactive bowel sounds Extrem: Other: No edema bilaterally. Dressing on right foot clean dry and intact DS: Data Data Completed and Pending Completed studies during hospitalization [Text1]: Procedures Excision of Rectum, Via Natural or Artificial Opening Endoscopic, Diagnostic (01/28/24) Labs on day of discharge: Preliminary micro results at discharge 02/01/25 20:36 Blood Culture - Preliminary Blood - Venous No growth after 48 hours. 02/01/25 20:36 Blood Culture - Preliminary Blood - Venous No growth after 48 hours. Discharge Plan Discharge Anticipated Discharge Date/Time: 02/04/25 11:44 Patient Disposition: Home Health Service Discharge Diagnosis: Dry gangrene right foot Referrals: Darion Conner MD [Primary Care Provider] - 1 Week Discharge Medications: New doxycycline monohydrate 100 mg Capsule 100 mg PO Q12H Qty: 14 0RF amoxicillin-pot clavulanate 875-125 mg Tablet 1 tab PO Q12H Qty: 14 0RF prednisone 20 mg tablet See Rx Instructions .Route .COMPLEX Qty: 18 0RF Rx Instructions: 20 mg orally; 3 tabs daily for 3 days, 2 tabs daily for 3 days, 1 tab daily for 3 days Continued metolazone 2.5 mg tablet 2.5 mg PO TU acetaminophen 325 mg Tablet 650 mg PO Q4H PRN (Reason: pain/fever) torsemide 20 mg tablet 40 mg PO DAILY atorvastatin 10 mg tablet 10 mg PO BEDTIME amiodarone 200 mg tablet 200 mg PO DAILY ferrous sulfate 325 mg (65 mg iron) Tablet 325 mg PO MOWEFR gabapentin 100 mg capsule 200 mg PO TID insulin lispro [Humalog KwikPen Insulin] 100 unit/mL insulin pen See Protocol subcut TIDAC Protocol: Insulin Correction Scale Less than or equal to 110 ---- Give (units): 0 111 to 150 Give (units): 0 151 to 200 Give (units): 0 201 to 250 Give (units): 2 251 to 300 Give (units): 4 301 to 350 Give (units): 6 Greater than 350 Give (units): 8 Call MD if Blood Glucose > : 350 dapagliflozin propanediol [Farxiga] 10 mg tablet 10 mg PO DAILY potassium chloride 20 mEq Tablet Extended Release 20 meq PO BID Entresto 24-26 mg tablet 1 tab PO BID cholecalciferol (vitamin D3) 50 mcg (2,000 unit) Tablet 50 mcg PO DAILY apixaban 2.5 mg Tablet 2.5 mg PO BID primidone 50 mg tablet 50 mg PO BEDTIME torsemide 20 mg tablet 20 mg PO DAILY PRN (Reason: Leg Swelling) insulin glargine [Lantus Solostar U-100 Insulin] 100 unit/mL (3 mL) insulin pen 6 - 7 unit subcut BEDTIME Discharge Orders: Discharge Order (Routine); Ordered 02/04/25 Ordered By: Kiel Carter Diet: Advance to usual diet Activity on Discharge: As tolerated Stand Alone Forms: Patient Portal Discharge page Print Language: [place]agu[place] Care Plan Goals: Resume all pre-hospital medications. Health Concerns: Augmentin 875 twice daily and doxycycline 100 mg twice daily has been added for 7 days. He will also have given a prednisone taper for your gouty flare. Take all these meds as ordered Plan of Treatment: Follow up with the PCP next available and vascular as they schedule you Assessment: See discharge summary Patient Instructions: Doxycycline (By mouth), Amoxicillin/Clavulanate Potassium (By mouth), Zellulitis (DC), Gout (DC)
--- NOTE | 2025-02-04 12:08 | W.MHC.F2F ---
Service Date Service Date: 02/04/25 Encounter Date of encounter: 02/04/25 Encounter: Acute hospitalization Reasons for Services Signs and symptoms assessed: We will need home physical therapy and dressing changes to right foot 3 times a week Reason for nursing home: medication management and other (Betadine painting followed by dry dressing to right foot 3 times a week) Reason for physical therapy: home safety and mobility, restore joint function and gait/transfer training Homebound: Leaving the home is medically contraindicated at this time without the asist of a device and/or another person due th the listed conditions above and below. Reason homebound: unsteady gait / fall risk and leg weakness Certification: Based on the above findings, I certify that this patient is confined to the home and needs intermittent nursing home care, physical therapy and/or speech therapy, or continues to need occupational therapy. The patient is under my care, and I have initiated the establishment of the plan of care. The patient will be followed by a physician who will periodically review the plan of care. Time Spent With Patient Time: Total time managing care of this patient today ____ minutes.
--- NOTE | 2025-02-04 13:00 | MHC.CM.PN ---
PT TO DC HOME TODAY WITH [facility] VIA FAMILY TRANSPORT
[2025-02-04 16:00] VITALS: BP 110/58; PULSE 75; RESP 18; TEMP 36.3; O2SAT 96
--- NOTE | 2025-02-12 08:34 | P.CDIM_ITS ---
PROVIDER RESPONSE TEXT: To clarify, the appropriate diagnosis supported by the clinical indicators: Sepsis is/was present and is a clinical diagnosis QUERY TEXT: PHYSICIAN'S DOCUMENTATION REQUEST Date of Query: 02/10/2025 06:45 AM EDT Patient Name: Tim Bowens Admit Date: 01/28/2025 Dear Kiel Carter DO, A review of the medical record indicates additional documentation may be needed. Please review below and update the documentation accordingly. Documentation on progress note dated 02/02/25 included the diagnosis of sepsis. The patient's infectious clinical indicators include: admitted for dry gangrene right foot and cellulitis RLE became septic overnight 02/01/25 with fever and tachycardia, not severe temperature 101.6, pulse 96 follow up cultures The diagnosis of Sepsis is not included in the Discharge Summary 02/04/25 Recognized standard criteria for this condition and other infectious definitions includes: Sepsis Systemic manifestations of infection, with 2 or more SIRS criteria which include: Fever > 100.4?F or hypothermia < 96.8?F Leukocytosis - WBC > 12,000 or leukopenia, WBC < 4,000, or > 10% bands Tachycardia- > 90 beats/minute Tachypnea- RR > 20 breaths/minute or PaCO2 < 32mmHg Source: [employer] Manual 2013 Documentation should include the known or suspected organism, and the underlying infection, such as U TI or pneumonia Based on the above information and the recognized standard for sepsis, could you please clarify if th is diagnoses is still accurate and reflective of the patient's condition to ensure quality of the medical record. Sepsis is/was present and is a clinical diagnosis After study, Sepsis has been ruled out Other (explain) Clinically unable to determine (explain) Thank you, Sara Valdez RN Use of terms such as suspected, likely, concern for, or probable (associated with a specific diagnosi s that is being evaluated, monitored, or treated as if it exists) are acceptable and can be coded in the inpatient se tting, when documented at the time of discharge. Please use your independent medical judgment in providing your response. THIS QUERY IS PART OF THE PERMANENT MEDICAL RECORD
== END 2025-02-04 16:46 | disposition home health service (06) | DRG 252 ==
LOC: HO.ED 22:42 → HO.EDOVER 01-28 01:41 → HO.IMC 01-28 12:24 → HO.S3 02-02 18:28
PROVIDERS: Internal Medicine; Internal Medicine Hypertension Specialist; Physician Assistant; Student in an Organized Health Care Education/Training Program; Surgery Vascular Surgery; Admitting Provider Physician Assistant; Emergency Provider Emergency Medicine; PCP Internal Medicine; Visit Provider Hospitalist
PROC: 047K3D1 Dilation of Right Femoral Artery with Intraluminal Device, using Drug-Coated Balloon, Percutaneous Approach (ICD-10-PCS; principal; 2025-02-02 08:00)
DX: E11.52 Type 2 diabetes mellitus with diabetic peripheral angiopathy with gangrene (principal); A41.9 Sepsis, unspecified organism; E87.3 Alkalosis; I13.0 Hypertensive heart and chronic kidney disease with heart failure and stage 1 through stage 4 chronic kidney disease, or unspecified chronic kidney disease; I70.261 Atherosclerosis of native arteries of extremities with gangrene, right leg; N17.9 Acute kidney failure, unspecified; I50.22 Chronic systolic (congestive) heart failure; L03.115 Cellulitis of right lower limb; E87.6 Hypokalemia; L97.519 Non-pressure chronic ulcer of other part of right foot with unspecified severity; E78.5 Hyperlipidemia, unspecified; E11.22 Type 2 diabetes mellitus with diabetic chronic kidney disease; Z79.4 Long term (current) use of insulin; Z79.01 Long term (current) use of anticoagulants; Z79.899 Other long term (current) drug therapy
CPT/HCPCS: 36415; 37226; 73630; 76937; 80048; 80076; 80202; 82436; 82570; 82803; 82947; 83605; 83735; 83880; 84156; 84300; 85025; 85027; 85347; 85652; 86140; 87040; 93005; 93926; 93971; 97162; 99152; 99153; 99285; C1725; C1760; C1769; C1876; C1887; C1894; C2623; J1644; J2250; J2543; J2919; J3010; J3370; J3371; Q9967

== ENCOUNTER → 2025-01-27 17:32 | Outpatient (BNV) | payer MEDICARE, MEDICAID, SELFPAY | PROVIDERS: Visit Provider Radiology Diagnostic Radiology | DX: M79.672 Pain in left foot (principal); M79.671 Pain in right foot | CPT/HCPCS: 73630 ==

== ENCOUNTER → 2025-01-27 23:08 | Outpatient (BNV) | payer MEDICARE, MEDICAID, SELFPAY | PROVIDERS: Admitting Provider Physician Assistant; Emergency Provider Emergency Medicine; Visit Provider Internal Medicine | DX: I44.0 Atrioventricular block, first degree (principal); I45.10 Unspecified right bundle-branch block | CPT/HCPCS: 93010 ==

== ENCOUNTER → 2025-01-28 01:22 | Outpatient (BNV) | payer MEDICARE, MEDICAID, SELFPAY | PROVIDERS: Admitting Provider Physician Assistant; Emergency Provider Emergency Medicine; Visit Provider Internal Medicine Hypertension Specialist | DX: N17.9 Acute kidney failure, unspecified (principal); N18.9 Chronic kidney disease, unspecified | CPT/HCPCS: 99223; 99231; 99232 ==

== ENCOUNTER → 2025-01-28 01:22 | Outpatient (BNV) | payer MEDICARE, MEDICAID, SELFPAY | PROVIDERS: Admitting Provider Physician Assistant; Emergency Provider Emergency Medicine; Visit Provider Internal Medicine | DX: N17.9 Acute kidney failure, unspecified (principal); N18.9 Chronic kidney disease, unspecified; I73.9 Peripheral vascular disease, unspecified; I96 Gangrene, not elsewhere classified | CPT/HCPCS: 99222 ==

== ENCOUNTER → 2025-01-28 01:22 | Outpatient (BNV) | payer MEDICARE, MEDICAID, SELFPAY | PROVIDERS: Admitting Provider Physician Assistant; Emergency Provider Emergency Medicine; Visit Provider Internal Medicine | DX: I73.9 Peripheral vascular disease, unspecified (principal) | CPT/HCPCS: 99232 ==

== ENCOUNTER → 2025-01-28 01:22 | Outpatient (BNV) | payer MEDICARE, MEDICAID, SELFPAY | PROVIDERS: Admitting Provider Physician Assistant; Emergency Provider Emergency Medicine; Visit Provider Physician Assistant Surgical | DX: I73.9 Peripheral vascular disease, unspecified (principal) | CPT/HCPCS: 99222; 99232 ==